=== PATIENT | male | born 1950 | race African-American/Black ===

== ENCOUNTER 2017-03-07 15:22 | Observation (INO) | payer OTHER ==
--- NOTE | 2017-03-07 15:33 | PDOC ---
Rapid Medical Evaluation Time Seen by Provider: 03/07/17 15:30 Medical Evaluation: Allergies Allergy/AdvReac Type Severity Reaction Status Date / Time No Known Allergies Allergy Verified 07/17/15 13:45 03/07/17 15:31 I have performed a brief in-person evaluation of this patient. The patient presents with a chief complaint of: Missed HD yesterday. Denies any medical complaints Pertinent physical exam findings:Stable and in NAD I have ordered the following:cbc/chem The patient will proceed to the ED for further evaluation.
--- NOTE | 2017-03-07 18:00 | PDOC ---
History of Present Illness - General Chief Complaint: Pain Stated Complaint: MISSED DIALYSIS TREATMENT Time Seen by Provider: 03/07/17 15:30 History Source: Patient, Spouse - History of Present Illness Initial Comments: 03/07/17 18:00 Patient is a 67M with history of multiple prior strokes, ESRD on TThS dialysis, seizures, DM, and HTN here today complaining of altered mental status. The is the main source of this history, the patient denies problems when directly asked. The reports that about a month ago, the patient had a sudden change in behavior, increased urinary incontinence, and left sided facial droop. Per the , he's also been complaining of chest pain with some shortness of breath , last complaint was last night. The patient denies all symptoms with the exception of urinary incontinence. The says that he refused to go to dialysis today, which caused her to bring him into the hospital. Past History - Past Medical History Allergies/Adverse Reactions: Allergies Allergy/AdvReac Type Severity Reaction Status Date / Time No Known Allergies Allergy Verified 07/17/15 13:45 Home Medications: Ambulatory Orders Aspirin [ASA -] 81 mg PO DAILY 11/21/14 Calcium Carbonate 600 mg PO DAILY 11/21/14 Hydralazine HCl 25 mg PO BID 11/21/14 Lisinopril [Prinivil] 10 mg PO DAILY 11/21/14 Amlodipine Besylate [Norvasc -] 10 mg PO DAILY #60 tablet 11/23/14 Ciprofloxacin [Cipro -] 500 mg PO Q12H #6 tablet 11/23/14 Nicotine Patch [Nicoderm Patch -] 14 mg TD DAILY #30 patch 11/23/14 Diazepam [Valium -] 5 mg PO Q6H PRN 11/24/14 Furosemide [Lasix -] 80 mg PO DAILY 11/24/14 Ibuprofen [Advil -] 200 mg PO QID PRN 11/24/14 Insulin (Novolog) [Novolog Flexpen] 0 units SQ ACHS 11/24/14 Levofloxacin [Levaquin -] 250 mg PO DAILY #10 tablet 11/24/14 Mirtazapine [Remeron -] 15 mg PO DAILY 11/24/14 Oxycodone HCl/Acetaminophen [Percocet 5/325 -] 2 tab PO DAILY 11/24/14 Tamsulosin HCl [Flomax] 0.4 mg PO DAILY 11/24/14 Ondansetron [Zofran Odt -] 4 mg SL TID PRN #21 od.tablet 07/17/15 Ondansetron [Zofran Odt -] 4 mg SL BID #14 od.tablet 07/18/15 Cancer: No Cardiac Disorders: No CVA: Yes (06/2014) COPD: No Dementia: No Diabetes: Yes Dialysis: Yes () GI Disorders: No Disorders: Yes (UTI) HTN: Yes Kidney Stones: Yes Liver Disease: (Hep B) Seizures: No Thyroid Disease: No - Surgical History Abdominal Surgery: Yes (SPLEENECTOMY) Cholecystectomy: Yes Neurologic Surgery: No Orthopedic Surgery: No - Suicide/Smoking/Psychosocial Hx Smoking History: Never smoked Have you smoked in the past 12 months: Yes Number of Cigarettes Smoked Daily: 2 'Breaking Loose' booklet given: 11/21/14 Hx Alcohol Use: No Drug/Substance Use Hx: No Substance Use Type: None Hx Substance Use Treatment: No Review of Systems - Review of Systems Comments:: 03/07/17 18:15 GENERAL/CONSTITUTIONAL: No fever or chills. No weakness. HEAD, EYES, EARS, NOSE AND THROAT: No change in vision. No sore throat. CARDIOVASCULAR: Positive for chest pain and shortness of breath RESPIRATORY: No cough, wheezing, or hemoptysis. GASTROINTESTINAL: No nausea, vomiting, diarrhea or constipation. GENITOURINARY: No dysuria, frequency, or change in urination. MUSCULOSKELETAL: No joint or muscle swelling or pain. No neck or back pain. SKIN: No rash NEUROLOGIC: No headache, vertigo, loss of consciousness, or change in strength/ sensation. ENDOCRINE: No increased thirst. No abnormal weight change HEMATOLOGIC/LYMPHATIC: No anemia, easy bleeding, or history of blood clots. ALLERGIC/IMMUNOLOGIC: No hives or skin allergy. *Physical Exam - Vital Signs Last Vital Signs Temp Pulse Resp BP Pulse Ox 97.8 F 60 20 159/92 99 03/07/17 15:30 03/07/17 15:30 03/07/17 15:30 03/07/17 15:30 03/07/17 15:30 - Physical Exam Comments: 03/07/17 18:18 GENERAL: Awake, alert, and fully oriented, in no acute distress HEAD: No signs of trauma, normocephalic, atraumatic EYES: PERRLA, EOMI, sclera anicteric, conjunctiva clear, left sided facial droop ENT: Auricles normal inspection, hearing grossly normal, nares patent, oropharynx clear without exudates. Moist mucosa NECK: Normal ROM, supple, no lymphadenopathy, JVD, or masses LUNGS: No distress, speaks full sentences, clear to auscultation bilaterally HEART: Regular rate and rhythm, normal S1 and S2, no murmurs, rubs or gallops, peripheral pulses normal and equal bilaterally. ABDOMEN: Soft, nontender, normoactive bowel sounds. No guarding, no rebound. No masses EXTREMITIES: Normal inspection, Normal range of motion, no edema. No clubbing or cyanosis. NEUROLOGICAL: Left sided facial droop Normal speech, left sided weakness SKIN: Warm, Dry, normal turgor, no rashes or lesions noted. ED Treatment Course - LABORATORY CBC & Chemistry Diagram: 03/07/17 17:48 03/07/17 17:48 Medical Decision Making - Medical Decision Making 03/07/17 18:19 67M with history of multiple prior strokes, esrd on dialysis, htn, dm here today with altered mental status. Vital signs stable and normal. Believe symptoms are most likely due to another stroke. Will evaluate with labs, ua, ekg , cxr and head ct. 03/07/17 21:32 Laboratory Tests 03/07/17 03/07/17 03/07/17 17:48 17:48 19:10 WBC 4.3 D Hgb 13.0 Hct 39.5 Plt Count 174 BUN 38 H Creatinine 5.6 H Urine WBC (Auto) 248 CBC normal. BUN/Cr eleavted, patient has missed dialysis. Urine shows WBC of 248. Positive UA for UTI. 03/07/17 21:34 CT Shows: Since 11/21/2014, a right parietal and posterior frontal/parietal junction infarct /encephalomalacia is present . Asymmetric lucency in the right frontal high convexity watershed region compatible with an old infarct. There is exvacuodilatation of the right lateral ventricle. There is mild-to- moderate volume loss and moderate ventricular dilatation. A right basal ganglia and right thalamus focal old infarct are again seen. CT shows changes from prior CT. Will admit for UTI and further neuro workup. *DC/Admit/Observation/Transfer Diagnosis at time of Disposition: Urinary tract infection, Facial droop - Discharge Dispostion Condition at time of disposition: Stable Admit: Yes - Referrals - Patient Instructions - Post Discharge Activity
[2017-03-07 18:10] LABS: BASOPHIL 0.5 % (0-2.0); EOSINOPHIL 3.5 % (0-4.5); MCH 30.8 pg (25.7-33.7); MCHC 32.9 g/dl (32.0-35.9); MEAN CELL VOLUME 93.6 fl (80-96); MEAN PLT VOLUME 9.7 fl (7.5-11.1); NEUTROPHILS 43.6 % (42.8-82.8); PLATELET COUNT 174 K/MM3 (134-434); RDW 14.2 % (11.9-15.9); WHITE BLOOD COUNT 4.3 K/mm3 (4.0-10.0)
[2017-03-07 18:33] LABS: PROTHROMBIN TIME (PATIENT) 11.3 SEC (9.98-11.88)
--- NOTE | 2017-03-07 18:36 | PDOC ---
Attending Attestation - HPI HPI: 03/07/17 18:40 Patient is a 67 y/o male with PMHx of HTN, HLD, CHF, CVA (2013, left-sided deficit), who presents to the ED after missing his dialysis treatment yesterday. Patient's family member states that she has noticed a mental status change. She states he has been showing symptoms of generalized weakness recently. Also c/o SOB, dry cough, and "false alarms" when using the restroom. - Physicial Exam PE: 03/07/17 18:40 GENERAL: + right-sided weakness. Awake, alert, and fully oriented, in no acute distress HEAD: + left-sided facial droop. No signs of trauma EYES: PERRLA, EOMI, sclera anicteric, conjunctiva clear ENT: Auricles normal inspection, hearing grossly normal, nares patent, oropharynx clear without exudates. Moist mucosa NECK: Normal ROM, supple, no lymphadenopathy, JVD, or masses LUNGS: Breath sounds equal, clear to auscultation bilaterally. No wheezes, and no crackles HEART: Regular rate and rhythm, normal S1 and S2, no murmurs, rubs or gallops ABDOMEN: Soft, nontender, normoactive bowel sounds. No guarding, no rebound. No masses EXTREMITIES: + fistula in left upper extremity. + No edema in legs, mild in hands. Normal range of motion. No clubbing or cyanosis. No cords, erythema, or tenderness NEUROLOGICAL: +AMS. Cranial nerves II through XII grossly intact. SKIN: Warm, Dry, normal turgor, no rashes or lesions noted. <Sherlyn Macdonald - Last Filed: 03/07/17 18:40> - Resident Resident Name: Gilberto Mcneil - ED Attending Attestation I have performed the following: I have examined & evaluated the patient, The case was reviewed & discussed with the resident, I agree w/resident's findings & plan, Exceptions are as noted - Medical Decision Making 03/07/17 18:35 I, Dr. Ivis Daigle, DO, attest that this document has been prepared under my direction and personally reviewed by me in its entirety. I further attest, that it accurately reflects all work, treatment, procedures and medical decision -making performed by me. 11/17/17 14:16 a/p: 67yo male presents with family for eval of a change in MS x 1 month and a L facial droop -generally weak -no slurred speech -concern for poss cva vs infectious cause of change in MS -will obtain labs, ua, trop, ekg, cxr, ct head -will monitor -pt will most likely need admission for further eval <Ivis Daigle - Last Filed: 03/09/17 14:17>
[2017-03-07 18:55] LABS: ALBUMIN 3.8 g/dl (3.4-5.0); ANION GAP 10 (8-16); CALCIUM 8.8 mg/dL (8.5-10.1); CO2 25 mmol/L (21-32); GLUCOSE,RANDOM 104 mg/dL (74-106)
[2017-03-07 18:58] LABS: ALK PHOS 99 U/L (45-117); CREATININE 5.6 mg/dL (0.7-1.3); SGPT/ALT 13 U/L (12-78)
[2017-03-07 18:59] LABS: SGOT/AST 19 U/L (15-37)
[2017-03-07 19:01] LABS: TROPONIN I 0.03 ng/ml (0.00-0.05)
[2017-03-07 19:02] LABS: MAGNESIUM 2.2 mg/dL (1.8-2.4)
[2017-03-07 19:25] LABS: URINE APPEARANCE SLCLOUDY; URINE BILIRUBIN NEGATIVE (NEGATIVE); URINE BLOOD 1+ (NEGATIVE); URINE COLOR YELLOW; URINE GLUCOSE (UA) NEGATIVE (NEGATIVE); URINE KETONE NEGATIVE (NEGATIVE); URINE NITRITE NEGATIVE (NEGATIVE); URINE UROBILINOGEN NEGATIVE mg/dL (0.2-1.0)
[2017-03-07 20:43] LABS: URINE PROTEIN 2+ (NEGATIVE)
[2017-03-07 20:46] LABS: URINE RBC 11; URINE WBC 248
[2017-03-07 21:56] LABS: URINE LEUK ESTERASE 3+ (NEGATIVE)
--- NOTE | 2017-03-07 22:58 | HP ---
CHIEF COMPLAINT: Altered Mental status PCP: HISTORY OF PRESENT ILLNESS: History was taken from the patient alone. was not at the bedside. 67M with history of multiple prior strokes, kidney stones, esrd on dialysis, htn , dm, BPH, Hep B, CVA (Lsided facial and LUE and LLE weakness) presenting today with AMS a day after missing dialysis. Patient has been on dialysis for about a year on a Sunday schedule who missed dialysis on Sunday because his aide did not arrive in time on the scheduled day. Patient currently has no new symptoms, he is SOB at baseline,with orthopnea and PND that has been gradually worsening. Patient has residual L sided upper and lower limb weakness and ambulates at home with a walker and cane. Patient also has chronic urinary incontinence, with poor stream, terminal dribbling and feelings of incomplete emptying. Patient came in to the ED today because his service control operator informed his and aide of the consequences of his missed dialysis. He is altered at baseline following the CVA and has memory and cognitive deficits. At the ED, based on the 's complaints, they assumed he had a new CVA and had a head CT done that showed old infarcts. No cough, no chest pain, no headache, no leg swelling or weight gain. No seizures, LOC, or syncope. ER course was notable for: (1) ua, ekg, cxr and head ct. (2) BUN/Cr elevated- 38/56, patient has missed dialysis. (3) Urine shows WBC of 248. Positive UA for UTI. Recent Travel: PAST MEDICAL HISTORY: kidney stone PAST SURGICAL HISTORY: Cholecystectomy, Splenectomy (6 years ago), nephrolithiasis s/p Stent Social History: Smoking:Yes Alcohol: Drugs: Family History: Allergies No Known Allergies Allergy (Verified 07/17/15 13:45) HOME MEDICATIONS: Home Medications Medication Instructions Recorded Aspirin [ASA -] 81 mg PO DAILY 11/21/14 Calcium Carbonate 600 mg PO DAILY 11/21/14 Hydralazine HCl 25 mg PO BID 11/21/14 Lisinopril [Prinivil] 10 mg PO DAILY 11/21/14 Amlodipine Besylate [Norvasc -] 10 mg PO DAILY #60 tablet 11/23/14 Ciprofloxacin [Cipro -] 500 mg PO Q12H #6 tablet 11/23/14 Nicotine Patch [Nicoderm Patch -] 14 mg TD DAILY #30 patch 11/23/14 Diazepam [Valium -] 5 mg PO Q6H PRN 11/24/14 Furosemide [Lasix -] 80 mg PO DAILY 11/24/14 Ibuprofen [Advil -] 200 mg PO QID PRN 11/24/14 Insulin (Novolog) [Novolog Flexpen] 0 units SQ ACHS 11/24/14 Levofloxacin [Levaquin -] 250 mg PO DAILY #10 tablet 11/24/14 Mirtazapine [Remeron -] 15 mg PO DAILY 11/24/14 Oxycodone HCl/Acetaminophen 2 tab PO DAILY 11/24/14 [Percocet 5/325 -] Tamsulosin HCl [Flomax] 0.4 mg PO DAILY 11/24/14 Ondansetron [Zofran Odt -] 4 mg SL TID PRN #21 od.tablet 07/17/15 Ondansetron [Zofran Odt -] 4 mg SL BID #14 od.tablet 07/18/15 REVIEW OF SYSTEMS CONSTITUTIONAL: Absent: fever, chills, diaphoresis, generalized weakness, malaise, loss of appetite, weight change HEENT: Absent: rhinorrhea, nasal congestion, throat pain, throat swelling, difficulty swallowing, mouth swelling, ear pain, eye pain, visual changes CARDIOVASCULAR: Absent: chest pain, syncope, palpitations, irregular heart rate, lightheadedness , peripheral edema RESPIRATORY: Absent: cough, shortness of breath, dyspnea with exertion, orthopnea, wheezing, stridor, hemoptysis GASTROINTESTINAL: Absent: abdominal pain, abdominal distension, nausea, vomiting, diarrhea, constipation, melena, hematochezia GENITOURINARY: Absent: dysuria, frequency, urgency, hesitancy, hematuria, flank pain, genital pain MUSCULOSKELETAL: Absent: myalgia, arthralgia, joint swelling, back pain, neck pain SKIN: Absent: rash, itching, pallor HEMATOLOGIC/IMMUNOLOGIC: Absent: easy bleeding, easy bruising, lymphadenopathy, frequent infections ENDOCRINE: Absent: unexplained weight gain, unexplained weight loss, heat intolerance, cold intolerance NEUROLOGIC: Absent: headache, focal weakness or paresthesias, dizziness, unsteady gait, seizure, mental status changes, bladder or bowel incontinence PSYCHIATRIC: Absent: anxiety, depression, suicidal or homicidal ideation, hallucinations. PHYSICAL EXAMINATION Vital Signs - 24 hr 03/07/17 03/07/17 15:30 21:36 Temperature 97.8 F Pulse Rate 60 Pulse Rate [ 57 L Apical] Respiratory 20 16 Rate Blood Pressure 159/92 Blood Pressure 152/99 [Right Arm] O2 Sat by Pulse 99 99 Oximetry (%) GENERAL: Awake, alert, and fully oriented, in no acute distress. HEAD: Normal with no signs of trauma. EYES: Pupils equal, round and reactive to light, extraocular movements intact, sclera anicteric, conjunctiva clear. EARS, NOSE, THROAT: Ears normal, nares patent, oropharynx clear without exudates. Moist mucous membranes. NECK: Normal range of motion, supple, no JVD. LUNGS: Breath sounds equal, clear to auscultation bilaterally. No wheezes, and no crackles. HEART: Regular rate and rhythm, normal S1 and S2 without murmur ABDOMEN: Midline abdominal scar, Soft, nontender, not distended, normoactive bowel sounds MUSCULOSKELETAL: No CVA tenderness. UPPER EXTREMITIES: 2+ pulses, warm, well-perfused. No cyanosis. No clubbing. No peripheral edema. LUE in fixed flexion at elbow, wrist and digits. Increased tone at L elbow, L wrist and L digits. L UE, Reflexes hard to assess. RUE- LOWER EXTREMITIES: 2+ pulses, warm, well-perfused. No calf tenderness. No peripheral edema. NEUROLOGICAL: Normal sensation bilaterally. Patient was able to spell world backwards, and draw a clock but could not recollect three words Face symmetric, Cranial nerves II-XII intact. Normal speech. Gait not observed, patient was on a wheel chair PSYCHIATRIC: Cooperative. Good eye contact. Laboratory Results - last 24 hr 03/07/17 03/07/17 03/07/17 17:48 17:48 17:48 WBC 4.3 D RBC 4.22 Hgb 13.0 Hct 39.5 MCV 93.6 MCH 30.8 MCHC 32.9 RDW 14.2 Plt Count 174 MPV 9.7 Neutrophils % 43.6 D Lymphocytes % 41.8 H D Monocytes % 10.6 H Eosinophils % 3.5 D Basophils % 0.5 PT with INR INR Sodium 139 Potassium 4.4 Chloride 104 Carbon Dioxide 25 D Anion Gap 10 BUN 38 H Creatinine 5.6 H Creat Clearance w eGFR 10.15 Random Glucose 104 Calcium 8.8 Magnesium 2.2 D Total Bilirubin 1.0 AST 19 D ALT 13 D Alkaline Phosphatase 99 D Creatine Kinase 130 Troponin I 0.03 D Total Protein 8.0 Albumin 3.8 Urine Color Urine Appearance Urine pH Ur Specific [place] Urine Protein Urine Glucose (UA) Urine Ketones Urine Blood Urine Nitrite Urine Bilirubin Urine Urobilinogen Ur Leukocyte Esterase Urine WBC (Auto) Urine RBC (Auto) Urine RBC 03/07/17 03/07/17 17:48 19:10 WBC RBC Hgb Hct MCV MCH MCHC RDW Plt Count MPV Neutrophils % Lymphocytes % Monocytes % Eosinophils % Basophils % PT with INR 11.30 INR 1.00 Sodium Potassium Chloride Carbon Dioxide Anion Gap BUN Creatinine Creat Clearance w eGFR Random Glucose Calcium Magnesium Total Bilirubin AST ALT Alkaline Phosphatase Creatine Kinase Troponin I Total Protein Albumin Urine Color Yellow Urine Appearance Slcloudy Urine pH 7.0 Ur Specific [place] 1.013 Urine Protein 2+ H Urine Glucose (UA) Negative Urine Ketones Negative Urine Blood 1+ H Urine Nitrite Negative Urine Bilirubin Negative Urine Urobilinogen Negative Ur Leukocyte Esterase 3+ H Urine WBC (Auto) 248 Urine RBC (Auto) 11 Urine RBC No Result Required. CT Shows: Since 11/21/2014, a right parietal and posterior frontal/parietal junction infarct /encephalomalacia is present . Asymmetric lucency in the right frontal high convexity watershed region compatible with an old infarct. There is exvacuodilatation of the right lateral ventricle. There is mild-to- moderate volume loss and moderate ventricular dilatation. A right basal ganglia and right thalamus focal old infarct are again seen. CT shows changes from prior CT. ASSESSMENT/PLAN: 67M with history of multiple prior strokes, kidney stones, esrd on dialysis, htn , dm, BPH, Hep B, CVA (Lsided facial and LUE and LLE weakness) presenting today with "AMS" as reported by , a day after missing dialysis #AMS: Patient appears to be at baseline since his stroke, Patient was able to spell world backwards, and draw a clock but could not recollect three words For routine hemodialysis [facility] here at [facility] or at [facility] CT scan- Carotid doppler scan Neurologist consult #Hx of CVA Prior CVA with L sided residual paresis Ct head Neurologist consult Carotid doppler scan #ESRD missed dialysis Was asked to come in by service control operator because of missed dialysis session Patient does not appear overloaded, or in respiratory distress Nephrology consult-Dr Mckeon #kidney stones s/p stents Pt has chronic incontinence No renal colic at present #UTI Positive UA Ceftriaxone #DM Pt has been euglycemic BGMS ISS #BPH Chronic features of prostatism #Pyuria Asymptomatic except for chronic features of prostatism #FEN Renal diet Visit type - Emergency Visit Emergency Visit: Yes ED Registration Date: 03/08/17 Care time: The patient presented to the Emergency Department on the above date and was hospitalized for further evaluation of their emergent condition. - New Patient This patient is new to me today: Yes Date on this admission: 03/08/17 - Critical Care Critical Care patient: No
--- NOTE | 2017-03-08 00:33 | PN ---
Teaching Attending Note Name of Resident: Sosa Sparrow ATTENDING PHYSICIAN STATEMENT I saw and evaluated the patient. I reviewed the resident's note and discussed the case with the resident. I agree with the resident's findings and plan as documented. SUBJECTIVE: patient states that he is here because he missed his dialysis, his aid did not arrive on time and he was not able to come . His rug cleaner hand called and advised his to come for evaluation. As per ED physician patient has new onset weakness. He denies new weakness. is not by the bedside. PMH CVA with left sided weakness DM HTN ESRD OBJECTIVE: Vital Signs Temperature 97.8 F 03/07/17 15:30 Pulse Rate 57 L 03/07/17 21:36 Respiratory Rate 16 03/07/17 21:36 Blood Pressure 152/99 03/07/17 21:36 O2 Sat by Pulse Oximetry (%) 99 03/07/17 21:36 HEENT PERRLA CVS S1 S2 WNL RS CTA B/l ABD soft NEURO Left arm weakness 2/5 , LLE weakness 4/5 unsteady gait CBC, BMP 03/07/17 17:48 03/07/17 17:48 CT brain - old R parietal infarct ( new from 2014) Urine Test Results Urine Color Yellow 03/07/17 19:10 Urine Appearance Slcloudy 03/07/17 19:10 Urine pH 7.0 (5.0-8.0) 03/07/17 19:10 Ur Specific [place] 1.013 (1.001-1.035) 03/07/17 19:10 Urine Protein 2+ (NEGATIVE) H 03/07/17 19:10 Urine Glucose (UA) Negative (NEGATIVE) 03/07/17 19:10 Urine Ketones Negative (NEGATIVE) 03/07/17 19:10 Urine Blood 1+ (NEGATIVE) H 03/07/17 19:10 Urine Nitrite Negative (NEGATIVE) 03/07/17 19:10 Urine Bilirubin Negative (NEGATIVE) 03/07/17 19:10 Ur Leukocyte Esterase 3+ (NEGATIVE) H 03/07/17 19:10 Urine RBC No Result Required. 03/07/17 19:10 ASSESSMENT AND PLAN: 1. Suspected AMS - appears to be at baseline. No acute changes. Old CVA and Left sided weakness - c/w ASA - c/w BP control 2. MIssed HD - no indication for acute HD - due for HD in am - nephrology eval d/c home after o/p follow up
[2017-03-08] MEDS ORDERED: hydrALAZINE HCL 25 MG TABLET (FP) ONE (01:51)
[2017-03-08] MEDS ORDERED: HEPARIN NA (PORCINE) 5,000 UNITS/ML 1ML VIAL SQ SCH (02:00)
[2017-03-08] MEDS: INSULIN SLIDING SCALE (NOVOLOG) 1 VIAL SQ SCH ×4 (06:45→21:41)
[2017-03-08 07:55] LABS: MCH 30.6 pg (25.7-33.7); MCHC 32.7 g/dl (32.0-35.9); MEAN CELL VOLUME 93.4 fl (80-96); MEAN PLT VOLUME 9.7 fl (7.5-11.1); PLATELET COUNT 157 K/MM3 (134-434); RDW 14.6 % (11.9-15.9); WHITE BLOOD COUNT 5.4 K/mm3 (4.0-10.0)
[2017-03-08 08:25] LABS: ANION GAP 10 (8-16); CALCIUM 8.3 mg/dL (8.5-10.1); CO2 25 mmol/L (21-32); CREATININE 6.1 mg/dL (0.7-1.3); GLUCOSE,RANDOM 112 mg/dL (74-106); MAGNESIUM 2.2 mg/dL (1.8-2.4); PHOSPHOROUS 3.6 mg/dL (2.5-4.9)
[2017-03-08] MEDS: ACETAMINOPHEN 325 MG TABLET (FP) PO PRN ×2 (08:44→21:42)
[2017-03-08] MEDS: HEPARIN NA (PORCINE) 5,000 UNITS/ML 1ML VIAL SQ SCH ×3 (08:45→21:37)
[2017-03-08] MEDS: TAMSULOSIN HCL 0.4 MG CAP.ER.24H (FP) PO SCH (08:45)
--- NOTE | 2017-03-08 09:37 | CONSULT ---
Consult - text type - Consultation Consultation Note: Neurology History of Present Illness Patient is a 67M with history of multiple prior strokes with L sided symptoms, ESRD on [facility]S dialysis, seizures, DM, and HTN admitted complaining of altered mental status. The reported that about a month ago, the patient had a sudden change in behavior, increased urinary incontinence, and left sided facial droop. The patient missed HD on day of admission and was admitted. He completed CT head which was reviewed and did not show acute changes. During my evaluation, was awake, alert, oriented to person place and date. He was cooperative and did not demonstrate and new focal deficits. Is awaiting HD but there is concern about patient able to care for self and may be planned for SNF placement. Past History - Past Medical History Allergies/Adverse Reactions: Allergies Allergy/AdvReac Type Severity Reaction Status Date / Time No Known Allergies Allergy Verified 07/17/15 13:45 Home Medications: Ambulatory Orders Aspirin [ASA -] 81 mg PO DAILY 11/21/14 Calcium Carbonate 600 mg PO DAILY 11/21/14 Hydralazine HCl 25 mg PO BID 11/21/14 Lisinopril [Prinivil] 10 mg PO DAILY 11/21/14 Amlodipine Besylate [Norvasc -] 10 mg PO DAILY #60 tablet 11/23/14 Ciprofloxacin [Cipro -] 500 mg PO Q12H #6 tablet 11/23/14 Nicotine Patch [Nicoderm Patch -] 14 mg TD DAILY #30 patch 11/23/14 Diazepam [Valium -] 5 mg PO Q6H PRN 11/24/14 Furosemide [Lasix -] 80 mg PO DAILY 11/24/14 Ibuprofen [Advil -] 200 mg PO QID PRN 11/24/14 Insulin (Novolog) [Novolog Flexpen] 0 units SQ ACHS 11/24/14 Levofloxacin [Levaquin -] 250 mg PO DAILY #10 tablet 11/24/14 Mirtazapine [Remeron -] 15 mg PO DAILY 11/24/14 Oxycodone HCl/Acetaminophen [Percocet 5/325 -] 2 tab PO DAILY 11/24/14 Tamsulosin HCl [Flomax] 0.4 mg PO DAILY 11/24/14 Ondansetron [Zofran Odt -] 4 mg SL TID PRN #21 od.tablet 07/17/15 Ondansetron [Zofran Odt -] 4 mg SL BID #14 od.tablet 07/18/15 Cancer: No Cardiac Disorders: No CVA: Yes (06/2014) COPD: No Dementia: No Diabetes: Yes Dialysis: Yes () GI Disorders: No Disorders: Yes (UTI) HTN: Yes Kidney Stones: Yes Liver Disease: (Hep B) Seizures: No Thyroid Disease: No - Surgical History Abdominal Surgery: Yes (SPLEENECTOMY) Cholecystectomy: Yes Neurologic Surgery: No Orthopedic Surgery: No - Suicide/Smoking/Psychosocial Hx Smoking History: Never smoked Have you smoked in the past 12 months: Yes Number of Cigarettes Smoked Daily: 2 'Breaking Loose' booklet given: 11/21/14 Hx Alcohol Use: No Drug/Substance Use Hx: No Substance Use Type: None Hx Substance Use Treatment: No Review of Systems GENERAL/CONSTITUTIONAL: No fever or chills. No weakness. HEAD, EYES, EARS, NOSE AND THROAT: No change in vision. No sore throat. CARDIOVASCULAR: Positive for chest pain and shortness of breath RESPIRATORY: No cough, wheezing, or hemoptysis. GASTROINTESTINAL: No nausea, vomiting, diarrhea or constipation. GENITOURINARY: No dysuria, frequency, or change in urination. MUSCULOSKELETAL: No joint or muscle swelling or pain. No neck or back pain. SKIN: No rash NEUROLOGIC: No headache, vertigo, loss of consciousness, or change in strength/ sensation. ENDOCRINE: No increased thirst. No abnormal weight change HEMATOLOGIC/LYMPHATIC: No anemia, easy bleeding, or history of blood clots. ALLERGIC/IMMUNOLOGIC: No hives or skin allergy. *Physical Exam Vital Signs Temperature 97.9 F 03/08/17 05:50 Pulse Rate 52 L 03/08/17 05:50 Respiratory Rate 18 03/08/17 05:50 Blood Pressure 138/79 03/08/17 05:50 O2 Sat by Pulse Oximetry (%) 95 03/08/17 03:09 03/07/17 18:18 GENERAL: Awake, alert, and fully oriented, in no acute distress HEAD: No signs of trauma, normocephalic, atraumatic EYES: PERRLA, EOMI, sclera anicteric, conjunctiva clear, left sided facial droop ENT: Auricles normal inspection, hearing grossly normal, nares patent, oropharynx clear without exudates. Moist mucosa NECK: Normal ROM, supple, no lymphadenopathy, JVD, or masses LUNGS: No distress, speaks full sentences, clear to auscultation bilaterally HEART: Regular rate and rhythm, normal S1 and S2, no murmurs, rubs or gallops, peripheral pulses normal and equal bilaterally. ABDOMEN: Soft, nontender, normoactive bowel sounds. No guarding, no rebound. No masses EXTREMITIES: Normal inspection, Normal range of motion, no edema. No clubbing or cyanosis. NEUROLOGICAL: Left sided facial droop Normal speech, left sided weakness SKIN: Warm, Dry, normal turgor, no rashes or lesions noted. CBCD WBC 5.4 K/mm3 (4.0-10.0) 03/08/17 06:55 RBC 3.66 M/mm3 (4.00-5.60) L 03/08/17 06:55 Hgb 11.2 GM/dL (11.7-16.9) L D 03/08/17 06:55 Hct 34.1 % (35.4-49) L 03/08/17 06:55 MCV 93.4 fl (80-96) 03/08/17 06:55 MCHC 32.7 g/dl (32.0-35.9) 03/08/17 06:55 RDW 14.6 % (11.9-15.9) 03/08/17 06:55 Plt Count 157 K/MM3 (134-434) 03/08/17 06:55 MPV 9.7 fl (7.5-11.1) 03/08/17 06:55 CMP Sodium 139 mmol/L (136-145) 03/08/17 06:55 Potassium 4.1 mmol/L (3.5-5.1) 03/08/17 06:55 Chloride 104 mmol/L (98-107) 03/08/17 06:55 Carbon Dioxide 25 mmol/L (21-32) 03/08/17 06:55 Anion Gap 10 (8-16) 03/08/17 06:55 BUN 44 mg/dL (7-18) H 03/08/17 06:55 Creatinine 6.1 mg/dL (0.7-1.3) H 03/08/17 06:55 Creat Clearance w eGFR 10.15 (>60) 03/07/17 17:48 Calcium 8.3 mg/dL (8.5-10.1) L 03/08/17 06:55 Total Bilirubin 1.0 mg/dL (0.2-1.0) 03/07/17 17:48 AST 19 U/L (15-37) D 03/07/17 17:48 ALT 13 U/L (12-78) D 03/07/17 17:48 Alkaline Phosphatase 99 U/L (45-117) D 03/07/17 17:48 Total Protein 8.0 g/dl (6.4-8.2) 03/07/17 17:48 Albumin 3.8 g/dl (3.4-5.0) 03/07/17 17:48 CT head reviewed Medical Decision Making 67M with history of multiple prior strokes with L sided symptoms, ESRD on TThS dialysis, seizures, DM, and HTN admitted complaining of altered mental status. The reported that about a month ago, the patient had a sudden change in behavior, increased urinary incontinence, and left sided facial droop. The patient missed HD on day of admission and was admitted. He completed CT head which was reviewed and did not show acute changes. During my evaluation, was awake, alert, oriented to person place and date. He was cooperative and did not demonstrate and new focal deficits. Does not appear to be seizure related and seizures remain stable. Is awaiting HD and missed HD possible etiology for AMS presentation. Continue Anti-HTn medications, maintain BP < 140/90 for CVA prevention. Can continue ASA. Continue DM management, tight glycemic control, continue current medication. Concern about patient able to care for self and may be planned for SNF placement.
--- NOTE | 2017-03-08 09:37 | PN ---
Progress Note (short form) - Note Progress Note: Subjective: The patient was seen and examined at the bedside, he states he feels like he is back to his baseline with weakness on his left side. He states that he would like to explore the option of going to a halfway as he and his are unable to take care of him at home. Current Medications Generic Name Dose Route Start Last Admin Trade Name Freq PRN Reason Stop Dose Admin Acetaminophen 650 mg 03/08/17 08:37 03/08/17 08:44 Tylenol - PO 650 mg Q6H PRN Administration FEVER OR PAIN Amlodipine Besylate 10 mg 03/08/17 10:00 Norvasc - PO DAILY [facility] Aspirin 81 mg 03/08/17 10:00 Asa - PO DAILY [facility] Calcium Carbonate 500 mg 03/08/17 10:00 Os-Nayan 500mg - PO DAILY [facility] Furosemide 80 mg 03/08/17 10:00 Lasix - PO DAILY [facility] Heparin Sodium (Porcine) 5,000 unit 03/08/17 08:00 03/08/17 08:45 Heparin - SQ 5,000 unit TID [facility] Administration Hydralazine HCl 25 mg 03/08/17 10:00 Apresoline - PO BID [facility] Insulin Aspart 1 vial 03/08/17 07:00 03/08/17 06:45 Novolog Vial Sliding Scale - SQ Not Given ACHS [facility] Protocol Lisinopril 10 mg 03/08/17 10:00 Prinivil PO DAILY [facility] Mirtazapine 15 mg 03/08/17 22:00 Remeron - PO HS [facility] Nicotine 14 mg 03/08/17 10:00 Nicoderm Patch - TD DAILY [facility] Tamsulosin HCl 0.4 mg 03/08/17 08:30 03/08/17 08:45 Flomax - PO 0.4 mg DAILY@0830 [facility] Administration Objective: Vital Signs Period Temp Pulse Resp BP Sys/Gore Pulse Ox Last 24 Hr 97.4 F-97.9 F 52-60 14-20 138-178/77-99 95-99 Physical Exam: General: NAD, poor dentition Lungs: CTA bilaterally Heart: RRR, S1S2 Abd: Soft, non-tender, non-distended. Normoactive bowel sounds Ext: LUE AV fistula, +thrill, +bruit. Warm, well-perfused. 2+ DP/PT bilaterally Neuro: Left upper extremity 2/5 muscle strength with some left hand contractures. LLE 4/5 muscle strength CBCD WBC 5.4 K/mm3 (4.0-10.0) 03/08/17 06:55 RBC 3.66 M/mm3 (4.00-5.60) L 03/08/17 06:55 Hgb 11.2 GM/dL (11.7-16.9) L D 03/08/17 06:55 Hct 34.1 % (35.4-49) L 03/08/17 06:55 MCV 93.4 fl (80-96) 03/08/17 06:55 MCHC 32.7 g/dl (32.0-35.9) 03/08/17 06:55 RDW 14.6 % (11.9-15.9) 03/08/17 06:55 Plt Count 157 K/MM3 (134-434) 03/08/17 06:55 MPV 9.7 fl (7.5-11.1) 03/08/17 06:55 CMP Sodium 139 mmol/L (136-145) 03/08/17 06:55 Potassium 4.1 mmol/L (3.5-5.1) 03/08/17 06:55 Chloride 104 mmol/L (98-107) 03/08/17 06:55 Carbon Dioxide 25 mmol/L (21-32) 03/08/17 06:55 Anion Gap 10 (8-16) 03/08/17 06:55 BUN 44 mg/dL (7-18) H 03/08/17 06:55 Creatinine 6.1 mg/dL (0.7-1.3) H 03/08/17 06:55 Creat Clearance w eGFR 10.15 (>60) 03/07/17 17:48 Random Glucose 112 mg/dL (74-106) H 03/08/17 06:55 Calcium 8.3 mg/dL (8.5-10.1) L 03/08/17 06:55 Total Bilirubin 1.0 mg/dL (0.2-1.0) 03/07/17 17:48 AST 19 U/L (15-37) D 03/07/17 17:48 ALT 13 U/L (12-78) D 03/07/17 17:48 Alkaline Phosphatase 99 U/L (45-117) D 03/07/17 17:48 Total Protein 8.0 g/dl (6.4-8.2) 03/07/17 17:48 Albumin 3.8 g/dl (3.4-5.0) 03/07/17 17:48 CARDIAC ENZYMES Creatine Kinase 130 IU/L (39-308) 03/07/17 17:48 Troponin I 0.03 ng/ml (0.00-0.05) D 03/07/17 17:48 Assessment: This is a 67 year old male with PMHx of CVA, renal calculi, ESRD on HD (,,), HTN, DM, BPH, HBV, HCV (unknown if treated), who presented to the ED with altered mental status after missing HD Plan: 1) Possible acute metabolic/infectious encephalopathy 2/2 UTI vs. missed HD session - Symptoms resolved without antibiotics or HD - Head CT: no significant change or acute intracranial pathology - Continue ASA - UA with 3+ leuks, 248 WBC. Patient complains of increased urinary incontinence and dysuia. Will start Ceftriaxone 1g IVPB daily an follow urine culture - Appreciate neurology consult 2) Hx of CVA with residual left sided weakness - Patient states his weakness is at baseline - F/u PT evaluation - Patient reports cannot take care of himself at home anymore, discussed with social group worker for possible SNF 3) ESRD on HD - Missed session on Sunday - Will need HD today - F/u nephrology consult 4) DM - BGM ACHS - ISS ACHS 5) F/E/N: - Monitor electrolytes - Renal, diabetic diet 6) Prophylaxis: - Deterioration in functional status at home. Increased left sided weakness. Patient reports over the past few days he has noticed an increase in his weakness and has difficulty ambulating on his own. He states because of it, he has urinated on himself because he cannot make it to the bathroom in time. - PT evaluation: 10 feet only - Heparin 5,000u sq tid 7) Dispo: - Once condition improves CODE STATUS: FULL CODE Visit type - Emergency Visit Emergency Visit: Yes ED Registration Date: 03/08/17 Care time: The patient presented to the Emergency Department on the above date and was hospitalized for further evaluation of their emergent condition. - New Patient This patient is new to me today: Yes Date on this admission: 03/08/17 - Critical Care Critical Care patient: No
--- NOTE | 2017-03-08 10:20 | CONSULT ---
Consultation: REQUESTING PROVIDER: Dr. Sparrow CONSULT REQUEST: We have been asked to medically evaluate this patient for Nephrology (w/ Dr. Mckeon). HISTORY OF PRESENT ILLNESS: 67 y/o M with PMH of ESRD on HD (TTS at [facility] in [place]), CVA w/residual L sided weakness, HTN, DM, BPH, Hep B, CHF, kidney stones presents to the ER after missing dialysis. Pt states he did not go to dialysis because he has been incontinent and ran out of diapers and had urine on himself and did not want to leave house with urine in pants. His aide was not there at the time to help him get changed so he decided against going to dialysis. He does complain of increased frequency of urination over the last month but denies dysuria or gross blood in the urine. He also denies N/V/F/C, CP, SOB, new back pain, abd pain, swelling in LE, new focal weakness, generalized weakness. He states he feels "fair" today and around his baseline. His brought him to the ER because she was concerned that he missed dialysis. PMH: ESRD on HD (TTS at [facility] in [place]), CVA w/residual L sided weakness, HTN, DM, BPH, Hep B, CHF, kidney stones Past surgical hx: Cholecystectomy, Splenectomy (6 years ago), nephrolithiasis s/ p Stent FHx: n-c Social Hx: Denies drinking. Quit smoking 4 months ago. Smoked 1ppd for 50 years. Allergies: NKDA REVIEW OF SYSTEMS: CONSTITUTIONAL: Absent: fever, chills, generalized weakness, malaise CARDIOVASCULAR: Absent: chest pain, peripheral edema RESPIRATORY: Absent: cough, shortness of breath GASTROINTESTINAL: Absent: abdominal pain, abdominal distension, nausea, vomiting GENITOURINARY: +frequency Absent: dysuria, urgency, hematuria MUSCULOSKELETAL: +chronic back pain (no new back pain) NEUROLOGIC: Absent: focal weakness or paresthesias PHYSICAL EXAMINATION Vital Signs - 24 hr 03/07/17 03/07/17 03/08/17 15:30 21:36 02:16 Temperature 97.8 F 97.4 F L Pulse Rate 60 Pulse Rate [ 57 L 54 L Apical] Respiratory 20 16 18 Rate Blood Pressure 159/92 Blood Pressure 152/99 152/77 [Right Arm] O2 Sat by Pulse 99 99 95 Oximetry (%) 03/08/17 03/08/17 03/08/17 02:54 03:09 05:50 Temperature 97.8 F 97.9 F Pulse Rate 57 L 52 L Pulse Rate [ Apical] Respiratory 14 18 Rate Blood Pressure 178/89 138/79 Blood Pressure [Right Arm] O2 Sat by Pulse 95 Oximetry (%) GENERAL: Awake, alert, and fully oriented, in no acute distress. EYES:sclera anicteric, conjunctiva clear. EARS, NOSE, THROAT: Ears normal, nares patent LUNGS: Diminished breath sounds but otherwise CTA-B/L HEART: Regular rate and rhythm, normal S1 and S2 ABDOMEN: Soft, nontender, not distended, normoactive bowel sounds MUSCULOSKELETAL: +Mild CVA tenderness b/l (R>L). L arm contracted. L upper arm with dialysis graft. LOWER EXTREMITIES: warm, well-perfused. No peripheral edema. NEUROLOGICAL: Somewhat delayed speech. PSYCHIATRIC: Cooperative. Good eye contact. Appropriate mood and affect. SKIN: Warm, dry Laboratory Results - last 24 hr 03/07/17 03/07/17 03/07/17 17:48 17:48 17:48 WBC 4.3 D RBC 4.22 Hgb 13.0 Hct 39.5 MCV 93.6 MCH 30.8 MCHC 32.9 RDW 14.2 Plt Count 174 MPV 9.7 Neutrophils % 43.6 D Lymphocytes % 41.8 H D Monocytes % 10.6 H Eosinophils % 3.5 D Basophils % 0.5 PT with INR INR Sodium 139 Potassium 4.4 Chloride 104 Carbon Dioxide 25 D Anion Gap 10 BUN 38 H Creatinine 5.6 H Creat Clearance w eGFR 10.15 POC Glucometer Random Glucose 104 Calcium 8.8 Phosphorus Magnesium 2.2 D Total Bilirubin 1.0 AST 19 D ALT 13 D Alkaline Phosphatase 99 D Creatine Kinase 130 Troponin I 0.03 D Total Protein 8.0 Albumin 3.8 Urine Color Urine Appearance Urine pH Ur Specific [place] Urine Protein Urine Glucose (UA) Urine Ketones Urine Blood Urine Nitrite Urine Bilirubin Urine Urobilinogen Ur Leukocyte Esterase Urine WBC (Auto) Urine RBC (Auto) Urine RBC 03/07/17 03/07/17 03/08/17 17:48 19:10 06:36 WBC RBC Hgb Hct MCV MCH MCHC RDW Plt Count MPV Neutrophils % Lymphocytes % Monocytes % Eosinophils % Basophils % PT with INR 11.30 INR 1.00 Sodium Potassium Chloride Carbon Dioxide Anion Gap BUN Creatinine Creat Clearance w eGFR POC Glucometer 116 Random Glucose Calcium Phosphorus Magnesium Total Bilirubin AST ALT Alkaline Phosphatase Creatine Kinase Troponin I Total Protein Albumin Urine Color Yellow Urine Appearance Slcloudy Urine pH 7.0 Ur Specific [place] 1.013 Urine Protein 2+ H Urine Glucose (UA) Negative Urine Ketones Negative Urine Blood 1+ H Urine Nitrite Negative Urine Bilirubin Negative Urine Urobilinogen Negative Ur Leukocyte Esterase 3+ H Urine WBC (Auto) 248 Urine RBC (Auto) 11 Urine RBC No Result Required. 03/08/17 03/08/17 06:55 06:55 WBC 5.4 RBC 3.66 L Hgb 11.2 L D Hct 34.1 L MCV 93.4 MCH 30.6 MCHC 32.7 RDW 14.6 Plt Count 157 MPV 9.7 Neutrophils % Lymphocytes % Monocytes % Eosinophils % Basophils % PT with INR INR Sodium 139 Potassium 4.1 Chloride 104 Carbon Dioxide 25 Anion Gap 10 BUN 44 H Creatinine 6.1 H Creat Clearance w eGFR POC Glucometer Random Glucose 112 H Calcium 8.3 L Phosphorus 3.6 Magnesium 2.2 Total Bilirubin AST ALT Alkaline Phosphatase Creatine Kinase Troponin I Total Protein Albumin Urine Color Urine Appearance Urine pH Ur Specific [place] Urine Protein Urine Glucose (UA) Urine Ketones Urine Blood Urine Nitrite Urine Bilirubin Urine Urobilinogen Ur Leukocyte Esterase Urine WBC (Auto) Urine RBC (Auto) Urine RBC Imaging: CXR: NAP Head CT: No sig interval change or acute intracranial pathology noted. Active Medications Generic Name Dose Route Start Last Admin Trade Name Freq PRN Reason Stop Dose Admin Acetaminophen 650 mg 03/08/17 08:37 03/08/17 08:44 Tylenol - PO 650 mg Q6H PRN Administration FEVER OR PAIN Amlodipine Besylate 10 mg 03/08/17 10:00 Norvasc - PO DAILY [facility] Aspirin 81 mg 03/08/17 10:00 Asa - PO DAILY [facility] Calcium Carbonate 500 mg 03/08/17 10:00 Os-Nayan 500mg - PO DAILY [facility] Furosemide 80 mg 03/08/17 10:00 Lasix - PO DAILY [facility] Heparin Sodium (Porcine) 5,000 unit 03/08/17 08:00 03/08/17 08:45 Heparin - SQ 5,000 unit TID [facility] Administration Hydralazine HCl 25 mg 03/08/17 10:00 Apresoline - PO BID [facility] CEFTRIAXONE 1 G/50 ML PREMIX 50 mls @ 100 mls/hr 03/08/17 09:45 Ceftriaxone 1 Gm-D5w Bag IVPB DAILY [facility] Insulin Aspart 1 vial 03/08/17 07:00 03/08/17 06:45 Novolog Vial Sliding Scale - SQ Not Given ACHS [facility] Protocol Lisinopril 10 mg 03/08/17 10:00 Prinivil PO DAILY [facility] Mirtazapine 15 mg 03/08/17 22:00 Remeron - PO HS [facility] Nicotine 14 mg 03/08/17 10:00 Nicoderm Patch - TD DAILY [facility] Tamsulosin HCl 0.4 mg 03/08/17 08:30 03/08/17 08:45 Flomax - PO 0.4 mg DAILY@0830 [facility] Administration ASSESSMENT/PLAN: 67 y/o M with PMH of ESRD on HD (TTS at [facility] in [place]), CVA w/residual L sided weakness, HTN, DM, BPH, Hep B, CHF, kidney stones presents to the ER after missing dialysis. -ESRD on HD (TTS) -missed dialysis on Sunday -Will dialyze today -Epogen 4000 units -goes to [facility] in [place] -Monitor BMP, Ca, Phos, Mg, BUN/Cr -Renal/Bladder US -Avoid nephrotoxic agents -UTI -UA w/+LE and 248 WBC -on ceftriaxone -Will also get Renal/Bladder US, check prostate volume on US -f/u UCx Dispo: We will continue to follow the patient. Thank you for this consultative opportunity. Visit type - Emergency Visit Emergency Visit: Yes ED Registration Date: 03/08/17 Care time: The patient presented to the Emergency Department on the above date and was hospitalized for further evaluation of their emergent condition. - New Patient This patient is new to me today: Yes Date on this admission: 03/08/17 - Critical Care Critical Care patient: No
[2017-03-08] MEDS: hydrALAZINE HCL 25 MG TABLET (FP) PO SCH ×2 (10:21→21:36)
[2017-03-08] MEDS: CEFTRIAXONE 1 G/50 ML PREMIX 50 ML IVPB SCH ×2 (10:21→10:23)
[2017-03-08] MEDS: NICOTINE 14 MG/24 HOURS TOPICAL PATCH TD SCH (10:21)
[2017-03-08] MEDS: LISINOPRIL 10 MG TABLET (FP) PO SCH (10:22)
[2017-03-08] MEDS: FUROSEMIDE 40 MG TABLET (FP) PO SCH (10:22)
[2017-03-08] MEDS: amLODIPine BESYLATE 5 MG TABLET (FP) PO SCH (10:22)
[2017-03-08] MEDS: ASPIRIN 81 MG CHEWABLE TABLETS PO SCH (10:22)
[2017-03-08] MEDS: CALCIUM (OYSTER SHELL) 500 MG TABLET (FP) PO SCH (10:23)
--- NOTE | 2017-03-08 11:02 | PN ---
Teaching Attending Note Name of Resident: Red Menjivar (Nephrology) ATTENDING PHYSICIAN STATEMENT I saw and evaluated the patient. I reviewed the resident's note and discussed the case with the resident. I agree with the resident's findings and plan as documented. SUBJECTIVE: This is a 67 year old gentleman with PMhx of ESRD on HD (TTS at [facility]), Hx of CVA with left side weakness, Seizure disorder who presented from home with AMS/Suspected Left sided weakness and admitted with r/o CVA. Pt reports that he missed his last dialysis treatment (? Sunday) . Pt is awake and alert, reports that he is at [facility]. Started on dialysis ~4 months ago. + Hx of Kidney stones. Pt reports urinary frequency and incontinence. No dysuria, fever, chills. Reports some left sided flank pain. No sob, chest pain, abd pain PMhx: As above Allergies: NKDA Family Hx: NC Social Hx: No T/A/D ROS: as per HPI, all other pertinent ros negative Home Medications Medication Instructions Recorded Aspirin [ASA -] 81 mg PO DAILY 11/21/14 Calcium Carbonate 600 mg PO DAILY 11/21/14 Hydralazine HCl 25 mg PO BID 11/21/14 Lisinopril [Prinivil] 10 mg PO DAILY 11/21/14 Amlodipine Besylate [Norvasc -] 10 mg PO DAILY #60 tablet 11/23/14 Ciprofloxacin [Cipro -] 500 mg PO Q12H #6 tablet 11/23/14 Nicotine Patch [Nicoderm Patch -] 14 mg TD DAILY #30 patch 11/23/14 Diazepam [Valium -] 5 mg PO Q6H PRN 11/24/14 Furosemide [Lasix -] 80 mg PO DAILY 11/24/14 Ibuprofen [Advil -] 200 mg PO QID PRN 11/24/14 Insulin (Novolog) [Novolog Flexpen] 0 units SQ ACHS 11/24/14 Levofloxacin [Levaquin -] 250 mg PO DAILY #10 tablet 11/24/14 Mirtazapine [Remeron -] 15 mg PO DAILY 11/24/14 Oxycodone HCl/Acetaminophen 2 tab PO DAILY 11/24/14 [Percocet 5/325 -] Tamsulosin HCl [Flomax] 0.4 mg PO DAILY 11/24/14 Ondansetron [Zofran Odt -] 4 mg SL TID PRN #21 od.tablet 07/17/15 Ondansetron [Zofran Odt -] 4 mg SL BID #14 od.tablet 07/18/15 OBJECTIVE: Vital Signs Temperature 97.9 F 03/08/17 05:50 Pulse Rate 52 L 03/08/17 05:50 Respiratory Rate 18 03/08/17 05:50 Blood Pressure 138/79 03/08/17 05:50 O2 Sat by Pulse Oximetry (%) 95 03/08/17 03:09 Initial Vital Signs Temp Pulse Resp BP Pulse Ox 97.8 F 60 20 159/92 99 03/07/17 15:30 03/07/17 15:30 03/07/17 15:30 03/07/17 15:30 03/07/17 15:30 NAD, awake and alert No JVD, Neck supple, MMM Bradycardic, no murmur CTA, no rales or wheeze Soft NT/ND + mild left CVA tenderness No LE edema left arm AVF + thrill and bruit CBC, BMP 03/08/17 06:55 03/08/17 06:55 Current Medications Acetaminophen (Tylenol -) 650 mg PO Q6H PRN PRN Reason: FEVER OR PAIN Last Admin: 03/08/17 08:44 Dose: 650 mg Amlodipine Besylate (Norvasc -) 10 mg PO DAILY [facility] Last Admin: 03/08/17 10:22 Dose: 10 mg Aspirin (Asa -) 81 mg PO DAILY [facility] Last Admin: 03/08/17 10:22 Dose: 81 mg Calcium Carbonate (Os-Nayan 500mg -) 500 mg PO DAILY [facility] Last Admin: 03/08/17 10:23 Dose: 500 mg Epoetin Emil (Procrit -) 4,000 unit SQ ONCE ONE Stop: 03/08/17 10:53 Furosemide (Lasix -) 80 mg PO DAILY [facility] Last Admin: 03/08/17 10:22 Dose: 80 mg Heparin Sodium (Porcine) (Heparin -) 5,000 unit SQ TID [facility] Last Admin: 03/08/17 08:45 Dose: 5,000 unit Hydralazine HCl (Apresoline -) 25 mg PO BID [facility] Last Admin: 03/08/17 10:21 Dose: 25 mg CEFTRIAXONE 1 G/50 ML PREMIX (Ceftriaxone 1 Gm-D5w Bag) 50 mls @ 100 mls/hr IVPB DAILY [facility] Last Admin: 03/08/17 10:23 Dose: Not Given Insulin Aspart (Novolog Vial Sliding Scale -) 1 vial SQ ACHS [facility] PRN Reason: Protocol Last Admin: 03/08/17 06:45 Dose: Not Given Lisinopril (Prinivil) 10 mg PO DAILY [facility] Last Admin: 03/08/17 10:22 Dose: 10 mg Mirtazapine (Remeron -) 15 mg PO HS [facility] Nicotine (Nicoderm Patch -) 14 mg TD DAILY [facility] Last Admin: 03/08/17 10:21 Dose: 14 mg Tamsulosin HCl (Flomax -) 0.4 mg PO DAILY@0830 [facility] Last Admin: 03/08/17 08:45 Dose: 0.4 mg ASSESSMENT AND PLAN: 67 year old gentleman with PMhx of ESRD on HD (TTS at [facility]), Hx of CVA with left side weakness, Seizure disorder who presented from home with AMS/Suspected Left sided weakness and admitted with r/o CVA. Pt reports that he missed his last dialysis treatment (? Sunday). #ESRD on HD For dialysis today as inpatient for 3.5 hour treatment with 2k bath UF goal ~2.5L Dose all meds for intermittent HD Renal Diet 1.2 L fluid restriction daily #AMS/r/o CVA CT head negative Carotid doppler pending on ASA #Urinary Frequency with mild CVA tenderness f/u urine culture on Ceftriaxone check Kidney and bladder Us r/o structural problem with tract #Hypertension Continue Lisinopril, Amlodipine, Hydralazine Goal BP < 140/90 Low salt diet Thank you will follow Trevin Mckeon DO
--- NOTE | 2017-03-08 11:09 | EKG ---
Test Reason : Blood Pressure : / mmHG Vent. Rate : 059 BPM Atrial Rate : 059 BPM P-R Int : 292 ms QRS Dur : 064 ms QT Int : 482 ms P-R-T Axes : 066 -01 012 degrees QTc Int : 477 ms SINUS BRADYCARDIA WITH 1ST DEGREE A-V BLOCK WITH OCCASIONAL PREMATURE VENTRICULAR COMPLEXES SEPTAL INFARCT (CITED ON OR BEFORE 21-JUL-2014) ABNORMAL ECG WHEN COMPARED WITH ECG OF 24-NOV-2014 15:21, PREMATURE VENTRICULAR COMPLEXES ARE NOW PRESENT NONSPECIFIC T WAVE ABNORMALITY, IMPROVED IN LATERAL LEADS Confirmed by KIRSTEN HALL MD ([id number]) on 03/08/2017 11:08:42 AM Referred By: Confirmed By:KIRSTEN HALL MD
[2017-03-08] MEDS ORDERED: EPOETIN ALFA 2,000 UNITS/1 ML VIAL IVPUSH ONE (11:15)
[2017-03-08] MEDS ORDERED: MIRTAZAPINE 15 MG TABLET (FP) PO SCH (22:00)
[2017-03-09] MEDS: HEPARIN NA (PORCINE) 5,000 UNITS/ML 1ML VIAL SQ SCH ×2 (05:42→13:59)
[2017-03-09] MEDS: INSULIN SLIDING SCALE (NOVOLOG) 1 VIAL SQ SCH ×2 (06:04→12:04)
[2017-03-09] MEDS: TAMSULOSIN HCL 0.4 MG CAP.ER.24H (FP) PO SCH (07:52)
[2017-03-09 09:06] LABS: ALBUMIN 3.2 g/dl (3.4-5.0); ANION GAP 10 (8-16); CALCIUM 8.5 mg/dL (8.5-10.1); CO2 28 mmol/L (21-32); CREATININE 4.8 mg/dL (0.7-1.3); GLUCOSE,RANDOM 102 mg/dL (74-106); PHOSPHOROUS 3.2 mg/dL (2.5-4.9)
--- NOTE | 2017-03-09 10:07 | PN ---
Progress Note (short form) - Note Progress Note: Neurology History of Present Illness Patient is a 67M with history of multiple prior strokes with L sided symptoms, ESRD on [facility]Th[facility] dialysis, seizures, DM, and HTN admitted complaining of altered mental status. The reported that about a month ago, the patient had a sudden change in behavior, increased urinary incontinence, and left sided facial droop. The patient missed HD on day of admission and was admitted. He completed CT head which was reviewed and did not show acute changes. During my evaluation, was awake, alert, oriented to person place and date. He was cooperative and did not demonstrate and new focal deficits. Concern about patient able to care for self and may be planned for SNF placement. Possible toxic metabolic enceph 2/2 UTI vs missed HD. Active Medications Acetaminophen (Tylenol -) 650 mg PO Q6H PRN PRN Reason: FEVER OR PAIN Last Admin: 03/08/17 21:42 Dose: 650 mg Amlodipine Besylate (Norvasc -) 10 mg PO DAILY [facility] Last Admin: 03/08/17 10:22 Dose: 10 mg Aspirin (Asa -) 81 mg PO DAILY [facility] Last Admin: 03/08/17 10:22 Dose: 81 mg Calcium Carbonate (Os-Nayan 500mg -) 500 mg PO DAILY [facility] Last Admin: 03/08/17 10:23 Dose: 500 mg Furosemide (Lasix -) 80 mg PO DAILY [facility] Last Admin: 03/08/17 10:22 Dose: 80 mg Heparin Sodium (Porcine) (Heparin -) 5,000 unit SQ TID [facility] Last Admin: 03/09/17 05:42 Dose: Not Given Hydralazine HCl (Apresoline -) 25 mg PO BID [facility] Last Admin: 03/08/17 21:36 Dose: 25 mg CEFTRIAXONE 1 G/50 ML PREMIX (Ceftriaxone 1 Gm-D5w Bag) 50 mls @ 100 mls/hr IVPB DAILY [facility] Last Admin: 03/08/17 10:23 Dose: Not Given Insulin Aspart (Novolog Vial Sliding Scale -) 1 vial SQ ACHS [facility] PRN Reason: Protocol Last Admin: 03/09/17 06:04 Dose: Not Given Lisinopril (Prinivil) 10 mg PO DAILY [facility] Last Admin: 03/08/17 10:22 Dose: 10 mg Mirtazapine (Remeron -) 15 mg PO HS [facility] Last Admin: 03/08/17 21:36 Dose: 15 mg Nicotine (Nicoderm Patch -) 14 mg TD DAILY [facility] Last Admin: 03/08/17 10:21 Dose: 14 mg Tamsulosin HCl (Flomax -) 0.4 mg PO DAILY@0830 [facility] Last Admin: 03/09/17 07:52 Dose: 0.4 mg *Physical Exam Vital Signs Period Temp Pulse Resp BP Sys/Gore Pulse Ox Last 24 Hr 97.1 F-98.1 F 53-66 16-20 102-156/60-88 96 GENERAL: Awake, alert, and fully oriented, in no acute distress HEAD: No signs of trauma, normocephalic, atraumatic EYES: PERRLA, EOMI, sclera anicteric, conjunctiva clear, left sided facial droop ENT: Auricles normal inspection, hearing grossly normal, nares patent, oropharynx clear without exudates. Moist mucosa NECK: Normal ROM, supple, no lymphadenopathy, JVD, or masses LUNGS: No distress, speaks full sentences, clear to auscultation bilaterally HEART: Regular rate and rhythm, normal S1 and S2, no murmurs, rubs or gallops, peripheral pulses normal and equal bilaterally. ABDOMEN: Soft, nontender, normoactive bowel sounds. No guarding, no rebound. No masses EXTREMITIES: Normal inspection, Normal range of motion, no edema. No clubbing or cyanosis. NEUROLOGICAL: Left sided facial droop Normal speech, left sided weakness SKIN: Warm, Dry, normal turgor, no rashes or lesions noted. CBCD WBC 5.4 K/mm3 (4.0-10.0) 03/08/17 06:55 RBC 3.66 M/mm3 (4.00-5.60) L 03/08/17 06:55 Hgb 11.2 GM/dL (11.7-16.9) L D 03/08/17 06:55 Hct 34.1 % (35.4-49) L 03/08/17 06:55 MCV 93.4 fl (80-96) 03/08/17 06:55 MCHC 32.7 g/dl (32.0-35.9) 03/08/17 06:55 RDW 14.6 % (11.9-15.9) 03/08/17 06:55 Plt Count 157 K/MM3 (134-434) 03/08/17 06:55 MPV 9.7 fl (7.5-11.1) 03/08/17 06:55 CMP Sodium 143 mmol/L (136-145) 03/09/17 08:05 Potassium 3.7 mmol/L (3.5-5.1) 03/09/17 08:05 Chloride 105 mmol/L (98-107) 03/09/17 08:05 Carbon Dioxide 28 mmol/L (21-32) 03/09/17 08:05 Anion Gap 10 (8-16) 03/09/17 08:05 BUN 29 mg/dL (7-18) H D 03/09/17 08:05 Creatinine 4.8 mg/dL (0.7-1.3) H D 03/09/17 08:05 Creat Clearance w eGFR 10.15 (>60) 03/07/17 17:48 Calcium 8.5 mg/dL (8.5-10.1) 03/09/17 08:05 Total Bilirubin 1.0 mg/dL (0.2-1.0) 03/07/17 17:48 AST 19 U/L (15-37) D 03/07/17 17:48 ALT 13 U/L (12-78) D 03/07/17 17:48 Alkaline Phosphatase 99 U/L (45-117) D 03/07/17 17:48 Total Protein 8.0 g/dl (6.4-8.2) 03/07/17 17:48 Albumin 3.2 g/dl (3.4-5.0) L 03/09/17 08:05 CT head reviewed Medical Decision Making 67M with history of multiple prior strokes with L sided symptoms, ESRD on [facility] dialysis, seizures, DM, and HTN admitted complaining of altered mental status. The reported that about a month ago, the patient had a sudden change in behavior, increased urinary incontinence, and left sided facial droop. The patient missed HD on day of admission and was admitted. He completed CT head which was reviewed and did not show acute changes. During my evaluation, was awake, alert, oriented to person place and date. He was cooperative and did not demonstrate and new focal deficits. Does not appear to be seizure related and seizures remain stable. UTI vs missed HD possible etiology for AMS presentation. Continue Anti-HTn medications, maintain BP < 140/90 for CVA prevention. Can continue ASA. Continue DM management, tight glycemic control, continue current medication. Concern about patient able to care for self and may be planned for SNF placement.
[2017-03-09] MEDS: CEFTRIAXONE 1 G/50 ML PREMIX 50 ML IVPB SCH (11:21)
[2017-03-09] MEDS: ASPIRIN 81 MG CHEWABLE TABLETS PO SCH (11:21)
[2017-03-09] MEDS: LISINOPRIL 10 MG TABLET (FP) PO SCH (11:21)
[2017-03-09] MEDS: hydrALAZINE HCL 25 MG TABLET (FP) PO SCH (11:21)
[2017-03-09] MEDS: NICOTINE 14 MG/24 HOURS TOPICAL PATCH TD SCH (11:21)
[2017-03-09] MEDS: FUROSEMIDE 40 MG TABLET (FP) PO SCH (11:21)
[2017-03-09] MEDS: CALCIUM (OYSTER SHELL) 500 MG TABLET (FP) PO SCH (11:21)
[2017-03-09] MEDS: amLODIPine BESYLATE 5 MG TABLET (FP) PO SCH (11:21)
[2017-03-09 13:27] VITALS: BP 153/89; PULSE 69; TEMP 98.6
--- NOTE | 2017-03-09 13:37 | DS ---
Physical Examination Vital Signs: Vital Signs Temperature 98.6 F 03/09/17 13:25 Pulse Rate 69 03/09/17 13:25 Respiratory Rate 19 03/09/17 13:25 Blood Pressure 153/89 03/09/17 13:25 O2 Sat by Pulse Oximetry (%) 96 03/09/17 02:00 Labs: CBC, BMP 03/08/17 06:55 03/09/17 08:05 Discharge Summary Reason For Visit: ALTERED MENTAL STATUS Condition: Stable - Instructions Diet, Activity, Other Instructions: Please return to the ED with new, persistent, or worsening symptoms. Please follow-up with providers as indicated. Referrals: Fausto South MD [Staff Physician] - 1 Week Trevin Mckeon MD [Staff Physician] - 1 Week (Please follow-up with nephrology within 1 week for further management of your ESRD) Moses West MD [Staff Physician] - (Please follow-up with GI within 1 week for an evaluation for possible Hepatitis C treatment) Disposition: [facility] - Home Medications Comprehensive Discharge Medication List: Ambulatory Orders Aspirin [ASA -] 81 mg PO DAILY 11/21/14 Calcium Carbonate 600 mg PO DAILY 11/21/14 Hydralazine HCl 25 mg PO BID 11/21/14 Lisinopril [Prinivil] 10 mg PO DAILY 11/21/14 Amlodipine Besylate [Norvasc -] 10 mg PO DAILY #60 tablet 11/23/14 Nicotine Patch [Nicoderm Patch -] 14 mg TD DAILY #30 patch 11/23/14 Furosemide [Lasix -] 80 mg PO DAILY 11/24/14 Insulin (Novolog) [Novolog Flexpen -] 0 units SQ ACHS 11/24/14 Mirtazapine [Remeron -] 15 mg PO DAILY 11/24/14 Oxycodone HCl/Acetaminophen [Percocet 5-325 mg Tablet] 2 tab PO DAILY 11/24/14 Tamsulosin HCl [Flomax -] 0.4 mg PO DAILY 11/24/14
--- NOTE | 2017-03-09 16:12 | PN ---
Progress Note (short form) - Note Progress Note: Renal Follow up for ESRD on HD Pt seen and examined at the bedside awake and alert for discharge today s/p dialysis yesterday Vital Signs Temperature 98.6 F 03/09/17 13:25 Pulse Rate 69 03/09/17 13:25 Respiratory Rate 19 03/09/17 13:25 Blood Pressure 153/89 03/09/17 13:25 O2 Sat by Pulse Oximetry (%) 96 03/09/17 02:00 Intake & Output 03/06/17 03/07/17 03/08/17 03/09/17 23:59 23:59 23:59 23:59 Intake Total 300 100 Balance 300 100 Weight 65 kg 70.534 kg 69.082 kg NAD awake and alert RRR CTA no LE edema CBC, BMP 03/08/17 06:55 03/09/17 08:05 Current Medications Acetaminophen (Tylenol -) 650 mg PO Q6H PRN PRN Reason: FEVER OR PAIN Last Admin: 03/08/17 21:42 Dose: 650 mg Amlodipine Besylate (Norvasc -) 10 mg PO DAILY [facility] Last Admin: 03/09/17 11:21 Dose: 10 mg Aspirin (Asa -) 81 mg PO DAILY [facility] Last Admin: 03/09/17 11:21 Dose: 81 mg Calcium Carbonate (Os-Nayan 500mg -) 500 mg PO DAILY [facility] Last Admin: 03/09/17 11:21 Dose: 500 mg Furosemide (Lasix -) 80 mg PO DAILY [facility] Last Admin: 03/09/17 11:21 Dose: 80 mg Heparin Sodium (Porcine) (Heparin -) 5,000 unit SQ TID [facility] Last Admin: 03/09/17 13:59 Dose: Not Given Hydralazine HCl (Apresoline -) 25 mg PO BID [facility] Last Admin: 03/09/17 11:21 Dose: 25 mg CEFTRIAXONE 1 G/50 ML PREMIX (Ceftriaxone 1 Gm-D5w Bag) 50 mls @ 100 mls/hr IVPB DAILY [facility] Last Admin: 03/09/17 11:21 Dose: 100 mls/hr Insulin Aspart (Novolog Vial Sliding Scale -) 1 vial SQ ACHS [facility] PRN Reason: Protocol Last Admin: 03/09/17 12:04 Dose: Not Given Lisinopril (Prinivil) 10 mg PO DAILY [facility] Last Admin: 03/09/17 11:21 Dose: 10 mg Mirtazapine (Remeron -) 15 mg PO HS [facility] Last Admin: 03/08/17 21:36 Dose: 15 mg Nicotine (Nicoderm Patch -) 14 mg TD DAILY [facility] Last Admin: 03/09/17 11:21 Dose: 14 mg Tamsulosin HCl (Flomax -) 0.4 mg PO DAILY@0830 [facility] Last Admin: 03/09/17 07:52 Dose: 0.4 mg ASSESSMENT AND PLAN: 67 year old gentleman with PMhx of ESRD on HD (TTS at [facility]), Hx of CVA with left side weakness, Seizure disorder who presented from home with AMS/Suspected Left sided weakness and admitted with r/o CVA. Pt reports that he missed his last dialysis treatment (? Sunday). #ESRD on HD no acute indication for [facility] today to have dialysis tomorrow as outpatient at [facility] #B/L Hydronephrosis with non-obstructing stone and enlarged heterogenous prostate will need urology follow up as outpatient with biopsy kidneys appear atrophic and unlikely pt has any significant residual renal function #Hypertension Continue Lisinopril, Amlodipine, Hydralazine Goal BP < 140/90 Low salt diet Thank you will follow Trevin Mckeon DO
== END 2017-03-09 17:30 ==
LOC: JER 15:22 → INTOOBSV 22:17 → JERBED 22:17 → UNDOADMOB 22:17 → JERBED 03-08 01:20 → J6S 03-08 03:03
PROVIDERS: ADMIT Internal Medicine; ATTEND Registered Nurse
PROC: 3E033GC Introduction of Other Therapeutic Substance into Peripheral Vein, Percutaneous Approach (ICD-10-PCS; principal; 2017-03-08)
PROC: 3E013GC Introduction of Other Therapeutic Substance into Subcutaneous Tissue, Percutaneous Approach (ICD-10-PCS; 2017-03-08)
DX: N39.0 Urinary tract infection, site not specified (principal); R29.810 Facial weakness; I12.0 Hypertensive chronic kidney disease with stage 5 chronic kidney disease or end stage renal disease; E11.22 Type 2 diabetes mellitus with diabetic chronic kidney disease; N18.6 End stage renal disease; Z99.2 Dependence on renal dialysis; N40.0 Benign prostatic hyperplasia without lower urinary tract symptoms; E78.5 Hyperlipidemia, unspecified; I50.9 Heart failure, unspecified; I69.398 Other sequelae of cerebral infarction; G40.909 Epilepsy, unspecified, not intractable, without status epilepticus; Z79.82 Long term (current) use of aspirin; Z79.84 Long term (current) use of oral hypoglycemic drugs; Z87.440 Personal history of urinary (tract) infections; Z87.442 Personal history of urinary calculi; Z90.81 Acquired absence of spleen; Z86.19 Personal history of other infectious and parasitic diseases
CPT/HCPCS: 36415; 70450-TC; 71010-TC; 76775-TC; 76856-TC; 80048; 80053; 81003; 81015; 82040; 82550; 83735; 84100; 84484; 85025; 85027; 85610; 86704; 86706; 86708; 86803; 87086; 87340; 87522; 93005; 93010; 93880-TC; 96372; 96374; 97116-GP; 97161-GP; 99285-25; G0378; J0885; J1644

== ENCOUNTER 2018-11-06 19:05 | Inpatient (IN) | payer OTHER ==
[2018-11-06 19:28] VITALS: BMI 23.0
--- NOTE | 2018-11-06 19:44 | PDOC ---
History of Present Illness - General Chief Complaint: Weakness Stated Complaint: WEAKNESS Time Seen by Provider: 11/06/18 19:43 - History of Present Illness Initial Comments: 68yo with PMH of of multiple prior strokes (with residual L sided facial and LUE and LLE weakness), ESRD on dialysis MWF, HTN, DM, unspecified seizure disorder, BPH, Hep B, CVA presenting today with weakness. Patient's health aide and public health clinical nurse specialist are at the bedside providing collateral history. They report patient came home from a full dialysis session. Around 5:45pm he was in the bathroom, had gotten up and complained of dizziness and weakness. He then lost consciousness for a couple seconds and went limp; his aides kept him from falling. Patient displayed left sided weakness and facial droop which has since resolved. No acute complaints. Patient had an episode of being unable to move his left leg three days ago. EMS was called and since the episode resolved, he opted to stay home. No fevers, chills, chest pain, or shortness of breath. PCP: Dr. Lua (spelling?) tPA Exclusion Checklist 0-3hr - Time Elapsed Date last known well: 11/06/18 Time last known well: 17:45 Elaspsed time: Day(s) and 10 Hour(s) and 49 Minutes - Thrombolytic Therapy Candidate Is the patient eligible for Thrombolytic Therapy?: No - Relative Exclusion Criteria 0-3h Rapid improvement: Yes Stroke severity too mild: Yes - Ineligibility reason(s) Reasons No tPA given: See reason(s) noted above NIH Stroke Scale - Last Known Well Date/Time & Onset Date Last Known Well: 11/06/18 Time Last Known Well: 17:45 - Initial Evaluation Level of consciousness: Alert Ask patient the month and their age: Answers both correctly Ask patient to open & close eyes; make fist and let go: Obeys both correctly Best gaze (horizontal eye movement): Normal Visual field testing: No visual field loss Facial paresis (Show teeth/raise eyebrows/close eyes tight): Minor paralysis ( flattened nasolabial fold, asymmetry on smiling) Motor Function: Left Arm: Untestable (Joint fused orlimb amputated), explain: Motor Function: Right Arm: Normal (extends arm 90 (or 45) degrees for 10 seconds without drift Motor Function: Left Leg: Normal (extends leg 30 degrees for 5 seconds without drift) Motor Function: Right Leg: Normal (extends leg 30 degrees for 5 seconds without drift) Limb Ataxia: No ataxia Sensory(Use pinprick test arms,legs,trunk,face/side to side): Normal Best language (Describe picture, name items, read sentences): No Aphasia Dysarthria (read several words): Normal articulation Extinction and Inattention: No abnormality - Total Score NIH Stroke Scale Score: 1 Past History - Past Medical History Allergies/Adverse Reactions: Allergies Allergy/AdvReac Type Severity Reaction Status Date / Time No Known Allergies Allergy Verified 11/06/18 19:08 Home Medications: Ambulatory Orders Aspirin [ASA -] 81 mg PO DAILY 11/21/14 Calcium Carbonate 600 mg PO DAILY 11/21/14 Insulin (Novolog) [Novolog Flexpen -] 0 units SQ ACHS PRN 11/24/14 Mirtazapine [Remeron -] 15 mg PO DAILY 11/24/14 Tamsulosin HCl [Flomax -] 0.4 mg PO DAILY 11/24/14 Admelog 0 units SQ PRN PRN 05/27/18 Basaglar Kwikpen U-100 15 units SCJ DAILY 05/27/18 Celexa - 40 mg PO HS 05/27/18 Keppra 500 mg PO BID 05/27/18 Lorazepam 0.5 mg PO DAILY 05/27/18 Tylenol 650 mg PO Q6H PRN 05/27/18 Cancer: No Cardiac Disorders: No CVA: Yes (06/2014) COPD: No CHF: Yes Dementia: No Diabetes: Yes Dialysis: Yes () GI Disorders: No Disorders: Yes (UTI) HTN: Yes Kidney Stones: Yes Liver Disease: (Hep B) Seizures: No Thyroid Disease: No - Surgical History Abdominal Surgery: Yes (SPLEENECTOMY) Cholecystectomy: Yes Neurologic Surgery: No Orthopedic Surgery: No - Suicide/Smoking/Psychosocial Hx Smoking History: Never smoked Have you smoked in the past 12 months: No Number of Cigarettes Smoked Daily: 2 If you are a former smoker, when did you quit?: 4 years ago Information on smoking cessation initiated: No 'Breaking Loose' booklet given: 11/21/14 Hx Alcohol Use: No Drug/Substance Use Hx: No Substance Use Type: None Hx Substance Use Treatment: No Review of Systems - Review of Systems Comments:: Constitutional: no fever, no chills HEENT: no throat pain, no dysphagia Cardiovascular: no chest pain, no palpitations Respiratory: no cough, +shortness of breath Gastrointestinal: no abdominal pain, no nausea Genitourinary: no dysuria, +hematuria Musculoskeletal: no myalgia, no arthralgia Skin: no rash, no itching Neurologic: no headache, +weakness *Physical Exam - Vital Signs Last Vital Signs Temp Pulse Resp BP Pulse Ox 97.2 F L 63 20 108/79 97 11/06/18 19:24 11/06/18 19:24 11/06/18 19:24 11/06/18 19:24 11/06/18 19:24 - Physical Exam Comments: General: Awake, alert, and fully oriented, in no acute distress Head: No signs of trauma Eyes: EOMI, sclera anicteric ENT: Moist mucus membranes Neck: Normal ROM, supple Lungs: Lungs clear, Normal breath sounds Cardio: Regular rhythm, S1 and S2 present Abdomen: Soft, nontender. No guarding, no rebound, no masses Extremities: Normal range of motion, Distal pulses present SKIN: Warm, Dry, normal turgor Neurologic: LUE contracted, unable to move. Normal sensation. Normal finger-to- nose and heel-jack on the right. Unable to test the left. Please see NIHSS ED Treatment Course - LABORATORY CBC & Chemistry Diagram: 11/06/18 22:24 11/06/18 22:24 Medical Decision Making - Medical Decision Making 68yo with PMH of of multiple prior strokes (with residual L sided facial and LUE and LLE weakness), ESRD on dialysis MWF, HTN, DM, unspecified seizure disorder, BPH, Hep B, CVA presenting today with weakness. DDX including but not limited to CVA/TIA, syncope, seizure, electrolyte abnormality, orthostatic hypotention, anemia, infection Labs, CXR, EKG, CT Head 11/06/18 19:43 CBC WBC 9.6 K/mm3 (4.0-10.0) 11/06/18 22:24 RBC 4.67 M/mm3 (4.00-5.60) 11/06/18 22:24 Hgb 15.2 GM/dL (11.7-16.9) 11/06/18 22:24 Hct 44.9 % (35.4-49) D 11/06/18 22:24 MCV 96.2 fl (80-96) H 11/06/18 22:24 MCH 32.5 pg (25.7-33.7) 11/06/18 22:24 MCHC 33.8 g/dl (32.0-35.9) 11/06/18 22:24 RDW 13.5 % (11.9-15.9) 11/06/18 22:24 Plt Count 166 K/MM3 (134-434) 11/06/18 22:24 MPV 8.2 fl (7.5-11.1) D 11/06/18 22:24 Absolute Neuts (auto) 7.9 K/mm3 (1.5-8.0) 11/06/18 22:24 Neutrophils % 82.1 % (42.8-82.8) D 11/06/18 22:24 Lymphocytes % 9.3 % (8-40) D 11/06/18 22:24 Monocytes % 7.9 % (3.8-10.2) 11/06/18 22:24 Eosinophils % 0.1 % (0-4.5) D 11/06/18 22:24 Basophils % 0.6 % (0-2.0) 11/06/18 22:24 Nucleated RBC % 0 % (0-0) 11/06/18 22:24 No anemia or leukocytosis CMP Sodium 135 mmol/L (136-145) L 11/06/18 22:24 Potassium 5.0 mmol/L (3.5-5.1) 11/06/18 22:24 Chloride 94 mmol/L (98-107) L 11/06/18 22:24 Carbon Dioxide 32 mmol/L (21-32) 11/06/18 22:24 Anion Gap 9 MMOL/L (8-16) 11/06/18 22:24 BUN 21.4 mg/dL (7-18) H 11/06/18 22:24 Creatinine 6.0 mg/dL (0.55-1.3) H 11/06/18 22:24 Est GFR (CKD-EPI)AfAm 10.08 11/06/18 22:24 Est GFR (CKD-EPI)NonAf 8.70 11/06/18 22:24 Random Glucose 126 mg/dL (74-106) H 11/06/18 22:24 Calcium 8.8 mg/dL (8.5-10.1) 11/06/18 22:24 Magnesium 2.4 mg/dL (1.8-2.4) 11/06/18 22:24 Total Bilirubin 1.5 mg/dL (0.2-1) H 11/06/18 22:24 AST 13 U/L (15-37) L 11/06/18 22:24 ALT 16 U/L (13-61) 11/06/18 22:24 Alkaline Phosphatase 68 U/L (45-117) 11/06/18 22:24 Creatine Kinase 76 U/L (26-308) 11/06/18 22:24 Troponin I < 0.02 ng/ml (0.00-0.05) 11/06/18 22:24 Total Protein 9.0 g/dl (6.4-8.2) H 11/06/18 22:24 Albumin 4.4 g/dl (3.4-5.0) 11/06/18 22:24 Electrolytes WNL Elevated BUN and Cr as would be expected for this dialysis patient Tpn undetectable EKG: rate 55, QTc 455, sinus bradycardia, 1st degree AV block CT Head: "Clinical information: left-sided weakness No intracranial hemorrhage is seen. There is no evidence of acute infarction with the limitations of CT. Note is again made of chronic right frontal, and right posterior temporal cortical infarcts. Ex vacuo dilatation of the right lateral ventricle is noted. Encephalomalacia is again seen within the right frontoparietal subcortical white matter There is also again visualization of chronic right basal ganglia and right thalamic infarcts. No gross mass lesion is seen. There is no extra- axial fluid collection. No obstructive hydrocephalus is noted. The calvarium appears intact. Impression: No CT evidence of acute intracranial pathology. Multiple chronic right cerebral infarcts as noted above. There has been no definite interval change in comparison to a prior CT study of 03/07/2017. " Concern for syncope vs seizure vs. CVA Discussed case with Dr. Gonsales who accepted patient for admission under Dr. Cervantes 11/06/18 23:33 *DC/Admit/Observation/Transfer Diagnosis at time of Disposition: Syncope - Discharge Dispostion Condition at time of disposition: Guarded Decision to Admit order: Yes - Referrals - Patient Instructions - Post Discharge Activity
[2018-11-06] MEDS ORDERED: SODIUM CHLORIDE 250 ML IV STA (20:37)
--- NOTE | 2018-11-06 21:54 | PDOC ---
Documentation entered by Vicki Beltran SCRIBE, acting as scribe for Ivis Daigle DO. Ivis Daigle DO: This documentation has been prepared by the Ruby verma Xhesika, SCRIBE, under my direction and personally reviewed by me in its entirety. I confirm that the documentation accurately reflects all work, treatment, procedures, and medical decision making performed by me. Attending Attestation - Resident Resident Name: Krysta Rogers - ED Attending Attestation I have performed the following: I have examined & evaluated the patient, The case was reviewed & discussed with the resident, I agree w/resident's findings & plan, Exceptions are as noted - HPI HPI: 11/06/18 20:45 The patient is a 68 year old male, with a significant PMH of HTN, HLD, CHF, CVA (2013, left-sided deficit), ESRD on dialysis MWF, unspecified seizure disorder, BPH, and Hep B who presents to the emergency department with weakness. Patient is a poor historian, however as per aid at bedside, patient had a full session of dialysis today, came home, went to the bathroom at 5:45pm and began to complain of dizziness and weakness. As per aid, the patient lost consciousness and went limp and the aid kept him from falling. At the onset of his symptoms, the patient had left sided weakness and facial droop which has since resolved. As per aid, the patient had 1 episode of inability to move his L leg 3 days ago. The patient denies chest pain, shortness of breath, headache and dizziness. Denies fever, chills, nausea, vomiting, diarrhea and constipation. Denies dysuria, frequency, urgency and hematuria. Allergies: NKA - Physicial Exam PE: 11/06/18 20:54 GENERAL: Awake, alert, and fully oriented, in no acute distress HEAD: No signs of trauma EYES: PERRLA, EOMI, sclera anicteric, conjunctiva clear LUNGS: Breath sounds equal, clear to auscultation bilaterally. No wheezes, and no crackles HEART: Regular rate and rhythm, normal S1 and S2, no murmurs, rubs or gallops ABDOMEN: Soft, nontender, normoactive bowel sounds. No guarding, no rebound. No masses EXTREMITIES: (+) contracted LUE due to prior stroke. (+) AV fistula in LUE with bruit and thrill. No edema. No clubbing or cyanosis. No cords, erythema, or tenderness NEUROLOGICAL: Cranial nerves II through XII grossly intact. SKIN: Warm, Dry, normal turgor - Medical Decision Making 11/06/18 21:41 I, Dr. Ivis Daigle, DO, attest that this document has been prepared under my direction and personally reviewed by me in its entirety. I further attest, that it accurately reflects all work, treatment, procedures and medical decision -making performed by me. 11/06/18 21:41 a/p: 68yo male with episode of feeling lightheaded/dizzy after hd and a shaking episode -keppra dose was decreased to once a day after dc from the [facility] -concern for poss seizure vs syncope -will send for head ct, labs, ekg -will monitor, no prior notes that show keppra dosing on prior neuro notes -will monitor and reassess -pt had HD today -LUE av fistula -concern for dehydration vs syncope vs seizure activity 11/06/18 22:46 old cva changes on head ct, no acute new findings poss tia- however symptoms resolved currently, no tpa 11/06/18 23:18 labs reviewed 11/06/18 23:[address] contreras 11/06/18 23:30 resident discussed the case with joel who accepts pt to service Heart Score/ECG Review - ECG Intrepretation Comment:: 11/06/18 23:27 sinus marcela at 55, 1st degree av block, nl axis, nl interval, t wave flattening diffusely
[2018-11-06 22:40] LABS: BASO % 0.6 % (0-2.0); EOS % 0.1 % (0-4.5); HEMATOCRIT 44.9 % (35.4-49); HEMOGLOBIN 15.2 GM/dL (11.7-16.9); LYMPH % 9.3 % (8-40); MCH 32.5 pg (25.7-33.7); MCHC 33.8 g/dl (32.0-35.9); MEAN CELL VOLUME 96.2 fl (80-96); MEAN PLT VOLUME 8.2 fl (7.5-11.1); MONO % 7.9 % (3.8-10.2); NEUT % 82.1 % (42.8-82.8); PLATELET COUNT 166 K/MM3 (134-434); RBC 4.67 M/mm3 (4.00-5.60); RDW 13.5 % (11.9-15.9); WHITE BLOOD COUNT 9.6 K/mm3 (4.0-10.0)
[2018-11-06 22:48] LABS: INR 0.99 (0.83-1.09); PROTHROMBIN TIME (PATIENT) 11.7 SEC (9.7-13.0)
[2018-11-06 23:16] LABS: ALBUMIN 4.4 g/dl (3.4-5.0); ALK PHOS 68 U/L (45-117); ANION GAP 9 MMOL/L (8-16); BILIRUBIN,TOTAL 1.5 mg/dL (0.2-1); BLOOD UREA NITROGEN 21.4 mg/dL (7-18); CALCIUM 8.8 mg/dL (8.5-10.1); CHLORIDE 94 mmol/L (98-107); CO2 32 mmol/L (21-32); GLUCOSE,RANDOM 126 mg/dL (74-106); MAGNESIUM 2.4 mg/dL (1.8-2.4); SGOT/AST 13 U/L (15-37); SGPT/ALT 16 U/L (13-61); SODIUM 135 mmol/L (136-145)
--- NOTE | 2018-11-06 23:58 | PN ---
Teaching Attending Note Name of Resident: Cory Mayers ATTENDING PHYSICIAN STATEMENT I saw and evaluated the patient. I reviewed the resident's note and discussed the case with the resident. I agree with the resident's findings and plan as documented. 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 As per Aide at bedside, patient had a full session of hemodialysis today, came home, went to the bathroom at 5:45pm and began to complain of dizziness and weakness. As per aide , the patient lost consciousness and went limp and the aide kept him from falling. At the onset of his symptoms, the patient had left sided weakness and facial droop which has since resolved. As per aide, the patient had 1 episode of inability to move his left leg 3 days ago. Denies alcohol abuse, illicit drug use or sick contacts. The patient denies chest pain, shortness of breath, headache and dizziness. Denies fever, chills, nausea, vomiting, diarrhea and constipation. Denies dysuria, frequency, urgency and hematuria. OBJECTIVE: Alert and not orthostatic Vital Signs Period Temp Pulse Resp BP Sys/Gore Pulse Ox Last 24 Hr 97.2 F 63 20 108/79 97 HEENT: No Jaundice, eye redness or discharge; impaired vision. Normocephalic, atraumatic. External ears are normal and hearing is grossly intact. No nasal discharge. Neck: Supple, nontender. No palpable adenopathy or thyromegaly. No JVD Chest: Good effort. Clear to auscultation and percussion. Heart: Regular. No S3, rub or murmur Abdomen: Not distended, soft, nontender and no HSM. No rebound or guarding. Normal bowel sounds. Ext: Peripheral pulses intact. No leg edema. Contracted LUE.LUE AV fistula with bruit and thrill. Skin: Warm and dry. No petechiae, rash or ecchymosis. Neuro: Alert. Oriented x3. CN 2-12 grossly intact. Sensation grossly intact in all four extremities; left side hemiparesis. Psych: Appropriate mood and affect. Good insight. Home Medications Medication Instructions Recorded Aspirin [ASA -] 81 mg PO DAILY 11/21/14 Calcium Carbonate 600 mg PO DAILY 11/21/14 Insulin (Novolog) [Novolog Flexpen 0 units SQ ACHS PRN 11/24/14 -] Mirtazapine [Remeron -] 15 mg PO DAILY 11/24/14 Tamsulosin HCl [Flomax -] 0.4 mg PO DAILY 11/24/14 Admelog 0 units SQ PRN PRN 05/27/18 Basaglar Kwikpen U-100 15 units SCJ DAILY 05/27/18 Celexa - 40 mg PO HS 05/27/18 Keppra 500 mg PO BID 05/27/18 Lorazepam 0.5 mg PO DAILY 05/27/18 Tylenol 650 mg PO Q6H PRN 05/27/18 Abnormal Lab Results 11/06/18 11/06/18 11/06/18 22:24 22:24 22:24 MCV 96.2 H PTT (Actin FS) 21.9 L Sodium 135 L Chloride 94 L BUN 21.4 H Creatinine 6.0 H Random Glucose 126 H Total Bilirubin 1.5 H AST 13 L Total Protein 9.0 H ASSESSMENT AND PLAN: 1. Syncope - Cause unclear, but postdialysis hypotension plausibly due to excessive fluid removal is a likely culprit. Will obtain details of his hemodialysis treatment during the day. NIHSS in the ER was 1. No acute pathology on noncontrast head CT scan and CXR. EKG shows sinus bradycardia with 1O AV block - unchanged from prior EKGs. Will admit to telemetry, get Keppra level, HbA1c, ECHO, urinalysis, EEG and consult cardiology. Will do neurochecks. Implement seizure, fall and aspiration precautions. Consult Neurology and discuss ?need for brain MRI, carotid doppler. Will consult nephrology to review hemodialysis treatment regimen and continue thrice weekly dialysis. Continue comprehensive care of all his comorbid conditions. 2. Hypertension - No antihypertensive drugs on his medication list. Will contact his PCP and Pharmacy to clarify. Nonpharmacologic measures to control hypertension like weight loss, salt restriction and exercise discussed. 3. DM For now, we will hold the home diabetes drugs and implement sliding scale insulin regimen. Provide comprehensive diabetes care with patient teaching and counseling about the importance of adherence to prescribed diabetes regimen, euglycemia, eye care and foot care. 4. DVT prophylaxis - Heparin 5000u sq tid. 5. Advance directives - Full code
--- NOTE | 2018-11-07 00:23 | HP ---
CHIEF COMPLAINT: Syncope PCP: HISTORY OF PRESENT ILLNESS: 68M with PMHX significant for CVA (with left sided residual weakness) HTN, HLD, Diabetes, ESRD (Dialysis MWF) who presents today after witnessed syncopal event. He returned home from dialysis today and went to the bathroom with the help of his and home health aide. Upon entering the bathroom he felt weak and lightheaded. He does not remember the immediate events afterwards but he recalls waking up diaphoretic and in a pool of his own urine. He endorses several similar episodes happening after dialysis treatments, with the most recent one occurring 1 month ago. He denies any head trauma or injuries after the fall. He denies any chest pain, palpitations, SOB, recent illnesses, paresthesias, and numbness. He endorses his residual weakness on the left side post stroke and no new numbness or weakness in the past 3 days upon direct questioning. He endorses dizziness when he gets out of bed in the mornings and stands straight up. ER course was notable for: (1)250 mL of Normal Saline was given (2)Head CT showed no acute changes since previous admission in 2016. Chest X- Ray showed no acute lung pathology. (3) EKG showed sinus bradycardia with 1st degree AV block. Recent Travel: None PAST MEDICAL HISTORY: CVA in 2015 (with residual left sided weakness), HTN, HLD , Diabetes, ESRD (Dialysis MWF), CHF, Kidney Stones, BPH PAST SURGICAL HISTORY: Splenectomy, cholestectomy, left ureteral stent Social History: Smokin pack year history, quit 3 years ago Alcohol: Remote use in the past Drugs: Stopped using in 1994, would not elaborate when questioned further Family History: Mother at age 42, unsure of etiology Allergies No Known Allergies Allergy (Verified 11/06/18 19:08) HOME MEDICATIONS: Home Medications Medication Instructions Recorded Aspirin [ASA -] 81 mg PO DAILY 11/21/14 Calcium Carbonate 600 mg PO DAILY 11/21/14 Insulin (Novolog) [Novolog Flexpen 0 units SQ ACHS PRN 11/24/14 -] Mirtazapine [Remeron -] 15 mg PO DAILY 11/24/14 Tamsulosin HCl [Flomax -] 0.4 mg PO DAILY 11/24/14 Admelog 0 units SQ PRN PRN 05/27/18 Basaglar Kwikpen U-100 15 units SCJ DAILY 05/27/18 Celexa - 40 mg PO HS 05/27/18 Keppra 500 mg PO BID 05/27/18 Lorazepam 0.5 mg PO DAILY 05/27/18 Tylenol 650 mg PO Q6H PRN 05/27/18 REVIEW OF SYSTEMS In addition to above CONSTITUTIONAL: generalized weakness, diaphoresis Absent: fever, chills, malaise, loss of appetite, weight change HEENT: Absent: rhinorrhea, nasal congestion, visual changes CARDIOVASCULAR: Absent: chest pain, syncope, palpitations, irregular heart rate, lightheadedness , peripheral edema RESPIRATORY: Absent: cough, shortness of breath, dyspnea with exertion GASTROINTESTINAL: abdominal pain Absent: nausea, vomiting, diarrhea GENITOURINARY: Absent: dysuria, frequency, urgency, hesitancy MUSCULOSKELETAL: Absent: myalgia, arthralgia, joint swelling, back pain, neck pain NEUROLOGIC: bladder incontinence Absent: headache, focal weakness or paresthesias, dizziness, unsteady gait, seizure, mental status changes, PHYSICAL EXAMINATION Vital Signs - 24 hr 11/06/18 19:24 Temperature 97.2 F L Pulse Rate 63 Respiratory 20 Rate Blood Pressure 108/79 O2 Sat by Pulse 97 Oximetry (%) GENERAL: Awake, alert, and fully oriented, in no acute distress. HEAD: Normal with no signs of trauma or lacerations. EYES: Pupils equal, round and reactive to light, extraocular movements intact, sclera anicteric, conjunctiva clear. No lid lag. No red reflex in eyes b/l EARS, NOSE, THROAT: Ears normal, nares patent, oropharynx clear without exudates. Dry mucous membranes. NECK: Normal range of motion LUNGS: Breath sounds equal, clear to auscultation bilaterally. HEART: Regular rate and rhythm, normal S1 and S2 without murmur, rub or gallop. ABDOMEN: Soft, nontender, not distended, normoactive bowel sounds, no guarding, no rebound, no masses. MUSCULOSKELETAL: Left arm is contracted(s/p CVA) UPPER EXTREMITIES: 2+ pulses. 5/5 strength in right arm. Unable to assess left arm due to contracted state. LOWER EXTREMITIES: 2+ pulses. 5/5 strength in right leg. 4/5 strength in left leg. NEUROLOGICAL: Cranial nerves II-XII intact. Normal speech PSYCHIATRIC: Cooperative. Good eye contact. Appropriate mood and affect. Laboratory Results - last 24 hr 11/06/18 11/06/18 11/06/18 20:35 22:24 22:24 WBC 9.6 RBC 4.67 Hgb 15.2 Hct 44.9 D MCV 96.2 H MCH 32.5 MCHC 33.8 RDW 13.5 Plt Count 166 MPV 8.2 D Absolute Neuts (auto) 7.9 Neutrophils % 82.1 D Lymphocytes % 9.3 D Monocytes % 7.9 Eosinophils % 0.1 D Basophils % 0.6 Nucleated RBC % 0 PT with INR 11.70 INR 0.99 PTT (Actin FS) 21.9 L Sodium Potassium Chloride Carbon Dioxide Anion Gap BUN Creatinine Est GFR (CKD-EPI)AfAm Est GFR (CKD-EPI)NonAf Random Glucose Calcium Magnesium Total Bilirubin AST ALT Alkaline Phosphatase Creatine Kinase Troponin I Total Protein Albumin 11/06/18 22:24 WBC RBC Hgb Hct MCV MCH MCHC RDW Plt Count MPV Absolute Neuts (auto) Neutrophils % Lymphocytes % Monocytes % Eosinophils % Basophils % Nucleated RBC % PT with INR INR PTT (Actin FS) Sodium 135 L Potassium 5.0 Chloride 94 L Carbon Dioxide 32 Anion Gap 9 BUN 21.4 H Creatinine 6.0 H Est GFR (CKD-EPI)AfAm 10.08 Est GFR (CKD-EPI)NonAf 8.70 Random Glucose 126 H Calcium 8.8 Magnesium 2.4 Total Bilirubin 1.5 H AST 13 L ALT 16 Alkaline Phosphatase 68 Creatine Kinase 76 Troponin I < 0.02 Total Protein 9.0 H Albumin 4.4 ASSESSMENT/PLAN: 68 M with PMH significant for ESRD(dialysis MWF), CVA (with left sided residual weakness), HTN, HLD, Diabetes, who presents today with syncope after dialysis, likely due to fluid imbalance. 1) Syncope Telemetry Q4 Neurochecks Echocardiogram Cardiology consult Neurology consult for further workup of syncope vs seizure. 2)Seizure Keppra 500 mg BID 3)Diabetes Insulin Sliding scale DVT Prophylaxis: Heparin 5000 SQ BID F: No fluids E: Trend BMP N: Diabetic Diet Problem List - Problem (1) Syncope Code(s): R55 - SYNCOPE AND COLLAPSE (2) Diabetes mellitus Code(s): E11.9 - TYPE 2 DIABETES MELLITUS WITHOUT COMPLICATIONS Qualifiers: Diabetes mellitus type: type 2 (3) ESRD (end stage renal disease) Code(s): N18.6 - END STAGE RENAL DISEASE (4) Loss of consciousness Code(s): R40.20 - UNSPECIFIED COMA Visit type - Emergency Visit Emergency Visit: Yes ED Registration Date: 11/07/18 Care time: The patient presented to the Emergency Department on the above date and was hospitalized for further evaluation of their emergent condition. - New Patient This patient is new to me today: Yes Date on this admission: 11/07/18 - Critical Care Critical Care patient: No ATTENDING PHYSICIAN STATEMENT I saw and evaluated the patient. I reviewed the resident's note and discussed the case with the resident. I agree with the resident's findings and plan as documented. SUBJECTIVE: OBJECTIVE: ASSESSMENT AND PLAN:
[2018-11-07] MEDS ORDERED: LORazepam 0.5 MG TABLET PO PRN (00:55)
[2018-11-07] MEDS ORDERED: HEPARIN NA (PORCINE) 5,000 UNITS/ML 1ML VIAL ONE ×2 (01:37→10:25)
[2018-11-07] MEDS: HEPARIN NA (PORCINE) 5,000 UNITS/ML 1ML VIAL SQ SCH ×3 (02:00→17:34)
[2018-11-07] MEDS: INSULIN SLIDING SCALE (NOVOLOG) 1 VIAL SQ SCH ×4 (06:04→21:27)
[2018-11-07 06:40] LABS: BASO % 0.5 % (0-2.0); HEMATOCRIT 43.8 % (35.4-49); HEMOGLOBIN 14.9 GM/dL (11.7-16.9); MCH 32.8 pg (25.7-33.7); MEAN CELL VOLUME 96.4 fl (80-96); MEAN PLT VOLUME 8.5 fl (7.5-11.1); MONO % 9.8 % (3.8-10.2); NEUT % 62.7 % (42.8-82.8); PLATELET COUNT 156 K/MM3 (134-434); RBC 4.55 M/mm3 (4.00-5.60); RDW 13.5 % (11.9-15.9); WHITE BLOOD COUNT 7.3 K/mm3 (4.0-10.0)
[2018-11-07 07:05] LABS: BILIRUBIN,TOTAL 1.4 mg/dL (0.2-1); BLOOD UREA NITROGEN 27.6 mg/dL (7-18); CALCIUM 8.3 mg/dL (8.5-10.1); CREATININE 6.8 mg/dL (0.55-1.3); MAGNESIUM 2.5 mg/dL (1.8-2.4); PHOSPHOROUS 4.3 mg/dL (2.5-4.9); POTASSIUM 4.9 mmol/L (3.5-5.1); TOT PROT 8.1 g/dl (6.4-8.2)
[2018-11-07 07:49] LABS: PHOSPHOROUS 3.5 mg/dL (2.5-4.9)
[2018-11-07] MEDS ORDERED: LORAZEPAM 0.5 MG PO SCH (10:00)
[2018-11-07] MEDS ORDERED: ASPIRIN 81 MG CHEWABLE TABLETS ONE (10:25)
[2018-11-07] MEDS ORDERED: levETIRAcetam 500 MG TABLET (FP) PO ONE (10:25)
[2018-11-07] MEDS: levETIRAcetam 500 MG TABLET (FP) PO SCH ×2 (10:32→21:28)
[2018-11-07] MEDS: ASPIRIN 81 MG CHEWABLE TABLETS PO SCH (10:32)
--- NOTE | 2018-11-07 12:07 | EKG ---
Test Reason : Blood Pressure : / mmHG Vent. Rate : 055 BPM Atrial Rate : 055 BPM P-R Int : 236 ms QRS Dur : 062 ms QT Int : 476 ms P-R-T Axes : 082 -22 090 degrees QTc Int : 455 ms POOR DATA QUALITY, INTERPRETATION MAY BE ADVERSELY AFFECTED SINUS BRADYCARDIA WITH MARKED SINUS ARRHYTHMIA WITH 1ST DEGREE A-V BLOCK NONSPECIFIC T WAVE ABNORMALITY ABNORMAL ECG WHEN COMPARED WITH ECG OF 07-MAR-2017 17:24, PREMATURE VENTRICULAR COMPLEXES ARE NO LONGER PRESENT CRITERIA FOR SEPTAL INFARCT ARE NO LONGER PRESENT NONSPECIFIC T WAVE ABNORMALITY NO LONGER EVIDENT IN INFERIOR LEADS NONSPECIFIC T WAVE ABNORMALITY, WORSE IN LATERAL LEADS Confirmed by ISABEL GUDINO, KIRSTEN ([id number]) on 11/07/2018 12:06:34 PM Referred By: Confirmed By:KIRSTEN HALL MD
--- NOTE | 2018-11-07 12:15 | CON.CARD ---
Cardiology Consult (text) - Consultation Consultation Note: cc: syncope hpi: 68 m hx esrd on hd, cvas, htn, seizures, dm ,hep b, here with syncope. Pt had HD yesterday and went home and was using bathroom and stood up and felt dizzy/weak. 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 Had loc for only few seconds. No cp sob palps pnd orthopnea le edema. Feels well now. Pt reports he often has this type of episode after HD. pmh: per hpi psh: spleenectomy social: no tob fam: no premature cad, scd ros: per hpi; all others nl meds: Home Medications Medication Instructions Recorded Aspirin [ASA -] 81 mg PO DAILY 11/21/14 Calcium Carbonate 600 mg PO DAILY 11/21/14 Insulin (Novolog) [Novolog Flexpen 0 units SQ ACHS PRN 11/24/14 -] Mirtazapine [Remeron -] 15 mg PO DAILY 11/24/14 Tamsulosin HCl [Flomax -] 0.4 mg PO DAILY 11/24/14 Admelog 0 units SQ PRN PRN 05/27/18 Basaglar Kwikpen U-100 15 units SCJ DAILY 05/27/18 Celexa - 40 mg PO HS 05/27/18 Keppra 500 mg PO BID 05/27/18 Lorazepam 0.5 mg PO DAILY 05/27/18 Tylenol 650 mg PO Q6H PRN 05/27/18 pe: Vital Signs Period Temp Pulse Resp BP Sys/Gore Pulse Ox Last 24 Hr 97.2 F-97.9 F 63-68 15-20 108-134/79-93 97-100 nad no jvd rrr s1s2 no mrg cta bl nl eff aao3 no le e/c/c abd nt nd pos bs no jaundice diaphoresis pos dp pt no carotid bruits Laboratory Last Values WBC 7.3 K/mm3 (4.0-10.0) 11/07/18 05:30 RBC 4.55 M/mm3 (4.00-5.60) 11/07/18 05:30 Hgb 14.9 GM/dL (11.7-16.9) 11/07/18 05:30 Hct 43.8 % (35.4-49) 11/07/18 05:30 MCV 96.4 fl (80-96) H 11/07/18 05:30 MCH 32.8 pg (25.7-33.7) 11/07/18 05:30 MCHC 34.0 g/dl (32.0-35.9) 11/07/18 05:30 RDW 13.5 % (11.9-15.9) 11/07/18 05:30 Plt Count 156 K/MM3 (134-434) 11/07/18 05:30 MPV 8.5 fl (7.5-11.1) 11/07/18 05:30 Absolute Neuts (auto) 4.6 K/mm3 (1.5-8.0) 11/07/18 05:30 Neutrophils % 62.7 % (42.8-82.8) D 11/07/18 05:30 Lymphocytes % 26.0 % (8-40) D 11/07/18 05:30 Monocytes % 9.8 % (3.8-10.2) 11/07/18 05:30 Eosinophils % 1.0 % (0-4.5) D 11/07/18 05:30 Basophils % 0.5 % (0-2.0) 11/07/18 05:30 Nucleated RBC % 0 % (0-0) 11/07/18 05:30 PT with INR 11.70 SEC (9.7-13.0) 11/06/18 20:35 INR 0.99 (0.83-1.09) 11/06/18 20:35 PTT (Actin FS) 21.9 SECONDS (25.2-36.5) L 11/06/18 22:24 Sodium 132 mmol/L (136-145) L 11/07/18 05:30 Potassium 4.9 mmol/L (3.5-5.1) 11/07/18 05:30 Chloride 94 mmol/L (98-107) L 11/07/18 05:30 Carbon Dioxide 31 mmol/L (21-32) 11/07/18 05:30 Anion Gap 8 MMOL/L (8-16) 11/07/18 05:30 BUN 27.6 mg/dL (7-18) H 11/07/18 05:30 Creatinine 6.8 mg/dL (0.55-1.3) H 11/07/18 05:30 Est GFR (CKD-EPI)AfAm 8.67 11/07/18 05:30 Est GFR (CKD-EPI)NonAf 7.48 11/07/18 05:30 POC Glucometer 99 UNITS (80-120) 11/07/18 11:06 Random Glucose 99 mg/dL (74-106) 11/07/18 05:30 Hemoglobin A1c % 5.7 % (4.2-6.3) 11/07/18 05:30 Calcium 8.3 mg/dL (8.5-10.1) L 11/07/18 05:30 Phosphorus 4.3 mg/dL (2.5-4.9) 11/07/18 05:30 Magnesium 2.5 mg/dL (1.8-2.4) H 11/07/18 05:30 Total Bilirubin 1.4 mg/dL (0.2-1) H 11/07/18 05:30 AST 13 U/L (15-37) L 11/07/18 05:30 ALT 16 U/L (13-61) 11/07/18 05:30 Alkaline Phosphatase 61 U/L (45-117) 11/07/18 05:30 Creatine Kinase 76 U/L (26-308) 11/06/18 22:24 Troponin I < 0.02 ng/ml (0.00-0.05) 11/06/18 22:24 Total Protein 8.1 g/dl (6.4-8.2) 11/07/18 05:30 Albumin 4.0 g/dl (3.4-5.0) 11/07/18 05:30 ecg: sr, 1st avb, nl qtc, no ischemic changes cxr: clear lungs echo 11/2014: mild lvh, nl lvef, nl rv, mild ar/mr/tr, nl rvsp, ao root dil a/p: 68 m hx esrd on hd, cvas, htn, seizures, dm ,hep b, here with syncope. syncope: -seems vasovagal/orthostatic based on description, likely relate to vol removal from HD right before episode. -no signs acs, arrhythmia, chf -echo pending -neuro eval pending -check ortho vitals, monitor on tele htn: -bp on low side, monitor off meds esrd: -hd per renal
--- NOTE | 2018-11-07 14:22 | ECHO ---
Name: DIEGOJOCELYN PritchardJALEN Exam:Adult Echocardiogram Study Date: 11/07/2018 09:57 AM Age: 68 yrs Reason For Study: SYNCOPE Height: 71 in Weight: 165 lb BSA: 1.9 m2 MMode/2D Measurements & Calculations LVLd ap4: 8.2 cm SV(MOD-sp4): 43.0 ml EDV(MOD-sp4): 60.0 ml LVLs ap4: 6.1 cm ESV(MOD-sp4): 17.0 ml Doppler Measurements & Calculations MV E max jose carlos: 47.9 cm/sec Ao V2 max: 122.3 cm/sec MV A max jose carlos: 65.2 cm/sec Ao max P.0 mmHg MV E/A: 0.73 Ao V2 mean: 86.7 cm/sec MV dec time: 0.23 sec Ao mean P.6 mmHg Ao V2 VTI: 24.2 cm LV V1 max P.4 mmHg Med Peak E' Jose Carlos: 4.4 cm/sec LV V1 mean P.4 mmHg Med E/e': 10.9 LV V1 max: 105.1 cm/sec Lat Peak E' Jose Carlos: 6.5 cm/sec LV V1 mean: 70.3 cm/sec Lat E/e': 7.3 LV V1 VTI: 19.5 cm Procedure The study was technically difficult with many images being suboptimal in quality. Left Ventricle The left ventricular size, thickness and function are normal. The left ventricular ejection fraction is normal. Ejection Fraction = 60-65%. No regional wall motion abnormalities noted. Right Ventricle The right ventricle is normal in size and function. Atria Normal left and right atrial size and function. Mitral Valve There is no mitral regurgitation noted. Tricuspid Valve There was insufficient TR detected to calculate RV systolic pressure. There is trace tricuspid regurg itation. Aortic Valve No hemodynamically significant valvular aortic stenosis. No aortic regurgitation is present. Pulmonic Valve The pulmonic valve is not well visualized. Great Vessels The aortic root is normal size. Pericardium/Pleura There is no pericardial effusion. Interpretation Summary The study was technically difficult with many images being suboptimal in quality. The left ventricular size, thickness and function are normal The right ventricle is normal in size and function. There is trace tricuspid regurgitation. MD Dalton Worrell 11/07/2018 02:21 PM
--- NOTE | 2018-11-07 15:13 | CON.NEURO ---
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 Cardio/Vascular: Yes: HTN Hepatobiliary: Yes: Hepatitis B (questionable carrier) Renal/: Yes: BPH, Hematuria, Renal Calculi Endocrine: Yes: Diabetes Mellitus Additional Medical History: urinary retention - Past Surgical History Past Surgical History: Yes: Cholecystectomy, Splenectomy (6 years ago), Stent ( left ureter 2 months ago) - Alcohol/Substance Use Hx Alcohol Use: No History of Substance Use: reports: None - Smoking History Smoking history: Never smoked Have you smoked in the past 12 months: No Aproximately how many cigarettes per day: 2 If you are a former smoker, when did you quit?: 4 years ago - Social History ADL: Independent 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 History of Recent Travel: No Home Medications - Allergies Allergies/Adverse Reactions: Allergies Allergy/AdvReac Type Severity Reaction Status Date / Time No Known Allergies Allergy Verified 11/06/18 19:08 - Home Medications Home Medications: Ambulatory Orders Aspirin [ASA -] 81 mg PO DAILY 11/21/14 Calcium Carbonate 600 mg PO DAILY 11/21/14 Insulin (Novolog) [Novolog Flexpen -] 0 units SQ ACHS PRN 11/24/14 Mirtazapine [Remeron -] 15 mg PO DAILY 11/24/14 Tamsulosin HCl [Flomax -] 0.4 mg PO DAILY 11/24/14 Admelog 0 units SQ PRN PRN 05/27/18 Basaglar Kwikpen U-100 15 units SCJ DAILY 05/27/18 Celexa - 40 mg PO HS 05/27/18 Keppra 500 mg PO BID 05/27/18 Lorazepam 0.5 mg PO DAILY 05/27/18 Tylenol 650 mg PO Q6H PRN 05/27/18 Family Disease History - Family Disease History Family Disease History: Heart Disease: Mother ( heart disease), Other: Father ( pneumonia) Physical Exam-Neuro Vital Signs: Vital Signs Temperature 97.9 F 11/07/18 02:15 Pulse Rate 64 11/07/18 04:46 Respiratory Rate 16 11/07/18 04:46 Blood Pressure 131/84 11/07/18 04:46 O2 Sat by Pulse Oximetry (%) 100 11/07/18 04:46 Labs: CBC, BMP 11/07/18 05:30 11/07/18 05:30 INR, PTT INR 0.99 (0.83-1.09) 11/06/18 20:35 Assessment/Plan CC Syncopal episode HPI 68 year old male history fo Stroke( left sided hemiparesis), HTN, HLD, DM, ESRD . Patient presents with syncopal episode. He has episode of passing out. Patient felt lightheadedness, weak. He denies any tonic clonic acitivity, no tongue bite or incontinence, no post ictal confusion. patient has similar episode before. He denies any other focal neurological symptoms. He did have history of seizure in past and on keppra 500 mg po bid. He did have history of stroke and takes aspirin and not clear why he is not taking statin. PAST MEDICAL HISTORY: CVA in 2015 (with residual left sided weakness), HTN, HLD , Diabetes, ESRD (Dialysis MWF), CHF, Kidney Stones, BPH PAST SURGICAL HISTORY: Splenectomy, cholestectomy, left ureteral stent Social History: Smokin pack year history, quit 3 years ago Alcohol: Remote use in the past Drugs: Stopped using in 1994, would not elaborate when questioned further Family History: Mother at age 42, unsure of etiology Allergies No Known Allergies Allergy (Verified 11/06/18 19:08) HOME MEDICATIONS: Home Medications Medication Instructions Recorded Aspirin [ASA -] 81 mg PO DAILY 11/21/14 Calcium Carbonate 600 mg PO DAILY 11/21/14 Insulin (Novolog) [Novolog Flexpen 0 units SQ ACHS PRN 11/24/14 -] Mirtazapine [Remeron -] 15 mg PO DAILY 11/24/14 Tamsulosin HCl [Flomax -] 0.4 mg PO DAILY 11/24/14 Admelog 0 units SQ PRN PRN 05/27/18 Basaglar Kwikpen U-100 15 units SCJ DAILY 05/27/18 Celexa - 40 mg PO HS 05/27/18 Keppra 500 mg PO BID 05/27/18 Lorazepam 0.5 mg PO DAILY 05/27/18 Tylenol 650 mg PO Q6H PRN 05/27/18 ROS, FH reviewed in chart Neurological Examiantion Alert oriented x 2, confuse about date, and speech is normal, no neck stiffness CN eomi, pupils reactive, left facial paralysis Left sided hemiparesis, left upper extremity there is contractures, and lower extremity is grade 5- ( he is able to walk at home) ct head showed there is right sided old ischemic strokes Assessment/Plan 1. Syncopal episode, no further testing necessary from neurological point of view 2. 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 Stroke, patient on aspirin and not clear why he is not on statin, consider lipitor 20 mg once a day, if there is no contraindication. I would suggest to get more information and make decision about statin as outpatient Thanking you so much Ga Brown MD
--- NOTE | 2018-11-07 15:56 | PN ---
Physical Exam: SUBJECTIVE: Patient seen and examined at the bedside, AO X2. OBJECTIVE: Vital Signs Period Temp Pulse Resp BP Sys/Gore Pulse Ox Last 24 Hr 97.2 F-97.9 F 63-68 15-20 108-134/79-93 97-100 GENERAL: The patient is awake, alert but unsure where he is, thincks he is in his apartment. HEAD: Normal with no signs of trauma. EYES: sclera anicteric, conjunctiva clear. No ptosis. NECK: supple. LUNGS: Breath sounds equal, clear to auscultation bilaterally, no wheezes, no crackles, no accessory muscle use. HEART: Regular rate and rhythm, S1, S2 without murmur, rub or gallop. ABDOMEN: Soft, nontender, nondistended, normoactive bowel sounds, no guarding, no rebound, no masses. EXTREMITIES: 2+ pulses, warm, well-perfused, no edema, weakness in left trapezius 2/5 strength, 2/5 strength in left upper extremity, and left lower extremity 3/5. Sensation equal b/l. SKIN: Warm, dry, normal turgor, no rashes or lesions noted Laboratory Results - last 24 hr 11/06/18 11/06/18 11/06/18 20:35 22:24 22:24 WBC 9.6 RBC 4.67 Hgb 15.2 Hct 44.9 D MCV 96.2 H MCH 32.5 MCHC 33.8 RDW 13.5 Plt Count 166 MPV 8.2 D Absolute Neuts (auto) 7.9 Neutrophils % 82.1 D Lymphocytes % 9.3 D Monocytes % 7.9 Eosinophils % 0.1 D Basophils % 0.6 Nucleated RBC % 0 PT with INR 11.70 INR 0.99 PTT (Actin FS) 21.9 L Sodium Potassium Chloride Carbon Dioxide Anion Gap BUN Creatinine Est GFR (CKD-EPI)AfAm Est GFR (CKD-EPI)NonAf POC Glucometer Random Glucose Hemoglobin A1c % Calcium Phosphorus Magnesium Total Bilirubin AST ALT Alkaline Phosphatase Creatine Kinase Troponin I Total Protein Albumin 11/06/18 11/07/18 11/07/18 22:24 05:30 05:30 WBC 7.3 RBC 4.55 Hgb 14.9 Hct 43.8 MCV 96.4 H MCH 32.8 MCHC 34.0 RDW 13.5 Plt Count 156 MPV 8.5 Absolute Neuts (auto) 4.6 Neutrophils % 62.7 D Lymphocytes % 26.0 D Monocytes % 9.8 Eosinophils % 1.0 D Basophils % 0.5 Nucleated RBC % 0 PT with INR INR PTT (Actin FS) Sodium 135 L 132 L Potassium 5.0 4.9 Chloride 94 L 94 L Carbon Dioxide 32 31 Anion Gap 9 8 BUN 21.4 H 27.6 H Creatinine 6.0 H 6.8 H Est GFR (CKD-EPI)AfAm 10.08 8.67 Est GFR (CKD-EPI)NonAf 8.70 7.48 POC Glucometer Random Glucose 126 H 99 Hemoglobin A1c % Calcium 8.8 8.3 L Phosphorus 3.5 4.3 Magnesium 2.4 2.5 H Total Bilirubin 1.5 H 1.4 H AST 13 L 13 L ALT 16 16 Alkaline Phosphatase 68 61 Creatine Kinase 76 Troponin I < 0.02 Total Protein 9.0 H 8.1 Albumin 4.4 4.0 11/07/18 11/07/18 11/07/18 05:30 05:55 11:06 WBC RBC Hgb Hct MCV MCH MCHC RDW Plt Count MPV Absolute Neuts (auto) Neutrophils % Lymphocytes % Monocytes % Eosinophils % Basophils % Nucleated RBC % PT with INR INR PTT (Actin FS) Sodium Potassium Chloride Carbon Dioxide Anion Gap BUN Creatinine Est GFR (CKD-EPI)AfAm Est GFR (CKD-EPI)NonAf POC Glucometer 100 99 Random Glucose Hemoglobin A1c % 5.7 Calcium Phosphorus Magnesium Total Bilirubin AST ALT Alkaline Phosphatase Creatine Kinase Troponin I Total Protein Albumin Active Medications Generic Name Dose Route Start Last Admin Trade Name Freq PRN Reason Stop Dose Admin Aspirin 81 mg 11/07/18 10:00 11/07/18 10:32 Asa - PO 81 mg DAILY DMITRI Administration Atorvastatin Calcium 20 mg 11/07/18 22:00 Lipitor - PO HS DMITRI Heparin Sodium (Porcine) 5,000 unit 11/07/18 02:00 11/07/18 10:32 Heparin - SQ 5,000 unit Q8H-IV DMITRI Administration Insulin Aspart 1 vial 11/07/18 07:00 11/07/18 11:08 Novolog Vial Sliding Scale - SQ Not Given ACHS DMITRI Protocol Levetiracetam 500 mg 11/07/18 10:00 11/07/18 10:32 Keppra - PO 500 mg BID DMITRI Administration ASSESSMENT/PLAN: This is a 68 y/o M w a PMH of CVA w left sided weakness, seizures, HTN, HLD, DM , ESRD on dialysis (m,w,f) hematuria (being followed o/p by urologist) who presented to the ED after fainting in his apartment bathroom. #? Syncope/Orthostatic hypotension - Dr. Benitez- neuro recommendations appreciated: c/w keppra 500BID, pt started on lipitor 20, continuing ASA 81 considering hx of CVA. - Dr. Worrell- Telemetry monitoring, for vasovagal/orthostatic hypotension or hypovolemia due to dialysis, echo pending, check orthostatic vitals, hypotension will be monitored while off any hypertension meds. #Seizure Keppra 500 mg BID - Lorazepam has been stopped. #ESRD - On dialysis, possible cause of syncope event - Dr. Mckeon consulted (nephro) - plan is to hemodialyze him tomorrow. Appreciate recommendations. #Diabetes Insulin Sliding scale - pt reduced to 10units of lantus while at home. DVT Prophylaxis: Heparin 5000 SQ BID F: No fluids E: Trend BMP N: Diabetic Diet Visit type - Emergency Visit Emergency Visit: Yes ED Registration Date: 11/07/18 Care time: The patient presented to the Emergency Department on the above date and was hospitalized for further evaluation of their emergent condition. - New Patient This patient is new to me today: Yes Date on this admission: 11/07/18 - Critical Care Critical Care patient: No - Discharge Referral Referred to [facility] Med P.C[facility] No ATTENDING PHYSICIAN STATEMENT I saw and evaluated the patient. I reviewed the resident's note and discussed the case with the resident. I agree with the resident's findings and plan as documented. SUBJECTIVE: OBJECTIVE: ASSESSMENT AND PLAN:
[2018-11-07] MEDS ORDERED: SODIUM CHLORIDE 250 ML IV PRN (17:35)
--- NOTE | 2018-11-07 17:35 | CONSULT ---
Consult - text type - Consultation Consultation Note: Renal consult for ESRD on HD This is a 68 year old gentleman with hx of ESRD on HD CVA, DM, CHF, BPH who presented from home s/p fall/syncope. Pt had dialysis on Sunday w/o complication but had syncopal episode at home on Sunday evening. PMhx: as above allergieS: NKDA Family hx: NC social hx: no T/A/D ROS: as per HPI, all other ROS negative Home Medications Medication Instructions Recorded Aspirin [ASA -] 81 mg PO DAILY 11/21/14 Calcium Carbonate 600 mg PO DAILY 11/21/14 Insulin (Novolog) [Novolog Flexpen 0 units SQ ACHS PRN 11/24/14 -] Mirtazapine [Remeron -] 15 mg PO DAILY 11/24/14 Tamsulosin HCl [Flomax -] 0.4 mg PO DAILY 11/24/14 Admelog 0 units SQ PRN PRN 05/27/18 Basaglar Kwikpen U-100 15 units SCJ DAILY 05/27/18 Celexa - 40 mg PO HS 05/27/18 Keppra 500 mg PO BID 05/27/18 Lorazepam 0.5 mg PO DAILY 05/27/18 Tylenol 650 mg PO Q6H PRN 05/27/18 Vital Signs Temperature 98.2 F 11/07/18 17:03 Pulse Rate 80 11/07/18 17:03 Respiratory Rate 16 11/07/18 17:03 Blood Pressure 137/69 11/07/18 17:03 O2 Sat by Pulse Oximetry (%) 100 11/07/18 17:03 Intake & Output 11/04/18 11/05/18 11/06/18 11/07/18 23:59 23:59 23:59 23:59 Intake Total 10 Balance 10 Weight 74.843 kg 74.843 kg CBC, BMP 11/07/18 05:30 11/07/18 05:30 Current Medications Aspirin (Asa -) 81 mg PO DAILY DMITRI Last Admin: 11/07/18 10:32 Dose: 81 mg Atorvastatin Calcium (Lipitor -) 20 mg PO HS DMITRI Heparin Sodium (Porcine) (Heparin -) 5,000 unit SQ Q8H-IV DMITRI Last Admin: 11/07/18 10:32 Dose: 5,000 unit Insulin Aspart (Novolog Vial Sliding Scale -) 1 vial SQ ACHS [facility]; Protocol Last Admin: 11/07/18 17:10 Dose: Not Given Levetiracetam (Keppra -) 500 mg PO BID DMITRI Last Admin: 11/07/18 10:32 Dose: 500 mg 68 year old gentleman with hx of ESRD on HD, hypertension, CVA , DM, CHF, BPH who presented from home s/p fall/syncope. Pt had dialysis on Sunday w/o complication but had syncopal episode at home on Sunday evening. #ESRD on HD #Syncope #Hx of CVA #IDDM For dialysis tomorrow with UF as tolerated Renal diet, 1.2L fluid restriction Orthostatic VS Q8h not currently on antihyperetensives Trevin Sanchez DO
--- NOTE | 2018-11-07 18:07 | PN ---
Teaching Attending Note Name of Resident: Jonathan Guardado ATTENDING PHYSICIAN STATEMENT I saw and evaluated the patient. I reviewed the resident's note and discussed the case with the resident. I agree with the resident's findings and plan as documented. SUBJECTIVE: Patient is comfortable , denies having any fever or shortness breath or chest pain. no further syncopal event. OBJECTIVE: Vital Signs Temperature 98.2 F 11/07/18 17:03 Pulse Rate 80 11/07/18 17:03 Respiratory Rate 16 11/07/18 17:03 Blood Pressure 137/69 11/07/18 17:03 O2 Sat by Pulse Oximetry (%) 100 11/07/18 17:03 GENERAL: The patient is awake, alert, and oriented, in no acute distress. HEAD: Normal with no signs of trauma. EYES: PERRL, extraocular movements intact, sclera anicteric, conjunctiva clear. ENT: Ears normal, oropharynx clear without exudates, moist mucous membranes. NECK: Trachea midline, full range of motion, supple. LUNGS: Breath sounds equal, clear to auscultation bilaterally, no wheezes, no crackles, no accessory muscle use. HEART: Regular rate and rhythm, S1, S2 without murmur, rub or gallop. ABDOMEN: Soft, nontender, nondistended, normoactive bowel sounds, no guarding, no rebound, no hepatosplenomegaly, no masses. EXTREMITIES: 2+ pulses, warm, well-perfused, no edema. NEUROLOGICAL: Cranial nerves II through XII grossly intact. Normal speech, gait not observed. power: 2/5 strength LUE, left lower extremity 3/5. PSYCH: Normal mood, normal affect. SKIN: Warm, dry, normal turgor, no rashes or lesions noted CBCD WBC 7.3 K/mm3 (4.0-10.0) 11/07/18 05:30 RBC 4.55 M/mm3 (4.00-5.60) 11/07/18 05:30 Hgb 14.9 GM/dL (11.7-16.9) 11/07/18 05:30 Hct 43.8 % (35.4-49) 11/07/18 05:30 MCV 96.4 fl (80-96) H 11/07/18 05:30 MCHC 34.0 g/dl (32.0-35.9) 11/07/18 05:30 RDW 13.5 % (11.9-15.9) 11/07/18 05:30 Plt Count 156 K/MM3 (134-434) 11/07/18 05:30 MPV 8.5 fl (7.5-11.1) 11/07/18 05:30 CMP Sodium 132 mmol/L (136-145) L 11/07/18 05:30 Potassium 4.9 mmol/L (3.5-5.1) 11/07/18 05:30 Chloride 94 mmol/L (98-107) L 11/07/18 05:30 Carbon Dioxide 31 mmol/L (21-32) 11/07/18 05:30 Anion Gap 8 MMOL/L (8-16) 11/07/18 05:30 BUN 27.6 mg/dL (7-18) H 11/07/18 05:30 Creatinine 6.8 mg/dL (0.55-1.3) H 11/07/18 05:30 Random Glucose 99 mg/dL (74-106) 11/07/18 05:30 Calcium 8.3 mg/dL (8.5-10.1) L 11/07/18 05:30 Total Bilirubin 1.4 mg/dL (0.2-1) H 11/07/18 05:30 AST 13 U/L (15-37) L 11/07/18 05:30 ALT 16 U/L (13-61) 11/07/18 05:30 Alkaline Phosphatase 61 U/L (45-117) 11/07/18 05:30 Total Protein 8.1 g/dl (6.4-8.2) 11/07/18 05:30 Albumin 4.0 g/dl (3.4-5.0) 11/07/18 05:30 CARDIAC ENZYMES Creatine Kinase 76 U/L (26-308) 11/06/18 22:24 Troponin I < 0.02 ng/ml (0.00-0.05) 11/06/18 22:24 Current Medications Generic Name Dose Route Start Last Admin Trade Name Freq PRN Reason Stop Dose Admin Aspirin 81 mg 11/07/18 10:00 11/07/18 10:32 Asa - PO 81 mg DAILY DMITRI Administration Atorvastatin Calcium 20 mg 11/07/18 22:00 Lipitor - PO HS DMITRI Heparin Sodium (Porcine) 5,000 unit 11/07/18 02:00 11/07/18 17:34 Heparin - SQ 5,000 unit Q8H-IV DMITRI Administration Sodium Chloride 250 mls @ 3,000 mls/hr 11/07/18 17:35 Normal Saline - IV 11/08/18 17:35 PRN PRN Hypotension during Dialysis Insulin Aspart 1 vial 11/07/18 07:00 11/07/18 17:10 Novolog Vial Sliding Scale - SQ Not Given ACHS DMITRI Protocol Levetiracetam 500 mg 11/07/18 10:00 11/07/18 10:32 Keppra - PO 500 mg BID DMITRI Administration Home Medications Medication Instructions Recorded Aspirin [ASA -] 81 mg PO DAILY 11/21/14 Calcium Carbonate 600 mg PO DAILY 11/21/14 Insulin (Novolog) [Novolog Flexpen 0 units SQ ACHS PRN 11/24/14 -] Mirtazapine [Remeron -] 15 mg PO DAILY 11/24/14 Tamsulosin HCl [Flomax -] 0.4 mg PO DAILY 11/24/14 Admelog 0 units SQ PRN PRN 05/27/18 Basaglar Kwikpen U-100 15 units SCJ DAILY 05/27/18 Celexa - 40 mg PO HS 05/27/18 Keppra 500 mg PO BID 05/27/18 Lorazepam 0.5 mg PO DAILY 05/27/18 Tylenol 650 mg PO Q6H PRN 05/27/18 ASSESSMENT AND PLAN: This is a 68 y/o M w a PMH of CVA w left sided weakness, seizures, HTN, HLD, DM , ESRD on dialysis (m,w,f) hematuria (being followed o/p by urologist) who presented to the ED after fainting in his apartment bathroom. # Syncope most likely due to having hypoglycemic event , as per patient also , after the dialysis , he comes home very tired and completely drained. will discuss with nephro to decrease the fluid intake. check orthostatic vitals. On aspirin and lipitor continue # Hx of Seizure: continue keppra 500 BID #ESRD on HD , nephro consulted #T2DM: SS with coverage , reduced to 10units of long acting Insulin in am DVT Prophylaxis: Heparin 5000 SQ BID possible dc in am
[2018-11-07] MEDS ORDERED: ATORVASTATIN CA 20 MG TABLET (FP) PO SCH (22:00)
[2018-11-08] MEDS: HEPARIN NA (PORCINE) 5,000 UNITS/ML 1ML VIAL SQ SCH ×2 (01:45→16:43)
[2018-11-08] MEDS: INSULIN SLIDING SCALE (NOVOLOG) 1 VIAL SQ SCH ×3 (06:02→17:59)
[2018-11-08 06:37] LABS: BASO % 0.4 % (0-2.0); EOS % 2.9 % (0-4.5); HEMATOCRIT 42.2 % (35.4-49); HEMOGLOBIN 14.3 GM/dL (11.7-16.9); LYMPH % 32.8 % (8-40); MCH 32.7 pg (25.7-33.7); MCHC 33.9 g/dl (32.0-35.9); MEAN CELL VOLUME 96.6 fl (80-96); MEAN PLT VOLUME 8.7 fl (7.5-11.1); MONO % 12.2 % (3.8-10.2); NEUT % 51.7 % (42.8-82.8); PLATELET COUNT 168 K/MM3 (134-434); RBC 4.37 M/mm3 (4.00-5.60); RDW 13.5 % (11.9-15.9); WHITE BLOOD COUNT 6.7 K/mm3 (4.0-10.0)
[2018-11-08 07:42] LABS: ALBUMIN 3.8 g/dl (3.4-5.0); BILIRUBIN,TOTAL 1.2 mg/dL (0.2-1); BLOOD UREA NITROGEN 49.2 mg/dL (7-18); POTASSIUM 4.6 mmol/L (3.5-5.1); TOT PROT 7.9 g/dl (6.4-8.2)
[2018-11-08 08:09] LABS: CREATININE 9.3 mg/dL (0.55-1.3)
--- NOTE | 2018-11-08 09:12 | PN ---
Progress Note, Physician Chief Complaint: seen and examined on 4 W TELE: NSR - Current Medication List Current Medications: Active Medications Aspirin (Asa -) 81 mg PO DAILY [facility] Last Admin: 11/07/18 10:32 Dose: 81 mg Atorvastatin Calcium (Lipitor -) 20 mg PO HS [facility] Last Admin: 11/07/18 21:28 Dose: 20 mg Heparin Sodium (Porcine) (Heparin -) 5,000 unit SQ Q8H-IV [facility] Last Admin: 11/08/18 01:45 Dose: 5,000 unit Sodium Chloride (Normal Saline -) 250 mls @ 3,000 mls/hr IV PRN PRN PRN Reason: Hypotension during Dialysis Stop: 11/08/18 17:35 Insulin Aspart (Novolog Vial Sliding Scale -) 1 vial SQ ACHS [facility]; Protocol Last Admin: 11/08/18 06:02 Dose: Not Given Levetiracetam (Keppra -) 500 mg PO BID [facility] Last Admin: 11/07/18 21:28 Dose: 500 mg - Objective Vital Signs: Vital Signs Temperature 98 F 11/08/18 08:51 Pulse Rate 56 L 11/08/18 08:51 Respiratory Rate 18 11/08/18 08:51 Blood Pressure 134/84 11/08/18 08:51 O2 Sat by Pulse Oximetry (%) 98 11/07/18 21:00 Constitutional: Yes: No Distress Cardiovascular: Yes: Regular Rate and Rhythm Respiratory: Yes: CTA Bilaterally Gastrointestinal: Yes: Soft Edema: No Neurological: Yes: Alert, Oriented Labs: CBC, BMP 11/08/18 05:30 11/08/18 05:30 INR, PTT INR 0.99 (0.83-1.09) 11/06/18 20:35 Laboratory Tests 11/08/18 11/08/18 05:30 05:30 WBC 6.7 Hgb 14.3 Plt Count 168 Sodium 134 L Potassium 4.6 BUN 49.2 H Creatinine 9.3 H* Calcium 8.0 L Total Bilirubin 1.2 H AST 10 L - ....Imaging EKG: Image Reviewed Assessment/Plan ecg: sr, 1st avb, nl qtc, no ischemic changes cxr: clear lungs echo 11/2014: mild lvh, nl lvef, nl rv, mild ar/mr/tr, nl rvsp, ao root dil a/p: 68 m hx esrd on hd, cvas, htn, seizures, dm ,hep b, here with syncope. Syncope: -seems vasovagal/orthostatic based on description, likely relate to vol removal from HD right before episode. -no signs acs, arrhythmia, chf -echo normal LV/RV, no sig valve dz noted, TDS -neuro eval pending -check ortho vitals, monitor on tele HTN: -bp on low side, monitor off meds ESRD: -hd per renal
--- NOTE | 2018-11-08 13:26 | DS ---
Physical Exam: SUBJECTIVE: Patient seen and examined and without any acute complaints. OBJECTIVE: Vital Signs Period Temp Pulse Resp BP Sys/Gore Pulse Ox Last 24 Hr 97.7 F-98.2 F 56-80 16-18 103-137/69-84 98-100 PHYSICAL EXAM GENERAL: The patient is awake, alert, and fully oriented, in no acute distress. NECK: Trachea midline, full range of motion, supple. LUNGS: Breath sounds equal, clear to auscultation bilaterally, no wheezes, no crackles, no accessory muscle use. HEART: Regular rate and rhythm, S1, S2 without murmur, rub or gallop. ABDOMEN: Soft, nontender, nondistended, normoactive bowel sounds, no guarding, EXTREMITIES: 2+ pulses, warm, well-perfused, no edema. SKIN: Warm, dry, normal turgor, no rashes or lesions noted. LABS Laboratory Results - last 24 hr 11/07/18 11/07/18 11/08/18 16:51 21:13 05:30 WBC 6.7 RBC 4.37 Hgb 14.3 Hct 42.2 MCV 96.6 H MCH 32.7 MCHC 33.9 RDW 13.5 Plt Count 168 MPV 8.7 Absolute Neuts (auto) 3.5 Neutrophils % 51.7 Lymphocytes % 32.8 D Monocytes % 12.2 H Eosinophils % 2.9 D Basophils % 0.4 Nucleated RBC % 0 Sodium Potassium Chloride Carbon Dioxide Anion Gap BUN Creatinine Est GFR (CKD-EPI)AfAm Est GFR (CKD-EPI)NonAf POC Glucometer 73 108 Random Glucose Calcium Total Bilirubin AST ALT Alkaline Phosphatase Total Protein Albumin Triglycerides Cholesterol Total LDL Cholesterol HDL Cholesterol 11/08/18 11/08/18 11/08/18 05:30 05:52 12:16 WBC RBC Hgb Hct MCV MCH MCHC RDW Plt Count MPV Absolute Neuts (auto) Neutrophils % Lymphocytes % Monocytes % Eosinophils % Basophils % Nucleated RBC % Sodium 134 L Potassium 4.6 Chloride 93 L Carbon Dioxide 30 Anion Gap 11 BUN 49.2 H Creatinine 9.3 H* Est GFR (CKD-EPI)AfAm 5.94 Est GFR (CKD-EPI)NonAf 5.12 POC Glucometer 90 97 Random Glucose 90 Calcium 8.0 L Total Bilirubin 1.2 H AST 10 L ALT 13 Alkaline Phosphatase 60 Total Protein 7.9 Albumin 3.8 Triglycerides 36 Cholesterol 124 Total LDL Cholesterol 80 HDL Cholesterol 52 HOSPITAL COURSE: Date of Admission:11/07/18 Patient is a 68 y/o M w a PMH of CVA w left sided weakness, seizures, HTN, HLD , DM, ESRD on dialysis (m,w,f) hematuria who presented for light headedness after dialysis. Patient had a negative echo and remained asymptomatic. Levemir dose decreased. Discussed with nephrology patient will have less fluid taken off during dialysis. Patient stable and vitals stable for discharge. Head CT: no acute pathology, multiple chronic right cerebral infarcts. CXR: inspiration with unfolded aorta, normal tolu, prominent heart Date of Discharge: 11/08/18 Minutes to complete discharge: 40 Discharge Summary Reason For Visit: SYNCOPE Current Active Problems Syncope (Acute) Condition: Stable - Instructions Diet, Activity, Other Instructions: You were admitted to the hospital for feeling light headed. This happened after dialysis. You may be having too much fluid removed during your dialysis. Please discuss with your global creative chairman at the dialysis center how much fluid should be removed. While you were here we did imaging of your heart and chest with normal findings. On your blood work we found that one of your enzymes is slightly elevated ( bilirubin). You do not need to stay in the hospital for this. Please make an appointment with the Kitchen Stewardess to continue to follow up and monitor your bilirubin. Continue all home medications as prescribed. Make an appointment with your primary care physician within one week. Return to the Emergency Department if you have any nausea, vomiting, chest pain , dizziness, shortness of breath, or worsening of symptoms. Referrals: Mohinder Salazar DO [Staff Physician] - Trevin Mckeon MD [Staff Physician] - Disposition: VNS/HOME HEALTH CARE - Home Medications Comprehensive Discharge Medication List: Ambulatory Orders Aspirin [ASA -] 81 mg PO DAILY 11/21/14 Insulin (Novolog) [Novolog Flexpen -] 0 units SQ ACHS PRN 11/24/14 Mirtazapine [Remeron -] 15 mg PO DAILY 11/24/14 Tamsulosin HCl [Flomax -] 0.4 mg PO DAILY 11/24/14 Celexa - 40 mg PO HS 05/27/18 Keppra 500 mg PO BID 05/27/18 Atorvastatin Ca [Lipitor] 20 mg PO HS #30 tablet 11/08/18 Insulin Glargine,Hum.rec.anlog [Óscar Roth U-100] 10 unit SQ AM #1 insuln.pen 11/08/18 This patient is new to me today: Yes Date on this admission: 11/08/18 Emergency Visit: No Critical Care patient: No - Discharge Referral Referred to [facility] No ATTENDING PHYSICIAN STATEMENT I saw and evaluated the patient. I reviewed the resident's note and discussed the case with the resident. I agree with the resident's findings and plan as documented. SUBJECTIVE: OBJECTIVE: ASSESSMENT AND PLAN:
[2018-11-08 13:40] VITALS: TEMP 98.2
--- NOTE | 2018-11-08 13:43 | PN ---
Progress Note (short form) - Note Progress Note: Renal follow up for ESRD on HD Pt seen and examined during dialysis awake and alert BP stable, UF goal only 1L no cramping, sob, cp, abd pain access with good flow Vital Signs Temperature 98.2 F 11/08/18 12:55 Pulse Rate 61 11/08/18 13:00 Respiratory Rate 18 11/08/18 13:00 Blood Pressure 120/74 11/08/18 13:00 O2 Sat by Pulse Oximetry (%) 100 11/08/18 09:00 Intake & Output 11/05/18 11/06/18 11/07/18 11/08/18 23:59 23:59 23:59 23:59 Intake Total 290 130 Balance 290 130 Weight 74.843 kg 74.843 kg 65.589 kg NAD awake and alert RRR CTA no LE or sacral edema CBC, BMP 11/08/18 05:30 11/08/18 05:30 Current Medications Aspirin (Asa -) 81 mg PO DAILY [facility] Last Admin: 11/07/18 10:32 Dose: 81 mg Atorvastatin Calcium (Lipitor -) 20 mg PO HS [facility] Last Admin: 11/07/18 21:28 Dose: 20 mg Heparin Sodium (Porcine) (Heparin -) 5,000 unit SQ Q8H-IV [facility] Last Admin: 11/08/18 01:45 Dose: 5,000 unit Sodium Chloride (Normal Saline -) 250 mls @ 3,000 mls/hr IV PRN PRN PRN Reason: Hypotension during Dialysis Stop: 11/08/18 17:35 Insulin Aspart (Novolog Vial Sliding Scale -) 1 vial SQ ACHS [facility]; Protocol Last Admin: 11/08/18 12:28 Dose: Not Given Levetiracetam (Keppra -) 500 mg PO BID [facility] Last Admin: 11/07/18 21:28 Dose: 500 mg 68 year old gentleman with hx of ESRD on HD, hypertension, CVA , DM, CHF, BPH who presented from home s/p fall/syncope. Pt had dialysis on Sunday w/o complication but had syncopal episode at home on Sunday evening. #ESRD on HD #Syncope #Hx of CVA #IDDM tolerating dialysis well. should monitor for hypotension or orthostatics post dialysis. UF goal is reduced. Will adjust dry weight with outpatient unit. if BP stable, and pt feels well can be discharged with outpatient follow up. Trevin Sanchez DO
[2018-11-08] MEDS: levETIRAcetam 500 MG TABLET (FP) PO SCH (16:46)
[2018-11-08] MEDS: ASPIRIN 81 MG CHEWABLE TABLETS PO SCH (16:46)
[2018-11-08 17:41] VITALS: BP 135/81; PULSE 68
--- NOTE | 2018-11-08 20:30 | PN ---
Teaching Attending Note Name of Resident: Jonathan Guardado ATTENDING PHYSICIAN STATEMENT I saw and evaluated the patient. I reviewed the resident's note and discussed the case with the resident. I agree with the resident's findings and plan as documented. SUBJECTIVE: OBJECTIVE: Vital Signs Temperature 98.2 F 11/08/18 14:30 Pulse Rate 68 11/08/18 17:40 Respiratory Rate 18 11/08/18 17:40 Blood Pressure 135/81 11/08/18 17:40 O2 Sat by Pulse Oximetry (%) 100 11/08/18 09:00 GENERAL: The patient is awake, alert, and oriented, in no acute distress. HEAD: Normal with no signs of trauma. EYES: PERRL, extraocular movements intact, sclera anicteric, conjunctiva clear. ENT: Ears normal, oropharynx clear without exudates, moist mucous membranes. NECK: Trachea midline, full range of motion, supple. LUNGS: Breath sounds equal, clear to auscultation bilaterally, no wheezes, no crackles, no accessory muscle use. HEART: Regular rate and rhythm, S1, S2 without murmur, rub or gallop. ABDOMEN: Soft, nontender, nondistended, normoactive bowel sounds, no guarding, no rebound, no hepatosplenomegaly, no masses. EXTREMITIES: 2+ pulses, warm, well-perfused, no edema. NEUROLOGICAL: Cranial nerves II through XII grossly intact. Normal speech, gait not observed. power: 2/5 strength LUE, left lower extremity 3/5. PSYCH: Normal mood, normal affect. SKIN: Warm, dry, normal turgor, no rashes or lesions noted CBCD WBC 6.7 K/mm3 (4.0-10.0) 11/08/18 05:30 RBC 4.37 M/mm3 (4.00-5.60) 11/08/18 05:30 Hgb 14.3 GM/dL (11.7-16.9) 11/08/18 05:30 Hct 42.2 % (35.4-49) 11/08/18 05:30 MCV 96.6 fl (80-96) H 11/08/18 05:30 MCHC 33.9 g/dl (32.0-35.9) 11/08/18 05:30 RDW 13.5 % (11.9-15.9) 11/08/18 05:30 Plt Count 168 K/MM3 (134-434) 11/08/18 05:30 MPV 8.7 fl (7.5-11.1) 11/08/18 05:30 CMP Sodium 134 mmol/L (136-145) L 11/08/18 05:30 Potassium 4.6 mmol/L (3.5-5.1) 11/08/18 05:30 Chloride 93 mmol/L (98-107) L 11/08/18 05:30 Carbon Dioxide 30 mmol/L (21-32) 11/08/18 05:30 Anion Gap 11 MMOL/L (8-16) 11/08/18 05:30 BUN 49.2 mg/dL (7-18) H 11/08/18 05:30 Creatinine 9.3 mg/dL (0.55-1.3) H* 11/08/18 05:30 Random Glucose 90 mg/dL (74-106) 11/08/18 05:30 Calcium 8.0 mg/dL (8.5-10.1) L 11/08/18 05:30 Total Bilirubin 1.2 mg/dL (0.2-1) H 11/08/18 05:30 AST 10 U/L (15-37) L 11/08/18 05:30 ALT 13 U/L (13-61) 11/08/18 05:30 Alkaline Phosphatase 60 U/L (45-117) 11/08/18 05:30 Total Protein 7.9 g/dl (6.4-8.2) 11/08/18 05:30 Albumin 3.8 g/dl (3.4-5.0) 11/08/18 05:30 CARDIAC ENZYMES Creatine Kinase 76 U/L (26-308) 11/06/18 22:24 Troponin I < 0.02 ng/ml (0.00-0.05) 11/06/18 22:24 Current Medications Generic Name Dose Route Start Last Admin Trade Name Freq PRN Reason Stop Dose Admin Aspirin 81 mg 11/07/18 10:00 11/08/18 16:46 Asa - PO 81 mg DAILY [facility] Administration Atorvastatin Calcium 20 mg 11/07/18 22:00 11/07/18 21:28 Lipitor - PO 20 mg HS [facility] Administration Heparin Sodium (Porcine) 5,000 unit 11/07/18 02:00 11/08/18 16:43 Heparin - SQ Not Given Q8H-IV [facility] Sodium Chloride 250 mls @ 3,000 mls/hr 11/07/18 17:35 Normal Saline - IV 11/08/18 17:35 PRN PRN Hypotension during Dialysis Insulin Aspart 1 vial 11/07/18 07:00 11/08/18 17:59 Novolog Vial Sliding Scale - SQ Not Given ACHS [facility] Protocol Levetiracetam 500 mg 11/07/18 10:00 11/08/18 16:46 Keppra - PO 500 mg BID [facility] Administration Home Medications Medication Instructions Recorded Aspirin [ASA -] 81 mg PO DAILY 11/21/14 Insulin (Novolog) [Novolog Flexpen 0 units SQ ACHS PRN 11/24/14 -] Mirtazapine [Remeron -] 15 mg PO DAILY 11/24/14 Tamsulosin HCl [Flomax -] 0.4 mg PO DAILY 11/24/14 Celexa - 40 mg PO HS 05/27/18 Keppra 500 mg PO BID 05/27/18 Atorvastatin Ca [Lipitor] 20 mg PO HS #30 tablet 11/08/18 Insulin Glargine,Hum.rec.anlog 10 unit SQ AM #1 insuln.pen 11/08/18 [Basaglar Kwikpen U-100] ASSESSMENT AND PLAN: This is a 68 y/o M w a PMH of CVA w left sided weakness, seizures, HTN, HLD, DM , ESRD on dialysis (m,w,f) hematuria (being followed o/p by urologist) who presented to the ED after fainting in his apartment bathroom. # Syncope most likely due to having hypoglycemic event , as per patient also , after the dialysis , he comes home very tired and completely drained. will discuss with nephro to decrease the fluid intake. check orthostatic vitals. On aspirin and lipitor continue # Hx of Seizure: continue keppra 500 BID #ESRD on HD , nephro consulted #T2DM: SS with coverage , reduced to 10units of long acting Insulin in am DVT Prophylaxis: Heparin 5000 SQ BID dc home post HD
== END 2018-11-08 18:00 | disposition home health service (06) | DRG 638 ==
LOC: JER 19:05 → JERBED 23:34 → OBSVTOIN 11-07 00:23 → J4W 11-07 16:33
PROVIDERS: ADMIT Internal Medicine; ATTEND Internal Medicine
PROC: 5A1D70Z Performance of Urinary Filtration, Intermittent, Less than 6 Hours Per Day (ICD-10-PCS; principal; 2018-11-08)
DX: E11.649 Type 2 diabetes mellitus with hypoglycemia without coma (principal); G40.802 Other epilepsy, not intractable, without status epilepticus; I13.0 Hypertensive heart and chronic kidney disease with heart failure and stage 1 through stage 4 chronic kidney disease, or unspecified chronic kidney disease; G81.94 Hemiplegia, unspecified affecting left nondominant side; N18.6 End stage renal disease; N40.0 Benign prostatic hyperplasia without lower urinary tract symptoms; E11.22 Type 2 diabetes mellitus with diabetic chronic kidney disease; R00.1 Bradycardia, unspecified; I44.0 Atrioventricular block, first degree; R55 Syncope and collapse; E78.5 Hyperlipidemia, unspecified; G93.89 Other specified disorders of brain; R33.9 Retention of urine, unspecified; I69.398 Other sequelae of cerebral infarction; I50.9 Heart failure, unspecified; I95.1 Orthostatic hypotension; Z90.81 Acquired absence of spleen; Z99.2 Dependence on renal dialysis; Z86.19 Personal history of other infectious and parasitic diseases; Z87.442 Personal history of urinary calculi
CPT/HCPCS: 36415; 70450-TC; 71045-TC-FY; 80053; 80061; 82550; 82962; 83036; 83721; 83735; 84100; 84484; 85025; 85610; 85730; 86803; 87340; 93005; 93010; 93306-TC; 99285-25; G0378; J1644

== ENCOUNTER 2019-03-19 16:53 | Emergency (ER) | payer OTHER ==
[2019-03-19 17:12] VITALS: BP 129/79; PULSE 65; TEMP 98.5; BMI 18.1
--- NOTE | 2019-03-19 17:31 | PDOC ---
History of Present Illness - General Chief Complaint: Dialysis Shunt Problem Stated Complaint: Dialysis Shunt Problem Time Seen by Provider: 03/19/19 17:30 History Source: Patient, Spouse () Exam Limitations: Other (pt poor historian, most history obtained from ) Past History - Past Medical History Allergies/Adverse Reactions: Allergies Allergy/AdvReac Type Severity Reaction Status Date / Time No Known Allergies Allergy Verified 03/19/19 17:12 Home Medications: Ambulatory Orders Insulin (Novolog) [Novolog Flexpen -] 0 units SQ ACHS PRN 11/24/14 Mirtazapine [Remeron -] 15 mg PO DAILY 11/24/14 Tamsulosin HCl [Flomax -] 0.4 mg PO HS 11/24/14 Insulin Glargine,Hum.rec.anlog [Basaglar Kwikpen U-100] 10 unit SQ AM #1 insuln.pen 11/08/18 Acetaminophen 650 mg PO QID PRN 03/19/19 Citalopram Hydrobromide [Citalopram HBr] 40 mg PO HS 03/19/19 Darbepoetin Emil in Polysorbat [Aranesp] 10 mcg IJ WEEKLY 03/19/19 Diphenhydramine [Benadryl] 25 mg IM ONCE PRN 03/19/19 Doxercalciferol [Hectorol] 4 mcg IV WEEKLY 03/19/19 LORazepam [Lorazepam] 0.5 mg PO DAILY PRN 03/19/19 levETIRAcetam [Keppra -] 500 mg PO BID 03/19/19 Cancer: No Cardiac Disorders: No CVA: Yes (06/2014) COPD: No CHF: Yes Dementia: No Diabetes: Yes Dialysis: Yes () GI Disorders: No Disorders: Yes (UTI, BPH) HTN: Yes Kidney Stones: Yes Liver Disease: (Hep B) Seizures: No Thyroid Disease: No - Surgical History Abdominal Surgery: Yes (SPLEENECTOMY) Cholecystectomy: Yes Neurologic Surgery: No Orthopedic Surgery: No - Immunization History Td Vaccination: Yes TDAP Vaccination: Yes Immunization Up to Date: Yes - Psycho Social/Smoking Cessation Hx Smoking History: Never smoked Have you smoked in the past 12 months: No Number of Cigarettes Smoked Daily: 2 If you are a former smoker, when did you quit?: >15 yrs ago Information on smoking cessation initiated: No 'Breaking Loose' booklet given: 11/21/14 Hx Alcohol Use: No Drug/Substance Use Hx: No Substance Use Type: None Hx Substance Use Treatment: No *Physical Exam - Vital Signs Last Vital Signs Temp Pulse Resp BP Pulse Ox 98.5 F 65 16 129/79 97 03/19/19 17:10 03/19/19 17:10 03/19/19 17:10 03/19/19 17:10 03/19/19 17:10 Discharge - Discharge Information Problems reviewed: Yes Clinical Impression/Diagnosis: Humerus fracture Qualifiers: Encounter type: initial encounter Humerus Location: proximal Fracture type: closed Fracture morphology: other fracture Fracture alignment: nondisplaced Laterality: left Qualified Code(s): S42.295A - Other nondisplaced fracture of upper end of left humerus, initial encounter for closed fracture Condition: Good Disposition: HOME - Admission No - Follow up/Referral Referrals: Mohinder Cervantes [Primary Care Provider] - Rosendo Linares MD [Staff Physician] - - Patient Discharge Instructions Patient Printed Discharge Instructions: How to Use a Sling, DI for Humeral Fracture Additional Instructions: You were seen in the ER today for arm pain. The results of your imaging today showed a fracture of the left humerus. Please keep your arm in the sling until you see the bone doctors (Dr. Luna or Dr. Linares). Please follow-up with orthopedics within 1-2 days to discuss your visit and make sure your symptoms have improved. Please return to the ER if you have any worsening pain, development of fevers or chills, loss of consciousness, inability to tolerate food or fluids, or any other concerns. You can take tylenol 6 hours as needed for pain. - Post Discharge Activity
[2019-03-19] MEDS ORDERED: ACETAMINOPHEN 325 MG TABLET (FP) PO ONE (17:53)
[2019-03-19] MEDS ORDERED: ACETAMINOPHEN 325 MG TABLET (FP) ONE (18:01)
[2019-03-19] MEDS ORDERED: PIPERACILLIN/TAZOB 4.5 GM 4.5 GM/100 ML BAG IVPB ONE (18:27)
--- NOTE | 2019-03-19 19:00 | PDOC ---
Attending Attestation - Resident Resident Name: ZakMaribel - ED Attending Attestation I have performed the following: I have examined & evaluated the patient, The case was reviewed & discussed with the resident, I agree w/resident's findings & plan, Exceptions are as noted - HPI HPI: 03/19/19 18:56 69 yo male h/o ESRD on dialysis m/w/f left upper ext fistual, prior CVA with left sided arm paresis, here s/p fall 2 nights ago Per patient and patient's patient had a fall 2 nights ago he fell while trying to get in bed however was unwitnessed for the sidewalk in the room and found him sitting upright on the floor next to the bed the bed height was approximately 2 to 3 feet at maximum. Patient denies any head trauma at this time denies any LOC however he does take a baby aspirin daily. Is complaining of left upper arm shoulder and upper extremity pain. Denies any hip pain or other complaints he did go to dialysis today where he was complaining of pain they were able to dialyze him via his left upper arm fistula however due to his pain sent to the ED for evaluation. Patient denies any nausea or vomiting since his fall no other current complaints - Physicial Exam PE: 03/19/19 18:58 Awake alert no acute distress head is atraumatic left shoulder is tender to palpation there is tenderness over the left forearm no deformity noted the fistula is dressing intact noted bruit nontender elbow is with decreased range of motion due to contraction which is old. The left wrist is also contracted in the flexed position there is no noted deformity or ecchymosis mental tenderness on exam. Abdomen is soft nontender otherwise extremities are warm well perfused bilateral hips are nontender full range of motion. Lungs are clear bilaterally heart is regular with any murmurs rubs or gallops - Medical Decision Making 03/19/19 18:58 69-year-old male history of end-stage renal disease status post fall 2 nights ago here today complaining of upper extremity pain. Due to the fact the fall was unwitnessed a CT head was ordered to rule out ICH. X-ray of the left shoulder and elbow were ordered to rule out fracture if negative will likely DC the patient to home he does have a home health aide told to return for any worsening problems patient did have dialysis today therefore no labs were sent
--- NOTE | 2019-03-19 20:50 | PDOC ---
History of Present Illness - General Chief Complaint: Dialysis Shunt Problem Stated Complaint: Dialysis Shunt Problem Time Seen by Provider: 03/19/19 17:30 History Source: Patient, Spouse () Exam Limitations: Other (pt poor historian; most hx provided by ) - History of Present Illness Initial Comments: Pt is a 69 yo M, with PMH of CVA (LUE contracture), seizures (on keppra), HTN, HLD, DM, ESRD (HD M/W/F, AVF L arm), hematuria, and Hep B, who is presenting with complaints of L arm pain. Pt is accompanied by his , who states the pt "got caught in the sheets and fell from the bed onto the floor" 2 nights ago, and was then complaining of pain in his L arm while they were moving his arm during HD session today. Pt received a full HD treatment today with no issues regarding the AV fistula. Pt is a poor historian, and cannot provide full reliable history. Pt has chronic contracture of that arm, and has limited ROM at baseline. Pt denies any change in color of the arm, numbness or tingling, nausea/vomiting, changes to PO intake or BMs. Allergies: NKDA PCP: Dr. Billy [place]: Dr. Menjivar Renal: Dr. Cervantes/Mike Social: Pt denies any cigarette, alcohol, or drug use. Pt denies any recent travel or sick contacts. Surgical: cholecystectomy, splenectomy, L AVF occlusion repair and placement, L ureter stent Family: no relevant history. 03/19/19 20:46 03/19/19 20:50 Past History - Travel Traveled outside of the country in the last 30 days: No Close contact w/someone who was outside of country & ill: No - Past Medical History Allergies/Adverse Reactions: Allergies Allergy/AdvReac Type Severity Reaction Status Date / Time No Known Allergies Allergy Verified 03/19/19 17:12 Home Medications: Ambulatory Orders Insulin (Novolog) [Novolog Flexpen -] 0 units SQ ACHS PRN 11/24/14 Mirtazapine [Remeron -] 15 mg PO DAILY 11/24/14 Tamsulosin HCl [Flomax -] 0.4 mg PO HS 11/24/14 Insulin Glargine,Hum.rec.anlog [Basaglar Kwikpen U-100] 10 unit SQ AM #1 insuln.pen 11/08/18 Acetaminophen 650 mg PO QID PRN 03/19/19 Citalopram Hydrobromide [Citalopram HBr] 40 mg PO HS 03/19/19 Darbepoetin Emil in Polysorbat [Aranesp] 10 mcg IJ WEEKLY 03/19/19 Diphenhydramine [Benadryl] 25 mg IM ONCE PRN 03/19/19 Doxercalciferol [Hectorol] 4 mcg IV WEEKLY 03/19/19 LORazepam [Lorazepam] 0.5 mg PO DAILY PRN 03/19/19 levETIRAcetam [Keppra -] 500 mg PO BID 03/19/19 Cancer: No Cardiac Disorders: No CVA: Yes (06/2014) COPD: No CHF: Yes Dementia: No Diabetes: Yes Dialysis: Yes () GI Disorders: No Disorders: Yes (UTI, BPH) HTN: Yes Kidney Stones: Yes Liver Disease: (Hep B) Seizures: No Thyroid Disease: No - Surgical History Abdominal Surgery: Yes (SPLEENECTOMY) Cholecystectomy: Yes Neurologic Surgery: No Orthopedic Surgery: No - Immunization History Td Vaccination: Yes TDAP Vaccination: Yes Immunization Up to Date: Yes - Psycho Social/Smoking Cessation Hx Smoking History: Never smoked Have you smoked in the past 12 months: No Number of Cigarettes Smoked Daily: 2 If you are a former smoker, when did you quit?: >15 yrs ago Information on smoking cessation initiated: No 'Breaking Loose' booklet given: 11/21/14 Hx Alcohol Use: No Drug/Substance Use Hx: No Substance Use Type: None Hx Substance Use Treatment: No Trauma Specific PMHX - Complaint Specific PMHX Arthritis: No Back Injury: No Neck Injury: No Hx Sacro Iliac Joint Dysfunction: No Review of Systems - Review of Systems Able to Perform ROS?: No (see HPI) *Physical Exam - Vital Signs Last Vital Signs Temp Pulse Resp BP Pulse Ox 98.5 F 65 16 129/79 97 03/19/19 17:10 03/19/19 17:10 03/19/19 17:10 03/19/19 17:10 03/19/19 17:10 - Physical Exam Comments: Vitals stable, pt afebrile. Pt in NAD, thin body habitus. Pt alert and oriented x3. coffee maker servicer generally intact, muscular strength and sensation intact, except for LUE ( contracted at elbow in adduction against chest). Reproducible TTP over anterior L shoulder; no decreased sensation in axillary, ulnar, medial, or radial distributions. Neurovascularly intact. Palpable thrill at L AVF. No midline spinal tenderness, step-offs, or crepitus. Head normocephalic, atraumatic. Eyes PERRLA, EOMI. Oropharynx without erythema or exudates, no LAD b/l. No nasal congestion. Hearing intact. Clear heart sounds, S1/S2, no JVD, b/l pedal edema, or heart murmur. Clear lung sounds, no respiratory distress, wheezes, crackles, or accessory muscle use. No abdominal or CVA tenderness to palpation, no rebound, no guarding. Abdomen soft, non-distended, and with normoactive bowel sounds. Skin without jaundice or rash. 03/19/19 20:51 ED Treatment Course - RADIOLOGY Radiology Studies Ordered: Category Date Time Status CERVICAL SPINE CT W/O CONTR [CT] Stat CT Scan 03/19/19 17:[address] WITHOUT CONTRAST [CT] Stat CT Scan 03/19/19 17:51 Completed HUMERUS-LEFT [RAD] Stat Radiology 03/19/19 17:50 Taken SHOULDER-LEFT [RAD] Stat Radiology 03/19/19 17:49 Taken - Medications Given in the ED: ED Medications Discontinued Medications Generic Name Dose Route Start Last Admin Trade Name Freq PRN Reason Stop Dose Admin Acetaminophen 650 mg 03/19/19 17:53 03/19/19 18:14 Tylenol - PO 03/19/19 17:54 650 mg ONCE ONE Administration Medical Decision Making - Medical Decision Making Pt was seen at bedside, also will be seen by attending Dr. Bird. Pt presenting with L arm/shoulder pain after a fall. Pt has contracture of L arm at baseline, s/p CVA; difficult to range arm and get accurate exam of pts ROM or tenderness sites. No obvious deformities or dislocations. Will evaluate with CT head and C-spine, and x-rays of the L shoulder and L humerus. Provided 650 mg PO tylenol for improvement of discomfort. Will continue to reassess pt and monitor for symptomatic improvement. 03/19/19 20:53 Pts pain controlled with PO tylenol. CT head and C-spine with no acute pathology. X-ray of L humerus shows non-displaced fracture of the L proximal humerus. Placed pt in a sling. L arm neurovascularly intact before and after sling placement. Pt can d/c to home in ambulance with his home health aide. Also spoke to pts to discuss close f/u with orthopedics, and to keep arm in sling until pt can see the orthopedic team. Strict return precautions provided to pt and his with understanding. F/u with orthopedics (Dr. Luna/Milagros). Pt pending transport in ambulance to home. 03/19/19 20:54 Discharge - Discharge Information Problems reviewed: Yes Clinical Impression/Diagnosis: Humerus fracture Qualifiers: Encounter type: initial encounter Humerus Location: proximal Fracture type: closed Fracture morphology: other fracture Fracture alignment: nondisplaced Laterality: left Qualified Code(s): S42.295A - Other nondisplaced fracture of upper end of left humerus, initial encounter for closed fracture Condition: Good Disposition: HOME - Admission No - Follow up/Referral Referrals: Mohinder Cervantes [Primary Care Provider] - Rosendo Linares MD [Staff Physician] - - Patient Discharge Instructions Patient Printed Discharge Instructions: How to Use a Sling, DI for Humeral Fracture Additional Instructions: You were seen in the ER today for arm pain. The results of your imaging today showed a fracture of the left humerus. Please keep your arm in the sling until you see the bone doctors (Dr. Luna or Dr. Linares). Please follow-up with orthopedics within 1-2 days to discuss your visit and make sure your symptoms have improved. Please return to the ER if you have any worsening pain, development of fevers or chills, loss of consciousness, inability to tolerate food or fluids, or any other concerns. You can take tylenol 6 hours as needed for pain. - Post Discharge Activity
== END 2019-03-20 00:50 | disposition home or self-care (01) ==
LOC: JER 16:53
DX: Z43.1 Encounter for attention to gastrostomy (principal); Z86.73 Personal history of transient ischemic attack (TIA), and cerebral infarction without residual deficits; I10 Essential (primary) hypertension; E78.5 Hyperlipidemia, unspecified; E11.9 Type 2 diabetes mellitus without complications; E11.22 Type 2 diabetes mellitus with diabetic chronic kidney disease; N18.6 End stage renal disease; B19.10 Unspecified viral hepatitis B without hepatic coma; H33.04 Retinal detachment with retinal dialysis; Z87.891 Personal history of nicotine dependence
CPT/HCPCS: 70450-TC; 72125-TC; 73030-TC-LT-FY; 73060-TC-LT-FY; 99282-25

== ENCOUNTER 2019-07-12 12:36 | Inpatient (IN) | payer OTHER ==
[2019-07-12 14:30] LABS: BASO % 0.9 % (0-2.0); EOS % 2.3 % (0-4.5); HEMATOCRIT 32.9 % (35.4-49); HEMOGLOBIN 11.1 GM/dL (11.7-16.9); LYMPH % 19.1 % (8-40); MCH 33.2 pg (25.7-33.7); MCHC 33.7 g/dl (32.0-35.9); MEAN CELL VOLUME 98.4 fl (80-96); MEAN PLT VOLUME 9.8 fl (7.5-11.1); MONO % 19.1 % (3.8-10.2); NEUT % 58.6 % (42.8-82.8); PLATELET COUNT 96 K/MM3 (134-434); RBC 3.34 M/mm3 (4.00-5.60); WHITE BLOOD COUNT 4.2 K/mm3 (4.0-10.0)
[2019-07-12 14:38] LABS: INR 1.06 (0.83-1.09); PROTHROMBIN TIME (PATIENT) 12.5 SEC (9.7-13.0)
[2019-07-12 14:41] LABS: ACTIVATED PTT 23.4 SECONDS (25.2-36.5)
[2019-07-12 14:59] LABS: ALBUMIN 2.6 g/dl (3.4-5.0); BILIRUBIN,TOTAL 0.6 mg/dL (0.2-1); BLOOD UREA NITROGEN 22.2 mg/dL (7-18); CALCIUM 8.2 mg/dL (8.5-10.1); CREATININE 5.5 mg/dL (0.55-1.3); MAGNESIUM 1.8 mg/dL (1.8-2.4); PHOSPHOROUS 2.1 mg/dL (2.5-4.9); POTASSIUM 3.9 mmol/L (3.5-5.1); TOT PROT 5.8 g/dl (6.4-8.2)
[2019-07-12 15:11] LABS: PLATELET ESTIMATE DECREASED
[2019-07-12] MEDS ORDERED: MECLIZINE HCL 25 MG TABLET (FP) PO ONE (17:17)
[2019-07-12] MEDS ORDERED: MECLIZINE HCL 25 MG TABLET (FP) ONE (17:22)
[2019-07-12 19:52] LABS: EPI CELLS 4 /uL (0-25.1); HYALINE CASTS 77 /uL (0-3.1); PH,URINE >= 9.0 (5.0-8.0); URINE APPEARANCE CLOUDY; URINE BACTERIA 235 /uL (0-1359); URINE BILIRUBIN NEGATIVE (NEGATIVE); URINE COLOR YELLOW; URINE GLUCOSE (UA) NEGATIVE (NEGATIVE); URINE KETONE NEGATIVE (NEGATIVE); URINE LEUK ESTERASE 3+ (NEGATIVE); URINE NITRITE NEGATIVE (NEGATIVE); URINE PROTEIN 2+ (NEGATIVE); URINE RBC 2 /uL (0-23.9); URINE UROBILINOGEN 0.2 mg/dL (0.2-1.0); URINE WBC 578 /uL (0-25.8)
[2019-07-12] MEDS ORDERED: HEPARIN NA (PORCINE) 5,000 UNITS/ML 1ML VIAL SQ SCH (20:30)
[2019-07-12] MEDS ORDERED: DEXTROSE 5%-WATER - 50 ML IVPB ONE (21:47)
[2019-07-12] MEDS ORDERED: cefTRIAXone SODIUM 1 GM VIAL ONE (21:47)
[2019-07-12] MEDS: levETIRAcetam 500 MG TABLET (FP) PO SCH (21:51)
[2019-07-12] MEDS: ATORVASTATIN CA 20 MG TABLET (FP) PO SCH (21:51)
[2019-07-12] MEDS: CEFTRIAXONE 1 GM in DEXTROSE 5%-WATER - 50 ML IVPB SCH (21:52)
[2019-07-12] MEDS: INSULIN SLIDING SCALE (NOVOLOG) 1 VIAL SQ SCH (21:55)
[2019-07-12] MEDS ORDERED: INSULIN SLIDING SCALE (NOVOLOG) 1 VIAL SQ SCH (22:00)
[2019-07-13 00:26] VITALS: BMI 21.3
[2019-07-13] MEDS: INSULIN SLIDING SCALE (NOVOLOG) 1 VIAL SQ SCH ×3 (06:32→18:08)
[2019-07-13] MEDS ORDERED: MIRTAZAPINE 15 MG TABLET (FP) PO SCH ×2 (10:00→22:00)
[2019-07-13] MEDS: ASPIRIN 81 MG CHEWABLE TABLETS PO SCH (11:04)
[2019-07-13] MEDS: levETIRAcetam 500 MG TABLET (FP) PO SCH ×2 (11:04→21:08)
[2019-07-13] MEDS ORDERED: DEXTROSE 50%-WATER - 25 GM/50 ML VIAL IVPUSH PRN (15:19)
[2019-07-13] MEDS ORDERED: DEXTROSE 5%-WATER - 50 ML IVPB ONE (19:19)
[2019-07-13] MEDS ORDERED: cefTRIAXone SODIUM 1 GM VIAL ONE (19:19)
[2019-07-13] MEDS: CEFTRIAXONE 1 GM in DEXTROSE 5%-WATER - 50 ML IVPB SCH ×2 (19:22→20:30)
[2019-07-13] MEDS: HEPARIN NA (PORCINE) 5,000 UNITS/ML 1ML VIAL SQ SCH (21:07)
[2019-07-13] MEDS: ATORVASTATIN CA 20 MG TABLET (FP) PO SCH (21:08)
[2019-07-13] MEDS: CITALOPRAM HYDROBROMIDE 20 MG TABLET PO SCH (21:08)
[2019-07-14] MEDS: ACETAMINOPHEN 325 MG TABLET (FP) PO PRN (00:06)
[2019-07-14] MEDS: HEPARIN NA (PORCINE) 5,000 UNITS/ML 1ML VIAL SQ SCH ×3 (05:50→22:04)
[2019-07-14] MEDS ORDERED: DEXTROSE 50%-WATER - 25 GM/50 ML VIAL IVPUSH ONE (06:15)
[2019-07-14] MEDS: INSULIN SLIDING SCALE (NOVOLOG) 1 VIAL SQ SCH ×3 (06:36→17:11)
[2019-07-14] MEDS ORDERED: DEXTROSE 50%-WATER 25 GM/50 ML DISP.SYRIN IVPUSH ONE (06:45)
[2019-07-14] MEDS ORDERED: cefTRIAXone SODIUM 1 GM VIAL ONE (10:02)
[2019-07-14] MEDS ORDERED: DEXTROSE 5%-WATER - 50 ML IVPB ONE (10:03)
[2019-07-14] MEDS: levETIRAcetam 500 MG TABLET (FP) PO SCH ×2 (10:12→22:03)
[2019-07-14] MEDS: ASPIRIN 81 MG CHEWABLE TABLETS PO SCH (10:12)
[2019-07-14] MEDS: CEFTRIAXONE 1 GM in DEXTROSE 5%-WATER - 50 ML IVPB SCH (10:12)
[2019-07-14] MEDS ORDERED: SODIUM CHLORIDE 250 ML IV PRN (13:12)
[2019-07-14 14:08] LABS: ALBUMIN 2.5 g/dl (3.4-5.0); BILIRUBIN,TOTAL 0.3 mg/dL (0.2-1); BLOOD UREA NITROGEN 52.8 mg/dL (7-18); CALCIUM 8.1 mg/dL (8.5-10.1); MAGNESIUM 1.9 mg/dL (1.8-2.4); PHOSPHOROUS 4.1 mg/dL (2.5-4.9); POTASSIUM 4.4 mmol/L (3.5-5.1); TOT PROT 5.5 g/dl (6.4-8.2)
[2019-07-14 14:11] LABS: CREATININE 9.7 mg/dL (0.55-1.3)
[2019-07-14 14:34] LABS: BASO % 1.2 % (0-2.0); EOS % 0.6 % (0-4.5); HEMATOCRIT 33.2 % (35.4-49); LYMPH % 25.1 % (8-40); MCH 32.6 pg (25.7-33.7); MEAN CELL VOLUME 98.8 fl (80-96); MEAN PLT VOLUME 11.2 fl (7.5-11.1); MONO % 19.4 % (3.8-10.2); NEUT % 53.7 % (42.8-82.8); PLATELET COUNT 91 K/MM3 (134-434); RBC 3.36 M/mm3 (4.00-5.60); RDW 15.2 % (11.9-15.9)
[2019-07-14 14:53] LABS: ANISOCYTOSIS 1+; MACROCYTOSIS 0; PLATELET ESTIMATE DECREASED; TARGET CELLS 1+; TEAR DROP CELLS 1+
[2019-07-14] MEDS: ATORVASTATIN CA 20 MG TABLET (FP) PO SCH (22:03)
[2019-07-14] MEDS: CITALOPRAM HYDROBROMIDE 20 MG TABLET PO SCH (22:03)
[2019-07-15] MEDS: HEPARIN NA (PORCINE) 5,000 UNITS/ML 1ML VIAL SQ SCH ×3 (05:39→22:22)
[2019-07-15] MEDS: INSULIN SLIDING SCALE (NOVOLOG) 1 VIAL SQ SCH ×3 (06:25→17:56)
[2019-07-15 11:20] LABS: HEMATOCRIT 32.2 % (35.4-49); HEMOGLOBIN 10.8 GM/dL (11.7-16.9); MCH 32.6 pg (25.7-33.7); MCHC 33.5 g/dl (32.0-35.9); MEAN CELL VOLUME 97.2 fl (80-96); MEAN PLT VOLUME 11.2 fl (7.5-11.1); PLATELET COUNT 93 K/MM3 (134-434); RBC 3.32 M/mm3 (4.00-5.60); WHITE BLOOD COUNT 4.7 K/mm3 (4.0-10.0)
[2019-07-15 11:52] LABS: ALBUMIN 2.5 g/dl (3.4-5.0); BILIRUBIN,TOTAL 0.3 mg/dL (0.2-1); BLOOD UREA NITROGEN 66.6 mg/dL (7-18); CALCIUM 7.8 mg/dL (8.5-10.1); PHOSPHOROUS 5.2 mg/dL (2.5-4.9); POTASSIUM 4.9 mmol/L (3.5-5.1); TOT PROT 5.4 g/dl (6.4-8.2)
[2019-07-15] MEDS ORDERED: cefTRIAXone SODIUM 1 GM VIAL ONE (13:25)
[2019-07-15] MEDS ORDERED: DEXTROSE 5%-WATER - 50 ML IVPB ONE (13:26)
[2019-07-15] MEDS: ASPIRIN 81 MG CHEWABLE TABLETS PO SCH (13:44)
[2019-07-15] MEDS: levETIRAcetam 500 MG TABLET (FP) PO SCH ×2 (13:44→22:21)
[2019-07-15] MEDS: CEFTRIAXONE 1 GM in DEXTROSE 5%-WATER - 50 ML IVPB SCH (13:44)
[2019-07-15 16:18] LABS: CREATININE 3.9 mg/dL (0.55-1.3)
[2019-07-15 16:19] LABS: BLOOD UREA NITROGEN 20.5 mg/dL (7-18)
[2019-07-15] MEDS: CITALOPRAM HYDROBROMIDE 20 MG TABLET PO SCH (22:21)
[2019-07-15] MEDS: ATORVASTATIN CA 20 MG TABLET (FP) PO SCH (22:21)
[2019-07-16] MEDS: HEPARIN NA (PORCINE) 5,000 UNITS/ML 1ML VIAL SQ SCH ×3 (06:40→22:23)
[2019-07-16] MEDS: INSULIN SLIDING SCALE (NOVOLOG) 1 VIAL SQ SCH ×3 (07:18→18:21)
[2019-07-16] MEDS ORDERED: DEXTROSE 5%-WATER - 50 ML IVPB ONE (09:11)
[2019-07-16] MEDS ORDERED: cefTRIAXone SODIUM 1 GM VIAL ONE (09:11)
[2019-07-16] MEDS: ASPIRIN 81 MG CHEWABLE TABLETS PO SCH (09:32)
[2019-07-16] MEDS: CEFTRIAXONE 1 GM in DEXTROSE 5%-WATER - 50 ML IVPB SCH (09:32)
[2019-07-16] MEDS: levETIRAcetam 500 MG TABLET (FP) PO SCH ×2 (09:32→22:23)
[2019-07-16] MEDS: VITAMIN B COMP W-C 1 EA TABLET (NEPHRO-VITE) PO SCH (09:32)
[2019-07-16] MEDS: CITALOPRAM HYDROBROMIDE 20 MG TABLET PO SCH (22:22)
[2019-07-16] MEDS: PANTOPRAZOLE 40 MG TABLET PO SCH (22:22)
[2019-07-16] MEDS: ATORVASTATIN CA 20 MG TABLET (FP) PO SCH (22:22)
[2019-07-16] MEDS: ACETAMINOPHEN 325 MG TABLET (FP) PO PRN (22:51)
[2019-07-17] MEDS: HEPARIN NA (PORCINE) 5,000 UNITS/ML 1ML VIAL SQ SCH ×3 (06:44→22:15)
[2019-07-17] MEDS: INSULIN SLIDING SCALE (NOVOLOG) 1 VIAL SQ SCH ×3 (07:01→18:34)
[2019-07-17 09:15] LABS: BASO % 1.1 % (0-2.0); HEMOGLOBIN 12.1 GM/dL (11.7-16.9); LYMPH % 18.4 % (8-40); MCH 32.7 pg (25.7-33.7); MCHC 33.5 g/dl (32.0-35.9); MEAN CELL VOLUME 97.6 fl (80-96); MEAN PLT VOLUME 11.3 fl (7.5-11.1); MONO % 10.2 % (3.8-10.2); NEUT % 70.3 % (42.8-82.8); PLATELET COUNT 92 K/MM3 (134-434); RBC 3.69 M/mm3 (4.00-5.60); RDW 14.9 % (11.9-15.9); WHITE BLOOD COUNT 4.4 K/mm3 (4.0-10.0)
[2019-07-17] MEDS ORDERED: cefTRIAXone SODIUM 1 GM VIAL ONE (09:35)
[2019-07-17] MEDS ORDERED: DEXTROSE 5%-WATER - 50 ML IVPB ONE (09:36)
[2019-07-17 09:58] LABS: ALBUMIN 2.9 g/dl (3.4-5.0); BILIRUBIN,TOTAL 0.4 mg/dL (0.2-1); BLOOD UREA NITROGEN 51.9 mg/dL (7-18); CALCIUM 8.3 mg/dL (8.5-10.1); PHOSPHOROUS 4.4 mg/dL (2.5-4.9); POTASSIUM 4.4 mmol/L (3.5-5.1); TOT PROT 6.5 g/dl (6.4-8.2)
[2019-07-17] MEDS: VITAMIN B COMP W-C 1 EA TABLET (NEPHRO-VITE) PO SCH (10:02)
[2019-07-17] MEDS: PANTOPRAZOLE 40 MG TABLET PO SCH (10:02)
[2019-07-17] MEDS: ASPIRIN 81 MG CHEWABLE TABLETS PO SCH (10:02)
[2019-07-17] MEDS: CEFTRIAXONE 1 GM in DEXTROSE 5%-WATER - 50 ML IVPB SCH (10:02)
[2019-07-17] MEDS: levETIRAcetam 500 MG TABLET (FP) PO SCH ×2 (10:02→22:15)
[2019-07-17] MEDS: ACETAMINOPHEN 325 MG TABLET (FP) PO PRN ×2 (10:03→22:32)
[2019-07-17 10:06] LABS: CREATININE 9.8 mg/dL (0.55-1.3)
[2019-07-17] MEDS: CITALOPRAM HYDROBROMIDE 20 MG TABLET PO SCH (22:15)
[2019-07-17] MEDS: ATORVASTATIN CA 20 MG TABLET (FP) PO SCH (22:15)
[2019-07-18] MEDS: ACETAMINOPHEN 325 MG TABLET (FP) PO PRN (06:02)
[2019-07-18] MEDS: HEPARIN NA (PORCINE) 5,000 UNITS/ML 1ML VIAL SQ SCH ×3 (06:02→21:38)
[2019-07-18] MEDS: INSULIN SLIDING SCALE (NOVOLOG) 1 VIAL SQ SCH ×3 (06:25→17:01)
[2019-07-18] MEDS ORDERED: cefTRIAXone SODIUM 1 GM VIAL ONE ×3 (10:26→10:47)
[2019-07-18] MEDS ORDERED: DEXTROSE 5%-WATER - 50 ML IVPB ONE ×2 (10:28→10:47)
[2019-07-18] MEDS: PANTOPRAZOLE 40 MG TABLET PO SCH (10:30)
[2019-07-18] MEDS: levETIRAcetam 500 MG TABLET (FP) PO SCH ×2 (10:30→21:38)
[2019-07-18] MEDS: CEFTRIAXONE 1 GM in DEXTROSE 5%-WATER - 50 ML IVPB SCH (10:30)
[2019-07-18] MEDS: ASPIRIN 81 MG CHEWABLE TABLETS PO SCH (10:31)
[2019-07-18] MEDS: VITAMIN B COMP W-C 1 EA TABLET (NEPHRO-VITE) PO SCH (10:31)
[2019-07-18] MEDS ORDERED: ZINC SULFATE 220 MG CAPSULE (FP) PO SCH (10:45)
[2019-07-18] MEDS ORDERED: SODIUM ZIRCONIUM CYCLOSILICATE (LOKELMA) 5 GM PACKET PO SCH ×2 (11:45→13:30)
[2019-07-18] MEDS ORDERED: SODIUM CHLORIDE 250 ML IV PRN (14:06)
[2019-07-18] MEDS ORDERED: PT OWN MED DRAWER 7, Y5N ONE (16:40)
[2019-07-18] MEDS: ATORVASTATIN CA 20 MG TABLET (FP) PO SCH (21:38)
[2019-07-18] MEDS: HYDROXYCHLOROQUINE SO4 200 MG TABLET (FP) PO SCH (21:39)
[2019-07-18] MEDS ORDERED: CITALOPRAM HYDROBROMIDE 20 MG TABLET PO SCH (22:00)
[2019-07-19] MEDS: ACETAMINOPHEN 325 MG TABLET (FP) PO PRN (04:41)
[2019-07-19] MEDS ORDERED: ACETAMINOPHEN 325 MG TABLET (FP) PO PRN (05:22)
[2019-07-19] MEDS ORDERED: PARICALCITOL 5 MCG/ML VIAL IVPUSH ONE ×2 (06:00→15:30)
[2019-07-19] MEDS: INSULIN SLIDING SCALE (NOVOLOG) 1 VIAL SQ SCH ×3 (06:56→17:56)
[2019-07-19] MEDS: HEPARIN NA (PORCINE) 5,000 UNITS/ML 1ML VIAL SQ SCH ×3 (06:56→22:24)
[2019-07-19] MEDS: VITAMIN B COMP W-C 1 EA TABLET (NEPHRO-VITE) PO SCH (13:11)
[2019-07-19] MEDS: SODIUM ZIRCONIUM CYCLOSILICATE (LOKELMA) 5 GM PACKET PO SCH (13:11)
[2019-07-19] MEDS: levETIRAcetam 500 MG TABLET (FP) PO SCH ×3 (13:11→22:24)
[2019-07-19] MEDS: ASPIRIN 81 MG CHEWABLE TABLETS PO SCH (13:11)
[2019-07-19] MEDS: ZINC SULFATE 220 MG CAPSULE (FP) PO SCH (13:12)
[2019-07-19] MEDS: HYDROXYCHLOROQUINE SO4 200 MG TABLET (FP) PO SCH ×3 (13:12→22:24)
[2019-07-19] MEDS: PANTOPRAZOLE 40 MG TABLET PO SCH (13:12)
[2019-07-19] MEDS ORDERED: CEFTRIAXONE 1 GM in DEXTROSE 5%-WATER - 50 ML IVPB ONE ×2 (15:00→17:15)
[2019-07-19] MEDS ORDERED: SODIUM CHLORIDE 250 ML IV PRN (15:22)
[2019-07-19 16:40] LABS: HEMATOCRIT 31.1 % (35.4-49); HEMOGLOBIN 10.6 GM/dL (11.7-16.9); MCH 32.7 pg (25.7-33.7); MCHC 34.1 g/dl (32.0-35.9); MEAN CELL VOLUME 95.9 fl (80-96); MEAN PLT VOLUME 12.2 fl (7.5-11.1); PLATELET COUNT 108 K/MM3 (134-434); RBC 3.25 M/mm3 (4.00-5.60); RDW 14.9 % (11.9-15.9); WHITE BLOOD COUNT 6.3 K/mm3 (4.0-10.0)
[2019-07-19 17:06] LABS: BLOOD UREA NITROGEN 79.4 mg/dL (7-18); CALCIUM 8.2 mg/dL (8.5-10.1); PHOSPHOROUS 5.9 mg/dL (2.5-4.9); POTASSIUM 4.7 mmol/L (3.5-5.1)
[2019-07-19 17:19] LABS: CREATININE 13.6 mg/dL (0.55-1.3)
[2019-07-19] MEDS: ATORVASTATIN CA 20 MG TABLET (FP) PO SCH (22:24)
[2019-07-20] MEDS: HEPARIN NA (PORCINE) 5,000 UNITS/ML 1ML VIAL SQ SCH ×3 (06:47→22:47)
[2019-07-20] MEDS: INSULIN SLIDING SCALE (NOVOLOG) 1 VIAL SQ SCH ×3 (06:47→17:44)
[2019-07-20] MEDS ORDERED: cefTRIAXone SODIUM 1 GM VIAL ONE (08:35)
[2019-07-20] MEDS ORDERED: DEXTROSE 5%-WATER - 50 ML IVPB ONE ×3 (08:35→20:58)
[2019-07-20] MEDS ORDERED: PT OWN MED DRAWER 7, Y5N ONE (08:51)
[2019-07-20] MEDS: PANTOPRAZOLE 40 MG TABLET PO SCH (09:24)
[2019-07-20] MEDS: ZINC SULFATE 220 MG CAPSULE (FP) PO SCH (09:25)
[2019-07-20] MEDS: levETIRAcetam 500 MG TABLET (FP) PO SCH ×2 (09:25→22:47)
[2019-07-20] MEDS: SODIUM ZIRCONIUM CYCLOSILICATE (LOKELMA) 5 GM PACKET PO SCH (09:25)
[2019-07-20] MEDS: VITAMIN B COMP W-C 1 EA TABLET (NEPHRO-VITE) PO SCH (09:25)
[2019-07-20] MEDS: ASPIRIN 81 MG CHEWABLE TABLETS PO SCH (09:30)
[2019-07-20] MEDS ORDERED: CEFTRIAXONE 1 GM in DEXTROSE 5%-WATER - 50 ML IVPB SCH (10:00)
[2019-07-20] MEDS ORDERED: PIPERACILLIN/TAZOB 2.25 GM 2.25 GM in DEXTROSE 5%-WATER - 50 ML IVPB SCH ×2 (11:00→22:00)
[2019-07-20] MEDS ORDERED: PIPERACILLIN/TAZOBACTAM 2.25 GM VIAL IVPB ONE ×2 (11:08→20:57)
[2019-07-20] MEDS: PIPERACILLIN/TAZOB 2.25 GM 2.25 GM in DEXTROSE 5%-WATER - 50 ML IVPB SCH ×2 (11:20→22:47)
[2019-07-20] MEDS ORDERED: CITALOPRAM HYDROBROMIDE 20 MG TABLET PO SCH (22:00)
[2019-07-20] MEDS: ATORVASTATIN CA 20 MG TABLET (FP) PO SCH (22:47)
[2019-07-21 00:35] LABS: BLOOD UREA NITROGEN 51.6 mg/dL (7-18); CALCIUM 7.9 mg/dL (8.5-10.1); MAGNESIUM 1.7 mg/dL (1.8-2.4); POTASSIUM 4.7 mmol/L (3.5-5.1)
[2019-07-21] MEDS ORDERED: MAGNESIUM SULF 50% (8.12 MEQ/2 ML-1 GM VIAL) IVPB ONE (00:37)
[2019-07-21 00:41] LABS: CREATININE 10.1 mg/dL (0.55-1.3)
[2019-07-21] MEDS: HEPARIN NA (PORCINE) 5,000 UNITS/ML 1ML VIAL SQ SCH ×3 (06:58→21:55)
[2019-07-21] MEDS ORDERED: PIPERACILLIN/TAZOBACTAM 2.25 GM VIAL IVPB ONE ×2 (09:01→21:11)
[2019-07-21] MEDS ORDERED: DEXTROSE 5%-WATER - 50 ML IVPB ONE ×2 (09:01→21:11)
[2019-07-21] MEDS: PANTOPRAZOLE 40 MG TABLET PO SCH (09:27)
[2019-07-21] MEDS: levETIRAcetam 500 MG TABLET (FP) PO SCH ×2 (09:27→21:55)
[2019-07-21] MEDS: ZINC SULFATE 220 MG CAPSULE (FP) PO SCH (09:27)
[2019-07-21] MEDS: VITAMIN B COMP W-C 1 EA TABLET (NEPHRO-VITE) PO SCH (09:27)
[2019-07-21] MEDS: ASPIRIN 81 MG CHEWABLE TABLETS PO SCH (09:27)
[2019-07-21] MEDS: PIPERACILLIN/TAZOB 2.25 GM 2.25 GM in DEXTROSE 5%-WATER - 50 ML IVPB SCH ×2 (09:28→21:54)
[2019-07-21] MEDS: SODIUM ZIRCONIUM CYCLOSILICATE (LOKELMA) 5 GM PACKET PO SCH (12:22)
[2019-07-21] MEDS: INSULIN SLIDING SCALE (NOVOLOG) 1 VIAL SQ SCH ×2 (12:22→17:01)
[2019-07-21] MEDS: ATORVASTATIN CA 20 MG TABLET (FP) PO SCH (21:55)
[2019-07-22] MEDS ORDERED: PIPERACILLIN/TAZOBACTAM 2.25 GM VIAL IVPB ONE (09:52)
[2019-07-22] MEDS ORDERED: DEXTROSE 5%-WATER - 50 ML IVPB ONE (09:52)
[2019-07-22] MEDS: levETIRAcetam 500 MG TABLET (FP) PO SCH (10:58)
[2019-07-22] MEDS: PANTOPRAZOLE 40 MG TABLET PO SCH (10:58)
[2019-07-22] MEDS: ZINC SULFATE 220 MG CAPSULE (FP) PO SCH (10:58)
[2019-07-22] MEDS: ASPIRIN 81 MG CHEWABLE TABLETS PO SCH (10:58)
[2019-07-22] MEDS: VITAMIN B COMP W-C 1 EA TABLET (NEPHRO-VITE) PO SCH (10:58)
[2019-07-22] MEDS: SODIUM ZIRCONIUM CYCLOSILICATE (LOKELMA) 5 GM PACKET PO SCH (10:58)
[2019-07-22] MEDS: PIPERACILLIN/TAZOB 2.25 GM 2.25 GM in DEXTROSE 5%-WATER - 50 ML IVPB SCH (10:58)
[2019-07-22] MEDS ORDERED: PT OWN MED DRAWER 7, Y5N ONE (11:00)
[2019-07-22] MEDS ORDERED: SODIUM CHLORIDE 250 ML IV PRN (11:24)
[2019-07-22 12:19] VITALS: TEMP 97.2
[2019-07-22] MEDS: INSULIN SLIDING SCALE (NOVOLOG) 1 VIAL SQ SCH ×2 (13:48→17:20)
[2019-07-22 14:17] VITALS: BP 136/82; PULSE 61
[2019-07-22] MEDS: HEPARIN NA (PORCINE) 5,000 UNITS/ML 1ML VIAL SQ SCH (16:35)
== END 2019-07-22 18:10 | DRG 689 ==
LOC: JER 12:36 → JERBED 17:55 → J5S 20:06 → J4W 07-19 04:14
PROVIDERS: ADMIT Internal Medicine; ATTEND Internal Medicine
PROC: 5A1D70Z Performance of Urinary Filtration, Intermittent, Less than 6 Hours Per Day (ICD-10-PCS; principal; 2019-07-15)
PROC: 5A1D70Z Performance of Urinary Filtration, Intermittent, Less than 6 Hours Per Day (ICD-10-PCS; 2019-07-19)
PROC: 5A1D70Z Performance of Urinary Filtration, Intermittent, Less than 6 Hours Per Day (ICD-10-PCS; 2019-07-22)
DX: N39.0 Urinary tract infection, site not specified (principal); J96.01 Acute respiratory failure with hypoxia; N18.6 End stage renal disease; I69.354 Hemiplegia and hemiparesis following cerebral infarction affecting left non-dominant side; I12.0 Hypertensive chronic kidney disease with stage 5 chronic kidney disease or end stage renal disease; E46 Unspecified protein-calorie malnutrition; R50.9 Fever, unspecified; E78.5 Hyperlipidemia, unspecified; G40.909 Epilepsy, unspecified, not intractable, without status epilepticus; Z99.2 Dependence on renal dialysis; B95.2 Enterococcus as the cause of diseases classified elsewhere; D63.1 Anemia in chronic kidney disease; D69.6 Thrombocytopenia, unspecified; R31.9 Hematuria, unspecified; R10.9 Unspecified abdominal pain; E88.09 Other disorders of plasma-protein metabolism, not elsewhere classified; Z68.21 Body mass index [BMI] 21.0-21.9, adult; N40.0 Benign prostatic hyperplasia without lower urinary tract symptoms; E11.22 Type 2 diabetes mellitus with diabetic chronic kidney disease; B19.20 Unspecified viral hepatitis C without hepatic coma; G47.00 Insomnia, unspecified; F32.9 Major depressive disorder, single episode, unspecified; I44.0 Atrioventricular block, first degree; R94.31 Abnormal electrocardiogram [ECG] [EKG]; M84.42 Pathological fracture, humerus; B97.29 Other coronavirus as the cause of diseases classified elsewhere
CPT/HCPCS: 36415; 70450-TC; 71045-TC-FY; 74018-TC-FY; 74176-TC; 80048; 80053; 81003; 82550; 82565; 82607; 82728; 82746; 82962; 83540; 83550; 83735; 84100; 84484; 84520; 85025; 85027; 85610; 85730; 86803; 87040; 87086; 87186; 87324; 87340; 87449; 87798; 93005; 93010; 99285-25; E0186; J1644; U0003

== ENCOUNTER 2020-05-27 17:49 | Emergency (ER) | payer OTHER ==
[2020-05-27 18:24] VITALS: TEMP 98; BMI 22.4
[2020-05-27 18:59] LABS: BASO % 0.5 % (0-2.0); EOS % 3.6 % (0-4.5); HEMATOCRIT 34.8 % (35.4-49); HEMOGLOBIN 11.8 GM/dL (11.7-16.9); LYMPH % 14.6 % (8-40); MCH 33.3 pg (25.7-33.7); MCHC 33.9 g/dl (32.0-35.9); MEAN CELL VOLUME 98.2 fl (80-96); MEAN PLT VOLUME 9.2 fl (7.5-11.1); MONO % 17.8 % (3.8-10.2); NEUT % 63.5 % (42.8-82.8); PLATELET COUNT 159 K/MM3 (134-434); RBC 3.54 M/mm3 (4.00-5.60); RDW 13.7 % (11.9-15.9); WHITE BLOOD COUNT 8.5 K/mm3 (4.0-10.0)
[2020-05-27 19:06] LABS: INR 1.65 (0.83-1.09); PROTHROMBIN TIME (PATIENT) 19.7 SEC (9.7-13.0)
[2020-05-27 19:08] LABS: ACTIVATED PTT 31.9 SECONDS (25.2-36.5)
[2020-05-27 19:21] LABS: POTASSIUM 4.1 mmol/L (3.5-5.1)
[2020-05-27 19:25] LABS: ALBUMIN 3.4 g/dl (3.4-5.0); BLOOD UREA NITROGEN 46.4 mg/dL (7-18); CALCIUM 9.1 mg/dL (8.5-10.1)
[2020-05-27] MEDS ORDERED: THROMBIN (RECOMBINANT) 5,000 UNIT VIAL TP ONE (19:28)
[2020-05-27 19:30] LABS: BILIRUBIN,TOTAL 1.2 mg/dL (0.2-1); TOT PROT 7.6 g/dl (6.4-8.2)
[2020-05-27 19:44] LABS: CREATININE 7.6 mg/dL (0.55-1.3)
[2020-05-28 00:05] VITALS: BP 115/87; PULSE 64
== END 2020-05-28 00:05 ==
LOC: JER 17:49
DX: T82.838A Hemorrhage due to vascular prosthetic devices, implants and grafts, initial encounter (principal)
CPT/HCPCS: 36415; 80053; 85025; 85610; 85730; 99283-25

== ENCOUNTER 2020-09-30 04:17 | Day surgery (SDC) | payer OTHER ==
[2020-09-29 15:43] VITALS: BMI 22.7
[2020-09-30] MEDS ORDERED: MIDAZOLAM HCL 2 MG/2 ML SINGLE DOSE VIAL ONE ×2 (18:07)
[2020-09-30] MEDS ORDERED: PROPOFOL 20 ML ONE (18:16)
[2020-09-30] MEDS ORDERED: EPHEDRINE SULFATE/0.9% NACL/PF 50 MG/10 ML SYRINGE NR ONE ×2 (18:35→19:01)
[2020-09-30] MEDS ORDERED: DEXAMETHASONE SOD PHOSPHATE 4 MG/1 ML VIAL ONE (18:43)
[2020-09-30] MEDS ORDERED: HEPARIN NA (PORCINE) 5,000 UNITS/ML 1ML VIAL ONE (19:06)
[2020-09-30] MEDS ORDERED: ceFAZolin SODIUM 1 GM VIAL IVPB ONE (19:14)
[2020-09-30] MEDS ORDERED: ACETAMINOPHEN 325 MG TABLET (FP) PO PRN (20:45)
[2020-09-30] MEDS ORDERED: PATIENT'S OWN MEDICATION (NON-FORMULARY) (Insulin Lispro [Humalog Kwikpen U-100] 100 UNIT/ SQ SCH (20:45)
[2020-09-30] MEDS ORDERED: ONDANSETRON 4 MG/2 ML VIAL IVPUSH PRN (20:48)
[2020-09-30] MEDS ORDERED: SODIUM CHLORIDE 1,000 ML IV SCH (21:00)
[2020-09-30] MEDS ORDERED: INSULIN SLIDING SCALE (NOVOLOG) 1 VIAL SQ SCH (21:45)
[2020-09-30] MEDS ORDERED: CITALOPRAM HYDROBROMIDE 20 MG TABLET PO SCH (22:00)
[2020-09-30] MEDS ORDERED: MIRTAZAPINE 15 MG TABLET (FP) PO SCH (22:00)
[2020-09-30] MEDS ORDERED: ATORVASTATIN CA 20 MG TABLET (FP) PO SCH (22:00)
[2020-09-30] MEDS: oxyCODONE HCL 5 MG TABLET PO PRN (22:48)
[2020-09-30] MEDS: INSULIN SLIDING SCALE (NOVOLOG) 1 VIAL SQ SCH (22:51)
[2020-09-30] MEDS: levETIRAcetam XR 750 MG TAB PO SCH (22:52)
[2020-10-01] MEDS: oxyCODONE HCL 5 MG TABLET PO PRN (05:55)
[2020-10-01] MEDS: INSULIN SLIDING SCALE (NOVOLOG) 1 VIAL SQ SCH ×3 (06:24→16:38)
[2020-10-01] MEDS ORDERED: TAMSULOSIN HCL 0.4 MG CAP PO SCH (08:30)
[2020-10-01] MEDS ORDERED: PT OWN MED DRAWER 7, Y5N ONE (09:50)
[2020-10-01] MEDS: levETIRAcetam XR 750 MG TAB PO SCH (09:53)
[2020-10-01] MEDS ORDERED: PANTOPRAZOLE 20 MG TABLET PO SCH (10:00)
[2020-10-01] MEDS ORDERED: metoPROLOL SUCCINATE 25 MG TAB.SR.24H (FP) PO SCH (10:00)
[2020-10-01 21:19] VITALS: BP 111/60; PULSE 59; TEMP 97.6
[2020-10-01] MEDS ORDERED: APIXABAN 5 MG TABLET PO SCH (22:00)
== END 2020-10-01 21:38 | disposition home or self-care (01) ==
LOC: JASU-SURG 04:17 → JASUSAT 04:17 → J5S 22:28 → JASUSAT 10-01 21:38
PROVIDERS: ATTEND Surgery Vascular Surgery
PROC: 03170JD Bypass Right Brachial Artery to Upper Arm Vein with Synthetic Substitute, Open Approach (ICD-10-PCS; principal; 2020-09-30 15:00)
DX: I12.0 Hypertensive chronic kidney disease with stage 5 chronic kidney disease or end stage renal disease (principal); E13.22 Other specified diabetes mellitus with diabetic chronic kidney disease; N18.6 End stage renal disease; Z99.2 Dependence on renal dialysis; Z79.84 Long term (current) use of oral hypoglycemic drugs
CPT/HCPCS: 36415; 82962; 84132; 94760; C9803; J1644; U0003; U0005

== ENCOUNTER 2021-04-17 19:15 | Observation (INO) | payer OTHER ==
[2021-04-18] MEDS ORDERED: LIDOCAINE 2.5%/PRILOCAINE 2.5% 30 GRAM TUBE TP ONE ×2 (08:02→14:02)
[2021-04-18 08:24] LABS: BASO % 1.2 % (0-2.0); HEMATOCRIT 34.8 % (35.4-49); HEMOGLOBIN 11.7 GM/dL (11.7-16.9); LYMPH % 16.7 % (8-40); MCH 34.3 pg (25.7-33.7); MCHC 33.7 g/dl (32.0-35.9); MEAN CELL VOLUME 101.7 fl (80-96); MEAN PLT VOLUME 8.9 fl (7.5-11.1); NEUT % 61.1 % (42.8-82.8); PLATELET COUNT 262 10^3/uL (134-434); RBC 3.43 M/mm3 (4.00-5.60); RDW 14.6 % (11.9-15.9)
[2021-04-18 08:45] LABS: CHLORIDE 97 mmol/L (98-107); SODIUM 135 mmol/L (136-145)
[2021-04-18 08:48] LABS: ALBUMIN 2.9 g/dl (3.4-5.0); ANION GAP 15 MMOL/L (8-16); BLOOD UREA NITROGEN 61.5 mg/dL (7-18); CALCIUM 9.4 mg/dL (8.5-10.1); CO2 23 mmol/L (21-32); GLUCOSE,RANDOM 107 mg/dL (74-106); INR 1.29 (0.83-1.09); PROTHROMBIN TIME (PATIENT) 14.5 SEC (9.7-13.0)
[2021-04-18 08:51] LABS: ACTIVATED PTT 19.6 SECONDS (25.2-36.5); PHOSPHOROUS 4.7 mg/dL (2.5-4.9); SGOT/AST 44 U/L (15-37); SGPT/ALT 19 U/L (13-61)
[2021-04-18 08:53] LABS: BILIRUBIN,TOTAL 0.6 mg/dL (0.2-1); TOT PROT 7.6 g/dl (6.4-8.2)
[2021-04-18 08:54] LABS: ALK PHOS 62 U/L (45-117)
[2021-04-18 08:59] LABS: CREATININE 14.3 mg/dL (0.55-1.3)
[2021-04-18] MEDS ORDERED: SODIUM CHLORIDE 250 ML IV PRN (10:32)
[2021-04-18] MEDS ORDERED: ACETAMINOPHEN 325 MG TABLET (FP) PO PRN (12:27)
[2021-04-18] MEDS ORDERED: guaiFENesin/D-M SUGAR-FREE/ACLHOL-FREE 118 ML BOTTLE PO PRN (12:27)
[2021-04-18 20:32] VITALS: BMI 22.6
[2021-04-18] MEDS: MIRTAZAPINE 15 MG TABLET (FP) PO SCH (21:26)
[2021-04-18] MEDS: APIXABAN 5 MG TABLET PO SCH (21:26)
[2021-04-18] MEDS: levETIRAcetam 250 MG TABLET PO SCH (21:26)
[2021-04-18] MEDS: TAMSULOSIN HCL 0.4 MG CAP PO SCH (21:26)
[2021-04-18] MEDS: ATORVASTATIN CA 20 MG TABLET (FP) PO SCH (21:26)
[2021-04-18] MEDS: ARTIFICIAL TEARS (POLYVINYL ALCOHOL) OPTH DROPS OU SCH (21:52)
[2021-04-19] MEDS: VITAMIN B COMP W-C 1 EA TABLET (NEPHRO-VITE) PO SCH (09:50)
[2021-04-19] MEDS: ARTIFICIAL TEARS (POLYVINYL ALCOHOL) OPTH DROPS OU SCH ×2 (09:50→21:19)
[2021-04-19] MEDS: PANTOPRAZOLE 20 MG TABLET PO SCH (09:50)
[2021-04-19] MEDS: APIXABAN 5 MG TABLET PO SCH ×2 (09:50→21:18)
[2021-04-19] MEDS: levETIRAcetam 250 MG TABLET PO SCH ×2 (09:50→21:18)
[2021-04-19] MEDS: metoPROLOL SUCCINATE 25 MG TAB.SR.24H (FP) PO SCH (09:50)
[2021-04-19] MEDS: NYSTATIN 100,000 UNIT/GM TOPICAL CREAM 15 GM TUBE TP SCH (09:51)
[2021-04-19] MEDS ORDERED: PATIENT'S OWN MEDICATION (NON-FORMULARY) (Olopatadine Hcl [Pataday] 2.5 ML Drops) OP SCH (10:00)
[2021-04-19] MEDS ORDERED: CITALOPRAM HYDROBROMIDE 20 MG TABLET PO SCH (10:00)
[2021-04-19] MEDS ORDERED: SODIUM CHLORIDE 250 ML IV PRN (10:15)
[2021-04-19] MEDS ORDERED: LIDOCAINE 2.5%/PRILOCAINE 2.5% 30 GRAM TUBE TP SCH (12:30)
[2021-04-19] MEDS ORDERED: PT OWN MED DRAWER 7, Y5N ONE (19:00)
[2021-04-19] MEDS: QUEtiapine FUMARATE 25 MG TABLET PO SCH (21:18)
[2021-04-19] MEDS: MIRTAZAPINE 15 MG TABLET (FP) PO SCH (21:18)
[2021-04-19] MEDS: TAMSULOSIN HCL 0.4 MG CAP PO SCH (21:18)
[2021-04-19] MEDS: ATORVASTATIN CA 20 MG TABLET (FP) PO SCH (21:18)
[2021-04-20] MEDS ORDERED: LIDOCAINE 2.5%/PRILOCAINE 2.5% (5 Gram/TUBE) TP ONE (10:10)
[2021-04-20] MEDS ORDERED: LORazepam 2 MG TABLET PO SCH (10:30)
[2021-04-20] MEDS ORDERED: LORazepam 1 MG TABLET PO SCH (10:30)
[2021-04-20 12:10] LABS: HEMATOCRIT 30.5 % (35.4-49); HEMOGLOBIN 10.3 GM/dL (11.7-16.9); MCH 34.2 pg (25.7-33.7); MCHC 33.8 g/dl (32.0-35.9); MEAN CELL VOLUME 101.3 fl (80-96); MEAN PLT VOLUME 8.3 fl (7.5-11.1); PLATELET COUNT 169 10^3/uL (134-434); RBC 3.02 M/mm3 (4.00-5.60); RDW 14.2 % (11.9-15.9); WHITE BLOOD COUNT 7.1 K/mm3 (4.0-10.0)
[2021-04-20 12:24] LABS: CHLORIDE 96 mmol/L (98-107); SODIUM 134 mmol/L (136-145)
[2021-04-20 12:28] LABS: ANION GAP 9 MMOL/L (8-16); BLOOD UREA NITROGEN 48.3 mg/dL (7-18); CALCIUM 8.7 mg/dL (8.5-10.1); CO2 30 mmol/L (21-32)
[2021-04-20 12:29] LABS: GLUCOSE,RANDOM 158 mg/dL (74-106)
[2021-04-20 12:58] LABS: CREATININE 10.5 mg/dL (0.55-1.3)
[2021-04-20] MEDS: PANTOPRAZOLE 20 MG TABLET PO SCH (14:48)
[2021-04-20] MEDS: levETIRAcetam 250 MG TABLET PO SCH ×2 (14:48→21:24)
[2021-04-20] MEDS: ARTIFICIAL TEARS (POLYVINYL ALCOHOL) OPTH DROPS OU SCH ×2 (14:48→21:25)
[2021-04-20] MEDS: NYSTATIN 100,000 UNIT/GM TOPICAL CREAM 15 GM TUBE TP SCH (14:48)
[2021-04-20] MEDS: metoPROLOL SUCCINATE 25 MG TAB.SR.24H (FP) PO SCH (14:48)
[2021-04-20] MEDS: VITAMIN B COMP W-C 1 EA TABLET (NEPHRO-VITE) PO SCH (14:48)
[2021-04-20] MEDS: APIXABAN 5 MG TABLET PO SCH ×2 (14:48→21:23)
[2021-04-20] MEDS: QUEtiapine FUMARATE 25 MG TABLET PO SCH (21:23)
[2021-04-20] MEDS: ATORVASTATIN CA 20 MG TABLET (FP) PO SCH (21:23)
[2021-04-20] MEDS: MIRTAZAPINE 15 MG TABLET (FP) PO SCH (21:23)
[2021-04-20] MEDS: TAMSULOSIN HCL 0.4 MG CAP PO SCH (21:24)
[2021-04-21] MEDS ORDERED: PT OWN MED DRAWER 7, Y5N ONE (10:18)
[2021-04-21] MEDS: metoPROLOL SUCCINATE 25 MG TAB.SR.24H (FP) PO SCH (10:20)
[2021-04-21] MEDS: NYSTATIN 100,000 UNIT/GM TOPICAL CREAM 15 GM TUBE TP SCH (10:20)
[2021-04-21] MEDS: APIXABAN 5 MG TABLET PO SCH (10:20)
[2021-04-21] MEDS: levETIRAcetam 250 MG TABLET PO SCH (10:20)
[2021-04-21] MEDS: VITAMIN B COMP W-C 1 EA TABLET (NEPHRO-VITE) PO SCH (10:20)
[2021-04-21] MEDS: ARTIFICIAL TEARS (POLYVINYL ALCOHOL) OPTH DROPS OU SCH (10:20)
[2021-04-21] MEDS: PANTOPRAZOLE 20 MG TABLET PO SCH (10:20)
[2021-04-21 14:15] VITALS: BP 121/61; PULSE 68; TEMP 98
[2021-04-21 16:51] LABS: PHOSPHOROUS 3.7 mg/dL (2.5-4.9)
== END 2021-04-21 18:49 ==
LOC: JER 19:15 → JERBED 04-18 07:55 → INTOOBSV 04-18 07:55 → J6S 04-18 18:52
PROVIDERS: ADMIT Internal Medicine; ATTEND Internal Medicine
DX: I13.2 Hypertensive heart and chronic kidney disease with heart failure and with stage 5 chronic kidney disease, or end stage renal disease (principal); Z99.2 Dependence on renal dialysis; Z91.15 Patient's noncompliance with renal dialysis; E87.5 Hyperkalemia; I48.0 Paroxysmal atrial fibrillation; Z79.01 Long term (current) use of anticoagulants; E11.9 Type 2 diabetes mellitus without complications; T82.848A Pain due to vascular prosthetic devices, implants and grafts, initial encounter; E78.5 Hyperlipidemia, unspecified; R56.9 Unspecified convulsions; B19.10 Unspecified viral hepatitis B without hepatic coma; B19.20 Unspecified viral hepatitis C without hepatic coma; I69.898 Other sequelae of other cerebrovascular disease; N40.0 Benign prostatic hyperplasia without lower urinary tract symptoms; R31.9 Hematuria, unspecified; Y99.8 Other external cause status; N18.6 End stage renal disease; Z79.4 Long term (current) use of insulin
CPT/HCPCS: 36415; 71045-TC-FY; 80048; 80053; 83735; 84100; 85025; 85027; 85610; 85730; 86803; 87340; 87522; 93005; 93010; 99285-25; C9803; G0378; U0003; U0005

== ENCOUNTER 2021-05-23 23:27 | Inpatient (IN) | payer OTHER ==
[2021-05-24 01:08] LABS: BASO % 0.4 % (0-2.0); EOS % 1.9 % (0-4.5); HEMATOCRIT 34.8 % (35.4-49); HEMOGLOBIN 11.7 GM/dL (11.7-16.9); LYMPH % 12.8 % (8-40); MCH 34.1 pg (25.7-33.7); MCHC 33.6 g/dl (32.0-35.9); MEAN CELL VOLUME 101.7 fl (80-96); MEAN PLT VOLUME 8.7 fl (7.5-11.1); MONO % 9.5 % (3.8-10.2); NEUT % 75.4 % (42.8-82.8); PLATELET COUNT 205 10^3/uL (134-434); RBC 3.42 M/mm3 (4.00-5.60); RDW 14.6 % (11.9-15.9); WHITE BLOOD COUNT 8.1 K/mm3 (4.0-10.0)
[2021-05-24 01:25] LABS: INR 1.24 (0.83-1.09); PROTHROMBIN TIME (PATIENT) 14.3 SEC (9.7-13.0)
[2021-05-24 01:27] LABS: ACTIVATED PTT 29.4 SECONDS (25.2-36.5)
[2021-05-24 02:53] LABS: CHLORIDE 91 mmol/L (98-107); SODIUM 133 mmol/L (136-145)
[2021-05-24 02:56] LABS: ALBUMIN 3.3 g/dl (3.4-5.0); ANION GAP 16 MMOL/L (8-16); CALCIUM 9.9 mg/dL (8.5-10.1); CO2 25 mmol/L (21-32); GLUCOSE,RANDOM 128 mg/dL (74-106)
[2021-05-24 02:59] LABS: SGOT/AST 23 U/L (15-37); SGPT/ALT < 6 U/L (13-61)
[2021-05-24 03:01] LABS: BILIRUBIN,TOTAL 0.6 mg/dL (0.2-1); TOT PROT 7.3 g/dl (6.4-8.2)
[2021-05-24 03:02] LABS: ALK PHOS 78 U/L (45-117)
[2021-05-24 03:09] LABS: BLOOD UREA NITROGEN 112.2 mg/dL (7-18); CREATININE 13.8 mg/dL (0.55-1.3)
[2021-05-24] MEDS ORDERED: SODIUM CHLORIDE 250 ML IV PRN ×2 (08:33→16:40)
[2021-05-24] MEDS ORDERED: levETIRAcetam 500 MG TABLET (FP) PO SCH (10:00)
[2021-05-24] MEDS ORDERED: metoPROLOL SUCCINATE 25 MG TAB.SR.24H (FP) PO SCH (10:00)
[2021-05-24] MEDS ORDERED: PANTOPRAZOLE 20 MG TABLET PO SCH (10:00)
[2021-05-24] MEDS ORDERED: LIDOCAINE HCL 1%, 10 MG/ML (20ML VIAL) ONE (13:45)
[2021-05-24 13:53] VITALS: BMI 20.8
[2021-05-24] MEDS ORDERED: MIDAZOLAM HCL 2 MG/2 ML SINGLE DOSE VIAL ONE (14:48)
[2021-05-24] MEDS ORDERED: PROPOFOL 20 ML ONE ×2 (14:48)
[2021-05-24] MEDS ORDERED: ceFAZolin SODIUM 1 GM VIAL IVPB ONE (15:45)
[2021-05-24] MEDS ORDERED: LIDOCAINE HCL 1%, 10 MG/ML (20ML VIAL) NR ONE (15:53)
[2021-05-24] MEDS: TAMSULOSIN HCL 0.4 MG CAP PO SCH (21:18)
[2021-05-24] MEDS: levETIRAcetam 500 MG TABLET (FP) PO SCH (21:18)
[2021-05-24] MEDS: ATORVASTATIN CA 20 MG TABLET (FP) PO SCH (21:19)
[2021-05-24] MEDS: QUEtiapine FUMARATE 25 MG TABLET PO SCH (21:19)
[2021-05-24] MEDS ORDERED: TAMSULOSIN HCL 0.4 MG CAP PO SCH (22:00)
[2021-05-24] MEDS ORDERED: ATORVASTATIN CA 20 MG TABLET (FP) PO SCH (22:00)
[2021-05-24] MEDS ORDERED: QUEtiapine FUMARATE 25 MG TABLET PO SCH (22:00)
[2021-05-25] MEDS ORDERED: SODIUM CHLORIDE 250 ML IV PRN (09:49)
[2021-05-25] MEDS ORDERED: PANTOPRAZOLE 20 MG TABLET PO SCH (10:00)
[2021-05-25] MEDS ORDERED: metoPROLOL SUCCINATE 25 MG TAB.SR.24H (FP) PO SCH (10:00)
[2021-05-25] MEDS: levETIRAcetam 500 MG TABLET (FP) PO SCH ×2 (10:12→21:13)
[2021-05-25 13:54] LABS: CHLORIDE 108 mmol/L (98-107); SODIUM 145 mmol/L (136-145)
[2021-05-25 13:56] LABS: ANION GAP 12 MMOL/L (8-16); CALCIUM 9.2 mg/dL (8.5-10.1); CO2 25 mmol/L (21-32); GLUCOSE,RANDOM 186 mg/dL (74-106)
[2021-05-25 14:14] LABS: BLOOD UREA NITROGEN 40.8 mg/dL (7-18); CREATININE 7.5 mg/dL (0.55-1.3)
[2021-05-25] MEDS: ATORVASTATIN CA 20 MG TABLET (FP) PO SCH (21:12)
[2021-05-25] MEDS: TAMSULOSIN HCL 0.4 MG CAP PO SCH (21:13)
[2021-05-25] MEDS: QUEtiapine FUMARATE 25 MG TABLET PO SCH (21:13)
[2021-05-25 22:53] VITALS: BP 112/77; PULSE 83; TEMP 98.8
== END 2021-05-25 21:30 | DRG 314 ==
LOC: JER 23:27 → JERBED 05-24 04:15 → J8W 05-24 10:23
PROVIDERS: ADMIT Internal Medicine; ATTEND Internal Medicine
PROC: 05HM33Z Insertion of Infusion Device into Right Internal Jugular Vein, Percutaneous Approach (ICD-10-PCS; principal; 2021-05-24 15:30)
DX: T82.868A Thrombosis due to vascular prosthetic devices, implants and grafts, initial encounter (principal); N18.6 End stage renal disease; I69.354 Hemiplegia and hemiparesis following cerebral infarction affecting left non-dominant side; I12.0 Hypertensive chronic kidney disease with stage 5 chronic kidney disease or end stage renal disease; D63.1 Anemia in chronic kidney disease; E78.00 Pure hypercholesterolemia, unspecified; I48.0 Paroxysmal atrial fibrillation; G40.909 Epilepsy, unspecified, not intractable, without status epilepticus; N40.0 Benign prostatic hyperplasia without lower urinary tract symptoms; F32.9 Major depressive disorder, single episode, unspecified; I44.0 Atrioventricular block, first degree; K59.00 Constipation, unspecified; N20.0 Calculus of kidney; E11.22 Type 2 diabetes mellitus with diabetic chronic kidney disease; Z99.2 Dependence on renal dialysis; Y83.8 Other surgical procedures as the cause of abnormal reaction of the patient, or of later complication, without mention of misadventure at the time of the procedure
CPT/HCPCS: 36415; 71045-TC-FY; 74176-TC; 76000-TC-FY; 80048; 80053; 82550; 82962; 84484; 85025; 85610; 85730; 86803; 86850; 86900; 86901; 87340; 87522; 93005; 93010; 93990-TC; 94760; 99285-25; C9803; J1644; U0003; U0005

== ENCOUNTER 2021-08-19 10:31 | Observation (INO) | payer OTHER ==
[2021-08-19 13:06] LABS: BASO % 0.9 % (0-2.0); HEMATOCRIT 39.3 % (35.4-49); HEMOGLOBIN 13.2 GM/dL (11.7-16.9); LYMPH % 12.5 % (8-40); MCHC 33.6 g/dl (32.0-35.9); MEAN CELL VOLUME 98.3 fl (80-96); MEAN PLT VOLUME 8.9 fl (7.5-11.1); MONO % 10.3 % (3.8-10.2); NEUT % 75.3 % (42.8-82.8); PLATELET COUNT 148 10^3/uL (134-434); RDW 13.9 % (11.9-15.9); WHITE BLOOD COUNT 6.4 K/mm3 (4.0-10.0)
[2021-08-19 13:23] LABS: CALCIUM 8.8 mg/dL (8.5-10.1)
[2021-08-19 13:24] LABS: ALBUMIN 2.7 g/dl (3.4-5.0); BLOOD UREA NITROGEN 11.1 mg/dL (7-18)
[2021-08-19 13:27] LABS: CREATININE 4.9 mg/dL (0.55-1.3)
[2021-08-19 13:28] LABS: BILIRUBIN,TOTAL 0.8 mg/dL (0.2-1)
[2021-08-19] MEDS ORDERED: LORazepam 1 MG TABLET PO PRN (16:11)
[2021-08-19] MEDS ORDERED: ACETAMINOPHEN 325 MG TABLET (FP) PO PRN (16:11)
[2021-08-19] MEDS: levETIRAcetam 500 MG TABLET (FP) PO SCH (22:40)
[2021-08-19] MEDS: MIRTAZAPINE 15 MG TABLET (FP) PO SCH (22:40)
[2021-08-19] MEDS: ATORVASTATIN CA 20 MG TABLET (FP) PO SCH (22:40)
[2021-08-19] MEDS: APIXABAN 2.5 MG TABLET PO SCH (22:40)
[2021-08-19] MEDS ORDERED: ATORVASTATIN CA 20 MG TABLET (FP) ONE (22:43)
[2021-08-19] MEDS ORDERED: APIXABAN 2.5 MG TABLET ONE (22:44)
[2021-08-19] MEDS ORDERED: levETIRAcetam 500 MG TABLET (FP) PO ONE (22:44)
[2021-08-19] MEDS ORDERED: MIRTAZAPINE 15 MG TABLET (FP) ONE (22:44)
[2021-08-20] MEDS ORDERED: SODIUM CHLORIDE 250 ML IV PRN (09:00)
[2021-08-20 09:26] LABS: HEMATOCRIT 38.5 % (35.4-49); HEMOGLOBIN 12.9 GM/dL (11.7-16.9); MCH 32.9 pg (25.7-33.7); MCHC 33.4 g/dl (32.0-35.9); MEAN CELL VOLUME 98.4 fl (80-96); MEAN PLT VOLUME 9.1 fl (7.5-11.1); PLATELET COUNT 151 10^3/uL (134-434); RBC 3.91 M/mm3 (4.00-5.60); RDW 13.8 % (11.9-15.9); WHITE BLOOD COUNT 4.9 K/mm3 (4.0-10.0)
[2021-08-20 09:48] LABS: CALCIUM 9.1 mg/dL (8.5-10.1)
[2021-08-20 09:49] LABS: BLOOD UREA NITROGEN 12.8 mg/dL (7-18)
[2021-08-20 09:52] LABS: CREATININE 5.8 mg/dL (0.55-1.3)
[2021-08-20] MEDS: APIXABAN 2.5 MG TABLET PO SCH ×2 (11:00→21:27)
[2021-08-20] MEDS: metoPROLOL SUCCINATE 25 MG TAB.SR.24H (FP) PO SCH (11:00)
[2021-08-20] MEDS: TAMSULOSIN HCL 0.4 MG CAP PO SCH (11:01)
[2021-08-20] MEDS: levETIRAcetam 500 MG TABLET (FP) PO SCH ×2 (11:07→21:27)
[2021-08-20] MEDS ORDERED: LORazepam 1 MG TABLET PO PRN (12:47)
[2021-08-20] MEDS ORDERED: SODIUM CHLORIDE 250 ML IV ONE (15:30)
[2021-08-20] MEDS: ATORVASTATIN CA 20 MG TABLET (FP) PO SCH (21:27)
[2021-08-20] MEDS: MIRTAZAPINE 15 MG TABLET (FP) PO SCH (21:27)
[2021-08-21] MEDS: metoPROLOL SUCCINATE 25 MG TAB.SR.24H (FP) PO SCH ×2 (09:38→09:44)
[2021-08-21] MEDS: levETIRAcetam 500 MG TABLET (FP) PO SCH ×2 (09:39→22:34)
[2021-08-21] MEDS: APIXABAN 2.5 MG TABLET PO SCH ×2 (09:39→22:34)
[2021-08-21] MEDS: TAMSULOSIN HCL 0.4 MG CAP PO SCH (09:39)
[2021-08-21 13:44] VITALS: BMI 18.6
[2021-08-21] MEDS ORDERED: MECLIZINE HCL 12.5 MG TABLET PO ONE ×2 (19:05→22:30)
[2021-08-21] MEDS: MIRTAZAPINE 15 MG TABLET (FP) PO SCH (22:34)
[2021-08-21] MEDS: ATORVASTATIN CA 20 MG TABLET (FP) PO SCH (22:34)
[2021-08-22] MEDS ORDERED: SODIUM CHLORIDE 250 ML IV PRN (06:36)
[2021-08-22] MEDS: metoPROLOL SUCCINATE 25 MG TAB.SR.24H (FP) PO SCH ×2 (13:13→13:15)
[2021-08-22] MEDS: levETIRAcetam 500 MG TABLET (FP) PO SCH ×3 (13:13→21:57)
[2021-08-22] MEDS: APIXABAN 2.5 MG TABLET PO SCH ×3 (13:14→21:57)
[2021-08-22 21:37] LABS: CALCIUM 8.8 mg/dL (8.5-10.1)
[2021-08-22 21:38] LABS: BLOOD UREA NITROGEN 9.2 mg/dL (7-18); MAGNESIUM 1.9 mg/dL (1.8-2.4)
[2021-08-22 21:41] LABS: CREATININE 5.9 mg/dL (0.55-1.3)
[2021-08-22] MEDS: MIRTAZAPINE 15 MG TABLET (FP) PO SCH (21:57)
[2021-08-22] MEDS: ATORVASTATIN CA 20 MG TABLET (FP) PO SCH (21:57)
[2021-08-23 10:35] VITALS: BP 92/50; PULSE 90
[2021-08-23] MEDS: APIXABAN 2.5 MG TABLET PO SCH (10:44)
[2021-08-23] MEDS: levETIRAcetam 500 MG TABLET (FP) PO SCH (10:44)
[2021-08-23] MEDS: metoPROLOL SUCCINATE 25 MG TAB.SR.24H (FP) PO SCH (10:46)
[2021-08-23 10:56] VITALS: TEMP 97.4
[2021-08-23] MEDS ORDERED: metoPROLOL SUCCINATE 25 MG TAB.SR.24H (FP) PO SCH (11:00)
== END 2021-08-23 11:30 ==
LOC: JER 10:31 → JERBED 14:40 → J4W 23:31
PROVIDERS: ADMIT Internal Medicine; ATTEND Internal Medicine
PROC: 3E0337Z Introduction of Electrolytic and Water Balance Substance into Peripheral Vein, Percutaneous Approach (ICD-10-PCS; principal; 2021-08-19)
DX: E11.22 Type 2 diabetes mellitus with diabetic chronic kidney disease (principal); I12.0 Hypertensive chronic kidney disease with stage 5 chronic kidney disease or end stage renal disease; N18.6 End stage renal disease; Z99.2 Dependence on renal dialysis; N40.0 Benign prostatic hyperplasia without lower urinary tract symptoms; B19.20 Unspecified viral hepatitis C without hepatic coma; E78.5 Hyperlipidemia, unspecified; Z90.49 Acquired absence of other specified parts of digestive tract; Z87.891 Personal history of nicotine dependence; Z86.73 Personal history of transient ischemic attack (TIA), and cerebral infarction without residual deficits; N39.0 Urinary tract infection, site not specified; R31.9 Hematuria, unspecified; R53.2 Functional quadriplegia; E43 Unspecified severe protein-calorie malnutrition; Z68.1 Body mass index [BMI] 19.9 or less, adult; R55 Syncope and collapse
CPT/HCPCS: 36415; 70450-TC; 71045-TC-FY; 80048; 80053; 80177; 82962; 83605; 83735; 84484; 85025; 85027; 86803; 87340; 87522; 93005; 93010; 93306-TC; 96360; 96361; 99285-25; C9803-CS; G0378; U0003; U0005

== ENCOUNTER 2021-08-31 11:45 | Inpatient (IN) | payer OTHER ==
[2021-08-31 14:12] LABS: BASO % 0.9 % (0-2.0); EOS % 0.9 % (0-4.5); HEMATOCRIT 37.8 % (35.4-49); HEMOGLOBIN 12.6 GM/dL (11.7-16.9); LYMPH % 13.7 % (8-40); MCH 32.4 pg (25.7-33.7); MCHC 33.3 g/dl (32.0-35.9); MEAN CELL VOLUME 97.2 fl (80-96); MEAN PLT VOLUME 9.4 fl (7.5-11.1); MONO % 11.9 % (3.8-10.2); NEUT % 72.6 % (42.8-82.8); PLATELET COUNT 113 10^3/uL (134-434); RBC 3.88 M/mm3 (4.00-5.60); WHITE BLOOD COUNT 5.6 K/mm3 (4.0-10.0)
[2021-08-31 14:38] LABS: CHLORIDE 103 mmol/L (98-107); SODIUM 138 mmol/L (136-145)
[2021-08-31 14:41] LABS: ALBUMIN 2.8 g/dl (3.4-5.0); ANION GAP 7 MMOL/L (8-16); BLOOD UREA NITROGEN 16.2 mg/dL (7-18); CALCIUM 8.6 mg/dL (8.5-10.1); CO2 28 mmol/L (21-32)
[2021-08-31 14:42] LABS: GLUCOSE,RANDOM 138 mg/dL (74-106)
[2021-08-31 14:44] LABS: SGPT/ALT 12 U/L (13-61)
[2021-08-31 14:45] LABS: CREATININE 4.8 mg/dL (0.55-1.3); SGOT/AST 15 U/L (15-37)
[2021-08-31 14:46] LABS: BILIRUBIN,TOTAL 0.8 mg/dL (0.2-1); TOT PROT 6.1 g/dl (6.4-8.2)
[2021-08-31 14:47] LABS: ALK PHOS 65 U/L (45-117)
[2021-08-31] MEDS ORDERED: NAPH,MB-DB/K PH,MBDB POWDER PACKET PO ONE (15:07)
[2021-08-31] MEDS ORDERED: NAPH,MB-DB/K PH,MBDB POWDER PACKET ONE (15:16)
[2021-08-31] MEDS ORDERED: ACETAMINOPHEN 325 MG TABLET (FP) PO PRN (18:34)
[2021-08-31] MEDS ORDERED: LORazepam 1 MG TABLET PO PRN (18:34)
[2021-08-31] MEDS ORDERED: SODIUM CHLORIDE 250 ML IV STA (21:12)
[2021-09-01] MEDS: MIRTAZAPINE 15 MG TABLET (FP) PO SCH ×2 (00:52→21:24)
[2021-09-01] MEDS: ATORVASTATIN CA 20 MG TABLET (FP) PO SCH ×2 (00:52→21:24)
[2021-09-01] MEDS: levETIRAcetam 250 MG TABLET PO SCH ×3 (00:52→21:24)
[2021-09-01] MEDS: APIXABAN 2.5 MG TABLET PO SCH ×3 (00:52→21:24)
[2021-09-01] MEDS ORDERED: SODIUM PHOSPHATE - 15 MM in DEXTROSE 5%-WATER - 250 ML IVPB ONE ×2 (03:00→15:00)
[2021-09-01 14:58] VITALS: BMI 17.7
[2021-09-01] MEDS: DRONABINOL 2.5 MG CAPSULE PO SCH (15:36)
[2021-09-01] MEDS ORDERED: SODIUM CHLORIDE 250 ML IV ONE (17:25)
[2021-09-01] MEDS ORDERED: SODIUM CHLORIDE 1,000 ML IV SCH (18:26)
[2021-09-02] MEDS ORDERED: VITAMIN B COMP W-C 1 EA TABLET (NEPHRO-VITE) PO SCH (10:00)
[2021-09-02] MEDS: APIXABAN 2.5 MG TABLET PO SCH (10:12)
[2021-09-02] MEDS: levETIRAcetam 250 MG TABLET PO SCH (10:13)
[2021-09-02] MEDS: DRONABINOL 2.5 MG CAPSULE PO SCH (10:13)
[2021-09-02] MEDS ORDERED: SODIUM CHLORIDE 250 ML IV PRN (11:04)
[2021-09-02 13:29] LABS: CALCIUM 8.3 mg/dL (8.5-10.1)
[2021-09-02 13:30] LABS: BLOOD UREA NITROGEN 27.4 mg/dL (7-18)
[2021-09-02 13:33] LABS: CREATININE 6.6 mg/dL (0.55-1.3)
[2021-09-02 18:31] VITALS: BP 95/68; PULSE 96; TEMP 97.8
== END 2021-09-02 19:40 | DRG 314 ==
LOC: JER 11:45 → JERBED 16:06 → J5S 23:42
PROVIDERS: ADMIT Internal Medicine; ATTEND Internal Medicine
PROC: 5A1D70Z Performance of Urinary Filtration, Intermittent, Less than 6 Hours Per Day (ICD-10-PCS; principal; 2021-09-02)
DX: I95.89 Other hypotension (principal); N18.6 End stage renal disease; R53.2 Functional quadriplegia; E43 Unspecified severe protein-calorie malnutrition; Z68.1 Body mass index [BMI] 19.9 or less, adult; G81.94 Hemiplegia, unspecified affecting left nondominant side; I12.0 Hypertensive chronic kidney disease with stage 5 chronic kidney disease or end stage renal disease; N40.0 Benign prostatic hyperplasia without lower urinary tract symptoms; R56.9 Unspecified convulsions; E11.22 Type 2 diabetes mellitus with diabetic chronic kidney disease; F32.A Depression, unspecified; R33.8 Other retention of urine; R62.7 Adult failure to thrive; E83.39 Other disorders of phosphorus metabolism; Z99.2 Dependence on renal dialysis
CPT/HCPCS: 36415; 71045-TC-FY; 80048; 80053; 80177; 83735; 84100; 84484; 85025; 93005; 93010; 93880-TC; 99285-25; C9803-CS; U0003; U0005

== ENCOUNTER 2022-01-16 11:50 | Inpatient (IN) | payer OTHER ==
[2022-01-16 12:18] VITALS: BMI 25.8
[2022-01-16 14:25] LABS: CHLORIDE 99 mmol/L (98-107); SODIUM 137 mmol/L (136-145)
[2022-01-16 14:26] LABS: CALCIUM 8.6 mg/dL (8.5-10.1)
[2022-01-16 14:27] LABS: ALBUMIN 2.8 g/dl (3.4-5.0); ANION GAP 10 MMOL/L (8-16); BLOOD UREA NITROGEN 62.6 mg/dL (7-18); CO2 28 mmol/L (21-32); GLUCOSE,RANDOM 94 mg/dL (74-106)
[2022-01-16 14:30] LABS: HEMATOCRIT 33.5 % (35.4-49); HEMOGLOBIN 11.2 GM/dL (11.7-16.9); MCHC 33.5 g/dl (32.0-35.9); MEAN CELL VOLUME 92.5 fl (80-96); MEAN PLT VOLUME 9.9 fl (7.5-11.1); PLATELET COUNT 104 10^3/uL (134-434); RBC 3.63 M/mm3 (4.00-5.60); SGOT/AST 11 U/L (15-37); SGPT/ALT 16 U/L (13-61); WHITE BLOOD COUNT 6.5 K/mm3 (4.0-10.0)
[2022-01-16 14:32] LABS: BILIRUBIN,TOTAL 0.6 mg/dL (0.2-1); TOT PROT 6.8 g/dl (6.4-8.2)
[2022-01-16 14:33] LABS: ALK PHOS 132 U/L (45-117)
[2022-01-16 14:38] LABS: CREATININE 8.6 mg/dL (0.55-1.3)
[2022-01-16] MEDS ORDERED: CALCIUM GLUCONATE 10% - 1,000 MG/10 ML VIAL IVPUSH ONE (15:07)
[2022-01-16] MEDS ORDERED: DEXTROSE 50%-WATER - 25 GM/50 ML VIAL IVPUSH ONE (15:09)
[2022-01-16] MEDS ORDERED: SODIUM CHLORIDE 250 ML IV PRN (15:15)
[2022-01-16 15:21] LABS: ANISOCYTOSIS 0; HELMET CELLS 0; HOWELL-JOLLY BODIES 0; MACROCYTOSIS 0; OVALOCYTE 0; ROULEAU 0; SICKELED CELLS 0; TARGET CELLS 0; TEAR DROP CELLS 0; TOXIC GRANULATION 0
[2022-01-16] MEDS ORDERED: DEXTROSE 50%-WATER 25 GM/50 ML DISP.SYRIN ONE (15:45)
[2022-01-16] MEDS ORDERED: CALCIUM GLUCONATE 10% - 1,000 MG/10 ML VIAL ONE (15:45)
[2022-01-17 04:15] LABS: CALCIUM 8.2 mg/dL (8.5-10.1)
[2022-01-17 04:38] LABS: BLOOD UREA NITROGEN 27.6 mg/dL (7-18)
[2022-01-17 07:27] VITALS: TEMP 96.5
[2022-01-17 09:21] LABS: BASO % 0.9 % (0-2.0); EOS % 2.3 % (0-4.5); HEMATOCRIT 37.9 % (35.4-49); HEMOGLOBIN 12.5 GM/dL (11.7-16.9); LYMPH % 13.7 % (8-40); MCH 30.5 pg (25.7-33.7); MCHC 33.1 g/dl (32.0-35.9); MEAN CELL VOLUME 92.2 fl (80-96); MEAN PLT VOLUME 10.1 fl (7.5-11.1); MONO % 19.4 % (3.8-10.2); NEUT % 63.7 % (42.8-82.8); PLATELET COUNT 120 10^3/uL (134-434); RBC 4.11 M/mm3 (4.00-5.60); RDW 14.2 % (11.9-15.9); WHITE BLOOD COUNT 5.1 K/mm3 (4.0-10.0)
[2022-01-17 10:00] LABS: BLOOD UREA NITROGEN 29.8 mg/dL (7-18); CALCIUM 8.5 mg/dL (8.5-10.1)
[2022-01-17 10:01] LABS: ALBUMIN 2.5 g/dl (3.4-5.0)
[2022-01-17 10:03] LABS: CREATININE 5.4 mg/dL (0.55-1.3)
[2022-01-17 10:05] LABS: BILIRUBIN,TOTAL 0.7 mg/dL (0.2-1); TOT PROT 6.4 g/dl (6.4-8.2)
[2022-01-17 18:44] VITALS: BP 184/81; PULSE 58; RESP 16
[2022-01-17 18:53] LABS: EPI CELLS 7 /uL (0-25.1); HYALINE CASTS 4 /uL (0-3.1); PH,URINE >= 9.0 (5.0-8.0); URINE APPEARANCE CLOUDY; URINE BACTERIA 180 /uL (0-1359); URINE BILIRUBIN NEGATIVE (NEGATIVE); URINE COLOR YELLOW; URINE GLUCOSE (UA) NEGATIVE (NEGATIVE); URINE KETONE NEGATIVE (NEGATIVE); URINE LEUK ESTERASE 3+ (NEGATIVE); URINE NITRITE NEGATIVE (NEGATIVE); URINE PROTEIN 3+ (NEGATIVE); URINE RBC 7 /uL (0-23.9); URINE UROBILINOGEN 0.2 mg/dL (0.2-1.0); URINE WBC 786 /uL (0-25.8)
== END 2022-01-17 19:25 | DRG 70 ==
LOC: JER 11:50 → JERBED 15:27 → OBSVTOIN 21:40
PROVIDERS: ADMIT Internal Medicine; ATTEND Internal Medicine
PROC: 5A1D70Z Performance of Urinary Filtration, Intermittent, Less than 6 Hours Per Day (ICD-10-PCS; principal; 2022-01-16)
DX: G93.41 Metabolic encephalopathy (principal); N18.6 End stage renal disease; R53.2 Functional quadriplegia; I12.0 Hypertensive chronic kidney disease with stage 5 chronic kidney disease or end stage renal disease; I69.354 Hemiplegia and hemiparesis following cerebral infarction affecting left non-dominant side; R41.82 Altered mental status, unspecified; R60.1 Generalized edema; E11.22 Type 2 diabetes mellitus with diabetic chronic kidney disease; G40.909 Epilepsy, unspecified, not intractable, without status epilepticus; N40.0 Benign prostatic hyperplasia without lower urinary tract symptoms; I44.0 Atrioventricular block, first degree; E87.5 Hyperkalemia; I69.391 Dysphagia following cerebral infarction; R13.19 Other dysphagia; Z99.2 Dependence on renal dialysis
CPT/HCPCS: 0241U-QW; 36415; 70450-TC; 71045-TC-FY; 80048; 80053; 80177; 81003; 84484; 85025; 86803; 87340; 87522; 93005; 93010; 99285-25; G0378

== ENCOUNTER 2022-06-29 12:22 | Inpatient (IN) | payer OTHER ==
[2022-06-29] MEDS ORDERED: ACETAMINOPHEN INJECTION 100 ML IVPB ONE (13:04)
[2022-06-29] MEDS ORDERED: ACETAMINOPHEN 1000 MG/100 ML BAG IVPB ONE (13:27)
[2022-06-29] MEDS ORDERED: PIPERACILLIN/TAZOB 4.5 GM 4.5 GM in DEXTROSE 5%-WATER 100 ML IVPB ONE (13:29)
[2022-06-29] MEDS ORDERED: CEFEPIME HCL/D5W 1 GM/50 ML BAG IVPB ONE (13:31)
[2022-06-29] MEDS ORDERED: VANCOMYCIN 1 GM in D5W (PRE-DOCKED) 1,000 MG/250 ML IVPB ONE (13:32)
[2022-06-29 13:45] LABS: VENOUS BASE EXCESS -2.7 mmol/L (-2-2); VENOUS O2 SATURATION 28.9 % (70-80); VENOUS PCO2 37.5 mmHg (38-52); VENOUS PH 7.386 (7.310-7.410)
[2022-06-29] MEDS ORDERED: CEFEPIME 1 GM/100 ML BAG IVPB ONE (13:49)
[2022-06-29 13:54] LABS: HEMOGLOBIN 9.2 GM/dL (11.7-16.9); MCH 32.9 pg (25.7-33.7); MCHC 34.1 g/dl (32.0-35.9); MEAN CELL VOLUME 96.5 fl (80-96); MEAN PLT VOLUME 10.1 fl (7.5-11.1); PLATELET COUNT 105 10^3/uL (134-434); RDW 15.4 % (11.9-15.9); WHITE BLOOD COUNT 8.7 K/mm3 (4.0-10.0)
[2022-06-29 14:02] LABS: INR 1.55 (0.83-1.09); PROTHROMBIN TIME (PATIENT) 17.9 SEC (9.7-13.0)
[2022-06-29 14:11] LABS: CHLORIDE 96 mmol/L (98-107); SODIUM 132 mmol/L (136-145)
[2022-06-29 14:13] LABS: CALCIUM 8.3 mg/dL (8.5-10.1)
[2022-06-29 14:14] LABS: ANION GAP 15 MMOL/L (8-16); BLOOD UREA NITROGEN 75.1 mg/dL (7-18); CO2 21 mmol/L (21-32); GLUCOSE,RANDOM 98 mg/dL (74-106)
[2022-06-29 14:17] LABS: SGOT/AST 23 U/L (15-37); SGPT/ALT 19 U/L (13-61)
[2022-06-29 14:18] LABS: TOT PROT 6.9 g/dl (6.4-8.2)
[2022-06-29 14:19] LABS: BILIRUBIN,TOTAL 0.8 mg/dL (0.2-1)
[2022-06-29 14:20] LABS: ALK PHOS 71 U/L (45-117)
[2022-06-29 14:28] LABS: ANISOCYTOSIS 0; HELMET CELLS 0; HOWELL-JOLLY BODIES 0; MACROCYTOSIS 0; OVALOCYTE 0; ROULEAU 0; SICKELED CELLS 0; TARGET CELLS 0; TEAR DROP CELLS 0; TOXIC GRANULATION 0
[2022-06-29 14:40] LABS: CREATININE 8.3 mg/dL (0.55-1.3)
[2022-06-29] MEDS ORDERED: VANCOMYCIN/WATER FOR INJ (PEG) 1,000 MG/200 ML BAG IVPB ONE (15:10)
[2022-06-29] MEDS ORDERED: SODIUM CHLORIDE 250 ML IV PRN (15:18)
[2022-06-29] MEDS ORDERED: SODIUM CHLORIDE 0.9% 500 ML INFUS.BAG IV ONE ×3 (15:41→16:54)
[2022-06-29 17:07] LABS: EPI CELLS >36 /uL (0-25.1); HYALINE CASTS 30 /uL (0-3.1); URINE APPEARANCE TURBID; URINE BACTERIA 1917 /uL (0-1359); URINE BILIRUBIN NEGATIVE (NEGATIVE); URINE COLOR ORANGE; URINE GLUCOSE (UA) NEGATIVE (NEGATIVE); URINE KETONE NEGATIVE (NEGATIVE); URINE LEUK ESTERASE 3+ (NEGATIVE); URINE NITRITE NEGATIVE (NEGATIVE); URINE PROTEIN 3+ (NEGATIVE); URINE UROBILINOGEN 0.2 mg/dL (0.2-1.0); URINE WBC 5001 /uL (0-25.8)
[2022-06-29] MEDS ORDERED: ACETAMINOPHEN 325 MG TABLET (FP) PO PRN (18:02)
[2022-06-29 18:58] LABS: URINE RBC 930 /uL (0-23.9)
[2022-06-29] MEDS ORDERED: levETIRAcetam 250 MG TABLET PO SCH (22:00)
[2022-06-29] MEDS: APIXABAN 5 MG TABLET PO SCH (22:25)
[2022-06-29] MEDS: TAMSULOSIN HCL 0.4 MG CAP PO SCH (22:25)
[2022-06-29] MEDS: ATORVASTATIN CA 20 MG TABLET (FP) PO SCH (22:25)
[2022-06-30] MEDS ORDERED: ACETAMINOPHEN 1000 MG/100 ML BAG IVPB ONE (00:37)
[2022-06-30] MEDS ORDERED: levETIRAcetam 500 MG/5 ML INJECTION VIAL IVPB ONE (02:33)
[2022-06-30] MEDS: PIPERACILLIN/TAZOB 2.25 GM 2.25 GM in DEXTROSE 5%-WATER - 50 ML IVPB SCH ×4 (02:45→17:45)
[2022-06-30] MEDS ORDERED: VANCOMYCIN 1 GM PREMIX - 200 ML IVPB ONE (08:00)
[2022-06-30] MEDS ORDERED: GENTAMICIN 80 MG PREMIXED IVPB 80 MG/100 ML BAG IVPB ONE ×2 (08:57→14:45)
[2022-06-30] MEDS ORDERED: SODIUM CHLORIDE 250 ML IV PRN (10:50)
[2022-06-30] MEDS: APIXABAN 5 MG TABLET PO SCH ×2 (11:36→21:36)
[2022-06-30] MEDS: ACETAMINOPHEN 1000 MG/100 ML BAG IVPB PRN ×2 (14:00→21:34)
[2022-06-30 14:38] LABS: HEMATOCRIT 24.7 % (35.4-49); HEMOGLOBIN 8.3 GM/dL (11.7-16.9); MCH 32.1 pg (25.7-33.7); MCHC 33.5 g/dl (32.0-35.9); MEAN CELL VOLUME 95.7 fl (80-96); MEAN PLT VOLUME 10.5 fl (7.5-11.1); PLATELET COUNT 106 10^3/uL (134-434); RBC 2.58 M/mm3 (4.00-5.60); RDW 15.6 % (11.9-15.9); WHITE BLOOD COUNT 16.5 K/mm3 (4.0-10.0)
[2022-06-30 15:01] LABS: CHLORIDE 98 mmol/L (98-107); SODIUM 130 mmol/L (136-145)
[2022-06-30 15:02] LABS: CALCIUM 8.6 mg/dL (8.5-10.1)
[2022-06-30 15:03] LABS: ANION GAP 14 MMOL/L (8-16); BLOOD UREA NITROGEN 89.2 mg/dL (7-18); CO2 18 mmol/L (21-32); GLUCOSE,RANDOM 78 mg/dL (74-106)
[2022-06-30 15:14] LABS: CREATININE 8.9 mg/dL (0.55-1.3)
[2022-06-30] MEDS: levETIRAcetam 500 MG/5 ML INJECTION VIAL IVPB SCH (16:48)
[2022-06-30] MEDS ORDERED: levETIRAcetam 500 MG/5 ML INJECTION VIAL IVPB SCH (18:00)
[2022-06-30] MEDS: TAMSULOSIN HCL 0.4 MG CAP PO SCH (21:37)
[2022-06-30] MEDS: ATORVASTATIN CA 20 MG TABLET (FP) PO SCH (21:37)
[2022-07-01] MEDS: PIPERACILLIN/TAZOB 2.25 GM 2.25 GM in DEXTROSE 5%-WATER - 50 ML IVPB SCH ×3 (03:20→18:07)
[2022-07-01] MEDS: levETIRAcetam 500 MG/5 ML INJECTION VIAL IVPB SCH (10:35)
[2022-07-01] MEDS: APIXABAN 5 MG TABLET PO SCH ×2 (11:34→21:33)
[2022-07-01] MEDS: ATORVASTATIN CA 20 MG TABLET (FP) PO SCH (21:33)
[2022-07-01] MEDS: TAMSULOSIN HCL 0.4 MG CAP PO SCH (21:33)
[2022-07-02] MEDS: PIPERACILLIN/TAZOB 2.25 GM 2.25 GM in DEXTROSE 5%-WATER - 50 ML IVPB SCH ×3 (03:35→17:36)
[2022-07-02] MEDS: metoPROLOL SUCCINATE 25 MG TAB.SR.24H (FP) PO SCH (10:15)
[2022-07-02] MEDS: levETIRAcetam 500 MG/5 ML INJECTION VIAL IVPB SCH (10:15)
[2022-07-02] MEDS: APIXABAN 5 MG TABLET PO SCH ×2 (10:15→21:25)
[2022-07-02] MEDS: TAMSULOSIN HCL 0.4 MG CAP PO SCH (21:25)
[2022-07-02] MEDS: ATORVASTATIN CA 20 MG TABLET (FP) PO SCH (21:25)
[2022-07-03] MEDS: PIPERACILLIN/TAZOB 2.25 GM 2.25 GM in DEXTROSE 5%-WATER - 50 ML IVPB SCH ×2 (01:41→09:33)
[2022-07-03] MEDS ORDERED: RAPID SEQUENCE INTUBATION KIT NR ONE (08:12)
[2022-07-03] MEDS: levETIRAcetam 500 MG TABLET (FP) PO SCH (09:33)
[2022-07-03] MEDS: metoPROLOL SUCCINATE 25 MG TAB.SR.24H (FP) PO SCH (09:34)
[2022-07-03] MEDS: APIXABAN 5 MG TABLET PO SCH ×2 (09:34→22:13)
[2022-07-03] MEDS ORDERED: metoPROLOL SUCCINATE 25 MG TAB.SR.24H (FP) PO ONE (12:15)
[2022-07-03] MEDS: CEFAZOLIN 1 GM in DEXTROSE 5%-WATER - 50 ML IVPB SCH (12:35)
[2022-07-03 13:22] LABS: CHLORIDE 101 mmol/L (98-107); SODIUM 137 mmol/L (136-145)
[2022-07-03 13:23] LABS: CALCIUM 8.3 mg/dL (8.5-10.1)
[2022-07-03 13:24] LABS: ANION GAP 11 MMOL/L (8-16); BLOOD UREA NITROGEN 84.8 mg/dL (7-18); CO2 25 mmol/L (21-32); GLUCOSE,RANDOM 105 mg/dL (74-106)
[2022-07-03 13:43] LABS: CREATININE 8.1 mg/dL (0.55-1.3)
[2022-07-03] MEDS ORDERED: SODIUM ZIRCONIUM CYCLOSILICATE (LOKELMA) 5 GM PACKET PO ONE (14:30)
[2022-07-03] MEDS ORDERED: levETIRAcetam 500 MG TABLET (FP) PO SCH (17:00)
[2022-07-03] MEDS: ATORVASTATIN CA 20 MG TABLET (FP) PO SCH (22:13)
[2022-07-03] MEDS: TAMSULOSIN HCL 0.4 MG CAP PO SCH (22:13)
[2022-07-04 08:19] LABS: CHLORIDE 100 mmol/L (98-107); SODIUM 135 mmol/L (136-145)
[2022-07-04 08:26] LABS: HEMATOCRIT 24.4 % (35.4-49); HEMOGLOBIN 8.7 GM/dL (11.7-16.9); MCH 34.1 pg (25.7-33.7); MCHC 35.7 g/dl (32.0-35.9); MEAN CELL VOLUME 95.6 fl (80-96); PLATELET COUNT 109 10^3/uL (134-434); RBC 2.56 M/mm3 (4.00-5.60); RDW 15.7 % (11.9-15.9); WHITE BLOOD COUNT 5.9 K/mm3 (4.0-10.0)
[2022-07-04 08:29] LABS: CALCIUM 8.4 mg/dL (8.5-10.1)
[2022-07-04 08:30] LABS: ANION GAP 12 MMOL/L (8-16); BLOOD UREA NITROGEN 91.7 mg/dL (7-18); CO2 22 mmol/L (21-32); GLUCOSE,RANDOM 97 mg/dL (74-106)
[2022-07-04 08:38] LABS: CREATININE 8.6 mg/dL (0.55-1.3)
[2022-07-04] MEDS ORDERED: CASPOFUNGIN ACETATE 70 MG in SODIUM CHLORIDE 250 ML IVPB ONE (08:43)
[2022-07-04 08:46] LABS: INR 1.75 (0.83-1.09); PROTHROMBIN TIME (PATIENT) 20.2 SEC (9.7-13.0)
[2022-07-04] MEDS: APIXABAN 5 MG TABLET PO SCH ×2 (10:17→22:05)
[2022-07-04] MEDS: levETIRAcetam 500 MG TABLET (FP) PO SCH (10:18)
[2022-07-04] MEDS: CEFAZOLIN 1 GM in DEXTROSE 5%-WATER - 50 ML IVPB SCH (10:18)
[2022-07-04] MEDS ORDERED: SODIUM CHLORIDE 250 ML IV PRN (11:20)
[2022-07-04] MEDS ORDERED: EPOETIN ALFA-EPBX 10,000 UNIT/ML VIAL IVPUSH ONE (12:00)
[2022-07-04 12:25] LABS: ANISOCYTOSIS 2+; MACROCYTOSIS 1+; TARGET CELLS 2+; TEAR DROP CELLS 1+
[2022-07-04] MEDS: ATORVASTATIN CA 20 MG TABLET (FP) PO SCH (22:05)
[2022-07-04] MEDS: TAMSULOSIN HCL 0.4 MG CAP PO SCH (22:05)
[2022-07-05] MEDS: CASPOFUNGIN ACETATE 50 MG in SODIUM CHLORIDE 250 ML IVPB SCH (13:09)
[2022-07-05] MEDS: CEFAZOLIN 1 GM in DEXTROSE 5%-WATER - 50 ML IVPB SCH (13:09)
[2022-07-05] MEDS: levETIRAcetam 500 MG TABLET (FP) PO SCH ×2 (13:22→14:17)
[2022-07-05] MEDS: APIXABAN 5 MG TABLET PO SCH ×2 (13:26→21:11)
[2022-07-05] MEDS: TAMSULOSIN HCL 0.4 MG CAP PO SCH (21:11)
[2022-07-05] MEDS: ATORVASTATIN CA 20 MG TABLET (FP) PO SCH (21:11)
[2022-07-06] MEDS: CEFAZOLIN 1 GM in DEXTROSE 5%-WATER - 50 ML IVPB SCH (10:30)
[2022-07-06] MEDS: APIXABAN 5 MG TABLET PO SCH ×2 (10:31→22:33)
[2022-07-06] MEDS: levETIRAcetam 500 MG TABLET (FP) PO SCH (10:31)
[2022-07-06] MEDS: LOSARTAN POTASSIUM 50 MG TABLET PO SCH (10:54)
[2022-07-06] MEDS: CASPOFUNGIN ACETATE 50 MG in SODIUM CHLORIDE 250 ML IVPB SCH (10:55)
[2022-07-06] MEDS ORDERED: SODIUM CHLORIDE 250 ML IV PRN (14:13)
[2022-07-06] MEDS: TAMSULOSIN HCL 0.4 MG CAP PO SCH (22:33)
[2022-07-06] MEDS: ATORVASTATIN CA 20 MG TABLET (FP) PO SCH (22:33)
[2022-07-07] MEDS: LOSARTAN POTASSIUM 50 MG TABLET PO SCH (11:38)
[2022-07-07] MEDS: levETIRAcetam 500 MG TABLET (FP) PO SCH (11:38)
[2022-07-07] MEDS: CEFAZOLIN 1 GM in DEXTROSE 5%-WATER - 50 ML IVPB SCH (11:38)
[2022-07-07] MEDS: CASPOFUNGIN ACETATE 50 MG in SODIUM CHLORIDE 250 ML IVPB SCH (12:49)
[2022-07-07 19:08] LABS: HEMATOCRIT 24.9 % (35.4-49); HEMOGLOBIN 8.4 GM/dL (11.7-16.9); MCH 32.3 pg (25.7-33.7); MCHC 33.8 g/dl (32.0-35.9); MEAN CELL VOLUME 95.4 fl (80-96); MEAN PLT VOLUME 9.7 fl (7.5-11.1); PLATELET COUNT 199 10^3/uL (134-434); RBC 2.61 M/mm3 (4.00-5.60); RDW 15.5 % (11.9-15.9)
[2022-07-07 19:32] LABS: CALCIUM 8.7 mg/dL (8.5-10.1)
[2022-07-07 19:36] LABS: CREATININE 6.9 mg/dL (0.55-1.3); PHOSPHOROUS 4.1 mg/dL (2.5-4.9)
[2022-07-07] MEDS: ATORVASTATIN CA 20 MG TABLET (FP) PO SCH (22:03)
[2022-07-07] MEDS: TAMSULOSIN HCL 0.4 MG CAP PO SCH (22:03)
[2022-07-07] MEDS: APIXABAN 5 MG TABLET PO SCH (22:04)
[2022-07-08] MEDS: APIXABAN 5 MG TABLET PO SCH ×2 (10:04→21:27)
[2022-07-08] MEDS: LOSARTAN POTASSIUM 50 MG TABLET PO SCH (10:04)
[2022-07-08] MEDS: levETIRAcetam 500 MG TABLET (FP) PO SCH (10:04)
[2022-07-08] MEDS: CEFAZOLIN 1 GM in DEXTROSE 5%-WATER - 50 ML IVPB SCH (10:04)
[2022-07-08] MEDS: CASPOFUNGIN ACETATE 50 MG in SODIUM CHLORIDE 250 ML IVPB SCH (10:34)
[2022-07-08] MEDS ORDERED: LOSARTAN POTASSIUM 50 MG TABLET PO ONE (10:39)
[2022-07-08] MEDS: hydrALAZINE HCL 20 MG/ML VIAL IVPUSH PRN (10:50)
[2022-07-08] MEDS: TAMSULOSIN HCL 0.4 MG CAP PO SCH (21:27)
[2022-07-08] MEDS: ATORVASTATIN CA 20 MG TABLET (FP) PO SCH (21:27)
[2022-07-09] MEDS: CEFAZOLIN 1 GM in DEXTROSE 5%-WATER - 50 ML IVPB SCH (09:00)
[2022-07-09] MEDS: CASPOFUNGIN ACETATE 50 MG in SODIUM CHLORIDE 250 ML IVPB SCH (09:22)
[2022-07-09] MEDS: APIXABAN 5 MG TABLET PO SCH ×2 (09:25→21:34)
[2022-07-09] MEDS: levETIRAcetam 500 MG TABLET (FP) PO SCH (09:25)
[2022-07-09] MEDS: LOSARTAN POTASSIUM 50 MG TABLET PO SCH (09:26)
[2022-07-09 12:02] VITALS: BMI 23.2
[2022-07-09] MEDS: hydrALAZINE HCL 20 MG/ML VIAL IVPUSH PRN (17:32)
[2022-07-09] MEDS: ATORVASTATIN CA 20 MG TABLET (FP) PO SCH (21:34)
[2022-07-09] MEDS: TAMSULOSIN HCL 0.4 MG CAP PO SCH (21:34)
[2022-07-10] MEDS ORDERED: LIDOCAINE HCL 1%, 10 MG/ML (20ML VIAL) NR ONE ×2
[2022-07-10] MEDS ORDERED: ceFAZolin SODIUM 1 GM VIAL IVPB ONE
[2022-07-10] MEDS: APIXABAN 5 MG TABLET PO SCH ×2 (10:00→21:51)
[2022-07-10] MEDS: CEFAZOLIN 1 GM in DEXTROSE 5%-WATER - 50 ML IVPB SCH (11:08)
[2022-07-10] MEDS: CASPOFUNGIN ACETATE 50 MG in SODIUM CHLORIDE 250 ML IVPB SCH (11:09)
[2022-07-10] MEDS: LOSARTAN POTASSIUM 50 MG TABLET PO SCH (11:33)
[2022-07-10] MEDS: levETIRAcetam 500 MG TABLET (FP) PO SCH (11:34)
[2022-07-10] MEDS ORDERED: SODIUM CHLORIDE 250 ML IV PRN ×2 (12:42→18:26)
[2022-07-10] MEDS ORDERED: LIDOCAINE HCL 1%, 10 MG/ML (10ML VIAL) MDV ONE (13:08)
[2022-07-10] MEDS ORDERED: HEPARIN NA (PORCINE) 5,000 UNITS/ML 1ML VIAL ONE (13:08)
[2022-07-10] MEDS ORDERED: LIDOCAINE HCL/PF 2% SDV 5ML VIAL ONE (13:20)
[2022-07-10] MEDS ORDERED: PROPOFOL 60 ML ONE (13:20)
[2022-07-10 16:39] LABS: HEMATOCRIT 25.5 % (35.4-49); HEMOGLOBIN 8.6 GM/dL (11.7-16.9); MCH 32.2 pg (25.7-33.7); MCHC 33.8 g/dl (32.0-35.9); MEAN CELL VOLUME 95.3 fl (80-96); MEAN PLT VOLUME 8.1 fl (7.5-11.1); PLATELET COUNT 212 10^3/uL (134-434); RBC 2.67 M/mm3 (4.00-5.60); RDW 15.6 % (11.9-15.9); WHITE BLOOD COUNT 8.2 K/mm3 (4.0-10.0)
[2022-07-10 17:06] LABS: BLOOD UREA NITROGEN 49.5 mg/dL (7-18)
[2022-07-10 17:09] LABS: CREATININE 7.1 mg/dL (0.55-1.3); PHOSPHOROUS 4.2 mg/dL (2.5-4.9)
[2022-07-10] MEDS ORDERED: MIDAZOLAM HCL 2 MG/2 ML SINGLE DOSE VIAL ONE (17:30)
[2022-07-10] MEDS ORDERED: SODIUM ZIRCONIUM CYCLOSILICATE (LOKELMA) 5 GM PACKET PO ONE ×2 (18:30→21:15)
[2022-07-10] MEDS: ATORVASTATIN CA 20 MG TABLET (FP) PO SCH (21:55)
[2022-07-10] MEDS: TAMSULOSIN HCL 0.4 MG CAP PO SCH (21:55)
[2022-07-11] MEDS: hydrALAZINE HCL 20 MG/ML VIAL IVPUSH PRN (05:12)
[2022-07-11] MEDS ORDERED: LIDOCAINE HCL/PF 1% SDV 5ML VIAL ONE (07:19)
[2022-07-11] MEDS ORDERED: MIDAZOLAM HCL 2 MG/2 ML SINGLE DOSE VIAL ONE (07:53)
[2022-07-11] MEDS ORDERED: EPOETIN ALFA-EPBX 10,000 UNIT/ML VIAL IVPUSH ONE ×2 (08:00→09:08)
[2022-07-11] MEDS ORDERED: ceFAZolin SODIUM 1 GM VIAL IVPB ONE (08:00)
[2022-07-11] MEDS ORDERED: LIDOCAINE HCL 1%, 10 MG/ML (20ML VIAL) INF ONE (08:07)
[2022-07-11] MEDS ORDERED: HEPARIN NA (PORCINE) 1,000 UNITS/ML 10ML M-D VIAL SQ ONE (08:13)
[2022-07-11] MEDS ORDERED: HEPARIN NA (PORCINE) 5,000 UNITS/ML 1ML VIAL SQ ONE (08:14)
[2022-07-11] MEDS ORDERED: PROMETHAZINE HCL 25 MG/1 ML VIAL IVPB PRN (08:42)
[2022-07-11] MEDS ORDERED: SODIUM CHLORIDE 250 ML IV PRN ×3 (09:08→21:58)
[2022-07-11] MEDS ORDERED: hydrALAZINE HCL 20 MG/ML VIAL IVPUSH PRN (09:08)
[2022-07-11] MEDS ORDERED: ACETAMINOPHEN 325 MG TABLET (FP) PO PRN (09:08)
[2022-07-11 10:17] LABS: HEMATOCRIT 25.9 % (35.4-49); HEMOGLOBIN 8.8 GM/dL (11.7-16.9); MCH 32.5 pg (25.7-33.7); MCHC 34.1 g/dl (32.0-35.9); MEAN CELL VOLUME 95.4 fl (80-96); MEAN PLT VOLUME 8.2 fl (7.5-11.1); PLATELET COUNT 209 10^3/uL (134-434); RBC 2.71 M/mm3 (4.00-5.60); RDW 15.5 % (11.9-15.9); WHITE BLOOD COUNT 7.5 K/mm3 (4.0-10.0)
[2022-07-11 10:35] LABS: CALCIUM 8.9 mg/dL (8.5-10.1); CHLORIDE 103 mmol/L (98-107); SODIUM 138 mmol/L (136-145)
[2022-07-11 10:36] LABS: ANION GAP 8 MMOL/L (8-16); BLOOD UREA NITROGEN 53.2 mg/dL (7-18); CO2 27 mmol/L (21-32); GLUCOSE,RANDOM 117 mg/dL (74-106)
[2022-07-11 10:46] LABS: CREATININE 7.6 mg/dL (0.55-1.3)
[2022-07-11] MEDS: CEFAZOLIN 1 GM in DEXTROSE 5%-WATER - 50 ML IVPB SCH (13:39)
[2022-07-11] MEDS: CASPOFUNGIN ACETATE 50 MG in SODIUM CHLORIDE 250 ML IVPB SCH (13:39)
[2022-07-11] MEDS: LOSARTAN POTASSIUM 50 MG TABLET PO SCH (13:40)
[2022-07-11] MEDS: APIXABAN 5 MG TABLET PO SCH ×2 (13:40→21:36)
[2022-07-11] MEDS: levETIRAcetam 500 MG TABLET (FP) PO SCH (13:41)
[2022-07-11] MEDS: ATORVASTATIN CA 20 MG TABLET (FP) PO SCH (21:35)
[2022-07-11] MEDS: TAMSULOSIN HCL 0.4 MG CAP PO SCH (21:35)
[2022-07-12] MEDS: CEFAZOLIN 1 GM in DEXTROSE 5%-WATER - 50 ML IVPB SCH (11:18)
[2022-07-12 12:07] LABS: HEMATOCRIT 23.2 % (35.4-49); MCH 32.9 pg (25.7-33.7); MCHC 34.5 g/dl (32.0-35.9); MEAN CELL VOLUME 95.4 fl (80-96); MEAN PLT VOLUME 8.8 fl (7.5-11.1); PLATELET COUNT 191 10^3/uL (134-434); RBC 2.43 M/mm3 (4.00-5.60); RDW 16.3 % (11.9-15.9); WHITE BLOOD COUNT 9.4 K/mm3 (4.0-10.0)
[2022-07-12 12:26] LABS: CALCIUM 8.5 mg/dL (8.5-10.1)
[2022-07-12 12:30] LABS: CREATININE 4.7 mg/dL (0.55-1.3)
[2022-07-12 12:31] LABS: PHOSPHOROUS 3.2 mg/dL (2.5-4.9)
[2022-07-12 12:32] LABS: BLOOD UREA NITROGEN 26.2 mg/dL (7-18)
[2022-07-12] MEDS: LOSARTAN POTASSIUM 50 MG TABLET PO SCH (13:31)
[2022-07-12] MEDS: APIXABAN 5 MG TABLET PO SCH ×2 (13:31→21:36)
[2022-07-12] MEDS: CASPOFUNGIN ACETATE 50 MG in SODIUM CHLORIDE 250 ML IVPB SCH (13:31)
[2022-07-12] MEDS: levETIRAcetam 500 MG TABLET (FP) PO SCH (13:32)
[2022-07-12] MEDS: ATORVASTATIN CA 20 MG TABLET (FP) PO SCH (21:36)
[2022-07-12] MEDS: TAMSULOSIN HCL 0.4 MG CAP PO SCH (21:36)
[2022-07-13 05:56] VITALS: PULSE 64
[2022-07-13] MEDS ORDERED: APIXABAN 5 MG TABLET PO SCH ×2 (09:24→09:26)
[2022-07-13] MEDS: CEFAZOLIN 1 GM in DEXTROSE 5%-WATER - 50 ML IVPB SCH (10:00)
[2022-07-13] MEDS: levETIRAcetam 500 MG TABLET (FP) PO SCH (10:00)
[2022-07-13] MEDS: LOSARTAN POTASSIUM 50 MG TABLET PO SCH (10:00)
[2022-07-13] MEDS: CASPOFUNGIN ACETATE 50 MG in SODIUM CHLORIDE 250 ML IVPB SCH (10:00)
[2022-07-13 13:57] VITALS: BP 151/80; RESP 24; TEMP 98.4
== END 2022-07-13 14:00 | DRG 871 ==
LOC: JER 12:22 → JERBED 16:35 → J4W 23:13
PROVIDERS: ADMIT Internal Medicine; ATTEND Internal Medicine
PROC: 06HM33Z Insertion of Infusion Device into Right Femoral Vein, Percutaneous Approach (ICD-10-PCS; 2022-07-04)
PROC: B54BZZA Ultrasonography of Right Lower Extremity Veins, Guidance (ICD-10-PCS; 2022-07-04)
PROC: 06HM33Z Insertion of Infusion Device into Right Femoral Vein, Percutaneous Approach (ICD-10-PCS; principal; 2022-07-07)
PROC: B54BZZA Ultrasonography of Right Lower Extremity Veins, Guidance (ICD-10-PCS; 2022-07-07)
PROC: 5A1D70Z Performance of Urinary Filtration, Intermittent, Less than 6 Hours Per Day (ICD-10-PCS; 2022-07-07)
PROC: 5A1D70Z Performance of Urinary Filtration, Intermittent, Less than 6 Hours Per Day (ICD-10-PCS; 2022-07-07)
PROC: 0JH63XZ Insertion of Tunneled Vascular Access Device into Chest Subcutaneous Tissue and Fascia, Percutaneous Approach (ICD-10-PCS; 2022-07-11)
PROC: 05HM33Z Insertion of Infusion Device into Right Internal Jugular Vein, Percutaneous Approach (ICD-10-PCS; 2022-07-11)
PROC: B543ZZA Ultrasonography of Right Jugular Veins, Guidance (ICD-10-PCS; 2022-07-11)
PROC: 5A1D70Z Performance of Urinary Filtration, Intermittent, Less than 6 Hours Per Day (ICD-10-PCS; 2022-07-12)
DX: R78.81 Bacteremia (principal); G93.41 Metabolic encephalopathy; J18.9 Pneumonia, unspecified organism; N18.6 End stage renal disease; I69.354 Hemiplegia and hemiparesis following cerebral infarction affecting left non-dominant side; I24.8 Other forms of acute ischemic heart disease; B49 Unspecified mycosis; I12.0 Hypertensive chronic kidney disease with stage 5 chronic kidney disease or end stage renal disease; J90 Pleural effusion, not elsewhere classified; T82.838A Hemorrhage due to vascular prosthetic devices, implants and grafts, initial encounter; R41.82 Altered mental status, unspecified; G40.909 Epilepsy, unspecified, not intractable, without status epilepticus; E78.5 Hyperlipidemia, unspecified; N40.0 Benign prostatic hyperplasia without lower urinary tract symptoms; N25.0 Renal osteodystrophy; F50.9 Eating disorder, unspecified; E11.22 Type 2 diabetes mellitus with diabetic chronic kidney disease; Z99.2 Dependence on renal dialysis; B96.4 Proteus (mirabilis) (morganii) as the cause of diseases classified elsewhere; I48.0 Paroxysmal atrial fibrillation; Y83.8 Other surgical procedures as the cause of abnormal reaction of the patient, or of later complication, without mention of misadventure at the time of the procedure
CPT/HCPCS: 0241U-QW; 36415; 71045-TC-FY; 76000-TC-FY; 80048; 80053; 81003; 82553; 82803; 83605; 84100; 84484; 85025; 85027; 85610; 85730; 86803; 86850; 86900; 86901; 87040; 87086; 87106; 87186; 87340; 87522; 93005; 93010; 93306-TC; 93971; 94760; 99285-25; C1750; C9803-CS; G0480; J0637; J1644; Q5106; U0003; U0005

== ENCOUNTER 2022-11-13 17:42 | Inpatient (IN) | payer OTHER ==
[2022-11-13] MEDS ORDERED: METOPROLOL TARTRATE 5 MG/5 ML VIAL IVPUSH STA (22:11)
[2022-11-13 22:15] LABS: POTASSIUM 5.2 mmol/L (3.5-5.1)
[2022-11-13 22:17] LABS: BLOOD UREA NITROGEN 54.8 mg/dL (7-18); CALCIUM 10.2 mg/dL (8.5-10.1); MAGNESIUM 2.3 mg/dL (1.8-2.4)
[2022-11-13] MEDS ORDERED: PIPERACILLIN/TAZOB 2.25 GM 2.25 GM in DEXTROSE 5%-WATER - 50 ML IVPB ONE (22:17)
[2022-11-13 22:20] LABS: PHOSPHOROUS 7.5 mg/dL (2.5-4.9)
[2022-11-13 22:21] LABS: CREATININE 5.9 mg/dL (0.55-1.3)
[2022-11-13 22:22] LABS: BILIRUBIN,TOTAL 1.1 mg/dL (0.2-1); TOT PROT 7.6 g/dl (6.4-8.2)
[2022-11-13] MEDS ORDERED: PIPERACILLIN/TAZOB 2.25 GM 2.25 GM/50 ML BAG IVPB ONE (22:26)
[2022-11-13] MEDS ORDERED: METOPROLOL TARTRATE 5 MG/5 ML VIAL ONE (22:26)
[2022-11-13 22:33] LABS: BASO % 0.3 % (0-2.0); EOS % 0.1 % (0-4.5); HEMATOCRIT 32.4 % (35.4-49); HEMOGLOBIN 10.7 GM/dL (11.7-16.9); LYMPH % 8.1 % (8-40); MCH 31.9 pg (25.7-33.7); MEAN CELL VOLUME 96.7 fl (80-96); MONO % 7.4 % (3.8-10.2); NEUT % 84.1 % (42.8-82.8); RBC 3.35 M/mm3 (4.00-5.60); RDW 16.8 % (11.9-15.9); WHITE BLOOD COUNT 7.9 K/mm3 (4.0-10.0)
[2022-11-13 22:55] LABS: MEAN PLT VOLUME 11.5 fl (7.5-11.1); PLATELET COUNT 232 10^3/uL (134-434)
[2022-11-13 23:06] LABS: VENOUS BASE EXCESS -2.4 mmol/L (-2-2); VENOUS O2 SATURATION 89.9 % (70-80); VENOUS PCO2 36.9 mmHg (38-52); VENOUS PH 7.395 (7.310-7.410)
[2022-11-14] MEDS ORDERED: hydrALAZINE HCL 20 MG/ML VIAL IVPUSH STA (00:38)
[2022-11-14] MEDS ORDERED: hydrALAZINE HCL 20 MG/ML VIAL IVPUSH PRN (01:40)
[2022-11-14] MEDS ORDERED: hydrALAZINE HCL 20 MG/ML VIAL ONE ×2 (01:49→07:20)
[2022-11-14] MEDS: hydrALAZINE HCL 25 MG TABLET (FP) PO SCH ×2 (01:55→07:35)
[2022-11-14 05:03] LABS: EPI CELLS >36 /uL (0-25.1); HYALINE CASTS 19 /uL (0-3.1); URINE APPEARANCE TURBID; URINE BILIRUBIN 1+ (NEGATIVE); URINE COLOR ORANGE; URINE GLUCOSE (UA) NEGATIVE (NEGATIVE); URINE KETONE NEGATIVE (NEGATIVE); URINE LEUK ESTERASE 3+ (NEGATIVE); URINE NITRITE POSITIVE (NEGATIVE); URINE PROTEIN 3+ (NEGATIVE); URINE RBC 75 /uL (0-23.9); URINE UROBILINOGEN 0.2 mg/dL (0.2-1.0); URINE WBC 4557 /uL (0-25.8)
[2022-11-14 07:36] LABS: URINE BACTERIA 186.7 /uL (0-1359); URINE CRYSTALS NEGATIVE /hpf
[2022-11-14] MEDS ORDERED: SODIUM CHLORIDE 250 ML IV PRN (11:01)
[2022-11-14] MEDS: METOPROLOL TARTRATE 25 MG TABLET (FP) PO SCH ×2 (11:59→21:36)
[2022-11-14] MEDS ORDERED: PIPERACILLIN/TAZOB 4.5 GM 4.5 GM in DEXTROSE 5%-WATER 100 ML IVPB SCH (12:00)
[2022-11-14] MEDS: PANTOPRAZOLE 20 MG TABLET PO SCH (12:00)
[2022-11-14] MEDS: APIXABAN 5 MG TABLET PO SCH ×2 (12:00→21:37)
[2022-11-14] MEDS: TAMSULOSIN HCL 0.4 MG CAP PO SCH (12:00)
[2022-11-14] MEDS: ARTIFICIAL TEARS (POLYVINYL ALCOHOL) OPTH DROPS OU SCH ×2 (12:38→21:59)
[2022-11-14] MEDS: PIPERACILLIN/TAZOB 2.25 GM 2.25 GM in DEXTROSE 5%-WATER - 50 ML IVPB SCH ×2 (18:22→18:53)
[2022-11-14] MEDS: LOSARTAN POTASSIUM 50 MG TABLET PO SCH (21:37)
[2022-11-14] MEDS ORDERED: PATIENT'S OWN MEDICATION (NON-FORMULARY) (Olopatadine Hcl [Pataday] 2.5 ML Drops) OP SCH (22:00)
[2022-11-14] MEDS: TETRAHYDROZOLINE HCL EYE DROPS OD SCH (22:00)
[2022-11-14] MEDS: ATORVASTATIN CA 20 MG TABLET (FP) PO SCH (22:01)
[2022-11-14] MEDS: VITAMIN B COMP W-C 1 EA TABLET (NEPHRO-VITE) PO SCH (22:01)
[2022-11-15] MEDS ORDERED: ACETAMINOPHEN 1000 MG/100 ML BAG IVPB PRN (00:58)
[2022-11-15] MEDS: PIPERACILLIN/TAZOB 2.25 GM 2.25 GM in DEXTROSE 5%-WATER - 50 ML IVPB SCH ×3 (01:23→17:28)
[2022-11-15] MEDS: TAMSULOSIN HCL 0.4 MG CAP PO SCH ×2 (09:44→09:53)
[2022-11-15] MEDS: METOPROLOL TARTRATE 25 MG TABLET (FP) PO SCH ×3 (09:44→22:08)
[2022-11-15] MEDS: APIXABAN 5 MG TABLET PO SCH ×3 (09:44→22:09)
[2022-11-15] MEDS: TETRAHYDROZOLINE HCL EYE DROPS OD SCH ×2 (09:45→22:09)
[2022-11-15] MEDS: amLODIPine BESYLATE 10 MG TABLET (FP) PO SCH ×2 (09:45→09:54)
[2022-11-15] MEDS: PANTOPRAZOLE 20 MG TABLET PO SCH ×2 (09:45→09:54)
[2022-11-15] MEDS: ARTIFICIAL TEARS (POLYVINYL ALCOHOL) OPTH DROPS OU SCH ×2 (09:45→22:09)
[2022-11-15] MEDS ORDERED: amLODIPine BESYLATE 5 MG TABLET (FP) PO SCH (10:00)
[2022-11-15 10:15] LABS: BASO % 0.7 % (0-2.0); HEMATOCRIT 28.5 % (35.4-49); HEMOGLOBIN 9.5 GM/dL (11.7-16.9); LYMPH % 7.5 % (8-40); MCH 32.3 pg (25.7-33.7); MCHC 33.4 g/dl (32.0-35.9); MEAN CELL VOLUME 96.7 fl (80-96); MONO % 8.3 % (3.8-10.2); NEUT % 82.5 % (42.8-82.8); PLATELET COUNT 148 10^3/uL (134-434); RBC 2.95 M/mm3 (4.00-5.60); WHITE BLOOD COUNT 6.4 K/mm3 (4.0-10.0)
[2022-11-15 10:33] LABS: POTASSIUM 3.6 mmol/L (3.5-5.1)
[2022-11-15 10:36] LABS: ALBUMIN 2.7 g/dl (3.4-5.0); BLOOD UREA NITROGEN 33.9 mg/dL (7-18); CALCIUM 9.5 mg/dL (8.5-10.1)
[2022-11-15 10:39] LABS: CREATININE 4.2 mg/dL (0.55-1.3); PHOSPHOROUS 4.4 mg/dL (2.5-4.9)
[2022-11-15 10:41] LABS: BILIRUBIN,TOTAL 1.3 mg/dL (0.2-1); TOT PROT 6.4 g/dl (6.4-8.2)
[2022-11-15] MEDS ORDERED: PIPERACILLIN/TAZOB 4.5 GM 4.5 GM in DEXTROSE 5%-WATER 100 ML IVPB SCH (14:15)
[2022-11-15] MEDS ORDERED: SODIUM CHLORIDE 250 ML IV PRN (18:12)
[2022-11-15] MEDS: VITAMIN B COMP W-C 1 EA TABLET (NEPHRO-VITE) PO SCH (22:08)
[2022-11-15] MEDS: LOSARTAN POTASSIUM 50 MG TABLET PO SCH (22:09)
[2022-11-15] MEDS: levETIRAcetam 500 MG TABLET (FP) PO SCH (22:09)
[2022-11-15] MEDS: ATORVASTATIN CA 20 MG TABLET (FP) PO SCH (22:09)
[2022-11-16] MEDS: PIPERACILLIN/TAZOB 2.25 GM 2.25 GM in DEXTROSE 5%-WATER - 50 ML IVPB SCH ×3 (01:09→18:29)
[2022-11-16] MEDS: PANTOPRAZOLE 20 MG TABLET PO SCH (09:27)
[2022-11-16] MEDS: TAMSULOSIN HCL 0.4 MG CAP PO SCH (09:53)
[2022-11-16] MEDS: APIXABAN 5 MG TABLET PO SCH ×2 (09:53→21:46)
[2022-11-16] MEDS: METOPROLOL TARTRATE 25 MG TABLET (FP) PO SCH ×2 (09:53→21:47)
[2022-11-16] MEDS: amLODIPine BESYLATE 10 MG TABLET (FP) PO SCH (09:53)
[2022-11-16] MEDS: TETRAHYDROZOLINE HCL EYE DROPS OD SCH ×2 (09:54→21:47)
[2022-11-16] MEDS: ARTIFICIAL TEARS (POLYVINYL ALCOHOL) OPTH DROPS OU SCH ×2 (09:54→21:47)
[2022-11-16 14:57] LABS: HEMATOCRIT 28.3 % (35.4-49); HEMOGLOBIN 9.7 GM/dL (11.7-16.9); MCH 32.3 pg (25.7-33.7); MCHC 34.2 g/dl (32.0-35.9); MEAN CELL VOLUME 94.6 fl (80-96); MEAN PLT VOLUME 9.5 fl (7.5-11.1); PLATELET COUNT 142 10^3/uL (134-434); RBC 2.99 M/mm3 (4.00-5.60); RDW 17.1 % (11.9-15.9); WHITE BLOOD COUNT 6.8 K/mm3 (4.0-10.0)
[2022-11-16] MEDS ORDERED: EPOETIN ALFA-EPBX 3,000 UNIT/ML VIAL IVPUSH ONE (15:00)
[2022-11-16 15:18] LABS: BLOOD UREA NITROGEN 53.5 mg/dL (7-18); CALCIUM 9.3 mg/dL (8.5-10.1); MAGNESIUM 2.1 mg/dL (1.8-2.4)
[2022-11-16 15:22] LABS: CREATININE 5.4 mg/dL (0.55-1.3)
[2022-11-16] MEDS ORDERED: METOPROLOL TARTRATE 25 MG TABLET (FP) PO ONE (16:00)
[2022-11-16 16:51] LABS: N-TERMINAL BNP 27857.1 pg/ml (5-125)
[2022-11-16] MEDS: VITAMIN B COMP W-C 1 EA TABLET (NEPHRO-VITE) PO SCH (21:46)
[2022-11-16] MEDS: LOSARTAN POTASSIUM 50 MG TABLET PO SCH (21:46)
[2022-11-16] MEDS: ATORVASTATIN CA 20 MG TABLET (FP) PO SCH (21:46)
[2022-11-17] MEDS: PIPERACILLIN/TAZOB 2.25 GM 2.25 GM in DEXTROSE 5%-WATER - 50 ML IVPB SCH ×3 (06:14→18:13)
[2022-11-17] MEDS: PANTOPRAZOLE 20 MG TABLET PO SCH (09:47)
[2022-11-17] MEDS: METOPROLOL TARTRATE 25 MG TABLET (FP) PO SCH ×2 (09:48→21:04)
[2022-11-17] MEDS: APIXABAN 5 MG TABLET PO SCH ×2 (09:48→21:04)
[2022-11-17] MEDS: amLODIPine BESYLATE 10 MG TABLET (FP) PO SCH (09:49)
[2022-11-17] MEDS: TAMSULOSIN HCL 0.4 MG CAP PO SCH (09:49)
[2022-11-17] MEDS: TETRAHYDROZOLINE HCL EYE DROPS OD SCH ×2 (09:49→21:06)
[2022-11-17] MEDS: ARTIFICIAL TEARS (POLYVINYL ALCOHOL) OPTH DROPS OU SCH ×2 (09:50→21:05)
[2022-11-17 10:57] LABS: BASO % 0.6 % (0-2.0); EOS % 1.8 % (0-4.5); HEMATOCRIT 31.2 % (35.4-49); HEMOGLOBIN 10.5 GM/dL (11.7-16.9); LYMPH % 11.3 % (8-40); MCH 32.3 pg (25.7-33.7); MCHC 33.6 g/dl (32.0-35.9); MEAN CELL VOLUME 96.3 fl (80-96); MEAN PLT VOLUME 10.2 fl (7.5-11.1); MONO % 10.4 % (3.8-10.2); NEUT % 75.9 % (42.8-82.8); PLATELET COUNT 143 10^3/uL (134-434); RBC 3.25 M/mm3 (4.00-5.60); RDW 17.1 % (11.9-15.9); WHITE BLOOD COUNT 5.9 K/mm3 (4.0-10.0)
[2022-11-17 11:18] LABS: POTASSIUM 4.1 mmol/L (3.5-5.1)
[2022-11-17 11:32] LABS: CALCIUM 9.3 mg/dL (8.5-10.1)
[2022-11-17 11:33] LABS: CREATININE 3.5 mg/dL (0.55-1.3); MAGNESIUM 1.8 mg/dL (1.8-2.4)
[2022-11-17 13:33] LABS: BLOOD UREA NITROGEN 28.5 mg/dL (7-18)
[2022-11-17 13:50] LABS: ALBUMIN 2.5 g/dl (3.4-5.0)
[2022-11-17 13:54] LABS: BILIRUBIN,TOTAL 1.2 mg/dL (0.2-1); TOT PROT 6.4 g/dl (6.4-8.2)
[2022-11-17] MEDS: LOSARTAN POTASSIUM 50 MG TABLET PO SCH (21:04)
[2022-11-17] MEDS: ATORVASTATIN CA 20 MG TABLET (FP) PO SCH (21:04)
[2022-11-17] MEDS: VITAMIN B COMP W-C 1 EA TABLET (NEPHRO-VITE) PO SCH (21:04)
[2022-11-17] MEDS: levETIRAcetam 500 MG TABLET (FP) PO SCH (21:04)
[2022-11-17] MEDS ORDERED: SODIUM CHLORIDE 250 ML IV PRN (22:14)
[2022-11-17] MEDS ORDERED: EPOETIN ALFA-EPBX 4,000 UNIT/ML VIAL SQ ONE (22:14)
[2022-11-18] MEDS: PIPERACILLIN/TAZOB 2.25 GM 2.25 GM in DEXTROSE 5%-WATER - 50 ML IVPB SCH ×3 (01:33→17:29)
[2022-11-18 08:40] LABS: BASO % 1.1 % (0-2.0); EOS % 2.5 % (0-4.5); HEMATOCRIT 29.4 % (35.4-49); LYMPH % 10.4 % (8-40); MCH 32.5 pg (25.7-33.7); MEAN CELL VOLUME 95.6 fl (80-96); MONO % 10.7 % (3.8-10.2); NEUT % 75.3 % (42.8-82.8); PLATELET COUNT 140 10^3/uL (134-434); RBC 3.08 M/mm3 (4.00-5.60); RDW 16.7 % (11.9-15.9); WHITE BLOOD COUNT 5.9 K/mm3 (4.0-10.0)
[2022-11-18 09:00] LABS: MAGNESIUM 1.8 mg/dL (1.8-2.4)
[2022-11-18] MEDS ORDERED: EPOETIN ALFA-EPBX 3,000 UNIT/ML VIAL IVPUSH ONE (09:00)
[2022-11-18 09:51] LABS: POTASSIUM 3.8 mmol/L (3.5-5.1)
[2022-11-18 09:53] LABS: CALCIUM 8.6 mg/dL (8.5-10.1)
[2022-11-18 09:54] LABS: ALBUMIN 2.4 g/dl (3.4-5.0); BLOOD UREA NITROGEN 37.7 mg/dL (7-18)
[2022-11-18 09:57] LABS: CREATININE 4.6 mg/dL (0.55-1.3)
[2022-11-18 09:58] LABS: BILIRUBIN,TOTAL 1.2 mg/dL (0.2-1); TOT PROT 6.1 g/dl (6.4-8.2)
[2022-11-18] MEDS: METOPROLOL TARTRATE 25 MG TABLET (FP) PO SCH ×2 (12:15→23:20)
[2022-11-18] MEDS: APIXABAN 5 MG TABLET PO SCH ×2 (12:15→23:20)
[2022-11-18] MEDS: amLODIPine BESYLATE 10 MG TABLET (FP) PO SCH (12:16)
[2022-11-18] MEDS: TAMSULOSIN HCL 0.4 MG CAP PO SCH (12:17)
[2022-11-18] MEDS: ARTIFICIAL TEARS (POLYVINYL ALCOHOL) OPTH DROPS OU SCH ×2 (12:18→23:19)
[2022-11-18] MEDS: TETRAHYDROZOLINE HCL EYE DROPS OD SCH ×2 (12:19→23:29)
[2022-11-18] MEDS: LOSARTAN POTASSIUM 50 MG TABLET PO SCH (23:20)
[2022-11-18] MEDS: VITAMIN B COMP W-C 1 EA TABLET (NEPHRO-VITE) PO SCH (23:21)
[2022-11-18] MEDS: ATORVASTATIN CA 20 MG TABLET (FP) PO SCH (23:21)
[2022-11-19] MEDS: PIPERACILLIN/TAZOB 2.25 GM 2.25 GM in DEXTROSE 5%-WATER - 50 ML IVPB SCH ×3 (02:47→17:47)
[2022-11-19] MEDS: TAMSULOSIN HCL 0.4 MG CAP PO SCH (08:43)
[2022-11-19 09:28] LABS: EOS % 2.8 % (0-4.5); HEMATOCRIT 29.8 % (35.4-49); HEMOGLOBIN 10.5 GM/dL (11.7-16.9); LYMPH % 15.4 % (8-40); MCH 33.3 pg (25.7-33.7); MCHC 35.2 g/dl (32.0-35.9); MEAN CELL VOLUME 94.6 fl (80-96); MEAN PLT VOLUME 9.4 fl (7.5-11.1); MONO % 12.8 % (3.8-10.2); PLATELET COUNT 136 10^3/uL (134-434); RBC 3.15 M/mm3 (4.00-5.60); RDW 17.4 % (11.9-15.9); WHITE BLOOD COUNT 4.6 K/mm3 (4.0-10.0)
[2022-11-19] MEDS: METOPROLOL TARTRATE 25 MG TABLET (FP) PO SCH ×2 (09:47→21:45)
[2022-11-19] MEDS: APIXABAN 5 MG TABLET PO SCH ×2 (09:47→21:45)
[2022-11-19] MEDS: amLODIPine BESYLATE 10 MG TABLET (FP) PO SCH (09:47)
[2022-11-19] MEDS: ARTIFICIAL TEARS (POLYVINYL ALCOHOL) OPTH DROPS OU SCH ×2 (09:48→21:45)
[2022-11-19] MEDS: TETRAHYDROZOLINE HCL EYE DROPS OD SCH ×2 (09:49→21:45)
[2022-11-19 09:52] LABS: POTASSIUM 4.3 mmol/L (3.5-5.1)
[2022-11-19 09:56] LABS: ALBUMIN 2.4 g/dl (3.4-5.0); BLOOD UREA NITROGEN 29.6 mg/dL (7-18)
[2022-11-19 10:01] LABS: TOT PROT 6.2 g/dl (6.4-8.2)
[2022-11-19] MEDS: LOSARTAN POTASSIUM 50 MG TABLET PO SCH (21:45)
[2022-11-19] MEDS: VITAMIN B COMP W-C 1 EA TABLET (NEPHRO-VITE) PO SCH (21:45)
[2022-11-19] MEDS: ATORVASTATIN CA 20 MG TABLET (FP) PO SCH (21:45)
[2022-11-20] MEDS ORDERED: SODIUM CHLORIDE 250 ML IV PRN (08:05)
[2022-11-20] MEDS: APIXABAN 5 MG TABLET PO SCH ×2 (11:10→21:17)
[2022-11-20] MEDS: ARTIFICIAL TEARS (POLYVINYL ALCOHOL) OPTH DROPS OU SCH ×2 (11:11→21:16)
[2022-11-20] MEDS: amLODIPine BESYLATE 10 MG TABLET (FP) PO SCH (11:11)
[2022-11-20] MEDS: TAMSULOSIN HCL 0.4 MG CAP PO SCH (11:11)
[2022-11-20] MEDS: METOPROLOL TARTRATE 25 MG TABLET (FP) PO SCH ×2 (11:11→21:17)
[2022-11-20] MEDS: TETRAHYDROZOLINE HCL EYE DROPS OD SCH ×2 (11:12→21:16)
[2022-11-20 12:55] VITALS: BMI 17.4
[2022-11-20] MEDS: AMINO ACIDS/PROTEIN HYDROLYS 30 ML LIQUID.PKT PO SCH (14:39)
[2022-11-20] MEDS: LOSARTAN POTASSIUM 50 MG TABLET PO SCH (21:17)
[2022-11-20] MEDS: ATORVASTATIN CA 20 MG TABLET (FP) PO SCH (21:17)
[2022-11-20] MEDS: levETIRAcetam 500 MG TABLET (FP) PO SCH (21:17)
[2022-11-20] MEDS: VITAMIN B COMP W-C 1 EA TABLET (NEPHRO-VITE) PO SCH (21:17)
[2022-11-20] MEDS ORDERED: EPOETIN ALFA-EPBX 4,000 UNIT/ML VIAL SQ ONE (21:43)
[2022-11-21] MEDS ORDERED: SODIUM CHLORIDE 250 ML IV PRN (08:08)
[2022-11-21] MEDS ORDERED: EPOETIN ALFA-EPBX 2,000 UNIT/ML VIAL SQ ONE (09:00)
[2022-11-21 09:26] LABS: POTASSIUM 5.2 mmol/L (3.5-5.1)
[2022-11-21 09:28] LABS: ALBUMIN 2.4 g/dl (3.4-5.0); BLOOD UREA NITROGEN 50.4 mg/dL (7-18); CALCIUM 9.1 mg/dL (8.5-10.1)
[2022-11-21 09:31] LABS: CREATININE 6.1 mg/dL (0.55-1.3)
[2022-11-21 09:33] LABS: TOT PROT 6.4 g/dl (6.4-8.2)
[2022-11-21 09:39] LABS: EOS % 0.9 % (0-4.5); HEMATOCRIT 30.8 % (35.4-49); HEMOGLOBIN 10.4 GM/dL (11.7-16.9); MCH 32.5 pg (25.7-33.7); MCHC 33.8 g/dl (32.0-35.9); MEAN CELL VOLUME 96.1 fl (80-96); MEAN PLT VOLUME 10.2 fl (7.5-11.1); MONO % 10.1 % (3.8-10.2); PLATELET COUNT 167 10^3/uL (134-434); RDW 17.3 % (11.9-15.9); WHITE BLOOD COUNT 6.8 K/mm3 (4.0-10.0)
[2022-11-21] MEDS: METOPROLOL TARTRATE 25 MG TABLET (FP) PO SCH ×2 (11:41→21:26)
[2022-11-21] MEDS: APIXABAN 5 MG TABLET PO SCH ×2 (11:42→21:26)
[2022-11-21] MEDS: AMINO ACIDS/PROTEIN HYDROLYS 30 ML LIQUID.PKT PO SCH (11:42)
[2022-11-21] MEDS: TAMSULOSIN HCL 0.4 MG CAP PO SCH (11:43)
[2022-11-21] MEDS: amLODIPine BESYLATE 10 MG TABLET (FP) PO SCH (11:43)
[2022-11-21] MEDS: ARTIFICIAL TEARS (POLYVINYL ALCOHOL) OPTH DROPS OU SCH ×2 (11:44→21:26)
[2022-11-21] MEDS: TETRAHYDROZOLINE HCL EYE DROPS OD SCH ×2 (11:44→21:34)
[2022-11-21] MEDS: ATORVASTATIN CA 20 MG TABLET (FP) PO SCH (21:25)
[2022-11-21] MEDS: VITAMIN B COMP W-C 1 EA TABLET (NEPHRO-VITE) PO SCH (21:26)
[2022-11-22] MEDS: TAMSULOSIN HCL 0.4 MG CAP PO SCH (08:12)
[2022-11-22] MEDS: AMINO ACIDS/PROTEIN HYDROLYS 30 ML LIQUID.PKT PO SCH (08:12)
[2022-11-22] MEDS: APIXABAN 5 MG TABLET PO SCH ×2 (10:15→21:20)
[2022-11-22] MEDS: amLODIPine BESYLATE 10 MG TABLET (FP) PO SCH (10:15)
[2022-11-22] MEDS: TETRAHYDROZOLINE HCL EYE DROPS OD SCH ×2 (10:16→21:20)
[2022-11-22] MEDS: ARTIFICIAL TEARS (POLYVINYL ALCOHOL) OPTH DROPS OU SCH ×2 (10:16→21:21)
[2022-11-22] MEDS: METOPROLOL TARTRATE 25 MG TABLET (FP) PO SCH ×2 (10:16→21:20)
[2022-11-22 11:29] LABS: BASO % 1.4 % (0-2.0); EOS % 1.5 % (0-4.5); HEMATOCRIT 32.7 % (35.4-49); HEMOGLOBIN 11.1 GM/dL (11.7-16.9); LYMPH % 14.5 % (8-40); MCH 32.6 pg (25.7-33.7); MCHC 33.8 g/dl (32.0-35.9); MEAN CELL VOLUME 96.4 fl (80-96); MEAN PLT VOLUME 10.5 fl (7.5-11.1); MONO % 9.9 % (3.8-10.2); NEUT % 72.7 % (42.8-82.8); PLATELET COUNT 178 10^3/uL (134-434); WHITE BLOOD COUNT 5.8 K/mm3 (4.0-10.0)
[2022-11-22 12:17] LABS: CALCIUM 9.2 mg/dL (8.5-10.1)
[2022-11-22 12:19] LABS: ALBUMIN 2.4 g/dl (3.4-5.0); BLOOD UREA NITROGEN 33.4 mg/dL (7-18)
[2022-11-22 12:23] LABS: CREATININE 4.5 mg/dL (0.55-1.3)
[2022-11-22 12:25] LABS: TOT PROT 6.4 g/dl (6.4-8.2)
[2022-11-22] MEDS: VITAMIN B COMP W-C 1 EA TABLET (NEPHRO-VITE) PO SCH (21:20)
[2022-11-22] MEDS: ATORVASTATIN CA 20 MG TABLET (FP) PO SCH (21:20)
[2022-11-22] MEDS: levETIRAcetam 500 MG TABLET (FP) PO SCH (21:20)
[2022-11-23] MEDS ORDERED: SODIUM CHLORIDE 250 ML IV PRN (07:32)
[2022-11-23] MEDS: AMINO ACIDS/PROTEIN HYDROLYS 30 ML LIQUID.PKT PO SCH (08:32)
[2022-11-23] MEDS: TAMSULOSIN HCL 0.4 MG CAP PO SCH (08:37)
[2022-11-23] MEDS ORDERED: EPOETIN ALFA-EPBX 2,000 UNIT/ML VIAL SQ ONE (09:00)
[2022-11-23 09:16] VITALS: RESP 18
[2022-11-23 09:31] LABS: BASO % 1.6 % (0-2.0); EOS % 1.9 % (0-4.5); HEMATOCRIT 31.3 % (35.4-49); HEMOGLOBIN 10.3 GM/dL (11.7-16.9); LYMPH % 13.5 % (8-40); MCH 32.2 pg (25.7-33.7); MCHC 32.8 g/dl (32.0-35.9); MEAN PLT VOLUME 10.2 fl (7.5-11.1); MONO % 11.4 % (3.8-10.2); NEUT % 71.6 % (42.8-82.8); PLATELET COUNT 172 10^3/uL (134-434); RBC 3.19 M/mm3 (4.00-5.60); RDW 17.9 % (11.9-15.9); WHITE BLOOD COUNT 5.3 K/mm3 (4.0-10.0)
[2022-11-23 09:46] LABS: POTASSIUM 5.8 mmol/L (3.5-5.1)
[2022-11-23 09:48] LABS: ALBUMIN 2.4 g/dl (3.4-5.0); BLOOD UREA NITROGEN 51.1 mg/dL (7-18)
[2022-11-23 09:51] LABS: CREATININE 5.6 mg/dL (0.55-1.3)
[2022-11-23 09:53] LABS: BILIRUBIN,TOTAL 1.2 mg/dL (0.2-1); TOT PROT 6.3 g/dl (6.4-8.2)
[2022-11-23] MEDS: ARTIFICIAL TEARS (POLYVINYL ALCOHOL) OPTH DROPS OU SCH ×2 (14:12→22:05)
[2022-11-23] MEDS: APIXABAN 5 MG TABLET PO SCH ×2 (14:13→22:05)
[2022-11-23] MEDS: METOPROLOL TARTRATE 25 MG TABLET (FP) PO SCH ×2 (14:13→22:05)
[2022-11-23] MEDS: TETRAHYDROZOLINE HCL EYE DROPS OD SCH ×2 (14:14→22:06)
[2022-11-23] MEDS: amLODIPine BESYLATE 10 MG TABLET (FP) PO SCH (14:14)
[2022-11-23 17:36] LABS: POTASSIUM 4.8 mmol/L (3.5-5.1)
[2022-11-23 17:37] LABS: CALCIUM 9.1 mg/dL (8.5-10.1)
[2022-11-23 17:41] LABS: CREATININE 3.2 mg/dL (0.55-1.3)
[2022-11-23 17:48] LABS: BLOOD UREA NITROGEN 21.4 mg/dL (7-18)
[2022-11-23] MEDS: ATORVASTATIN CA 20 MG TABLET (FP) PO SCH (22:05)
[2022-11-23] MEDS: VITAMIN B COMP W-C 1 EA TABLET (NEPHRO-VITE) PO SCH (22:05)
[2022-11-23 23:01] VITALS: BP 140/77; PULSE 65; TEMP 98.7
== END 2022-11-23 23:29 | DRG 291 ==
LOC: JER 17:42 → JERBED 11-14 00:40 → J5S 11-14 07:32
PROVIDERS: ADMIT Internal Medicine; ATTEND Internal Medicine
PROC: 5A1D70Z Performance of Urinary Filtration, Intermittent, Less than 6 Hours Per Day (ICD-10-PCS; principal; 2022-11-14)
PROC: 5A1D70Z Performance of Urinary Filtration, Intermittent, Less than 6 Hours Per Day (ICD-10-PCS; 2022-11-16)
PROC: 5A1D70Z Performance of Urinary Filtration, Intermittent, Less than 6 Hours Per Day (ICD-10-PCS; 2022-11-18)
PROC: 5A1D70Z Performance of Urinary Filtration, Intermittent, Less than 6 Hours Per Day (ICD-10-PCS; 2022-11-21)
PROC: 5A1D70Z Performance of Urinary Filtration, Intermittent, Less than 6 Hours Per Day (ICD-10-PCS; 2022-11-23)
DX: I13.2 Hypertensive heart and chronic kidney disease with heart failure and with stage 5 chronic kidney disease, or end stage renal disease (principal); E43 Unspecified severe protein-calorie malnutrition; G93.41 Metabolic encephalopathy; R53.2 Functional quadriplegia; J18.9 Pneumonia, unspecified organism; N18.6 End stage renal disease; I50.33 Acute on chronic diastolic (congestive) heart failure; J81.0 Acute pulmonary edema; I24.8 Other forms of acute ischemic heart disease; R64 Cachexia; Z68.1 Body mass index [BMI] 19.9 or less, adult; N39.0 Urinary tract infection, site not specified; I69.354 Hemiplegia and hemiparesis following cerebral infarction affecting left non-dominant side; I48.0 Paroxysmal atrial fibrillation; I44.0 Atrioventricular block, first degree; E78.5 Hyperlipidemia, unspecified; N40.0 Benign prostatic hyperplasia without lower urinary tract symptoms; G40.909 Epilepsy, unspecified, not intractable, without status epilepticus; E11.22 Type 2 diabetes mellitus with diabetic chronic kidney disease; I16.0 Hypertensive urgency; I10 Essential (primary) hypertension; E83.52 Hypercalcemia; E88.09 Other disorders of plasma-protein metabolism, not elsewhere classified; F32.A Depression, unspecified; E87.70 Fluid overload, unspecified; R41.82 Altered mental status, unspecified; Z86.19 Personal history of other infectious and parasitic diseases; Z99.2 Dependence on renal dialysis; Z74.01 Bed confinement status
CPT/HCPCS: 0241U-QW; 36415; 70450-TC; 71045-TC-FY; 71250-TC; 80048; 80053; 80061; 80177; 81003; 82803; 82962; 83036; 83605; 83735; 83880; 84100; 84132; 84443; 84484; 85025; 85027; 86803; 87040; 87086; 87340; 87522; 87635; 93005; 93010; 93990-TC; 95816; 99285-25; Q5106

== ENCOUNTER 2023-03-15 13:57 | Inpatient (IN) | payer OTHER ==
[2023-03-15 17:43] LABS: BASO % 0.6 % (0-2.0); EOS % 0.4 % (0-4.5); HEMATOCRIT 32.1 % (35.4-49); LYMPH % 4.2 % (8-40); MCHC 34.1 g/dl (32.0-35.9); MEAN CELL VOLUME 96.9 fl (80-96); MEAN PLT VOLUME 8.7 fl (7.5-11.1); MONO % 14.5 % (3.8-10.2); NEUT % 80.3 % (42.8-82.8); PLATELET COUNT 210 10^3/uL (134-434); RBC 3.32 M/mm3 (4.00-5.60); RDW 14.3 % (11.9-15.9); WHITE BLOOD COUNT 10.2 K/mm3 (4.0-10.0)
[2023-03-15 18:02] LABS: POTASSIUM 4.1 mmol/L (3.5-5.1)
[2023-03-15 18:04] LABS: CALCIUM 9.1 mg/dL (8.5-10.1)
[2023-03-15 18:05] LABS: ALBUMIN 2.7 g/dl (3.4-5.0); BLOOD UREA NITROGEN 45.9 mg/dL (7-18); MAGNESIUM 1.9 mg/dL (1.8-2.4)
[2023-03-15 18:08] LABS: CREATININE 4.6 mg/dL (0.55-1.3)
[2023-03-15 18:09] LABS: BILIRUBIN,TOTAL 0.7 mg/dL (0.2-1); TOT PROT 7.5 g/dl (6.4-8.2)
[2023-03-15 18:25] LABS: LACTIC ACID 2.5 mmol/L (0.4-2.0)
[2023-03-15 18:32] LABS: EPI CELLS >36 /uL (0-25.1); HYALINE CASTS 10 /uL (0-3.1); URINE APPEARANCE TURBID; URINE BACTERIA 821 /uL (0-1359); URINE BILIRUBIN NEGATIVE (NEGATIVE); URINE COLOR ORANGE; URINE GLUCOSE (UA) NEGATIVE (NEGATIVE); URINE KETONE NEGATIVE (NEGATIVE); URINE LEUK ESTERASE 1+ (NEGATIVE); URINE NITRITE NEGATIVE (NEGATIVE); URINE PROTEIN 3+ (NEGATIVE); URINE UROBILINOGEN 0.2 mg/dL (0.2-1.0); URINE WBC 2923 /uL (0-25.8)
[2023-03-15] MEDS ORDERED: PIPERACILLIN/TAZOB 3.375 GM 3.375 GM in DEXTROSE 5%-WATER - 50 ML IVPB ONE (18:58)
[2023-03-15] MEDS ORDERED: PIPERACILLIN/TAZOB 3.375 GM 3.375 GM/50 ML BAG IVPB ONE (19:51)
[2023-03-15 20:04] LABS: YEAST NEGATIVE (NEGATIVE)
[2023-03-16] MEDS: PANTOPRAZOLE 20 MG TABLET PO SCH (06:36)
[2023-03-16 07:26] LABS: BASO % 1.1 % (0-2.0); EOS % 1.6 % (0-4.5); HEMATOCRIT 28.1 % (35.4-49); HEMOGLOBIN 9.3 GM/dL (11.7-16.9); LYMPH % 5.1 % (8-40); MCH 32.5 pg (25.7-33.7); MEAN CELL VOLUME 98.4 fl (80-96); MEAN PLT VOLUME 8.6 fl (7.5-11.1); NEUT % 78.2 % (42.8-82.8); PLATELET COUNT 197 10^3/uL (134-434); RBC 2.86 M/mm3 (4.00-5.60); WHITE BLOOD COUNT 8.2 K/mm3 (4.0-10.0)
[2023-03-16 09:13] LABS: POTASSIUM 4.2 mmol/L (3.5-5.1)
[2023-03-16 09:15] LABS: CALCIUM 8.9 mg/dL (8.5-10.1)
[2023-03-16 09:16] LABS: ALBUMIN 2.4 g/dl (3.4-5.0); BLOOD UREA NITROGEN 52.9 mg/dL (7-18)
[2023-03-16 09:19] LABS: CREATININE 5.5 mg/dL (0.55-1.3)
[2023-03-16 09:20] LABS: TOT PROT 6.6 g/dl (6.4-8.2)
[2023-03-16 09:21] LABS: BILIRUBIN,TOTAL 0.6 mg/dL (0.2-1)
[2023-03-16] MEDS: TAMSULOSIN HCL 0.4 MG CAP PO SCH (09:21)
[2023-03-16] MEDS: METOPROLOL TARTRATE 25 MG TABLET (FP) PO SCH ×2 (09:21→21:03)
[2023-03-16] MEDS: APIXABAN 5 MG TABLET PO SCH ×2 (09:21→21:03)
[2023-03-16] MEDS: amLODIPine BESYLATE 10 MG TABLET (FP) PO SCH (09:21)
[2023-03-16] MEDS ORDERED: PIPERACILLIN/TAZOB 2.25 GM 2.25 GM in DEXTROSE 5%-WATER - 50 ML IVPB SCH (10:00)
[2023-03-16] MEDS ORDERED: REMDESIVIR 200 MG in SODIUM CHLORIDE 250 ML IVPB ONE (12:00)
[2023-03-16] MEDS ORDERED: EPOETIN ALFA-EPBX 10,000 UNIT/ML VIAL IVPUSH ONE (14:00)
[2023-03-16] MEDS ORDERED: SODIUM CHLORIDE 250 ML IV PRN (14:00)
[2023-03-16] MEDS: CEFTRIAXONE 1 GM in DEXTROSE 5%-WATER - 50 ML IVPB SCH (18:11)
[2023-03-16] MEDS: LOSARTAN POTASSIUM 50 MG TABLET PO SCH (21:02)
[2023-03-16] MEDS: ATORVASTATIN CA 20 MG TABLET (FP) PO SCH (21:03)
[2023-03-16] MEDS: VITAMIN B COMP W-C 1 EA TABLET (NEPHRO-VITE) PO SCH (21:03)
[2023-03-16] MEDS: levETIRAcetam 500 MG/5 ML INJECTION VIAL IVPB SCH (21:03)
[2023-03-17] MEDS: PANTOPRAZOLE 20 MG TABLET PO SCH (06:36)
[2023-03-17] MEDS: TAMSULOSIN HCL 0.4 MG CAP PO SCH (09:30)
[2023-03-17] MEDS: CEFTRIAXONE 1 GM in DEXTROSE 5%-WATER - 50 ML IVPB SCH (10:08)
[2023-03-17] MEDS: METOPROLOL TARTRATE 25 MG TABLET (FP) PO SCH ×2 (10:09→21:32)
[2023-03-17] MEDS: amLODIPine BESYLATE 10 MG TABLET (FP) PO SCH (10:09)
[2023-03-17] MEDS: APIXABAN 5 MG TABLET PO SCH ×2 (10:09→21:33)
[2023-03-17] MEDS: REMDESIVIR 100 MG in SODIUM CHLORIDE 250 ML IVPB SCH (10:09)
[2023-03-17] MEDS: ATORVASTATIN CA 20 MG TABLET (FP) PO SCH (21:33)
[2023-03-17] MEDS: VITAMIN B COMP W-C 1 EA TABLET (NEPHRO-VITE) PO SCH (21:33)
[2023-03-17] MEDS: LOSARTAN POTASSIUM 50 MG TABLET PO SCH (21:33)
[2023-03-18 06:29] LABS: HEMATOCRIT 31.9 % (35.4-49); HEMOGLOBIN 10.5 GM/dL (11.7-16.9); MCH 32.3 pg (25.7-33.7); MCHC 32.8 g/dl (32.0-35.9); MEAN CELL VOLUME 98.5 fl (80-96); MEAN PLT VOLUME 8.5 fl (7.5-11.1); PLATELET COUNT 238 10^3/uL (134-434); RBC 3.24 M/mm3 (4.00-5.60); RDW 14.3 % (11.9-15.9); WHITE BLOOD COUNT 6.2 K/mm3 (4.0-10.0)
[2023-03-18 06:52] LABS: POTASSIUM 5.1 mmol/L (3.5-5.1)
[2023-03-18 06:58] LABS: ALBUMIN 2.2 g/dl (3.4-5.0); CALCIUM 8.8 mg/dL (8.5-10.1)
[2023-03-18 06:59] LABS: BLOOD UREA NITROGEN 51.1 mg/dL (7-18)
[2023-03-18 07:01] LABS: CREATININE 5.2 mg/dL (0.55-1.3)
[2023-03-18] MEDS: PANTOPRAZOLE 20 MG TABLET PO SCH (07:01)
[2023-03-18 07:03] LABS: BILIRUBIN,TOTAL 0.5 mg/dL (0.2-1); TOT PROT 6.6 g/dl (6.4-8.2)
[2023-03-18 08:59] LABS: ANISOCYTOSIS 1+; MACROCYTOSIS 0; TARGET CELLS 2+; TEAR DROP CELLS 1+
[2023-03-18] MEDS: REMDESIVIR 100 MG in SODIUM CHLORIDE 250 ML IVPB SCH (09:37)
[2023-03-18] MEDS: CEFTRIAXONE 1 GM in DEXTROSE 5%-WATER - 50 ML IVPB SCH (09:37)
[2023-03-18] MEDS: amLODIPine BESYLATE 10 MG TABLET (FP) PO SCH (09:38)
[2023-03-18] MEDS: APIXABAN 5 MG TABLET PO SCH ×2 (09:38→21:18)
[2023-03-18] MEDS: ZINC SULFATE 220 MG CAPSULE (FP) PO SCH (09:38)
[2023-03-18] MEDS: METOPROLOL TARTRATE 25 MG TABLET (FP) PO SCH ×2 (09:38→21:16)
[2023-03-18] MEDS: TAMSULOSIN HCL 0.4 MG CAP PO SCH (09:38)
[2023-03-18] MEDS ORDERED: SODIUM CHLORIDE 250 ML IV PRN (13:05)
[2023-03-18] MEDS: ACETAMINOPHEN 325 MG TABLET (FP) PO PRN (21:16)
[2023-03-18] MEDS: LOSARTAN POTASSIUM 50 MG TABLET PO SCH (21:17)
[2023-03-18] MEDS: VITAMIN B COMP W-C 1 EA TABLET (NEPHRO-VITE) PO SCH (21:17)
[2023-03-18] MEDS: ATORVASTATIN CA 20 MG TABLET (FP) PO SCH (21:17)
[2023-03-19] MEDS: PANTOPRAZOLE 20 MG TABLET PO SCH (06:01)
[2023-03-19 07:16] LABS: POTASSIUM 4.8 mmol/L (3.5-5.1)
[2023-03-19 07:20] LABS: ALBUMIN 2.2 g/dl (3.4-5.0); BLOOD UREA NITROGEN 69.5 mg/dL (7-18)
[2023-03-19 07:23] LABS: BASO % 0.7 % (0-2.0); EOS % 6.1 % (0-4.5); HEMATOCRIT 30.9 % (35.4-49); HEMOGLOBIN 10.3 GM/dL (11.7-16.9); LYMPH % 9.4 % (8-40); MCH 32.6 pg (25.7-33.7); MCHC 33.4 g/dl (32.0-35.9); MEAN CELL VOLUME 97.5 fl (80-96); MEAN PLT VOLUME 8.6 fl (7.5-11.1); MONO % 13.7 % (3.8-10.2); NEUT % 70.1 % (42.8-82.8); PLATELET COUNT 239 10^3/uL (134-434); RBC 3.17 M/mm3 (4.00-5.60); RDW 14.3 % (11.9-15.9); WHITE BLOOD COUNT 7.6 K/mm3 (4.0-10.0)
[2023-03-19 07:24] LABS: CREATININE 6.4 mg/dL (0.55-1.3)
[2023-03-19 07:25] LABS: BILIRUBIN,TOTAL 0.8 mg/dL (0.2-1); TOT PROT 6.4 g/dl (6.4-8.2)
[2023-03-19] MEDS ORDERED: EPOETIN ALFA-EPBX 2,000 UNIT, EPOETIN ALFA-EPBX 3,000 UNIT IVPUSH ONE (08:30)
[2023-03-19] MEDS: REMDESIVIR 100 MG in SODIUM CHLORIDE 250 ML IVPB SCH (12:32)
[2023-03-19] MEDS: DEXAMETHASONE SOD PHOSPHATE 10 MG/1 ML VIAL IVPUSH SCH (12:41)
[2023-03-19] MEDS: CEFTRIAXONE 1 GM in DEXTROSE 5%-WATER - 50 ML IVPB SCH (12:41)
[2023-03-19] MEDS: ZINC SULFATE 220 MG CAPSULE (FP) PO SCH (12:42)
[2023-03-19] MEDS: METOPROLOL TARTRATE 25 MG TABLET (FP) PO SCH ×2 (12:43→21:03)
[2023-03-19] MEDS: TAMSULOSIN HCL 0.4 MG CAP PO SCH (12:43)
[2023-03-19] MEDS: APIXABAN 5 MG TABLET PO SCH ×2 (12:43→21:03)
[2023-03-19] MEDS: amLODIPine BESYLATE 10 MG TABLET (FP) PO SCH (12:50)
[2023-03-19] MEDS ORDERED: EPOETIN ALFA-EPBX 10,000 UNIT/ML VIAL IVPUSH ONE (13:05)
[2023-03-19] MEDS: VITAMIN B COMP W-C 1 EA TABLET (NEPHRO-VITE) PO SCH (21:03)
[2023-03-19] MEDS: LOSARTAN POTASSIUM 50 MG TABLET PO SCH (21:03)
[2023-03-19] MEDS: ATORVASTATIN CA 20 MG TABLET (FP) PO SCH (21:03)
[2023-03-19] MEDS: levETIRAcetam 500 MG/5 ML INJECTION VIAL IVPB SCH (21:04)
[2023-03-20] MEDS: PANTOPRAZOLE 20 MG TABLET PO SCH (06:06)
[2023-03-20] MEDS: ZINC SULFATE 220 MG CAPSULE (FP) PO SCH (09:47)
[2023-03-20] MEDS: CEFTRIAXONE 1 GM in DEXTROSE 5%-WATER - 50 ML IVPB SCH (09:47)
[2023-03-20] MEDS: METOPROLOL TARTRATE 25 MG TABLET (FP) PO SCH ×2 (09:47→21:22)
[2023-03-20] MEDS: REMDESIVIR 100 MG in SODIUM CHLORIDE 250 ML IVPB SCH (09:47)
[2023-03-20] MEDS: amLODIPine BESYLATE 10 MG TABLET (FP) PO SCH (09:47)
[2023-03-20] MEDS: APIXABAN 5 MG TABLET PO SCH ×2 (09:47→21:21)
[2023-03-20] MEDS: TAMSULOSIN HCL 0.4 MG CAP PO SCH (09:47)
[2023-03-20] MEDS: DEXAMETHASONE SOD PHOSPHATE 10 MG/1 ML VIAL IVPUSH SCH (09:48)
[2023-03-20] MEDS: ATORVASTATIN CA 20 MG TABLET (FP) PO SCH (21:21)
[2023-03-20] MEDS: LOSARTAN POTASSIUM 50 MG TABLET PO SCH (21:22)
[2023-03-20] MEDS: ACETAMINOPHEN 325 MG TABLET (FP) PO PRN (21:23)
[2023-03-20] MEDS: VITAMIN B COMP W-C 1 EA TABLET (NEPHRO-VITE) PO SCH (21:24)
[2023-03-21] MEDS: PANTOPRAZOLE 20 MG TABLET PO SCH (06:44)
[2023-03-21] MEDS ORDERED: SODIUM CHLORIDE 250 ML IV PRN (07:50)
[2023-03-21] MEDS ORDERED: EPOETIN ALFA-EPBX 3,000 UNIT, EPOETIN ALFA-EPBX 2,000 UNIT IVPUSH ONE (09:00)
[2023-03-21 09:19] LABS: HEMATOCRIT 29.9 % (35.4-49); HEMOGLOBIN 9.9 GM/dL (11.7-16.9); MCH 31.7 pg (25.7-33.7); MEAN CELL VOLUME 95.9 fl (80-96); MEAN PLT VOLUME 8.9 fl (7.5-11.1); PLATELET COUNT 256 10^3/uL (134-434); RBC 3.12 M/mm3 (4.00-5.60)
[2023-03-21] MEDS: amLODIPine BESYLATE 10 MG TABLET (FP) PO SCH (09:49)
[2023-03-21] MEDS: ZINC SULFATE 220 MG CAPSULE (FP) PO SCH (09:49)
[2023-03-21] MEDS: APIXABAN 5 MG TABLET PO SCH ×2 (09:49→22:02)
[2023-03-21] MEDS: CEFTRIAXONE 1 GM in DEXTROSE 5%-WATER - 50 ML IVPB SCH (09:49)
[2023-03-21] MEDS: TAMSULOSIN HCL 0.4 MG CAP PO SCH (09:49)
[2023-03-21] MEDS: DEXAMETHASONE SOD PHOSPHATE 10 MG/1 ML VIAL IVPUSH SCH (09:49)
[2023-03-21] MEDS: METOPROLOL TARTRATE 25 MG TABLET (FP) PO SCH ×2 (09:49→22:02)
[2023-03-21 09:51] LABS: POTASSIUM 4.1 mmol/L (3.5-5.1)
[2023-03-21] MEDS ORDERED: EPOETIN ALFA-EPBX 4,000 UNIT/ML VIAL SQ ONE (09:53)
[2023-03-21 10:19] LABS: CALCIUM 9.5 mg/dL (8.5-10.1)
[2023-03-21 10:20] LABS: ALBUMIN 2.2 g/dl (3.4-5.0); BLOOD UREA NITROGEN 67.6 mg/dL (7-18); CREATININE 5.5 mg/dL (0.55-1.3)
[2023-03-21 10:21] LABS: BILIRUBIN,TOTAL 0.4 mg/dL (0.2-1)
[2023-03-21 10:22] LABS: TOT PROT 6.2 g/dl (6.4-8.2)
[2023-03-21 15:28] VITALS: BMI 19.1
[2023-03-21] MEDS: levETIRAcetam 500 MG/5 ML INJECTION VIAL IVPB SCH (22:02)
[2023-03-21] MEDS: LOSARTAN POTASSIUM 50 MG TABLET PO SCH (22:02)
[2023-03-21] MEDS: ATORVASTATIN CA 20 MG TABLET (FP) PO SCH (22:02)
[2023-03-21] MEDS: VITAMIN B COMP W-C 1 EA TABLET (NEPHRO-VITE) PO SCH (22:02)
[2023-03-22] MEDS: PANTOPRAZOLE 20 MG TABLET PO SCH (06:41)
[2023-03-22 08:31] LABS: BASO % 0.3 % (0-2.0); EOS % 1.3 % (0-4.5); HEMATOCRIT 31.7 % (35.4-49); HEMOGLOBIN 10.3 GM/dL (11.7-16.9); LYMPH % 10.9 % (8-40); MCH 31.7 pg (25.7-33.7); MCHC 32.5 g/dl (32.0-35.9); MEAN CELL VOLUME 97.4 fl (80-96); MEAN PLT VOLUME 8.2 fl (7.5-11.1); MONO % 8.2 % (3.8-10.2); NEUT % 79.3 % (42.8-82.8); PLATELET COUNT 259 10^3/uL (134-434); RBC 3.26 M/mm3 (4.00-5.60); RDW 14.6 % (11.9-15.9)
[2023-03-22] MEDS: METOPROLOL TARTRATE 25 MG TABLET (FP) PO SCH ×2 (09:17→21:15)
[2023-03-22] MEDS: CEFTRIAXONE 1 GM in DEXTROSE 5%-WATER - 50 ML IVPB SCH (09:17)
[2023-03-22] MEDS: DEXAMETHASONE SOD PHOSPHATE 10 MG/1 ML VIAL IVPUSH SCH (09:17)
[2023-03-22] MEDS: amLODIPine BESYLATE 10 MG TABLET (FP) PO SCH (09:18)
[2023-03-22] MEDS: APIXABAN 5 MG TABLET PO SCH ×2 (09:18→21:14)
[2023-03-22] MEDS: ZINC SULFATE 220 MG CAPSULE (FP) PO SCH (09:18)
[2023-03-22] MEDS: TAMSULOSIN HCL 0.4 MG CAP PO SCH (09:18)
[2023-03-22] MEDS: LOSARTAN POTASSIUM 50 MG TABLET PO SCH (21:14)
[2023-03-22] MEDS: ATORVASTATIN CA 20 MG TABLET (FP) PO SCH (21:15)
[2023-03-22] MEDS: VITAMIN B COMP W-C 1 EA TABLET (NEPHRO-VITE) PO SCH (21:16)
[2023-03-23] MEDS: PANTOPRAZOLE 20 MG TABLET PO SCH (06:02)
[2023-03-23] MEDS ORDERED: SODIUM CHLORIDE 250 ML IV PRN (08:08)
[2023-03-23] MEDS ORDERED: EPOETIN ALFA-EPBX 4,000 UNIT/ML VIAL SQ ONE (08:15)
[2023-03-23] MEDS ORDERED: DEXAMETHASONE 4 MG TABLET (FP) PO SCH (11:30)
[2023-03-23] MEDS: METOPROLOL TARTRATE 25 MG TABLET (FP) PO SCH ×2 (12:25→21:09)
[2023-03-23] MEDS: amLODIPine BESYLATE 10 MG TABLET (FP) PO SCH (12:25)
[2023-03-23] MEDS: APIXABAN 5 MG TABLET PO SCH ×2 (12:25→21:09)
[2023-03-23] MEDS: ZINC SULFATE 220 MG CAPSULE (FP) PO SCH (12:25)
[2023-03-23] MEDS: TAMSULOSIN HCL 0.4 MG CAP PO SCH (12:26)
[2023-03-23 17:42] VITALS: TEMP 97.6
[2023-03-23] MEDS: LOSARTAN POTASSIUM 50 MG TABLET PO SCH (21:09)
[2023-03-23] MEDS: ATORVASTATIN CA 20 MG TABLET (FP) PO SCH (21:09)
[2023-03-23] MEDS: VITAMIN B COMP W-C 1 EA TABLET (NEPHRO-VITE) PO SCH (21:09)
[2023-03-23] MEDS ORDERED: levETIRAcetam 500 MG TABLET (FP) PO SCH (22:00)
[2023-03-24 00:45] VITALS: BP 143/84; PULSE 67; RESP 16
== END 2023-03-24 01:00 | DRG 177 ==
LOC: JER 13:57 → JERBED 18:57 → J2W 21:53
PROVIDERS: ADMIT Internal Medicine; ATTEND Family Medicine
PROC: XW033E5 Introduction of Remdesivir Anti-infective into Peripheral Vein, Percutaneous Approach, New Technology Group 5 (ICD-10-PCS; principal; 2023-03-17)
PROC: 5A1D70Z Performance of Urinary Filtration, Intermittent, Less than 6 Hours Per Day (ICD-10-PCS; 2023-03-23)
DX: U07.1 COVID-19 (principal); G93.41 Metabolic encephalopathy; N18.6 End stage renal disease; R53.2 Functional quadriplegia; J96.01 Acute respiratory failure with hypoxia; J12.82 Pneumonia due to coronavirus disease 2019; I12.0 Hypertensive chronic kidney disease with stage 5 chronic kidney disease or end stage renal disease; I69.354 Hemiplegia and hemiparesis following cerebral infarction affecting left non-dominant side; I24.89 Other forms of acute ischemic heart disease; R64 Cachexia; Z68.1 Body mass index [BMI] 19.9 or less, adult; L89.622 Pressure ulcer of left heel, stage 2; L89.612 Pressure ulcer of right heel, stage 2; F01.50 Vascular dementia, unspecified severity, without behavioral disturbance, psychotic disturbance, mood disturbance, and anxiety; K21.9 Gastro-esophageal reflux disease without esophagitis; E78.5 Hyperlipidemia, unspecified; Z99.2 Dependence on renal dialysis; I48.0 Paroxysmal atrial fibrillation
CPT/HCPCS: 0241U-QW; 36415; 70450-TC; 71045-TC-FY; 80053; 81003; 82550; 82553; 82962; 83605; 83735; 84100; 84484; 85025; 85027; 86140; 86704; 86705; 86803; 87040; 87086; 87340; 87517; 87522; 93005; 93010; 93306-TC; 99285-25; J0248; J1100; Q5106

== ENCOUNTER 2023-05-19 10:31 | Inpatient (IN) | payer OTHER ==
[2023-05-19] MEDS ORDERED: RAPID SEQUENCE INTUBATION KIT NR ONE (10:36)
[2023-05-19] MEDS ORDERED: ROCURONIUM BROMIDE 50 MG/5 ML SYRINGE ONE (11:18)
[2023-05-19] MEDS ORDERED: EPINEPHrine/PF 1 MG/1 ML (1:1,000) AMPULE ONE (11:27)
[2023-05-19] MEDS ORDERED: EPINEPHrine 1:10,000 (P-F SYR) 1 MG/10 ML DISP.SYRIN ONE ×2 (11:27→11:28)
[2023-05-19] MEDS: EPINEPHrine 1:10,000 (P-F SYR) 1 MG/10 ML DISP.SYRIN IVPUSH ONE (11:30)
[2023-05-19] MEDS ORDERED: MIDAZOLAM IN 0.9 % SOD.CHLORID 1 MG/1 ML PLAST..BAG ONE (11:32)
[2023-05-19] MEDS ORDERED: FENTANYL CITRATE/PF 50 MCG/ML VIAL ONE (11:42)
[2023-05-19] MEDS: MIDAZOLAM 100 MG in SODIUM CHLORIDE 100 ML IVPB SCH (12:15)
[2023-05-19 12:27] LABS: VENOUS BASE EXCESS -2.2 mmol/L (-2-2); VENOUS O2 SATURATION 58.6 % (70-80); VENOUS PCO2 65.4 mmHg (38-52); VENOUS PH 7.224 (7.310-7.410)
[2023-05-19 12:32] LABS: HEMATOCRIT 31.9 % (35.4-49); HEMOGLOBIN 10.4 GM/dL (11.7-16.9); MCH 32.4 pg (25.7-33.7); MCHC 32.5 g/dl (32.0-35.9); MEAN CELL VOLUME 99.8 fl (80-96); MEAN PLT VOLUME 8.4 fl (7.5-11.1); PLATELET COUNT 148 10^3/uL (134-434); RDW 16.1 % (11.9-15.9); WHITE BLOOD COUNT 3.3 K/mm3 (4.0-10.0)
[2023-05-19 12:38] LABS: INR 2.08 (0.83-1.09); PROTHROMBIN TIME (PATIENT) 23.9 SEC (9.7-13.0)
[2023-05-19 12:41] LABS: ACTIVATED PTT 30.4 SECONDS (25.2-36.5)
[2023-05-19 12:49] LABS: CALCIUM 8.6 mg/dL (8.5-10.1)
[2023-05-19 12:50] LABS: ALBUMIN 1.7 g/dl (3.4-5.0); BLOOD UREA NITROGEN 25.2 mg/dL (7-18)
[2023-05-19 12:53] LABS: CREATININE 3.3 mg/dL (0.55-1.3)
[2023-05-19 12:54] LABS: TOT PROT 5.5 g/dl (6.4-8.2)
[2023-05-19] MEDS ORDERED: PIPERACILLIN/TAZOB 3.375 GM 3.375 GM/50 ML BAG IVPB ONE (12:57)
[2023-05-19] MEDS: PIPERACILLIN/TAZOB 3.375 GM 3.375 GM in DEXTROSE 5%-WATER - 50 ML IVPB ONE (13:00)
[2023-05-19 13:53] LABS: LACTIC ACID 3.9 mmol/L (0.4-2.0)
[2023-05-19] MEDS ORDERED: VANCOMYCIN 1 GRAM (PRE-DOCKED) 1,000 MG/250 ML BAG IVPB ONE (14:03)
[2023-05-19] MEDS: VANCOMYCIN 1,000 MG in DEXTROSE 5%-WATER - 250 ML IVPB ONE (14:12)
[2023-05-19 14:43] LABS: MAGNESIUM 1.8 mg/dL (1.8-2.4)
[2023-05-19 14:47] LABS: PHOSPHOROUS 3.7 mg/dL (2.5-4.9)
[2023-05-19 14:52] LABS: N-TERMINAL BNP 5954.9 pg/ml (5-450)
[2023-05-19] MEDS ORDERED: NOREPINEPHRINE BITARTRATE 4 MG/4 ML ML IV ONE (16:39)
[2023-05-19] MEDS: NOREPINEPHRINE BITARTRATE 4,000 MCG in DEXTROSE 5%-WATER - 496 ML IV SCH (16:40)
[2023-05-19] MEDS: CASPOFUNGIN ACETATE 70 MG in SODIUM CHLORIDE 250 ML IVPB ONE (18:01)
[2023-05-19] MEDS: MIDAZOLAM IN 0.9 % SOD.CHLORID 100 MG/100 ML PLAST..BAG IVPB SCH (18:02)
[2023-05-19] MEDS: FENTANYL NS IVPB 500 MCG/100 ML BAG IVPB SCH (21:07)
[2023-05-19] MEDS: levETIRAcetam 500 MG/5 ML INJECTION VIAL IVPB SCH (21:08)
[2023-05-19] MEDS: NOREPINEPHRINE 0.9 % NACL 8 MG/250 ML BAG IVPB SCH (21:08)
[2023-05-19] MEDS: PIPERACILLIN/TAZOB 2.25 GM 2.25 GM in DEXTROSE 5%-WATER - 50 ML IVPB SCH (21:09)
[2023-05-19] MEDS: CHLORHEXIDINE GLUCONATE 4% CLEANSER FOR DECOLONIZATION TP SCH (21:09)
[2023-05-19] MEDS: MUPIROCIN 2% TOPICAL OINTMENT FOR DECOLONIZATION NS SCH (21:09)
[2023-05-19] MEDS: APIXABAN 2.5 MG TABLET NGT SCH (21:28)
[2023-05-19] MEDS: ATORVASTATIN CA 20 MG TABLET (FP) NGT SCH (21:28)
[2023-05-20 07:23] LABS: INR 2.17 (0.83-1.09)
[2023-05-20 07:25] LABS: ACTIVATED PTT 33.2 SECONDS (25.2-36.5); POTASSIUM 3.1 mmol/L (3.5-5.1)
[2023-05-20 07:29] LABS: BLOOD UREA NITROGEN 32.6 mg/dL (7-18); CALCIUM 8.4 mg/dL (8.5-10.1)
[2023-05-20 07:30] LABS: MAGNESIUM 1.5 mg/dL (1.8-2.4)
[2023-05-20 07:32] LABS: CREATININE 3.2 mg/dL (0.55-1.3); PHOSPHOROUS 3.6 mg/dL (2.5-4.9)
[2023-05-20 07:40] LABS: HEMATOCRIT 25.4 % (35.4-49); HEMOGLOBIN 8.3 GM/dL (11.7-16.9); MCH 32.3 pg (25.7-33.7); MCHC 32.7 g/dl (32.0-35.9); MEAN CELL VOLUME 98.7 fl (80-96); MEAN PLT VOLUME 8.7 fl (7.5-11.1); PLATELET COUNT 118 10^3/uL (134-434); RBC 2.58 M/mm3 (4.00-5.60); WHITE BLOOD COUNT 13.3 K/mm3 (4.0-10.0)
[2023-05-20] MEDS: PANTOPRAZOLE SODIUM 40 MG VIAL IVPUSH SCH (09:22)
[2023-05-20] MEDS: KCL 10 MEQ IVPB 10 MEQ/100 ML INFUS.BAG IVPB SCH (10:02)
[2023-05-20] MEDS: MAGNESIUM 1GM/D5W - 1 GM/100 ML IVPB IVPB ONE (10:02)
[2023-05-20 10:42] LABS: ARTERIAL BLD GAS O2 SATURATION 43.6 % (95-98); ARTERIAL BLOOD GAS BASE EXCESS 0.9 mmol/L (-2-2); ARTERIAL BLOOD GAS pH 7.385 (7.350-7.450)
[2023-05-20 10:45] LABS: ALLENS TEST POSITIVE
[2023-05-20 10:46] LABS: VENT MODE A/C; VENT RATE 15
[2023-05-20 10:47] LABS: ARTERIAL BLOOD GAS PO2 24.8 mmHg (80-100)
[2023-05-20] MEDS: VANCOMYCIN/WATER FOR INJ (PEG) 1,000 MG/200 ML BAG IVPB ONE (12:26)
[2023-05-20] MEDS: CASPOFUNGIN ACETATE 50 MG in SODIUM CHLORIDE 250 ML IVPB SCH (12:27)
[2023-05-20] MEDS ORDERED: SODIUM CHLORIDE 250 ML IV PRN (15:20)
[2023-05-20] MEDS: PIPERACILLIN/TAZOB 2.25 GM 2.25 GM in DEXTROSE 5%-WATER - 50 ML IVPB SCH ×2 (17:14→19:13)
[2023-05-20] MEDS: ALBUTEROL SO4 2.5/IPRATROPIUM 0.5 INH SOL 3 ML VIAL.NEB. NEB PRN (22:48)
[2023-05-21 05:53] LABS: ARTERIAL BLD GAS O2 SATURATION 97.6 % (95-98); ARTERIAL BLOOD GAS BASE EXCESS -2.2 mmol/L (-2-2); ARTERIAL BLOOD GAS PO2 96.5 mmHg (80-100); ARTERIAL BLOOD GAS pH 7.433 (7.350-7.450)
[2023-05-21 05:59] LABS: ALLENS TEST POSITIVE
[2023-05-21 06:00] LABS: VENT MODE V-AC; VENT RATE 15
[2023-05-21 07:29] LABS: POTASSIUM 3.6 mmol/L (3.5-5.1)
[2023-05-21 07:33] LABS: ALBUMIN 1.5 g/dl (3.4-5.0); BLOOD UREA NITROGEN 39.4 mg/dL (7-18); CALCIUM 8.6 mg/dL (8.5-10.1); MAGNESIUM 1.7 mg/dL (1.8-2.4)
[2023-05-21 07:36] LABS: CREATININE 3.6 mg/dL (0.55-1.3); PHOSPHOROUS 4.3 mg/dL (2.5-4.9)
[2023-05-21 07:38] LABS: TOT PROT 4.6 g/dl (6.4-8.2)
[2023-05-21 08:13] LABS: HEMATOCRIT 24.1 % (35.4-49); MCH 32.4 pg (25.7-33.7); MEAN CELL VOLUME 98.2 fl (80-96); MEAN PLT VOLUME 8.8 fl (7.5-11.1); PLATELET COUNT 98 10^3/uL (134-434); RBC 2.45 M/mm3 (4.00-5.60); RDW 16.5 % (11.9-15.9); WHITE BLOOD COUNT 20.7 K/mm3 (4.0-10.0)
[2023-05-21 10:44] LABS: ANISOCYTOSIS 0; MACROCYTOSIS 0; OVALOCYTE 0; TARGET CELLS 0
[2023-05-21] MEDS: MAGNESIUM 1GM/D5W - 1 GM/100 ML IVPB IVPB ONE (13:24)
[2023-05-21] MEDS: ALBUMIN HUMAN 25% 12.5 GM/50 ML VIAL IV SCH (14:33)
[2023-05-21] MEDS: EPOETIN ALFA-EPBX 10,000 UNIT/ML VIAL IVPUSH ONE (14:34)
[2023-05-21] MEDS ORDERED: MIDAZOLAM HCL 2 MG/2 ML SINGLE DOSE VIAL ONE (17:24)
[2023-05-21] MEDS: HYDROmorphone HCl 2 MG/ML VIAL IVPUSH ONE (17:32)
[2023-05-22 06:32] LABS: HEMATOCRIT 24.2 % (35.4-49); HEMOGLOBIN 7.9 GM/dL (11.7-16.9); MCH 32.2 pg (25.7-33.7); MCHC 32.8 g/dl (32.0-35.9); MEAN CELL VOLUME 98.3 fl (80-96); MEAN PLT VOLUME 8.8 fl (7.5-11.1); PLATELET COUNT 93 10^3/uL (134-434); RBC 2.46 M/mm3 (4.00-5.60); RDW 16.5 % (11.9-15.9); WHITE BLOOD COUNT 22.6 K/mm3 (4.0-10.0)
[2023-05-22 06:55] LABS: POTASSIUM 3.5 mmol/L (3.5-5.1)
[2023-05-22 07:01] LABS: ALBUMIN 1.5 g/dl (3.4-5.0); CALCIUM 9.4 mg/dL (8.5-10.1); MAGNESIUM 1.9 mg/dL (1.8-2.4)
[2023-05-22 07:02] LABS: BLOOD UREA NITROGEN 26.5 mg/dL (7-18)
[2023-05-22 07:03] LABS: PHOSPHOROUS 3.5 mg/dL (2.5-4.9)
[2023-05-22 07:04] LABS: CREATININE 2.3 mg/dL (0.55-1.3)
[2023-05-22 07:06] LABS: BILIRUBIN,TOTAL 1.2 mg/dL (0.2-1); TOT PROT 4.9 g/dl (6.4-8.2)
[2023-05-22] MEDS: METOPROLOL TARTRATE 5 MG/5 ML VIAL IVPUSH ONE (08:45)
[2023-05-22] MEDS: IPRATROPIUM BR 0.02% 0.5 MG/2.5 ML VIAL.NEB. NEB SCH (08:49)
[2023-05-22] MEDS: LEVALBUTEROL HCL 0.31 MG/3 ML VIAL.NEB IH SCH (08:50)
[2023-05-22] MEDS: METOPROLOL TARTRATE 25 MG TABLET (FP) NGT SCH (09:22)
[2023-05-22 09:48] LABS: ANISOCYTOSIS 0; MACROCYTOSIS 0
[2023-05-22] MEDS ORDERED: METOPROLOL TARTRATE 25 MG TABLET (FP) PO SCH (10:00)
[2023-05-22] MEDS: MIDAZOLAM HCL 2 MG/2 ML SINGLE DOSE VIAL IVPUSH ONE (12:41)
[2023-05-22] MEDS: VITAMIN B COMP W-C 1 EA TABLET (NEPHRO-VITE) PO SCH (12:45)
[2023-05-22] MEDS: HALOPERIDOL LACTATE 5 MG/ML IM ONE (14:18)
[2023-05-22] MEDS: AMINO ACIDS/PROTEIN HYDROLYS 30 ML LIQUID.PKT PO SCH (17:42)
[2023-05-22] MEDS: HYDROmorphone HCl 2 MG/ML VIAL IVPB PRN (17:45)
[2023-05-22] MEDS: HYDROCORTISONE SOD SUCCINATE 100 MG/2 ML VIAL IVPUSH SCH (21:21)
[2023-05-22] MEDS: VASopressin 40 UNITS/100 ML BAG IV SCH (22:23)
[2023-05-23 07:03] LABS: HEMOGLOBIN 7.8 GM/dL (11.7-16.9); MCH 31.9 pg (25.7-33.7); MCHC 32.3 g/dl (32.0-35.9); MEAN CELL VOLUME 98.7 fl (80-96); MEAN PLT VOLUME 9.5 fl (7.5-11.1); PLATELET COUNT 83 10^3/uL (134-434); RBC 2.44 M/mm3 (4.00-5.60); RDW 16.1 % (11.9-15.9); WHITE BLOOD COUNT 21.7 K/mm3 (4.0-10.0)
[2023-05-23 07:10] LABS: POTASSIUM 3.7 mmol/L (3.5-5.1)
[2023-05-23 07:20] LABS: ALBUMIN 1.6 g/dl (3.4-5.0); BLOOD UREA NITROGEN 35.6 mg/dL (7-18); CALCIUM 9.7 mg/dL (8.5-10.1)
[2023-05-23 07:21] LABS: CREATININE 2.8 mg/dL (0.55-1.3); PHOSPHOROUS 4.8 mg/dL (2.5-4.9)
[2023-05-23 07:22] LABS: TOT PROT 4.9 g/dl (6.4-8.2)
[2023-05-23] MEDS ORDERED: SODIUM CHLORIDE 250 ML IV PRN (08:00)
[2023-05-23 09:52] LABS: ANISOCYTOSIS 0; HELMET CELLS 0; HOWELL-JOLLY BODIES 0; MACROCYTOSIS 0; OVALOCYTE 0; ROULEAU 0; SICKELED CELLS 0; TARGET CELLS 0; TEAR DROP CELLS 0; TOXIC GRANULATION 0
[2023-05-23] MEDS: EPOETIN ALFA-EPBX 10,000 UNIT/ML VIAL SQ ONE (10:58)
[2023-05-23] MEDS: FLUDROCORTISONE ACETATE 0.1 MG TABLET (FP) PO SCH (11:43)
[2023-05-24 06:11] LABS: ARTERIAL BLD GAS O2 SATURATION 98.3 % (95-98); ARTERIAL BLOOD GAS BASE EXCESS 2.9 mmol/L (-2-2); ARTERIAL BLOOD GAS PO2 112.3 mmHg (80-100); ARTERIAL BLOOD GAS pH 7.456 (7.350-7.450)
[2023-05-24 06:21] LABS: VENT MODE A/C; VENT RATE 15
[2023-05-24 06:53] LABS: BASO % 0.1 % (0-2.0); HEMATOCRIT 23.1 % (35.4-49); HEMOGLOBIN 7.3 GM/dL (11.7-16.9); LYMPH % 4.8 % (8-40); MCH 31.3 pg (25.7-33.7); MCHC 31.7 g/dl (32.0-35.9); MEAN CELL VOLUME 98.8 fl (80-96); MEAN PLT VOLUME 9.7 fl (7.5-11.1); MONO % 7.1 % (3.8-10.2); PLATELET COUNT 70 10^3/uL (134-434); RBC 2.34 M/mm3 (4.00-5.60); RDW 16.2 % (11.9-15.9); WHITE BLOOD COUNT 11.3 K/mm3 (4.0-10.0)
[2023-05-24 07:12] LABS: POTASSIUM 3.2 mmol/L (3.5-5.1)
[2023-05-24 07:14] LABS: CALCIUM 10.3 mg/dL (8.5-10.1)
[2023-05-24 07:15] LABS: ALBUMIN 1.9 g/dl (3.4-5.0); BLOOD UREA NITROGEN 26.8 mg/dL (7-18); MAGNESIUM 2.1 mg/dL (1.8-2.4)
[2023-05-24 07:18] LABS: CREATININE 2.1 mg/dL (0.55-1.3); PHOSPHOROUS 3.1 mg/dL (2.5-4.9)
[2023-05-24 07:19] LABS: BILIRUBIN,TOTAL 0.8 mg/dL (0.2-1); TOT PROT 4.9 g/dl (6.4-8.2)
[2023-05-24] MEDS: POTASSIUM CHLORIDE ORAL LIQUID 20 MEQ/15 ML GT ONE (10:16)
[2023-05-24] MEDS: HYDROCORTISONE SOD SUCCINATE 100 MG/2 ML VIAL IVPUSH SCH (21:54)
[2023-05-25 07:19] LABS: ARTERIAL BLD GAS O2 SATURATION 98.3 % (95-98); ARTERIAL BLOOD GAS BASE EXCESS 4.2 mmol/L (-2-2); ARTERIAL BLOOD GAS PO2 115.8 mmHg (80-100); ARTERIAL BLOOD GAS pH 7.441 (7.350-7.450)
[2023-05-25 07:21] LABS: ALLENS TEST POSITIVE; VENT MODE A/C; VENT RATE 15
[2023-05-25 07:43] LABS: HEMATOCRIT 23.6 % (35.4-49); HEMOGLOBIN 7.8 GM/dL (11.7-16.9); MCH 32.4 pg (25.7-33.7); MCHC 32.9 g/dl (32.0-35.9); MEAN CELL VOLUME 98.5 fl (80-96); MEAN PLT VOLUME 10.1 fl (7.5-11.1); PLATELET COUNT 71 10^3/uL (134-434); RDW 15.8 % (11.9-15.9); WHITE BLOOD COUNT 10.9 K/mm3 (4.0-10.0)
[2023-05-25 07:52] LABS: POTASSIUM 3.8 mmol/L (3.5-5.1)
[2023-05-25 07:59] LABS: ALBUMIN 1.7 g/dl (3.4-5.0); CALCIUM 10.3 mg/dL (8.5-10.1)
[2023-05-25 08:00] LABS: BLOOD UREA NITROGEN 40.6 mg/dL (7-18); MAGNESIUM 1.8 mg/dL (1.8-2.4)
[2023-05-25 08:02] LABS: PHOSPHOROUS 3.5 mg/dL (2.5-4.9)
[2023-05-25 08:03] LABS: CREATININE 2.5 mg/dL (0.55-1.3)
[2023-05-25 08:04] LABS: BILIRUBIN,TOTAL 0.8 mg/dL (0.2-1); TOT PROT 5.1 g/dl (6.4-8.2)
[2023-05-25] MEDS ORDERED: SODIUM CHLORIDE 250 ML IV PRN (09:12)
[2023-05-25] MEDS: EPOETIN ALFA-EPBX 10,000 UNIT/ML VIAL IVPUSH ONE (09:59)
[2023-05-25 13:10] LABS: ANISOCYTOSIS 0; MACROCYTOSIS 0; TARGET CELLS 1+
[2023-05-26 06:56] LABS: HEMATOCRIT 24.1 % (35.4-49); HEMOGLOBIN 7.6 GM/dL (11.7-16.9); MCH 31.9 pg (25.7-33.7); MCHC 31.8 g/dl (32.0-35.9); MEAN CELL VOLUME 100.3 fl (80-96); MEAN PLT VOLUME 10.3 fl (7.5-11.1); PLATELET COUNT 78 10^3/uL (134-434); RDW 15.9 % (11.9-15.9); WHITE BLOOD COUNT 11.5 K/mm3 (4.0-10.0)
[2023-05-26 07:25] LABS: POTASSIUM 3.4 mmol/L (3.5-5.1)
[2023-05-26 07:27] LABS: ALBUMIN 1.6 g/dl (3.4-5.0); BLOOD UREA NITROGEN 34.7 mg/dL (7-18); CALCIUM 10.1 mg/dL (8.5-10.1); MAGNESIUM 1.7 mg/dL (1.8-2.4)
[2023-05-26 07:31] LABS: CREATININE 2.2 mg/dL (0.55-1.3); PHOSPHOROUS 2.4 mg/dL (2.5-4.9)
[2023-05-26 07:32] LABS: BILIRUBIN,TOTAL 0.6 mg/dL (0.2-1); TOT PROT 4.9 g/dl (6.4-8.2)
[2023-05-26 08:55] LABS: ANISOCYTOSIS 0; HELMET CELLS 0; HOWELL-JOLLY BODIES 0; MACROCYTOSIS 0; OVALOCYTE 0; ROULEAU 0; SICKELED CELLS 0; TARGET CELLS 0; TEAR DROP CELLS 0; TOXIC GRANULATION 0
[2023-05-26] MEDS: KCL 10 MEQ IVPB 10 MEQ/100 ML INFUS.BAG IVPB SCH (09:35)
[2023-05-26] MEDS: HYDROCORTISONE SOD SUCCINATE 100 MG/2 ML VIAL IVPUSH SCH (09:37)
[2023-05-26] MEDS: MAGNESIUM 1GM/D5W - 1 GM/100 ML IVPB IVPB ONE (12:56)
[2023-05-26] MEDS: NAPH,MB-DB/K PH,MBDB POWDER PACKET PO ONE (12:59)
[2023-05-26 13:50] VITALS: BMI 17.1
[2023-05-27 06:28] LABS: HEMOGLOBIN 7.8 GM/dL (11.7-16.9); MCH 32.6 pg (25.7-33.7); MCHC 32.3 g/dl (32.0-35.9); MEAN CELL VOLUME 100.7 fl (80-96); MEAN PLT VOLUME 10.3 fl (7.5-11.1); PLATELET COUNT 92 10^3/uL (134-434); RBC 2.38 M/mm3 (4.00-5.60); RDW 15.9 % (11.9-15.9); WHITE BLOOD COUNT 12.1 K/mm3 (4.0-10.0)
[2023-05-27 06:47] LABS: POTASSIUM 3.5 mmol/L (3.5-5.1)
[2023-05-27 06:57] LABS: CALCIUM 10.1 mg/dL (8.5-10.1)
[2023-05-27 06:59] LABS: ALBUMIN 1.7 g/dl (3.4-5.0); BLOOD UREA NITROGEN 48.5 mg/dL (7-18); MAGNESIUM 1.9 mg/dL (1.8-2.4)
[2023-05-27 07:00] LABS: ARTERIAL BLD GAS O2 SATURATION 60.5 % (95-98)
[2023-05-27 07:01] LABS: ALLENS TEST POSITIVE; ARTERIAL BLOOD GAS PO2 32.2 mmHg (80-100)
[2023-05-27 07:02] LABS: CREATININE 2.7 mg/dL (0.55-1.3); PHOSPHOROUS 2.6 mg/dL (2.5-4.9)
[2023-05-27 07:02] LABS: VENT MODE A/C; VENT RATE 15
[2023-05-27 07:03] LABS: BILIRUBIN,TOTAL 0.6 mg/dL (0.2-1); TOT PROT 5.2 g/dl (6.4-8.2)
[2023-05-27] MEDS: INSULIN ASPART SLIDING SCALE (NOVOLOG) 1 VIAL SQ SCH (11:48)
[2023-05-28 07:07] LABS: ARTERIAL BLD GAS O2 SATURATION 79.5 % (95-98); ARTERIAL BLOOD GAS BASE EXCESS 3.4 mmol/L (-2-2); ARTERIAL BLOOD GAS PO2 43.9 mmHg (80-100); ARTERIAL BLOOD GAS pH 7.402 (7.350-7.450)
[2023-05-28 07:11] LABS: ALLENS TEST POSITIVE
[2023-05-28 07:13] LABS: VENT MODE A/C; VENT RATE 15
[2023-05-28 07:39] LABS: ACTIVATED PTT 31.3 SECONDS (25.2-36.5)
[2023-05-28 07:40] LABS: HEMATOCRIT 23.8 % (35.4-49); HEMOGLOBIN 7.7 GM/dL (11.7-16.9); MCH 32.6 pg (25.7-33.7); MCHC 32.3 g/dl (32.0-35.9); MEAN CELL VOLUME 100.9 fl (80-96); PLATELET COUNT 100 10^3/uL (134-434); RBC 2.36 M/mm3 (4.00-5.60); RDW 16.1 % (11.9-15.9); WHITE BLOOD COUNT 14.2 K/mm3 (4.0-10.0)
[2023-05-28 07:41] LABS: INR 1.36 (0.83-1.09); PROTHROMBIN TIME (PATIENT) 15.7 SEC (9.7-13.0)
[2023-05-28 07:56] LABS: POTASSIUM 3.3 mmol/L (3.5-5.1)
[2023-05-28 07:59] LABS: ALBUMIN 1.5 g/dl (3.4-5.0); BLOOD UREA NITROGEN 64.1 mg/dL (7-18); MAGNESIUM 1.9 mg/dL (1.8-2.4)
[2023-05-28 08:01] LABS: PHOSPHOROUS 2.3 mg/dL (2.5-4.9)
[2023-05-28 08:04] LABS: BILIRUBIN,TOTAL 0.6 mg/dL (0.2-1); TOT PROT 4.8 g/dl (6.4-8.2)
[2023-05-28] MEDS ORDERED: SODIUM CHLORIDE 250 ML IV PRN (09:00)
[2023-05-28 10:16] LABS: ANISOCYTOSIS 1+; MACROCYTOSIS 1+
[2023-05-28] MEDS: NAPH,MB-DB/K PH,MBDB POWDER PACKET PO ONE (10:40)
[2023-05-28] MEDS: POTASSIUM CHLORIDE ORAL LIQUID 20 MEQ/15 ML PO ONE (10:40)
[2023-05-28] MEDS ORDERED: INSULIN (NOVOLOG) ASPART 100 UNITS/ML 10ML VIAL ONE (11:53)
[2023-05-29 06:06] LABS: ARTERIAL BLD GAS O2 SATURATION 65.5 % (95-98); ARTERIAL BLOOD GAS BASE EXCESS 6.8 mmol/L (-2-2); ARTERIAL BLOOD GAS pH 7.421 (7.350-7.450)
[2023-05-29 06:08] LABS: ALLENS TEST POSITIVE
[2023-05-29 06:09] LABS: VENT MODE A/C; VENT RATE 15
[2023-05-29 07:59] LABS: POTASSIUM 3.7 mmol/L (3.5-5.1)
[2023-05-29 08:06] LABS: BILIRUBIN,TOTAL 0.7 mg/dL (0.2-1)
[2023-05-29 08:07] LABS: ALBUMIN 1.4 g/dl (3.4-5.0); TOT PROT 4.8 g/dl (6.4-8.2)
[2023-05-29 08:08] LABS: BLOOD UREA NITROGEN 50.9 mg/dL (7-18)
[2023-05-29 08:10] LABS: CREATININE 2.3 mg/dL (0.55-1.3); MAGNESIUM 1.8 mg/dL (1.8-2.4)
[2023-05-29 08:28] LABS: HEMATOCRIT 24.4 % (35.4-49); HEMOGLOBIN 7.9 GM/dL (11.7-16.9); MCH 32.8 pg (25.7-33.7); MCHC 32.5 g/dl (32.0-35.9); MEAN CELL VOLUME 100.8 fl (80-96); MEAN PLT VOLUME 10.3 fl (7.5-11.1); PLATELET COUNT 109 10^3/uL (134-434); RBC 2.42 M/mm3 (4.00-5.60); WHITE BLOOD COUNT 11.3 K/mm3 (4.0-10.0)
[2023-05-29 11:03] LABS: ANISOCYTOSIS 1+; MACROCYTOSIS 1+
[2023-05-29] MEDS ORDERED: SODIUM CHLORIDE 250 ML IV PRN (11:24)
[2023-05-29] MEDS: ARTIFICIAL TEARS OPHTHALMIC DROPS OU SCH (21:13)
[2023-05-29] MEDS ORDERED: PATIENT'S OWN MEDICATION (NON-FORMULARY) (Olopatadine Hcl [Pataday] 2.5 ML Drops) OU SCH (22:00)
[2023-05-30 07:55] LABS: HEMATOCRIT 24.5 % (35.4-49); MCH 33.3 pg (25.7-33.7); MCHC 32.9 g/dl (32.0-35.9); MEAN CELL VOLUME 101.2 fl (80-96); PLATELET COUNT 110 10^3/uL (134-434); RBC 2.42 M/mm3 (4.00-5.60); RDW 17.7 % (11.9-15.9); WHITE BLOOD COUNT 12.2 K/mm3 (4.0-10.0)
[2023-05-30 08:15] LABS: POTASSIUM 3.8 mmol/L (3.5-5.1)
[2023-05-30] MEDS ORDERED: SODIUM CHLORIDE 250 ML IV PRN (08:23)
[2023-05-30 08:27] LABS: ALBUMIN 1.6 g/dl (3.4-5.0); BLOOD UREA NITROGEN 68.7 mg/dL (7-18); MAGNESIUM 1.9 mg/dL (1.8-2.4)
[2023-05-30 08:30] LABS: CREATININE 2.9 mg/dL (0.55-1.3); PHOSPHOROUS 3.7 mg/dL (2.5-4.9)
[2023-05-30 08:32] LABS: BILIRUBIN,TOTAL 0.6 mg/dL (0.2-1)
[2023-05-30] MEDS: ALBUMIN HUMAN 25% 12.5 GM/50 ML VIAL IV PRN (09:10)
[2023-05-30] MEDS ORDERED: NOREPINEPHRINE BITARTRATE 4 MG/4 ML ML IV ONE (09:20)
[2023-05-30] MEDS ORDERED: ALBUMIN HUMAN 25% 100 ML VIAL IV PRN (09:21)
[2023-05-30 10:17] LABS: ANISOCYTOSIS 1+; MACROCYTOSIS 1+
[2023-05-30] MEDS: EPOETIN ALFA-EPBX 10,000 UNIT/ML VIAL IVPUSH ONE (10:44)
[2023-05-30] MEDS: ALBUTEROL SO4 2.5/IPRATROPIUM 0.5 INH SOL 3 ML VIAL.NEB. NEB SCH (11:40)
[2023-05-30] MEDS ORDERED: INSULIN (NOVOLOG) ASPART 100 UNITS/ML 10ML VIAL ONE (12:48)
[2023-05-30] MEDS: ACETAMINOPHEN 650 MG/20.3 ML ORAL SOLUTION (CUPS) NGT PRN (16:37)
[2023-05-30] MEDS: NOREPINEPHRINE BITARTRATE 4,000 MCG in DEXTROSE 5%-WATER - 496 ML IV SCH (21:46)
[2023-05-31] MEDS: ALBUMIN HUMAN 5% 250 ML IV SOLUTION IV ONE ×2 (04:37→08:05)
[2023-05-31] MEDS: ALBUMIN HUMAN 5% 500 ML IV SOLUTION IV ONE (04:39)
[2023-05-31] MEDS: PHENYLEPHRINE NS PREMIX 50,000 MCG/500 ML BAG CVP SCH (06:52)
[2023-05-31 07:19] LABS: BASO % 0.2 % (0-2.0); EOS % 0.7 % (0-4.5); HEMATOCRIT 21.4 % (35.4-49); LYMPH % 4.4 % (8-40); MCH 32.9 pg (25.7-33.7); MCHC 32.5 g/dl (32.0-35.9); MEAN CELL VOLUME 101.3 fl (80-96); MEAN PLT VOLUME 10.3 fl (7.5-11.1); MONO % 6.6 % (3.8-10.2); NEUT % 88.1 % (42.8-82.8); PLATELET COUNT 103 10^3/uL (134-434); RBC 2.11 M/mm3 (4.00-5.60); RDW 17.5 % (11.9-15.9); WHITE BLOOD COUNT 10.4 K/mm3 (4.0-10.0)
[2023-05-31 07:24] LABS: POTASSIUM 3.4 mmol/L (3.5-5.1)
[2023-05-31 07:29] LABS: CALCIUM 8.6 mg/dL (8.5-10.1)
[2023-05-31 07:30] LABS: BLOOD UREA NITROGEN 50.8 mg/dL (7-18); MAGNESIUM 1.6 mg/dL (1.8-2.4)
[2023-05-31 07:32] LABS: PHOSPHOROUS 3.4 mg/dL (2.5-4.9)
[2023-05-31 07:33] LABS: BILIRUBIN,TOTAL 0.6 mg/dL (0.2-1); CREATININE 2.1 mg/dL (0.55-1.3)
[2023-05-31 10:11] LABS: INR 1.63 (0.83-1.09); PROTHROMBIN TIME (PATIENT) 18.8 SEC (9.7-13.0)
[2023-05-31 10:12] LABS: BASO % 0.2 % (0-2.0); EOS % 0.9 % (0-4.5); HEMATOCRIT 19.5 % (35.4-49); LYMPH % 4.3 % (8-40); MEAN PLT VOLUME 9.9 fl (7.5-11.1); MONO % 6.4 % (3.8-10.2); NEUT % 88.2 % (42.8-82.8); PLATELET COUNT 98 10^3/uL (134-434); RBC 1.95 M/mm3 (4.00-5.60); RDW 17.6 % (11.9-15.9); WHITE BLOOD COUNT 9.5 K/mm3 (4.0-10.0)
[2023-05-31 10:13] LABS: ACTIVATED PTT 39.5 SECONDS (25.2-36.5)
[2023-05-31] MEDS: LACTATED RINGERS SOLUTION 1000 ML INFUS.BAG IV ONE (10:16)
[2023-05-31 10:19] LABS: HEMOGLOBIN 6.4 GM/dL (11.7-16.9)
[2023-05-31] MEDS: NOREPINEPHRINE 0.9 % NACL 8 MG/250 ML BAG IVPB SCH (10:41)
[2023-05-31 21:41] LABS: BASO % 0.6 % (0-2.0); EOS % 0.1 % (0-4.5); HEMATOCRIT 23.9 % (35.4-49); HEMOGLOBIN 7.9 GM/dL (11.7-16.9); LYMPH % 3.6 % (8-40); MCH 31.9 pg (25.7-33.7); MCHC 33.1 g/dl (32.0-35.9); MEAN CELL VOLUME 96.6 fl (80-96); MONO % 7.1 % (3.8-10.2); NEUT % 88.6 % (42.8-82.8); PLATELET COUNT 110 10^3/uL (134-434); RBC 2.47 M/mm3 (4.00-5.60); RDW 17.3 % (11.9-15.9); WHITE BLOOD COUNT 12.4 K/mm3 (4.0-10.0)
[2023-06-01 07:36] LABS: BASO % 0.3 % (0-2.0); EOS % 0.8 % (0-4.5); HEMOGLOBIN 8.2 GM/dL (11.7-16.9); MCH 31.8 pg (25.7-33.7); MEAN CELL VOLUME 96.5 fl (80-96); MONO % 8.1 % (3.8-10.2); NEUT % 86.8 % (42.8-82.8); PLATELET COUNT 121 10^3/uL (134-434); RBC 2.59 M/mm3 (4.00-5.60); RDW 17.7 % (11.9-15.9); WHITE BLOOD COUNT 13.3 K/mm3 (4.0-10.0)
[2023-06-01 07:51] LABS: POTASSIUM 3.5 mmol/L (3.5-5.1)
[2023-06-01 07:53] LABS: ALBUMIN 1.8 g/dl (3.4-5.0); BLOOD UREA NITROGEN 64.1 mg/dL (7-18); CALCIUM 8.4 mg/dL (8.5-10.1); MAGNESIUM 1.7 mg/dL (1.8-2.4)
[2023-06-01 07:56] LABS: CREATININE 2.5 mg/dL (0.55-1.3); PHOSPHOROUS 4.4 mg/dL (2.5-4.9)
[2023-06-01 07:58] LABS: BILIRUBIN,TOTAL 0.7 mg/dL (0.2-1)
[2023-06-01] MEDS: MAGNESIUM 2GM/50ML STERILE WATER IVPB IVPB ONE (09:45)
[2023-06-01] MEDS ORDERED: SODIUM CHLORIDE 250 ML IV PRN (10:23)
[2023-06-01] MEDS ORDERED: PHENYLEPHRINE HCL 10 MG/1 ML SINGLE DOSE VIAL ONE ×2 (17:37→17:38)
[2023-06-01] MEDS: EPOETIN ALFA-EPBX 10,000 UNIT/ML VIAL SQ ONE (17:54)
[2023-06-02 07:57] LABS: BASO % 0.6 % (0-2.0); EOS % 0.2 % (0-4.5); HEMATOCRIT 25.9 % (35.4-49); HEMOGLOBIN 8.5 GM/dL (11.7-16.9); LYMPH % 4.1 % (8-40); MCH 31.9 pg (25.7-33.7); MCHC 32.8 g/dl (32.0-35.9); MEAN CELL VOLUME 97.2 fl (80-96); MEAN PLT VOLUME 9.9 fl (7.5-11.1); MONO % 8.3 % (3.8-10.2); NEUT % 86.8 % (42.8-82.8); PLATELET COUNT 138 10^3/uL (134-434); RBC 2.66 M/mm3 (4.00-5.60); RDW 18.7 % (11.9-15.9); WHITE BLOOD COUNT 13.5 K/mm3 (4.0-10.0)
[2023-06-02 08:12] LABS: POTASSIUM 3.3 mmol/L (3.5-5.1)
[2023-06-02 08:16] LABS: CALCIUM 9.2 mg/dL (8.5-10.1)
[2023-06-02 08:17] LABS: BLOOD UREA NITROGEN 41.4 mg/dL (7-18); MAGNESIUM 1.9 mg/dL (1.8-2.4)
[2023-06-02 08:20] LABS: CREATININE 1.9 mg/dL (0.55-1.3); PHOSPHOROUS 3.6 mg/dL (2.5-4.9)
[2023-06-02 08:22] LABS: BILIRUBIN,TOTAL 0.9 mg/dL (0.2-1); TOT PROT 5.4 g/dl (6.4-8.2)
[2023-06-02] MEDS: KCL 20 MEQ PREMIX BAG 20 MEQ/100 ML INFUS.BAG IVPB SCH (11:31)
[2023-06-03 08:38] LABS: POTASSIUM 4.4 mmol/L (3.5-5.1)
[2023-06-03 08:45] LABS: CALCIUM 9.6 mg/dL (8.5-10.1)
[2023-06-03 08:46] LABS: ALBUMIN 1.9 g/dl (3.4-5.0); BLOOD UREA NITROGEN 47.6 mg/dL (7-18)
[2023-06-03 08:49] LABS: CREATININE 2.4 mg/dL (0.55-1.3); PHOSPHOROUS 4.5 mg/dL (2.5-4.9)
[2023-06-03 08:50] LABS: BILIRUBIN,TOTAL 0.9 mg/dL (0.2-1); TOT PROT 5.6 g/dl (6.4-8.2)
[2023-06-03 11:10] LABS: BASO % 0.8 % (0-2.0); EOS % 0.4 % (0-4.5); HEMATOCRIT 24.9 % (35.4-49); HEMOGLOBIN 8.2 GM/dL (11.7-16.9); LYMPH % 4.7 % (8-40); MCH 32.5 pg (25.7-33.7); MCHC 33.1 g/dl (32.0-35.9); MEAN CELL VOLUME 98.3 fl (80-96); MEAN PLT VOLUME 9.5 fl (7.5-11.1); MONO % 10.4 % (3.8-10.2); NEUT % 83.7 % (42.8-82.8); PLATELET COUNT 144 10^3/uL (134-434); RBC 2.53 M/mm3 (4.00-5.60); RDW 18.2 % (11.9-15.9); WHITE BLOOD COUNT 8.9 K/mm3 (4.0-10.0)
[2023-06-04 08:23] LABS: BASO % 0.7 % (0-2.0); EOS % 1.4 % (0-4.5); HEMATOCRIT 23.8 % (35.4-49); HEMOGLOBIN 7.8 GM/dL (11.7-16.9); LYMPH % 5.4 % (8-40); MCH 32.2 pg (25.7-33.7); MCHC 32.7 g/dl (32.0-35.9); MEAN CELL VOLUME 98.4 fl (80-96); MEAN PLT VOLUME 9.7 fl (7.5-11.1); MONO % 7.7 % (3.8-10.2); NEUT % 84.8 % (42.8-82.8); PLATELET COUNT 137 10^3/uL (134-434); RBC 2.42 M/mm3 (4.00-5.60); RDW 17.3 % (11.9-15.9)
[2023-06-04 08:35] LABS: POTASSIUM 4.1 mmol/L (3.5-5.1)
[2023-06-04 08:37] LABS: ALBUMIN 1.7 g/dl (3.4-5.0); BLOOD UREA NITROGEN 53.8 mg/dL (7-18); CALCIUM 9.1 mg/dL (8.5-10.1); MAGNESIUM 1.9 mg/dL (1.8-2.4)
[2023-06-04 08:42] LABS: BILIRUBIN,TOTAL 0.8 mg/dL (0.2-1)
[2023-06-04 08:43] LABS: CREATININE 2.9 mg/dL (0.55-1.3)
[2023-06-04 08:45] LABS: TOT PROT 5.1 g/dl (6.4-8.2)
[2023-06-04] MEDS ORDERED: SODIUM CHLORIDE 250 ML IV PRN (13:00)
[2023-06-04] MEDS: ALBUMIN HUMAN 25% 12.5 GM/50 ML VIAL IV SCH (13:29)
[2023-06-04] MEDS: EPOETIN ALFA-EPBX 10,000 UNIT/ML VIAL IVPUSH ONE (13:30)
[2023-06-04 13:37] LABS: HEMATOCRIT 22.9 % (35.4-49); HEMOGLOBIN 7.6 GM/dL (11.7-16.9); MCH 32.2 pg (25.7-33.7); MCHC 33.2 g/dl (32.0-35.9); MEAN CELL VOLUME 97.1 fl (80-96); MEAN PLT VOLUME 9.2 fl (7.5-11.1); PLATELET COUNT 134 10^3/uL (134-434); RBC 2.36 M/mm3 (4.00-5.60); RDW 17.6 % (11.9-15.9); WHITE BLOOD COUNT 7.4 K/mm3 (4.0-10.0)
[2023-06-04] MEDS: ALBUTEROL SO4 0.083% IH SOL 2.5 MG/3 ML VIAL.NEB. NEB SCH (20:53)
[2023-06-04] MEDS ORDERED: ACETYLCYSTEINE 20% 200MG/ML 30 ML VIAL *FOR ORAL / INH USE ONLY NEB SCH (22:00)
[2023-06-05 07:31] LABS: EOS % 1.2 % (0-4.5); HEMATOCRIT 23.4 % (35.4-49); HEMOGLOBIN 7.6 GM/dL (11.7-16.9); LYMPH % 10.3 % (8-40); MCH 31.7 pg (25.7-33.7); MCHC 32.4 g/dl (32.0-35.9); MEAN CELL VOLUME 97.8 fl (80-96); MEAN PLT VOLUME 9.7 fl (7.5-11.1); MONO % 7.4 % (3.8-10.2); NEUT % 80.1 % (42.8-82.8); PLATELET COUNT 124 10^3/uL (134-434); WHITE BLOOD COUNT 6.9 K/mm3 (4.0-10.0)
[2023-06-05 08:12] LABS: POTASSIUM 3.6 mmol/L (3.5-5.1)
[2023-06-05] MEDS: ACETYLCYSTEINE 20% 200MG/ML 4 ML VIAL *FOR ORAL / INH USE ONLY NEB SCH (08:15)
[2023-06-05 08:16] LABS: BLOOD UREA NITROGEN 30.7 mg/dL (7-18); CALCIUM 8.9 mg/dL (8.5-10.1)
[2023-06-05 08:19] LABS: CREATININE 2.3 mg/dL (0.55-1.3)
[2023-06-05 08:25] LABS: MAGNESIUM 1.7 mg/dL (1.8-2.4)
[2023-06-05] MEDS: ALBUTEROL SO4 0.083% IH SOL 2.5 MG/3 ML VIAL.NEB. NEB SCH (11:50)
[2023-06-05] MEDS ORDERED: DEXTROSE 50%-WATER 25 GM/50 ML DISP.SYRIN ONE (18:04)
[2023-06-05] MEDS: DEXTROSE 50%-WATER 25 GM/50 ML DISP.SYRIN IVPUSH ONE (18:42)
[2023-06-05] MEDS ORDERED: ALBUMIN HUMAN 5% 250 ML IV SOLUTION IV ONE (23:30)
[2023-06-05] MEDS ORDERED: ACETAMINOPHEN 650 MG/20.3 ML ORAL SOLUTION (CUPS) NGT PRN (23:30)
[2023-06-06] MEDS: PIPERACILLIN/TAZOB 2.25 GM 2.25 GM in DEXTROSE 5%-WATER - 50 ML IVPB SCH (03:14)
[2023-06-06] MEDS: INSULIN ASPART SLIDING SCALE (NOVOLOG) 1 VIAL SQ SCH (06:16)
[2023-06-06] MEDS: ACETYLCYSTEINE 20% 200MG/ML 30 ML VIAL *FOR ORAL / INH USE ONLY NEB SCH (07:17)
[2023-06-06] MEDS: ACETYLCYSTEINE 20% 200MG/ML 4 ML VIAL *FOR ORAL / INH USE ONLY NEB SCH (07:53)
[2023-06-06] MEDS: AMINO ACIDS/PROTEIN HYDROLYS 30 ML LIQUID.PKT PO SCH (08:00)
[2023-06-06] MEDS ORDERED: SODIUM CHLORIDE 250 ML IV PRN (08:01)
[2023-06-06 09:51] LABS: BASO % 0.4 % (0-2.0); EOS % 0.6 % (0-4.5); HEMATOCRIT 23.6 % (35.4-49); HEMOGLOBIN 7.8 GM/dL (11.7-16.9); LYMPH % 5.7 % (8-40); MCH 32.5 pg (25.7-33.7); MCHC 33.2 g/dl (32.0-35.9); MEAN CELL VOLUME 97.8 fl (80-96); MEAN PLT VOLUME 9.7 fl (7.5-11.1); MONO % 5.4 % (3.8-10.2); NEUT % 87.9 % (42.8-82.8); PLATELET COUNT 130 10^3/uL (134-434); RBC 2.41 M/mm3 (4.00-5.60); WHITE BLOOD COUNT 10.4 K/mm3 (4.0-10.0)
[2023-06-06] MEDS: ARTIFICIAL TEARS OPHTHALMIC DROPS OU SCH (10:00)
[2023-06-06 10:48] LABS: POTASSIUM 3.6 mmol/L (3.5-5.1)
[2023-06-06 10:59] LABS: ALBUMIN 1.8 g/dl (3.4-5.0); BLOOD UREA NITROGEN 37.3 mg/dL (7-18); MAGNESIUM 1.7 mg/dL (1.8-2.4)
[2023-06-06 11:00] LABS: TOT PROT 4.9 g/dl (6.4-8.2)
[2023-06-06 11:02] LABS: CALCIUM 8.8 mg/dL (8.5-10.1)
[2023-06-06] MEDS: EPOETIN ALFA-EPBX 10,000 UNIT/ML VIAL IVPUSH ONE (11:32)
[2023-06-06] MEDS: levETIRAcetam 500 MG/5 ML INJECTION VIAL IVPB SCH ×2 (13:50→23:34)
[2023-06-06] MEDS: METOPROLOL TARTRATE 25 MG TABLET (FP) NGT SCH (14:03)
[2023-06-06] MEDS: PANTOPRAZOLE SODIUM 40 MG VIAL IVPUSH SCH (14:05)
[2023-06-06] MEDS: VITAMIN B COMP W-C 1 EA TABLET (NEPHRO-VITE) PO SCH (14:05)
[2023-06-06] MEDS: APIXABAN 2.5 MG TABLET NGT SCH (14:07)
[2023-06-06] MEDS: ATORVASTATIN CA 20 MG TABLET (FP) NGT SCH (23:21)
[2023-06-06] MEDS: levETIRAcetam 500 MG/5 ML ORAL SOLUTION (UNIT-DOSE CUPS) GT SCH (23:34)
[2023-06-07] MEDS ORDERED: DEXTROSE 50%-WATER 25 GM/50 ML DISP.SYRIN IVPUSH PRN ×2 (09:47→23:28)
[2023-06-07] MEDS ORDERED: FAMOTIDINE 20 MG/2.5 ML ORAL LIQUID GT SCH (10:00)
[2023-06-07] MEDS: DEXTROSE 5%-NORMAL SALINE 1,000 ML IV SCH (10:21)
[2023-06-07 18:45] LABS: BASO % 0.3 % (0-2.0); EOS % 0.2 % (0-4.5); HEMATOCRIT 26.7 % (35.4-49); HEMOGLOBIN 8.3 GM/dL (11.7-16.9); MCH 31.8 pg (25.7-33.7); MCHC 31.2 g/dl (32.0-35.9); MEAN CELL VOLUME 101.9 fl (80-96); MEAN PLT VOLUME 9.4 fl (7.5-11.1); MONO % 7.4 % (3.8-10.2); NEUT % 79.1 % (42.8-82.8); PLATELET COUNT 136 10^3/uL (134-434); RBC 2.62 M/mm3 (4.00-5.60); RDW 18.2 % (11.9-15.9); WHITE BLOOD COUNT 10.2 K/mm3 (4.0-10.0)
[2023-06-07 18:53] LABS: INR 1.8 (0.83-1.09); PROTHROMBIN TIME (PATIENT) 20.8 SEC (9.7-13.0)
[2023-06-07 18:56] LABS: ACTIVATED PTT 54.1 SECONDS (25.2-36.5)
[2023-06-07 19:10] LABS: POTASSIUM 3.9 mmol/L (3.5-5.1)
[2023-06-07 19:11] LABS: CALCIUM 8.7 mg/dL (8.5-10.1)
[2023-06-07 19:12] LABS: ALBUMIN 1.7 g/dl (3.4-5.0); BLOOD UREA NITROGEN 24.4 mg/dL (7-18); MAGNESIUM 2.1 mg/dL (1.8-2.4)
[2023-06-07 19:15] LABS: CREATININE 2.8 mg/dL (0.55-1.3); PHOSPHOROUS 5.8 mg/dL (2.5-4.9)
[2023-06-07 19:16] LABS: TOT PROT 4.9 g/dl (6.4-8.2)
[2023-06-07 19:34] LABS: ANISOCYTOSIS 2+; MACROCYTOSIS 1+; OVALOCYTE 1+; TARGET CELLS 1+
[2023-06-07 20:07] LABS: ARTERIAL BLD GAS O2 SATURATION 86.2 % (95-98); ARTERIAL BLOOD GAS BASE EXCESS -1.9 mmol/L (-2-2); ARTERIAL BLOOD GAS PO2 49.2 mmHg (80-100); ARTERIAL BLOOD GAS pH 7.427 (7.350-7.450)
[2023-06-07 20:08] LABS: ALLENS TEST POSITIVE; VENT MODE A/C; VENT RATE 15
[2023-06-07] MEDS: NOREPINEPHRINE 0.9 % NACL 8 MG/250 ML BAG IVPB SCH (21:00)
[2023-06-07] MEDS ORDERED: EPINEPHrine 1:10,000 (P-F SYR) 1 MG/10 ML DISP.SYRIN ONE (21:35)
[2023-06-07] MEDS ORDERED: PANTOPRAZOLE SODIUM 40 MG VIAL IVPUSH SCH (22:00)
[2023-06-07] MEDS ORDERED: FENTANYL NS IVPB 500 MCG/100 ML BAG IVPB ONE (22:28)
[2023-06-07] MEDS: SODIUM CHLORIDE 500 ML IV STA (22:52)
[2023-06-07] MEDS: MAGNESIUM SULF 50% (8.12 MEQ/2 ML-1 GM VIAL) IVPB ONE (22:52)
[2023-06-07] MEDS: PHENYLEPHRINE NS PREMIX 50,000 MCG/500 ML BAG CVP SCH (22:52)
[2023-06-07] MEDS: ALBUMIN HUMAN 5% 500 ML IV SOLUTION IV ONE (22:53)
[2023-06-07] MEDS: CHLORHEXIDINE GLUCONATE 4% CLEANSER FOR DECOLONIZATION TP SCH (22:54)
[2023-06-07] MEDS: MUPIROCIN 2% TOPICAL OINTMENT FOR DECOLONIZATION NS SCH (22:54)
[2023-06-08 00:46] LABS: HEMATOCRIT 24.2 % (35.4-49); HEMOGLOBIN 7.7 GM/dL (11.7-16.9); MCH 31.4 pg (25.7-33.7); MEAN PLT VOLUME 8.6 fl (7.5-11.1); PLATELET COUNT 122 10^3/uL (134-434); RBC 2.47 M/mm3 (4.00-5.60); RDW 17.8 % (11.9-15.9); WHITE BLOOD COUNT 14.5 K/mm3 (4.0-10.0)
[2023-06-08 01:03] LABS: POTASSIUM 3.5 mmol/L (3.5-5.1)
[2023-06-08 01:05] LABS: CALCIUM 8.5 mg/dL (8.5-10.1)
[2023-06-08 01:06] LABS: BLOOD UREA NITROGEN 26.5 mg/dL (7-18); MAGNESIUM 1.6 mg/dL (1.8-2.4)
[2023-06-08 01:09] LABS: CREATININE 2.5 mg/dL (0.55-1.3)
[2023-06-08 01:10] LABS: TOT PROT 5.2 g/dl (6.4-8.2)
[2023-06-08 01:11] LABS: BILIRUBIN,TOTAL 1.3 mg/dL (0.2-1)
[2023-06-08 01:14] LABS: LACTIC ACID 2.3 mmol/L (0.4-2.0)
[2023-06-08 01:15] LABS: ALBUMIN 2.2 g/dl (3.4-5.0)
[2023-06-08] MEDS ORDERED: ESMOLOL 2500 MG/250 ML 2,500,000 MCG/250 ML INFUS.BAG IVPB ONE (01:30)
[2023-06-08] MEDS: PANTOPRAZOLE SODIUM 40 MG VIAL IVPUSH SCH (01:31)
[2023-06-08] MEDS: HYDROCORTISONE SOD SUCCINATE 100 MG/2 ML VIAL IVPUSH SCH (01:31)
[2023-06-08] MEDS ORDERED: FENTANYL NS IVPB 500 MCG/100 ML BAG IVPB ONE (02:35)
[2023-06-08] MEDS: DEXTROSE 5%-NORMAL SALINE 1,000 ML IV SCH (02:40)
[2023-06-08] MEDS: VASopressin 40 UNITS/100 ML BAG IV SCH (02:42)
[2023-06-08] MEDS: PIPERACILLIN/TAZOB 2.25 GM 2.25 GM in DEXTROSE 5%-WATER - 50 ML IVPB SCH (03:07)
[2023-06-08] MEDS: MAGNESIUM 1GM/D5W - 1 GM/100 ML IVPB IVPB ONE (04:59)
[2023-06-08 05:06] LABS: ANISOCYTOSIS 3+; MACROCYTOSIS 0; TARGET CELLS 1+
[2023-06-08] MEDS: FENTANYL NS IVPB 500 MCG/100 ML BAG IVPB SCH (07:04)
[2023-06-08 07:54] LABS: HEMATOCRIT 24.1 % (35.4-49); HEMOGLOBIN 7.7 GM/dL (11.7-16.9); MCH 31.3 pg (25.7-33.7); MCHC 31.8 g/dl (32.0-35.9); MEAN CELL VOLUME 98.7 fl (80-96); MEAN PLT VOLUME 9.2 fl (7.5-11.1); PLATELET COUNT 109 10^3/uL (134-434); RBC 2.45 M/mm3 (4.00-5.60); RDW 17.3 % (11.9-15.9); WHITE BLOOD COUNT 16.3 K/mm3 (4.0-10.0)
[2023-06-08 08:04] LABS: POTASSIUM 3.3 mmol/L (3.5-5.1)
[2023-06-08 08:10] LABS: BLOOD UREA NITROGEN 28.4 mg/dL (7-18)
[2023-06-08 08:11] LABS: ALBUMIN 2.1 g/dl (3.4-5.0); MAGNESIUM 1.9 mg/dL (1.8-2.4)
[2023-06-08 08:13] LABS: CREATININE 2.5 mg/dL (0.55-1.3); PHOSPHOROUS 4.3 mg/dL (2.5-4.9)
[2023-06-08 08:14] LABS: TOT PROT 5.1 g/dl (6.4-8.2)
[2023-06-08 08:15] LABS: BILIRUBIN,TOTAL 1.4 mg/dL (0.2-1)
[2023-06-08] MEDS: ACETYLCYSTEINE 20% 200MG/ML 4 ML VIAL *FOR ORAL / INH USE ONLY NEB SCH (08:30)
[2023-06-08] MEDS: ALBUTEROL SO4 0.083% IH SOL 2.5 MG/3 ML VIAL.NEB. NEB SCH (08:30)
[2023-06-08 08:49] LABS: ANISOCYTOSIS 0; MACROCYTOSIS 0
[2023-06-08] MEDS: levETIRAcetam 500 MG/5 ML INJECTION VIAL IVPB SCH (09:12)
[2023-06-08] MEDS: ARTIFICIAL TEARS OPHTHALMIC DROPS OU SCH (09:16)
[2023-06-08] MEDS: APIXABAN 5 MG TABLET PO SCH (09:16)
[2023-06-08] MEDS: VITAMIN B COMP W-C 1 EA TABLET (NEPHRO-VITE) PO SCH (09:16)
[2023-06-08] MEDS: AMINO ACIDS/PROTEIN HYDROLYS 30 ML LIQUID.PKT PO SCH (09:17)
[2023-06-08] MEDS: METOPROLOL TARTRATE 25 MG TABLET (FP) NGT SCH (09:17)
[2023-06-08] MEDS: INSULIN ASPART SLIDING SCALE (NOVOLOG) 1 VIAL SQ SCH (10:21)
[2023-06-08] MEDS: AMPICILLIN NA/SULBACTAM NA 1.5 GM in SODIUM CHLORIDE 100 ML IVPB SCH (11:49)
[2023-06-08] MEDS ORDERED: SODIUM CHLORIDE 250 ML IV PRN (12:00)
[2023-06-08] MEDS: NOREPINEPHRINE BITARTRATE 16,000 MCG in SODIUM CHLORIDE 484 ML IV SCH (12:29)
[2023-06-08] MEDS: PATIENT'S OWN MEDICATION (NON-FORMULARY) (Olopatadine Hcl [Pataday] 1 DROP) OU SCH (12:29)
[2023-06-08] MEDS: EPOETIN ALFA-EPBX 10,000 UNIT/ML VIAL IVPUSH ONE (15:41)
[2023-06-08] MEDS ORDERED: PATIENT'S OWN MEDICATION (NON-FORMULARY) (Olopatadine Hcl [Pataday] 1 DROP) OU SCH (22:00)
[2023-06-09 06:49] LABS: BASO % 0.3 % (0-2.0); EOS % 0.1 % (0-4.5); HEMATOCRIT 23.3 % (35.4-49); HEMOGLOBIN 7.5 GM/dL (11.7-16.9); LYMPH % 5.4 % (8-40); MCH 31.6 pg (25.7-33.7); MCHC 32.1 g/dl (32.0-35.9); MEAN CELL VOLUME 98.4 fl (80-96); MEAN PLT VOLUME 9.4 fl (7.5-11.1); MONO % 4.7 % (3.8-10.2); NEUT % 89.5 % (42.8-82.8); PLATELET COUNT 103 10^3/uL (134-434); RBC 2.36 M/mm3 (4.00-5.60); RDW 17.3 % (11.9-15.9); WHITE BLOOD COUNT 14.6 K/mm3 (4.0-10.0)
[2023-06-09 06:58] LABS: POTASSIUM 3.2 mmol/L (3.5-5.1)
[2023-06-09 07:02] LABS: CALCIUM 8.8 mg/dL (8.5-10.1); MAGNESIUM 2.1 mg/dL (1.8-2.4)
[2023-06-09 07:03] LABS: BLOOD UREA NITROGEN 33.6 mg/dL (7-18)
[2023-06-09 07:05] LABS: CREATININE 2.9 mg/dL (0.55-1.3)
[2023-06-09 07:06] LABS: PHOSPHOROUS 5.5 mg/dL (2.5-4.9)
[2023-06-09 07:07] LABS: BILIRUBIN,TOTAL 0.8 mg/dL (0.2-1)
[2023-06-09] MEDS: POTASSIUM CHLORIDE ORAL LIQUID 20 MEQ/15 ML PO ONE (11:56)
[2023-06-09] MEDS: PIPERACILLIN/TAZOB 2.25 GM 2.25 GM in DEXTROSE 5%-WATER - 50 ML IVPB SCH ×2 (14:46→18:11)
[2023-06-10 06:38] LABS: HEMATOCRIT 22.1 % (35.4-49); HEMOGLOBIN 7.1 GM/dL (11.7-16.9); MCH 31.4 pg (25.7-33.7); MEAN CELL VOLUME 98.1 fl (80-96); MEAN PLT VOLUME 9.6 fl (7.5-11.1); PLATELET COUNT 92 10^3/uL (134-434); RBC 2.26 M/mm3 (4.00-5.60); RDW 17.1 % (11.9-15.9); WHITE BLOOD COUNT 11.1 K/mm3 (4.0-10.0)
[2023-06-10 06:48] LABS: POTASSIUM 3.6 mmol/L (3.5-5.1)
[2023-06-10 06:51] LABS: BLOOD UREA NITROGEN 22.3 mg/dL (7-18); CALCIUM 8.4 mg/dL (8.5-10.1); MAGNESIUM 1.6 mg/dL (1.8-2.4)
[2023-06-10 06:54] LABS: CREATININE 1.9 mg/dL (0.55-1.3); PHOSPHOROUS 3.3 mg/dL (2.5-4.9)
[2023-06-10] MEDS: MAGNESIUM 1GM/D5W - 1 GM/100 ML IVPB IVPB ONE (11:11)
[2023-06-10] MEDS: ACETAMINOPHEN 650 MG/20.3 ML ORAL SOLUTION (CUPS) NGT PRN (11:11)
[2023-06-11 05:45] LABS: ARTERIAL BLD GAS O2 SATURATION 95.7 % (95-98); ARTERIAL BLOOD GAS BASE EXCESS 2.3 mmol/L (-2-2); ARTERIAL BLOOD GAS pH 7.426 (7.350-7.450)
[2023-06-11 05:47] LABS: ALLENS TEST POSITIVE; PT'S TEMP 98.6; VENT MODE PSV
[2023-06-11 06:38] LABS: BASO % 0.2 % (0-2.0); EOS % 1.3 % (0-4.5); HEMATOCRIT 22.2 % (35.4-49); HEMOGLOBIN 7.2 GM/dL (11.7-16.9); LYMPH % 5.6 % (8-40); MCH 31.9 pg (25.7-33.7); MCHC 32.5 g/dl (32.0-35.9); MEAN CELL VOLUME 98.3 fl (80-96); MEAN PLT VOLUME 9.1 fl (7.5-11.1); MONO % 6.3 % (3.8-10.2); NEUT % 86.6 % (42.8-82.8); PLATELET COUNT 81 10^3/uL (134-434); RBC 2.26 M/mm3 (4.00-5.60); RDW 16.9 % (11.9-15.9); WHITE BLOOD COUNT 11.6 K/mm3 (4.0-10.0)
[2023-06-11 07:02] LABS: POTASSIUM 3.9 mmol/L (3.5-5.1)
[2023-06-11 07:09] LABS: ALBUMIN 1.6 g/dl (3.4-5.0); BLOOD UREA NITROGEN 34.2 mg/dL (7-18); CALCIUM 7.9 mg/dL (8.5-10.1)
[2023-06-11 07:11] LABS: PHOSPHOROUS 3.8 mg/dL (2.5-4.9)
[2023-06-11 07:12] LABS: CREATININE 2.4 mg/dL (0.55-1.3); TOT PROT 4.8 g/dl (6.4-8.2)
[2023-06-11] MEDS: APIXABAN 2.5 MG TABLET PO SCH (09:41)
[2023-06-11] MEDS: SCOPOLAMINE HYDROBROMIDE 1 PATCH PATCH.TD72 TD SCH (13:42)
[2023-06-11] MEDS ORDERED: INSULIN (NOVOLOG) ASPART 100 UNITS/ML 10ML VIAL ONE (13:52)
[2023-06-12 07:02] LABS: HEMATOCRIT 28.5 % (35.4-49); HEMOGLOBIN 9.5 GM/dL (11.7-16.9); MCH 30.8 pg (25.7-33.7); MCHC 33.1 g/dl (32.0-35.9); MEAN PLT VOLUME 10.1 fl (7.5-11.1); PLATELET COUNT 81 10^3/uL (134-434); RBC 3.07 M/mm3 (4.00-5.60); RDW 19.1 % (11.9-15.9); WHITE BLOOD COUNT 14.7 K/mm3 (4.0-10.0)
[2023-06-12 07:13] LABS: POTASSIUM 3.6 mmol/L (3.5-5.1)
[2023-06-12 07:15] LABS: ALBUMIN 1.6 g/dl (3.4-5.0); CALCIUM 7.8 mg/dL (8.5-10.1)
[2023-06-12 07:16] LABS: BLOOD UREA NITROGEN 46.2 mg/dL (7-18); MAGNESIUM 2.2 mg/dL (1.8-2.4)
[2023-06-12 07:18] LABS: PHOSPHOROUS 3.7 mg/dL (2.5-4.9)
[2023-06-12 07:19] LABS: CREATININE 2.7 mg/dL (0.55-1.3)
[2023-06-12 07:20] LABS: BILIRUBIN,TOTAL 1.1 mg/dL (0.2-1)
[2023-06-12 07:26] LABS: MEAN CELL VOLUME 92.9 fl (80-96)
[2023-06-12] MEDS ORDERED: SODIUM CHLORIDE 250 ML IV PRN (09:22)
[2023-06-12] MEDS ORDERED: VASopressin 20 UNITS/ML VIAL IV ONE (10:21)
[2023-06-12] MEDS: VASopressin 40 UNITS/100 ML BAG IV SCH (10:30)
[2023-06-12] MEDS: METOPROLOL TARTRATE 5 MG/5 ML VIAL IVPUSH PRN (10:41)
[2023-06-12] MEDS: EPOETIN ALFA-EPBX 4,000 UNIT/ML VIAL SQ ONE (11:45)
[2023-06-13 06:51] LABS: HEMATOCRIT 28.7 % (35.4-49); HEMOGLOBIN 9.5 GM/dL (11.7-16.9); MCH 30.6 pg (25.7-33.7); MCHC 33.1 g/dl (32.0-35.9); MEAN CELL VOLUME 92.7 fl (80-96); MEAN PLT VOLUME 10.3 fl (7.5-11.1); PLATELET COUNT 106 10^3/uL (134-434); RBC 3.09 M/mm3 (4.00-5.60); RDW 19.6 % (11.9-15.9)
[2023-06-13 07:30] LABS: POTASSIUM 3.3 mmol/L (3.5-5.1)
[2023-06-13 07:32] LABS: ALBUMIN 1.7 g/dl (3.4-5.0); CALCIUM 8.8 mg/dL (8.5-10.1); MAGNESIUM 1.7 mg/dL (1.8-2.4)
[2023-06-13 07:33] LABS: BLOOD UREA NITROGEN 33.8 mg/dL (7-18)
[2023-06-13 07:35] LABS: CREATININE 2.1 mg/dL (0.55-1.3); PHOSPHOROUS 2.4 mg/dL (2.5-4.9)
[2023-06-13 07:37] LABS: BILIRUBIN,TOTAL 0.8 mg/dL (0.2-1); TOT PROT 5.4 g/dl (6.4-8.2)
[2023-06-13] MEDS: KCL 10 MEQ IVPB 10 MEQ/100 ML INFUS.BAG IVPB SCH (08:29)
[2023-06-13] MEDS: MAGNESIUM SULF 50% (8.12 MEQ/2 ML-1 GM VIAL) IVPB ONE (09:52)
[2023-06-14 07:29] LABS: POTASSIUM 3.5 mmol/L (3.5-5.1)
[2023-06-14 07:39] LABS: ALBUMIN 1.5 g/dl (3.4-5.0); CALCIUM 8.2 mg/dL (8.5-10.1); MAGNESIUM 2.4 mg/dL (1.8-2.4)
[2023-06-14 07:41] LABS: CREATININE 2.4 mg/dL (0.55-1.3); PHOSPHOROUS 2.6 mg/dL (2.5-4.9)
[2023-06-14 07:43] LABS: BILIRUBIN,TOTAL 0.7 mg/dL (0.2-1); TOT PROT 5.1 g/dl (6.4-8.2)
[2023-06-14 07:48] LABS: HEMATOCRIT 28.3 % (35.4-49); HEMOGLOBIN 9.2 GM/dL (11.7-16.9); MCH 30.2 pg (25.7-33.7); MCHC 32.4 g/dl (32.0-35.9); MEAN CELL VOLUME 93.2 fl (80-96); MEAN PLT VOLUME 10.8 fl (7.5-11.1); PLATELET COUNT 123 10^3/uL (134-434); RBC 3.04 M/mm3 (4.00-5.60); RDW 19.2 % (11.9-15.9); WHITE BLOOD COUNT 13.6 K/mm3 (4.0-10.0)
[2023-06-14] MEDS ORDERED: SODIUM CHLORIDE 250 ML IV PRN (09:00)
[2023-06-14 09:39] LABS: ANISOCYTOSIS 1+; MACROCYTOSIS 1+; TARGET CELLS 1+
[2023-06-14] MEDS: EPOETIN ALFA-EPBX 10,000 UNIT/ML VIAL SQ ONE (10:24)
[2023-06-15 06:50] LABS: HEMATOCRIT 28.3 % (35.4-49); HEMOGLOBIN 9.1 GM/dL (11.7-16.9); MCH 30.1 pg (25.7-33.7); MEAN PLT VOLUME 10.3 fl (7.5-11.1); PLATELET COUNT 148 10^3/uL (134-434); RBC 3.01 M/mm3 (4.00-5.60); RDW 18.5 % (11.9-15.9); WHITE BLOOD COUNT 15.2 K/mm3 (4.0-10.0)
[2023-06-15 07:05] LABS: POTASSIUM 3.6 mmol/L (3.5-5.1)
[2023-06-15 07:07] LABS: ALBUMIN 1.5 g/dl (3.4-5.0); BLOOD UREA NITROGEN 35.2 mg/dL (7-18); CALCIUM 8.5 mg/dL (8.5-10.1); MAGNESIUM 2.2 mg/dL (1.8-2.4)
[2023-06-15 07:10] LABS: CREATININE 1.9 mg/dL (0.55-1.3); PHOSPHOROUS 2.1 mg/dL (2.5-4.9)
[2023-06-15 07:12] LABS: BILIRUBIN,TOTAL 0.8 mg/dL (0.2-1); TOT PROT 5.2 g/dl (6.4-8.2)
[2023-06-15 09:50] LABS: ANISOCYTOSIS 0; MACROCYTOSIS 0; TARGET CELLS 1+
[2023-06-15] MEDS: NOREPINEPHRINE BITARTRATE/D5W 8 MG/250 ML BAG IVPB SCH (21:00)
[2023-06-16] MEDS: ALBUMIN HUMAN 5% 250 ML IV SOLUTION IV ONE (01:42)
[2023-06-16] MEDS ORDERED: SODIUM CHLORIDE 250 ML IV PRN (07:19)
[2023-06-16] MEDS: EPOETIN ALFA-EPBX 10,000 UNIT/ML VIAL SQ ONE (08:42)
[2023-06-16 08:56] LABS: HEMATOCRIT 25.7 % (35.4-49); HEMOGLOBIN 8.4 GM/dL (11.7-16.9); MCH 30.6 pg (25.7-33.7); MCHC 32.5 g/dl (32.0-35.9); MEAN CELL VOLUME 94.2 fl (80-96); MEAN PLT VOLUME 10.2 fl (7.5-11.1); PLATELET COUNT 156 10^3/uL (134-434); RBC 2.73 M/mm3 (4.00-5.60); RDW 18.5 % (11.9-15.9); WHITE BLOOD COUNT 14.3 K/mm3 (4.0-10.0)
[2023-06-16] MEDS: ALBUMIN HUMAN 25% 12.5 GM/50 ML VIAL IV SCH (09:00)
[2023-06-16 09:11] LABS: POTASSIUM 3.3 mmol/L (3.5-5.1)
[2023-06-16 09:13] LABS: ALBUMIN 1.8 g/dl (3.4-5.0); BLOOD UREA NITROGEN 34.2 mg/dL (7-18)
[2023-06-16 09:15] LABS: MAGNESIUM 2.1 mg/dL (1.8-2.4)
[2023-06-16 09:17] LABS: CREATININE 1.9 mg/dL (0.55-1.3)
[2023-06-16 09:19] LABS: BILIRUBIN,TOTAL 0.6 mg/dL (0.2-1); TOT PROT 5.2 g/dl (6.4-8.2)
[2023-06-16 10:41] LABS: ANISOCYTOSIS 0; MACROCYTOSIS 0
[2023-06-16] MEDS: POTASSIUM CHLORIDE ORAL LIQUID 20 MEQ/15 ML NGT ONE (12:55)
[2023-06-16] MEDS ORDERED: INSULIN (NOVOLOG) ASPART 100 UNITS/ML 10ML VIAL ONE (17:14)
[2023-06-17 07:45] LABS: HEMATOCRIT 27.1 % (35.4-49); HEMOGLOBIN 8.8 GM/dL (11.7-16.9); MCH 30.8 pg (25.7-33.7); MCHC 32.3 g/dl (32.0-35.9); MEAN CELL VOLUME 95.1 fl (80-96); MEAN PLT VOLUME 9.9 fl (7.5-11.1); PLATELET COUNT 187 10^3/uL (134-434); RBC 2.85 M/mm3 (4.00-5.60); RDW 18.2 % (11.9-15.9); WHITE BLOOD COUNT 15.1 K/mm3 (4.0-10.0)
[2023-06-17 08:02] LABS: POTASSIUM 3.5 mmol/L (3.5-5.1)
[2023-06-17 08:06] LABS: BLOOD UREA NITROGEN 33.1 mg/dL (7-18)
[2023-06-17 08:08] LABS: MAGNESIUM 1.7 mg/dL (1.8-2.4)
[2023-06-17 08:10] LABS: CREATININE 1.6 mg/dL (0.55-1.3)
[2023-06-17 08:12] LABS: PHOSPHOROUS 2.3 mg/dL (2.5-4.9)
[2023-06-17 08:13] LABS: CALCIUM 8.4 mg/dL (8.5-10.1)
[2023-06-17] MEDS: POTASSIUM CHLORIDE ORAL LIQUID 20 MEQ/15 ML NGT ONE (08:37)
[2023-06-17] MEDS: MAGNESIUM 2GM/50ML STERILE WATER IVPB IVPB ONE (08:37)
[2023-06-17 09:51] LABS: ANISOCYTOSIS 0; MACROCYTOSIS 0
[2023-06-18 07:25] LABS: HEMATOCRIT 26.4 % (35.4-49); HEMOGLOBIN 8.7 GM/dL (11.7-16.9); MCH 31.2 pg (25.7-33.7); MCHC 33.1 g/dl (32.0-35.9); MEAN CELL VOLUME 94.2 fl (80-96); MEAN PLT VOLUME 9.5 fl (7.5-11.1); PLATELET COUNT 206 10^3/uL (134-434); RDW 18.7 % (11.9-15.9); WHITE BLOOD COUNT 11.5 K/mm3 (4.0-10.0)
[2023-06-18 07:41] LABS: POTASSIUM 3.8 mmol/L (3.5-5.1)
[2023-06-18 07:45] LABS: ALBUMIN 1.6 g/dl (3.4-5.0); BLOOD UREA NITROGEN 44.2 mg/dL (7-18); CALCIUM 8.8 mg/dL (8.5-10.1)
[2023-06-18 07:47] LABS: MAGNESIUM 2.3 mg/dL (1.8-2.4)
[2023-06-18 07:49] LABS: CREATININE 2.1 mg/dL (0.55-1.3); PHOSPHOROUS 2.9 mg/dL (2.5-4.9)
[2023-06-18 07:50] LABS: BILIRUBIN,TOTAL 0.7 mg/dL (0.2-1); TOT PROT 5.1 g/dl (6.4-8.2)
[2023-06-18 08:40] LABS: ANISOCYTOSIS 1+; MACROCYTOSIS 0; TARGET CELLS 1+
[2023-06-18] MEDS ORDERED: INSULIN REGULAR HUMAN 100 UNITS/ML *VIAL ONE (09:40)
[2023-06-18] MEDS ORDERED: INSULIN (NOVOLOG) ASPART 100 UNITS/ML 10ML VIAL ONE (17:15)
[2023-06-19 07:18] LABS: BASO % 0.9 % (0-2.0); HEMATOCRIT 28.7 % (35.4-49); HEMOGLOBIN 9.6 GM/dL (11.7-16.9); LYMPH % 4.7 % (8-40); MCH 31.3 pg (25.7-33.7); MCHC 33.3 g/dl (32.0-35.9); NEUT % 87.4 % (42.8-82.8); PLATELET COUNT 231 10^3/uL (134-434); RBC 3.05 M/mm3 (4.00-5.60); RDW 18.4 % (11.9-15.9); WHITE BLOOD COUNT 11.6 K/mm3 (4.0-10.0)
[2023-06-19 07:29] LABS: POTASSIUM 3.9 mmol/L (3.5-5.1)
[2023-06-19 07:34] LABS: CALCIUM 8.9 mg/dL (8.5-10.1)
[2023-06-19 07:35] LABS: ALBUMIN 1.6 g/dl (3.4-5.0); BLOOD UREA NITROGEN 52.7 mg/dL (7-18); MAGNESIUM 2.3 mg/dL (1.8-2.4)
[2023-06-19] MEDS ORDERED: SODIUM CHLORIDE 250 ML IV PRN (07:35)
[2023-06-19 07:38] LABS: CREATININE 2.5 mg/dL (0.55-1.3); PHOSPHOROUS 3.3 mg/dL (2.5-4.9)
[2023-06-19 07:39] LABS: BILIRUBIN,TOTAL 0.6 mg/dL (0.2-1); TOT PROT 5.2 g/dl (6.4-8.2)
[2023-06-19] MEDS: PROPOFOL 1,000,000 MCG/100 ML VIAL IVPB SCH (09:46)
[2023-06-19] MEDS ORDERED: levETIRAcetam 500 MG/5 ML INJECTION VIAL IVPB SCH ×2 (10:09→22:00)
[2023-06-19] MEDS ORDERED: levETIRAcetam 500 MG/5 ML INJECTION VIAL IVPB ONE (10:45)
[2023-06-19] MEDS: levETIRAcetam 500 MG/5 ML INJECTION VIAL IVPB ONE (10:56)
[2023-06-19] MEDS: EPOETIN ALFA-EPBX 10,000 UNIT/ML VIAL SQ ONE (14:41)
[2023-06-19] MEDS: levETIRAcetam 500 MG/5 ML INJECTION VIAL IVPB SCH (21:24)
[2023-06-20 07:16] LABS: BASO % 0.2 % (0-2.0); HEMATOCRIT 28.2 % (35.4-49); HEMOGLOBIN 9.2 GM/dL (11.7-16.9); LYMPH % 6.3 % (8-40); MCH 30.9 pg (25.7-33.7); MCHC 32.6 g/dl (32.0-35.9); MEAN CELL VOLUME 94.9 fl (80-96); MEAN PLT VOLUME 9.5 fl (7.5-11.1); MONO % 6.6 % (3.8-10.2); NEUT % 85.9 % (42.8-82.8); PLATELET COUNT 234 10^3/uL (134-434); RBC 2.97 M/mm3 (4.00-5.60); RDW 18.3 % (11.9-15.9); WHITE BLOOD COUNT 13.2 K/mm3 (4.0-10.0)
[2023-06-20 07:45] LABS: POTASSIUM 3.6 mmol/L (3.5-5.1)
[2023-06-20 08:09] LABS: ALBUMIN 1.5 g/dl (3.4-5.0)
[2023-06-20 08:10] LABS: BILIRUBIN,TOTAL 0.4 mg/dL (0.2-1); CALCIUM 8.9 mg/dL (8.5-10.1)
[2023-06-20 08:11] LABS: BLOOD UREA NITROGEN 39.6 mg/dL (7-18); MAGNESIUM 1.9 mg/dL (1.8-2.4)
[2023-06-20 08:12] LABS: PHOSPHOROUS 2.7 mg/dL (2.5-4.9)
[2023-06-20] MEDS: MIDODRINE HCL 5 MG TABLET PO SCH (14:38)
[2023-06-21 07:34] LABS: POTASSIUM 3.7 mmol/L (3.5-5.1)
[2023-06-21 07:52] LABS: ALBUMIN 1.6 g/dl (3.4-5.0); CALCIUM 8.7 mg/dL (8.5-10.1); PHOSPHOROUS 3.4 mg/dL (2.5-4.9)
[2023-06-21 07:53] LABS: BLOOD UREA NITROGEN 45.8 mg/dL (7-18); CREATININE 2.4 mg/dL (0.55-1.3)
[2023-06-21 07:54] LABS: BILIRUBIN,TOTAL 0.6 mg/dL (0.2-1); TOT PROT 5.5 g/dl (6.4-8.2)
[2023-06-21] MEDS ORDERED: SODIUM CHLORIDE 250 ML IV PRN (08:21)
[2023-06-21 08:31] LABS: HEMATOCRIT 30.3 % (35.4-49); HEMOGLOBIN 9.9 GM/dL (11.7-16.9); MCH 30.8 pg (25.7-33.7); MCHC 32.7 g/dl (32.0-35.9); MEAN CELL VOLUME 94.4 fl (80-96); MEAN PLT VOLUME 9.4 fl (7.5-11.1); PLATELET COUNT 259 10^3/uL (134-434); RBC 3.21 M/mm3 (4.00-5.60); RDW 18.3 % (11.9-15.9)
[2023-06-21] MEDS: ALBUMIN HUMAN 25% 12.5 GM/50 ML VIAL IV SCH (09:16)
[2023-06-21] MEDS: EPOETIN ALFA-EPBX 10,000 UNIT/ML VIAL SQ ONE (09:16)
[2023-06-21 10:38] LABS: ANISOCYTOSIS 1+; MACROCYTOSIS 0
[2023-06-21] MEDS: DEXTROSE 10%-WATER - 1,000 ML IV SCH (21:21)
[2023-06-22] MEDS ORDERED: RAPID SEQUENCE INTUBATION KIT NR ONE (01:31)
[2023-06-22 03:55] LABS: ARTERIAL BLD GAS O2 SATURATION 99.4 % (95-98); ARTERIAL BLOOD GAS PO2 201.3 mmHg (80-100); ARTERIAL BLOOD GAS pH 7.474 (7.350-7.450)
[2023-06-22 07:32] LABS: BASO % 0.6 % (0-2.0); EOS % 0.3 % (0-4.5); HEMATOCRIT 29.3 % (35.4-49); HEMOGLOBIN 9.5 GM/dL (11.7-16.9); LYMPH % 4.9 % (8-40); MCH 31.1 pg (25.7-33.7); MCHC 32.5 g/dl (32.0-35.9); MEAN CELL VOLUME 95.6 fl (80-96); MEAN PLT VOLUME 9.4 fl (7.5-11.1); MONO % 5.2 % (3.8-10.2); PLATELET COUNT 254 10^3/uL (134-434); RBC 3.07 M/mm3 (4.00-5.60); RDW 18.2 % (11.9-15.9); WHITE BLOOD COUNT 15.7 K/mm3 (4.0-10.0)
[2023-06-22 08:01] LABS: POTASSIUM 3.7 mmol/L (3.5-5.1)
[2023-06-22 08:13] LABS: CREATININE 1.9 mg/dL (0.55-1.3)
[2023-06-22 08:18] LABS: BLOOD UREA NITROGEN 29.8 mg/dL (7-18); CALCIUM 9.2 mg/dL (8.5-10.1)
[2023-06-22 08:19] LABS: MAGNESIUM 1.8 mg/dL (1.8-2.4)
[2023-06-22 08:22] LABS: PHOSPHOROUS 3.1 mg/dL (2.5-4.9)
[2023-06-22 08:23] LABS: TOT PROT 5.8 g/dl (6.4-8.2)
[2023-06-22 08:26] LABS: ALBUMIN 2.1 g/dl (3.4-5.0)
[2023-06-22] MEDS ORDERED: ALBUTEROL SO4 HFA INHALER IH PRN (08:34)
[2023-06-22] MEDS: ALBUTEROL SO4 0.083% IH SOL 2.5 MG/3 ML VIAL.NEB. NEB PRN (09:13)
[2023-06-22] MEDS: ACETYLCYSTEINE 20% 200MG/ML 4 ML VIAL *FOR ORAL / INH USE ONLY NEB ONE (09:13)
[2023-06-22] MEDS: SODIUM CHLORIDE 0.9% 500 ML INFUS.BAG IV ONE (12:56)
[2023-06-22] MEDS: FENTANYL NS IVPB 500 MCG/100 ML BAG IVPB SCH (17:35)
[2023-06-22 21:33] LABS: BASO % 0.8 % (0-2.0); EOS % 0.6 % (0-4.5); HEMATOCRIT 26.1 % (35.4-49); HEMOGLOBIN 8.4 GM/dL (11.7-16.9); LYMPH % 5.7 % (8-40); MCH 30.3 pg (25.7-33.7); MCHC 32.2 g/dl (32.0-35.9); MEAN PLT VOLUME 8.7 fl (7.5-11.1); MONO % 7.8 % (3.8-10.2); NEUT % 85.1 % (42.8-82.8); PLATELET COUNT 262 10^3/uL (134-434); RBC 2.78 M/mm3 (4.00-5.60); RDW 18.3 % (11.9-15.9); WHITE BLOOD COUNT 11.3 K/mm3 (4.0-10.0)
[2023-06-22 22:26] LABS: PLATELET ESTIMATE NORMAL
[2023-06-23 07:03] LABS: BASO % 0.5 % (0-2.0); EOS % 0.4 % (0-4.5); HEMATOCRIT 24.9 % (35.4-49); HEMOGLOBIN 8.3 GM/dL (11.7-16.9); LYMPH % 6.1 % (8-40); MCH 31.3 pg (25.7-33.7); MCHC 33.2 g/dl (32.0-35.9); MEAN CELL VOLUME 94.4 fl (80-96); MEAN PLT VOLUME 9.1 fl (7.5-11.1); MONO % 7.9 % (3.8-10.2); NEUT % 85.1 % (42.8-82.8); PLATELET COUNT 226 10^3/uL (134-434); RBC 2.64 M/mm3 (4.00-5.60); RDW 18.3 % (11.9-15.9); WHITE BLOOD COUNT 10.9 K/mm3 (4.0-10.0)
[2023-06-23 07:21] LABS: POTASSIUM 3.6 mmol/L (3.5-5.1)
[2023-06-23 07:22] LABS: CALCIUM 9.1 mg/dL (8.5-10.1)
[2023-06-23 07:28] LABS: MAGNESIUM 1.8 mg/dL (1.8-2.4)
[2023-06-23 07:29] LABS: ALBUMIN 1.8 g/dl (3.4-5.0); BLOOD UREA NITROGEN 38.1 mg/dL (7-18)
[2023-06-23 07:31] LABS: CREATININE 2.1 mg/dL (0.55-1.3); PHOSPHOROUS 3.3 mg/dL (2.5-4.9)
[2023-06-23 07:33] LABS: BILIRUBIN,TOTAL 0.9 mg/dL (0.2-1)
[2023-06-23] MEDS ORDERED: SODIUM CHLORIDE 250 ML IV PRN (10:00)
[2023-06-23] MEDS: EPOETIN ALFA-EPBX 10,000 UNIT/ML VIAL IVPUSH ONE (10:10)
[2023-06-24 08:11] LABS: POTASSIUM 3.2 mmol/L (3.5-5.1)
[2023-06-24 08:17] LABS: CALCIUM 9.4 mg/dL (8.5-10.1)
[2023-06-24 08:18] LABS: ALBUMIN 2.1 g/dl (3.4-5.0); BLOOD UREA NITROGEN 26.9 mg/dL (7-18); MAGNESIUM 1.9 mg/dL (1.8-2.4)
[2023-06-24 08:21] LABS: CREATININE 1.6 mg/dL (0.55-1.3); PHOSPHOROUS 2.3 mg/dL (2.5-4.9)
[2023-06-24 08:22] LABS: BILIRUBIN,TOTAL 1.2 mg/dL (0.2-1); TOT PROT 5.1 g/dl (6.4-8.2)
[2023-06-24 08:28] LABS: BASO % 0.7 % (0-2.0); EOS % 0.5 % (0-4.5); HEMATOCRIT 23.9 % (35.4-49); HEMOGLOBIN 7.9 GM/dL (11.7-16.9); LYMPH % 9.9 % (8-40); MCHC 32.9 g/dl (32.0-35.9); MEAN CELL VOLUME 94.3 fl (80-96); MEAN PLT VOLUME 9.1 fl (7.5-11.1); MONO % 9.9 % (3.8-10.2); PLATELET COUNT 240 10^3/uL (134-434); RBC 2.54 M/mm3 (4.00-5.60); RDW 18.7 % (11.9-15.9); WHITE BLOOD COUNT 10.4 K/mm3 (4.0-10.0)
[2023-06-25 07:43] LABS: BASO % 0.4 % (0-2.0); EOS % 0.4 % (0-4.5); HEMATOCRIT 24.4 % (35.4-49); HEMOGLOBIN 7.8 GM/dL (11.7-16.9); LYMPH % 4.7 % (8-40); MCH 30.3 pg (25.7-33.7); MCHC 32.1 g/dl (32.0-35.9); MEAN CELL VOLUME 94.3 fl (80-96); MEAN PLT VOLUME 8.8 fl (7.5-11.1); MONO % 8.8 % (3.8-10.2); NEUT % 85.7 % (42.8-82.8); PLATELET COUNT 243 10^3/uL (134-434); RBC 2.59 M/mm3 (4.00-5.60); RDW 18.4 % (11.9-15.9)
[2023-06-25 07:56] LABS: POTASSIUM 3.1 mmol/L (3.5-5.1)
[2023-06-25 07:59] LABS: ALBUMIN 1.9 g/dl (3.4-5.0); CALCIUM 9.1 mg/dL (8.5-10.1)
[2023-06-25 08:00] LABS: MAGNESIUM 1.8 mg/dL (1.8-2.4)
[2023-06-25 08:02] LABS: PHOSPHOROUS 3.1 mg/dL (2.5-4.9)
[2023-06-25 08:03] LABS: CREATININE 2.1 mg/dL (0.55-1.3)
[2023-06-25 08:04] LABS: TOT PROT 5.2 g/dl (6.4-8.2)
[2023-06-25] MEDS: KCL 20 MEQ PREMIX BAG 20 MEQ/100 ML INFUS.BAG IVPB SCH (09:19)
[2023-06-25 18:27] LABS: POTASSIUM 3.9 mmol/L (3.5-5.1)
[2023-06-25 18:28] LABS: CALCIUM 8.6 mg/dL (8.5-10.1)
[2023-06-25 18:29] LABS: BLOOD UREA NITROGEN 41.9 mg/dL (7-18)
[2023-06-25 18:32] LABS: CREATININE 2.3 mg/dL (0.55-1.3)
[2023-06-25 23:00] LABS: ARTERIAL BLD GAS O2 SATURATION 97.5 % (95-98); ARTERIAL BLOOD GAS BASE EXCESS 2.2 mmol/L (-2-2); ARTERIAL BLOOD GAS PO2 88.7 mmHg (80-100); ARTERIAL BLOOD GAS pH 7.499 (7.350-7.450)
[2023-06-26 07:23] LABS: HEMATOCRIT 24.8 % (35.4-49); MCH 30.7 pg (25.7-33.7); MCHC 32.3 g/dl (32.0-35.9); MEAN CELL VOLUME 94.8 fl (80-96); MEAN PLT VOLUME 8.8 fl (7.5-11.1); PLATELET COUNT 227 10^3/uL (134-434); RBC 2.61 M/mm3 (4.00-5.60); RDW 18.7 % (11.9-15.9); WHITE BLOOD COUNT 17.2 K/mm3 (4.0-10.0)
[2023-06-26 07:43] LABS: POTASSIUM 3.8 mmol/L (3.5-5.1)
[2023-06-26 07:50] LABS: CALCIUM 8.8 mg/dL (8.5-10.1)
[2023-06-26 07:51] LABS: ALBUMIN 1.8 g/dl (3.4-5.0); BLOOD UREA NITROGEN 49.6 mg/dL (7-18)
[2023-06-26 07:54] LABS: CREATININE 2.5 mg/dL (0.55-1.3); PHOSPHOROUS 3.2 mg/dL (2.5-4.9)
[2023-06-26 07:55] LABS: BILIRUBIN,TOTAL 0.8 mg/dL (0.2-1); TOT PROT 5.2 g/dl (6.4-8.2)
[2023-06-26] MEDS: EPOETIN ALFA-EPBX 10,000 UNIT/ML VIAL IVPUSH ONE (09:38)
[2023-06-26] MEDS ORDERED: SODIUM CHLORIDE 250 ML IV PRN (10:35)
[2023-06-26] MEDS: ALBUMIN HUMAN 25% 12.5 GM/50 ML VIAL IV SCH (10:45)
[2023-06-27] MEDS ORDERED: SODIUM CHLORIDE 250 ML IV PRN (18:24)
[2023-06-28 06:39] LABS: HEMATOCRIT 24.2 % (35.4-49); MCH 31.4 pg (25.7-33.7); MCHC 33.1 g/dl (32.0-35.9); MEAN CELL VOLUME 94.9 fl (80-96); MEAN PLT VOLUME 8.9 fl (7.5-11.1); PLATELET COUNT 189 10^3/uL (134-434); RBC 2.55 M/mm3 (4.00-5.60); RDW 18.6 % (11.9-15.9); WHITE BLOOD COUNT 16.3 K/mm3 (4.0-10.0)
[2023-06-28 06:43] LABS: ARTERIAL BLD GAS O2 SATURATION 94.7 % (95-98); ARTERIAL BLOOD GAS BASE EXCESS 4.3 mmol/L (-2-2); ARTERIAL BLOOD GAS PO2 66.9 mmHg (80-100); ARTERIAL BLOOD GAS pH 7.487 (7.350-7.450)
[2023-06-28 06:48] LABS: VENT MODE A/C; VENT RATE 12
[2023-06-28 07:00] LABS: POTASSIUM 3.6 mmol/L (3.5-5.1)
[2023-06-28 07:03] LABS: ALBUMIN 1.9 g/dl (3.4-5.0); CALCIUM 8.7 mg/dL (8.5-10.1)
[2023-06-28 07:04] LABS: BLOOD UREA NITROGEN 47.5 mg/dL (7-18); MAGNESIUM 1.7 mg/dL (1.8-2.4)
[2023-06-28 07:06] LABS: PHOSPHOROUS 2.2 mg/dL (2.5-4.9)
[2023-06-28 07:07] LABS: CREATININE 2.3 mg/dL (0.55-1.3)
[2023-06-28 07:08] LABS: BILIRUBIN,TOTAL 0.7 mg/dL (0.2-1); TOT PROT 5.1 g/dl (6.4-8.2)
[2023-06-28] MEDS: MAGNESIUM 2GM/50ML STERILE WATER IVPB IVPB ONE (08:39)
[2023-06-28] MEDS: NAPH,MB-DB/K PH,MBDB POWDER PACKET PO ONE (09:37)
[2023-06-28 09:52] LABS: INR 1.38 (0.83-1.09)
[2023-06-28] MEDS ORDERED: ALBUMIN HUMAN 25% 12.5 GM/50 ML VIAL IV SCH (12:15)
[2023-06-28] MEDS: MIDAZOLAM HCL 5 MG/1 ML Single Dose Vial IVPUSH ONE (16:16)
[2023-06-28] MEDS: ROCURONIUM BROMIDE 50 MG/5 ML VIAL IVPUSH ONE (16:17)
[2023-06-28] MEDS: VANCOMYCIN ORAL SOLUTION 125 MG/2.5 ML NGT SCH (22:05)
[2023-06-28] MEDS: EPOETIN ALFA-EPBX 10,000 UNIT/ML VIAL IVPUSH ONE (22:06)
[2023-06-29 06:43] LABS: ARTERIAL BLD GAS O2 SATURATION 85.6 % (95-98); ARTERIAL BLOOD GAS BASE EXCESS 1.3 mmol/L (-2-2); ARTERIAL BLOOD GAS PO2 48.6 mmHg (80-100); ARTERIAL BLOOD GAS pH 7.432 (7.350-7.450)
[2023-06-29 06:55] LABS: VENT MODE A/C; VENT RATE 12
[2023-06-29 07:05] LABS: HEMATOCRIT 24.3 % (35.4-49); HEMOGLOBIN 7.8 GM/dL (11.7-16.9); MCH 30.6 pg (25.7-33.7); MCHC 32.3 g/dl (32.0-35.9); MEAN CELL VOLUME 94.7 fl (80-96); PLATELET COUNT 190 10^3/uL (134-434); RBC 2.56 M/mm3 (4.00-5.60); RDW 18.3 % (11.9-15.9); WHITE BLOOD COUNT 15.8 K/mm3 (4.0-10.0)
[2023-06-29 07:31] LABS: POTASSIUM 3.8 mmol/L (3.5-5.1)
[2023-06-29 07:33] LABS: CALCIUM 8.7 mg/dL (8.5-10.1)
[2023-06-29 07:34] LABS: BLOOD UREA NITROGEN 60.9 mg/dL (7-18)
[2023-06-29 07:37] LABS: CREATININE 2.5 mg/dL (0.55-1.3)
[2023-06-29] MEDS: ALBUMIN HUMAN 25% 12.5 GM/50 ML VIAL IV SCH (10:42)
[2023-06-29] MEDS: EPOETIN ALFA-EPBX 10,000 UNIT/ML VIAL IVPUSH ONE (10:45)
[2023-06-29] MEDS ORDERED: ACETAMINOPHEN 1000 MG/100 ML BAG IVPB PRN (10:53)
[2023-06-29] MEDS: ACETYLCYSTEINE 20% 200MG/ML 4 ML VIAL *FOR ORAL / INH USE ONLY NEB SCH (13:49)
[2023-06-29] MEDS: ALBUTEROL SO4 0.083% IH SOL 2.5 MG/3 ML VIAL.NEB. NEB SCH (13:49)
[2023-06-29 13:54] LABS: ARTERIAL BLD GAS O2 SATURATION 94.7 % (95-98); ARTERIAL BLOOD GAS BASE EXCESS 5.4 mmol/L (-2-2); ARTERIAL BLOOD GAS PO2 69.8 mmHg (80-100); ARTERIAL BLOOD GAS pH 7.455 (7.350-7.450)
[2023-06-29 13:56] LABS: VENT MODE AC; VENT RATE 12
[2023-06-29] MEDS ORDERED: ACETYLCYSTEINE 20% 200MG/ML 30 ML VIAL *FOR ORAL / INH USE ONLY NEB SCH (14:00)
[2023-06-29] MEDS: ACETAMINOPHEN 1000 MG/100 ML BAG IVPB SCH (14:28)
[2023-06-29] MEDS ORDERED: SODIUM CHLORIDE 250 ML IV PRN (16:16)
[2023-06-29] MEDS: ALBUMIN HUMAN 25% 12.5 GM/50 ML VIAL IV ONE (16:44)
[2023-06-29] MEDS ORDERED: INSULIN (NOVOLOG) ASPART 100 UNITS/ML 10ML VIAL ONE (23:16)
[2023-06-30] MEDS ORDERED: DEXMEDETOMIDINE PREMIX 400 MCG/100 ML BAG IVPB SCH (03:30)
[2023-06-30 07:20] LABS: HEMATOCRIT 25.3 % (35.4-49); HEMOGLOBIN 7.9 GM/dL (11.7-16.9); MCH 29.7 pg (25.7-33.7); MCHC 31.3 g/dl (32.0-35.9); MEAN CELL VOLUME 94.8 fl (80-96); PLATELET COUNT 190 10^3/uL (134-434); RBC 2.67 M/mm3 (4.00-5.60); RDW 18.6 % (11.9-15.9); WHITE BLOOD COUNT 18.6 K/mm3 (4.0-10.0)
[2023-06-30] MEDS ORDERED: INSULIN (NOVOLOG) ASPART 100 UNITS/ML 10ML VIAL ONE (07:28)
[2023-06-30 07:39] LABS: POTASSIUM 3.6 mmol/L (3.5-5.1)
[2023-06-30 07:42] LABS: CALCIUM 8.6 mg/dL (8.5-10.1)
[2023-06-30 07:43] LABS: MAGNESIUM 2.1 mg/dL (1.8-2.4)
[2023-06-30 07:46] LABS: PHOSPHOROUS 3.1 mg/dL (2.5-4.9)
[2023-06-30 07:47] LABS: BILIRUBIN,TOTAL 0.7 mg/dL (0.2-1); TOT PROT 5.3 g/dl (6.4-8.2)
[2023-06-30 07:59] LABS: BLOOD UREA NITROGEN 41.9 mg/dL (7-18); CREATININE 1.9 mg/dL (0.55-1.3)
[2023-07-01 06:54] LABS: ARTERIAL BLD GAS O2 SATURATION 99.7 % (95-98); ARTERIAL BLOOD GAS PO2 268.4 mmHg (80-100); ARTERIAL BLOOD GAS pH 7.468 (7.350-7.450)
[2023-07-01 07:10] LABS: VENT MODE AC; VENT RATE 24
[2023-07-01] MEDS ORDERED: INSULIN (NOVOLOG) ASPART 100 UNITS/ML 10ML VIAL ONE ×2 (07:17→13:55)
[2023-07-01 08:02] LABS: HEMATOCRIT 24.5 % (35.4-49); HEMOGLOBIN 7.6 GM/dL (11.7-16.9); MCH 29.5 pg (25.7-33.7); MEAN CELL VOLUME 95.1 fl (80-96); MEAN PLT VOLUME 9.4 fl (7.5-11.1); PLATELET COUNT 178 10^3/uL (134-434); RBC 2.58 M/mm3 (4.00-5.60); RDW 18.6 % (11.9-15.9); WHITE BLOOD COUNT 22.8 K/mm3 (4.0-10.0)
[2023-07-01 08:34] LABS: POTASSIUM 3.9 mmol/L (3.5-5.1)
[2023-07-01 08:39] LABS: ACTIVATED PTT 31.1 SECONDS (25.2-36.5); CALCIUM 8.7 mg/dL (8.5-10.1)
[2023-07-01 08:41] LABS: INR 1.44 (0.83-1.09); PROTHROMBIN TIME (PATIENT) 16.7 SEC (9.7-13.0)
[2023-07-01 08:43] LABS: CREATININE 1.7 mg/dL (0.55-1.3); PHOSPHOROUS 2.9 mg/dL (2.5-4.9)
[2023-07-01 10:26] LABS: ANISOCYTOSIS 0; MACROCYTOSIS 0; TARGET CELLS 2+
[2023-07-02 07:36] LABS: HEMATOCRIT 22.5 % (35.4-49); HEMOGLOBIN 7.4 GM/dL (11.7-16.9); MCH 30.5 pg (25.7-33.7); MCHC 32.7 g/dl (32.0-35.9); MEAN CELL VOLUME 93.4 fl (80-96); MEAN PLT VOLUME 9.4 fl (7.5-11.1); PLATELET COUNT 171 10^3/uL (134-434); RBC 2.41 M/mm3 (4.00-5.60); WHITE BLOOD COUNT 22.2 K/mm3 (4.0-10.0)
[2023-07-02 07:39] LABS: INR 1.37 (0.83-1.09); PROTHROMBIN TIME (PATIENT) 15.8 SEC (9.7-13.0)
[2023-07-02 07:42] LABS: ACTIVATED PTT 32.3 SECONDS (25.2-36.5)
[2023-07-02 07:46] LABS: POTASSIUM 4.2 mmol/L (3.5-5.1)
[2023-07-02 07:52] LABS: CALCIUM 9.1 mg/dL (8.5-10.1)
[2023-07-02 07:53] LABS: ALBUMIN 1.8 g/dl (3.4-5.0); BLOOD UREA NITROGEN 54.6 mg/dL (7-18)
[2023-07-02 07:56] LABS: PHOSPHOROUS 3.2 mg/dL (2.5-4.9)
[2023-07-02 07:57] LABS: BILIRUBIN,TOTAL 0.9 mg/dL (0.2-1)
[2023-07-02 07:58] LABS: TOT PROT 5.2 g/dl (6.4-8.2)
[2023-07-02 10:53] LABS: ANISOCYTOSIS 0; MACROCYTOSIS 0; TARGET CELLS 3+
[2023-07-02] MEDS: dilTIAZem HCL 30 MG TABLET NGT SCH (13:17)
[2023-07-02] MEDS ORDERED: GLUCAGON 1 MG KIT ONE (15:20)
[2023-07-02] MEDS: GLUCAGON 1 MG KIT IVPUSH ONE (16:45)
[2023-07-03] MEDS ORDERED: SODIUM CHLORIDE 250 ML IV PRN (07:00)
[2023-07-03 07:28] LABS: HEMATOCRIT 23.4 % (35.4-49); HEMOGLOBIN 7.5 GM/dL (11.7-16.9); MCH 29.9 pg (25.7-33.7); MCHC 31.9 g/dl (32.0-35.9); MEAN CELL VOLUME 93.6 fl (80-96); MEAN PLT VOLUME 9.6 fl (7.5-11.1); PLATELET COUNT 170 10^3/uL (134-434); RDW 18.2 % (11.9-15.9); WHITE BLOOD COUNT 16.8 K/mm3 (4.0-10.0)
[2023-07-03 07:59] LABS: POTASSIUM 4.3 mmol/L (3.5-5.1)
[2023-07-03 08:07] LABS: ALBUMIN 1.8 g/dl (3.4-5.0); BLOOD UREA NITROGEN 67.2 mg/dL (7-18); CALCIUM 9.4 mg/dL (8.5-10.1)
[2023-07-03 08:10] LABS: CREATININE 2.3 mg/dL (0.55-1.3)
[2023-07-03 08:12] LABS: BILIRUBIN,TOTAL 1.1 mg/dL (0.2-1); TOT PROT 5.1 g/dl (6.4-8.2)
[2023-07-03] MEDS: EPOETIN ALFA-EPBX 10,000 UNIT/ML VIAL IVPUSH ONE (09:18)
[2023-07-03] MEDS ORDERED: IOHEXOL (OMNIPAQUE PO) 12 MG/ML - 500 ML BOTTLE PO ONE (09:28)
[2023-07-03] MEDS: ALBUMIN HUMAN 25% 12.5 GM/50 ML VIAL IV PRN (11:26)
[2023-07-04] MEDS ORDERED: INSULIN (LEVEMIR) 100 UNITS/ML UNITS SQ ONE (15:17)
[2023-07-04] MEDS: ALBUMIN HUMAN 25% 12.5 GM/50 ML VIAL IV ONE (21:22)
[2023-07-05] MEDS ORDERED: SODIUM CHLORIDE 250 ML IV PRN (13:24)
[2023-07-05] MEDS: levETIRAcetam 500 MG/5 ML ORAL SOLUTION (UNIT-DOSE CUPS) PO SCH (14:58)
[2023-07-05] MEDS: FAMOTIDINE 10 MG TABLET PO SCH (15:00)
[2023-07-05] MEDS: EPOETIN ALFA-EPBX 10,000 UNIT/ML VIAL IVPUSH ONE (16:27)
[2023-07-06] MEDS: MIDODRINE HCL 2.5 MG TABLET PO SCH (09:31)
[2023-07-06] MEDS ORDERED: SODIUM CHLORIDE 250 ML IV PRN (15:46)
[2023-07-07] MEDS ORDERED: ALBUTEROL SO4 0.083% IH SOL 2.5 MG/3 ML VIAL.NEB. NEB PRN (03:00)
[2023-07-07 03:22] LABS: ARTERIAL BLD GAS O2 SATURATION 99.7 % (95-98); ARTERIAL BLOOD GAS BASE EXCESS 5.4 mmol/L (-2-2); ARTERIAL BLOOD GAS PO2 292.8 mmHg (80-100)
[2023-07-07 03:24] LABS: ALLENS TEST POSITIVE
[2023-07-07 03:25] LABS: VENT MODE A/C; VENT RATE 12
[2023-07-07] MEDS: dilTIAZem HCL 30 MG TABLET NGT SCH (06:25)
[2023-07-07] MEDS: INSULIN ASPART SLIDING SCALE (NOVOLOG) 1 VIAL SQ SCH (06:45)
[2023-07-07] MEDS: ALBUTEROL SO4 0.083% IH SOL 2.5 MG/3 ML VIAL.NEB. NEB SCH (08:14)
[2023-07-07] MEDS: AMINO ACIDS/PROTEIN HYDROLYS 30 ML LIQUID.PKT PO SCH (10:57)
[2023-07-07] MEDS: ARTIFICIAL TEARS OPHTHALMIC DROPS OU SCH (10:58)
[2023-07-07] MEDS: levETIRAcetam 500 MG/5 ML ORAL SOLUTION (UNIT-DOSE CUPS) PO SCH (10:59)
[2023-07-07] MEDS: APIXABAN 2.5 MG TABLET PO SCH (10:59)
[2023-07-07] MEDS ORDERED: EPOETIN ALFA-EPBX 10,000 UNIT/ML VIAL IVPUSH ONE (11:00)
[2023-07-07] MEDS: VITAMIN B COMP W-C 1 EA TABLET (NEPHRO-VITE) PO SCH (11:00)
[2023-07-07] MEDS: FAMOTIDINE 20 MG TABLET PO SCH (11:01)
[2023-07-08] MEDS: SCOPOLAMINE HYDROBROMIDE 1 PATCH PATCH.TD72 TD SCH (09:02)
[2023-07-09] MEDS: ACETAMINOPHEN 650 MG/20.3 ML ORAL SOLUTION (CUPS) NGT PRN (00:37)
[2023-07-09] MEDS: MIDODRINE HCL 5 MG TABLET PO SCH (08:48)
[2023-07-09] MEDS: dilTIAZem HCL 30 MG TABLET NGT SCH (18:23)
[2023-07-09] MEDS: SODIUM CHLORIDE 500 ML IV STA (23:06)
[2023-07-10 02:54] LABS: HEMATOCRIT 21.1 % (35.4-49); MCH 29.2 pg (25.7-33.7); MCHC 31.5 g/dl (32.0-35.9); MEAN CELL VOLUME 92.6 fl (80-96); MEAN PLT VOLUME 10.6 fl (7.5-11.1); PLATELET COUNT 134 10^3/uL (134-434); RBC 2.28 M/mm3 (4.00-5.60); RDW 17.2 % (11.9-15.9); WHITE BLOOD COUNT 19.6 K/mm3 (4.0-10.0)
[2023-07-10 03:06] LABS: HEMOGLOBIN 6.7 GM/dL (11.7-16.9)
[2023-07-10 03:11] LABS: POTASSIUM 3.7 mmol/L (3.5-5.1)
[2023-07-10 03:13] LABS: CALCIUM 9.2 mg/dL (8.5-10.1)
[2023-07-10 03:14] LABS: ALBUMIN 1.6 g/dl (3.4-5.0); BLOOD UREA NITROGEN 78.9 mg/dL (7-18)
[2023-07-10 03:17] LABS: CREATININE 2.1 mg/dL (0.55-1.3)
[2023-07-10 03:18] LABS: BILIRUBIN,TOTAL 0.9 mg/dL (0.2-1); TOT PROT 4.8 g/dl (6.4-8.2)
[2023-07-10 05:08] LABS: ANISOCYTOSIS 1+; MACROCYTOSIS 0; OVALOCYTE 1+; TARGET CELLS 2+
[2023-07-10] MEDS ORDERED: SODIUM CHLORIDE 250 ML IV PRN (07:03)
[2023-07-10] MEDS: EPOETIN ALFA-EPBX 20,000 UNIT/ML VIAL IVPUSH ONE (10:08)
[2023-07-11 07:06] LABS: HEMATOCRIT 23.9 % (35.4-49); HEMOGLOBIN 7.7 GM/dL (11.7-16.9); MCHC 32.2 g/dl (32.0-35.9); MEAN CELL VOLUME 90.1 fl (80-96); MEAN PLT VOLUME 10.5 fl (7.5-11.1); PLATELET COUNT 145 10^3/uL (134-434); RBC 2.66 M/mm3 (4.00-5.60); RDW 18.2 % (11.9-15.9); WHITE BLOOD COUNT 20.7 K/mm3 (4.0-10.0)
[2023-07-11] MEDS ORDERED: SODIUM CHLORIDE 250 ML IV PRN (16:53)
[2023-07-12] MEDS: ALBUMIN HUMAN 25% 12.5 GM/50 ML VIAL IV SCH (08:10)
[2023-07-12] MEDS: EPOETIN ALFA-EPBX 20,000 UNIT/ML VIAL IVPUSH ONE (09:19)
[2023-07-14] MEDS ORDERED: SODIUM CHLORIDE 250 ML IV PRN (07:31)
[2023-07-14] MEDS: ALBUMIN HUMAN 25% 12.5 GM/50 ML VIAL IV SCH (09:24)
[2023-07-14] MEDS: EPOETIN ALFA-EPBX 20,000 UNIT/ML VIAL IVPUSH ONE (09:28)
[2023-07-14 09:44] LABS: HEMATOCRIT 25.2 % (35.4-49); MCH 28.5 pg (25.7-33.7); MCHC 31.8 g/dl (32.0-35.9); MEAN CELL VOLUME 89.5 fl (80-96); MEAN PLT VOLUME 11.1 fl (7.5-11.1); PLATELET COUNT 189 10^3/uL (134-434); RBC 2.82 M/mm3 (4.00-5.60); RDW 17.9 % (11.9-15.9); WHITE BLOOD COUNT 22.5 K/mm3 (4.0-10.0)
[2023-07-14 09:45] LABS: CHLORIDE 100 mmol/L (98-107); POTASSIUM 3.9 mmol/L (3.5-5.1); SODIUM 138 mmol/L (136-145)
[2023-07-14 09:49] LABS: GLUCOSE,RANDOM 279 mg/dL (74-106)
[2023-07-14 09:54] LABS: ALBUMIN 1.7 g/dl (3.4-5.0); ANION GAP 14 mmol/L (4-13); CO2 24 mmol/L (21-32)
[2023-07-14 09:57] LABS: CREATININE 2.2 mg/dL (0.55-1.3); SGOT/AST 22 U/L (15-37); SGPT/ALT 19 U/L (13-61)
[2023-07-14 09:58] LABS: BILIRUBIN,TOTAL 1.1 mg/dL (0.2-1)
[2023-07-14 10:09] LABS: TOT PROT 5.1 g/dl (6.4-8.2)
[2023-07-14 10:44] LABS: ALK PHOS 170 U/L (45-117); BLOOD UREA NITROGEN 119.1 mg/dL (7-18); CALCIUM 10.9 mg/dL (8.5-10.1)
[2023-07-14] MEDS: MIDODRINE HCL 2.5 MG TABLET PO SCH (14:35)
[2023-07-15] MEDS: MIDODRINE HCL 5 MG TABLET PO SCH (13:17)
[2023-07-15] MEDS ORDERED: SODIUM CHLORIDE 250 ML IV PRN (15:30)
[2023-07-16 09:52] LABS: HEMATOCRIT 22.5 % (35.4-49); HEMOGLOBIN 7.2 GM/dL (11.7-16.9); MCH 28.6 pg (25.7-33.7); MEAN CELL VOLUME 89.2 fl (80-96); MEAN PLT VOLUME 11.3 fl (7.5-11.1); PLATELET COUNT 199 10^3/uL (134-434); RBC 2.52 M/mm3 (4.00-5.60); RDW 17.6 % (11.9-15.9); WHITE BLOOD COUNT 19.3 K/mm3 (4.0-10.0)
[2023-07-16 10:51] LABS: ANISOCYTOSIS 0; MACROCYTOSIS 0; TARGET CELLS 1+
[2023-07-16] MEDS: SODIUM CHLORIDE 250 ML IV STA (22:44)
[2023-07-17] MEDS: SODIUM CHLORIDE 250 ML IV STA (03:05)
[2023-07-17 18:35] VITALS: BP 90/53; TEMP 98
[2023-07-17 20:48] VITALS: PULSE 104; RESP 24
[2023-07-17] MEDS ORDERED: SODIUM CHLORIDE 250 ML IV PRN (21:06)
[2023-07-18] MEDS ORDERED: EPOETIN ALFA-EPBX 20,000 UNIT/ML VIAL IVPUSH ONE (00:01)
== END 2023-07-17 23:00 | DRG 4 ==
LOC: JER 10:31 → JERBED 12:49 → JICU 16:19 → J6S 06-05 21:05 → JICU 06-07 18:34 → J5S 07-07 02:47
PROVIDERS: ADMIT Internal Medicine Pulmonary Disease; ATTEND Family Medicine
PROC: 5A1955Z Respiratory Ventilation, Greater than 96 Consecutive Hours (ICD-10-PCS; 2023-05-19)
PROC: 0BH17EZ Insertion of Endotracheal Airway into Trachea, Via Natural or Artificial Opening (ICD-10-PCS; 2023-05-19)
PROC: 06HN33Z Insertion of Infusion Device into Left Femoral Vein, Percutaneous Approach (ICD-10-PCS; 2023-05-19)
PROC: 5A1D70Z Performance of Urinary Filtration, Intermittent, Less than 6 Hours Per Day (ICD-10-PCS; 2023-05-20)
PROC: 02HV33Z Insertion of Infusion Device into Superior Vena Cava, Percutaneous Approach (ICD-10-PCS; 2023-05-22)
PROC: B548ZZA Ultrasonography of Superior Vena Cava, Guidance (ICD-10-PCS; 2023-05-22)
PROC: 03HY32Z Insertion of Monitoring Device into Upper Artery, Percutaneous Approach (ICD-10-PCS; 2023-05-23)
PROC: 4A133B1 Monitoring of Arterial Pressure, Peripheral, Percutaneous Approach (ICD-10-PCS; 2023-05-23)
PROC: 4A133J1 Monitoring of Arterial Pulse, Peripheral, Percutaneous Approach (ICD-10-PCS; 2023-05-23)
PROC: 05H933Z Insertion of Infusion Device into Right Brachial Vein, Percutaneous Approach (ICD-10-PCS; 2023-05-29)
PROC: B54MZZA Ultrasonography of Right Upper Extremity Veins, Guidance (ICD-10-PCS; 2023-05-29)
PROC: 05H933Z Insertion of Infusion Device into Right Brachial Vein, Percutaneous Approach (ICD-10-PCS; 2023-05-31)
PROC: B54MZZA Ultrasonography of Right Upper Extremity Veins, Guidance (ICD-10-PCS; 2023-05-31)
PROC: 05HD33Z Insertion of Infusion Device into Right Cephalic Vein, Percutaneous Approach (ICD-10-PCS; 2023-06-04)
PROC: B54MZZA Ultrasonography of Right Upper Extremity Veins, Guidance (ICD-10-PCS; 2023-06-04)
PROC: 5A1955Z Respiratory Ventilation, Greater than 96 Consecutive Hours (ICD-10-PCS; 2023-06-07)
PROC: 0BH17EZ Insertion of Endotracheal Airway into Trachea, Via Natural or Artificial Opening (ICD-10-PCS; 2023-06-07)
PROC: 05HN33Z Insertion of Infusion Device into Left Internal Jugular Vein, Percutaneous Approach (ICD-10-PCS; 2023-06-07)
PROC: B544ZZA Ultrasonography of Left Jugular Veins, Guidance (ICD-10-PCS; 2023-06-07)
PROC: 04HY32Z Insertion of Monitoring Device into Lower Artery, Percutaneous Approach (ICD-10-PCS; 2023-06-07)
PROC: 4A133B1 Monitoring of Arterial Pressure, Peripheral, Percutaneous Approach (ICD-10-PCS; 2023-06-07)
PROC: 4A133J1 Monitoring of Arterial Pulse, Peripheral, Percutaneous Approach (ICD-10-PCS; 2023-06-07)
PROC: 02HV33Z Insertion of Infusion Device into Superior Vena Cava, Percutaneous Approach (ICD-10-PCS; 2023-06-22)
PROC: B548ZZA Ultrasonography of Superior Vena Cava, Guidance (ICD-10-PCS; 2023-06-22)
PROC: 5A1955Z Respiratory Ventilation, Greater than 96 Consecutive Hours (ICD-10-PCS; 2023-06-22)
PROC: 0BH17EZ Insertion of Endotracheal Airway into Trachea, Via Natural or Artificial Opening (ICD-10-PCS; 2023-06-22)
PROC: 03HY32Z Insertion of Monitoring Device into Upper Artery, Percutaneous Approach (ICD-10-PCS; 2023-06-25)
PROC: 4A133B1 Monitoring of Arterial Pressure, Peripheral, Percutaneous Approach (ICD-10-PCS; 2023-06-25)
PROC: 4A133J1 Monitoring of Arterial Pulse, Peripheral, Percutaneous Approach (ICD-10-PCS; 2023-06-25)
PROC: 0B113F4 Bypass Trachea to Cutaneous with Tracheostomy Device, Percutaneous Approach (ICD-10-PCS; principal; 2023-06-28)
PROC: 0BJ08ZZ Inspection of Tracheobronchial Tree, Via Natural or Artificial Opening Endoscopic (ICD-10-PCS; 2023-06-28)
PROC: 0DH63UZ Insertion of Feeding Device into Stomach, Percutaneous Approach (ICD-10-PCS; 2023-07-02)
PROC: 3E0G76Z Introduction of Nutritional Substance into Upper GI, Via Natural or Artificial Opening (ICD-10-PCS; 2023-07-02)
DX: A41.89 Other specified sepsis (principal); G93.41 Metabolic encephalopathy; J96.01 Acute respiratory failure with hypoxia; N18.6 End stage renal disease; R65.21 Severe sepsis with septic shock; R53.2 Functional quadriplegia; J18.9 Pneumonia, unspecified organism; E43 Unspecified severe protein-calorie malnutrition; I46.9 Cardiac arrest, cause unspecified; I69.354 Hemiplegia and hemiparesis following cerebral infarction affecting left non-dominant side; I12.0 Hypertensive chronic kidney disease with stage 5 chronic kidney disease or end stage renal disease; E87.20 Acidosis, unspecified; J98.11 Atelectasis; G93.1 Anoxic brain damage, not elsewhere classified; Z79.01 Long term (current) use of anticoagulants; F01.50 Vascular dementia, unspecified severity, without behavioral disturbance, psychotic disturbance, mood disturbance, and anxiety; E11.22 Type 2 diabetes mellitus with diabetic chronic kidney disease; Z99.2 Dependence on renal dialysis; E78.5 Hyperlipidemia, unspecified; K21.9 Gastro-esophageal reflux disease without esophagitis; N40.0 Benign prostatic hyperplasia without lower urinary tract symptoms; D69.6 Thrombocytopenia, unspecified; B97.4 Respiratory syncytial virus as the cause of diseases classified elsewhere; G40.909 Epilepsy, unspecified, not intractable, without status epilepticus; E83.42 Hypomagnesemia; I48.0 Paroxysmal atrial fibrillation; R13.10 Dysphagia, unspecified; L89.322 Pressure ulcer of left buttock, stage 2; L89.152 Pressure ulcer of sacral region, stage 2; D64.9 Anemia, unspecified; Z68.21 Body mass index [BMI] 21.0-21.9, adult
CPT/HCPCS: 0241U-QW; 31500; 36415; 36430; 36600; 49440; 70450-TC; 71045-TC-FY; 74018-TC-FY; 80048; 80053; 80061; 82803; 82962; 83036; 83605; 83735; 83880; 84100; 84439; 84443; 84484; 85025; 85027; 85384; 85610; 85730; 86704; 86705; 86803; 86850; 86900; 86901; 86922; 87040; 87070; 87077; 87186; 87205; 87324; 87340; 87449; 87493; 87517; 87522; 87635; 93005; 93010; 93306-TC; 94002; 94640; 94660; 99291; G0480; J0131; J0637; J3490; P9047; P9058; Q5106

== ENCOUNTER 2023-07-19 10:55 | Inpatient (IN) | payer OTHER ==
[2023-07-19] MEDS ORDERED: PIPERACILLIN/TAZOB 4.5 GM 4.5 GM/100 ML BAG IVPB ONE (11:59)
[2023-07-19 12:02] LABS: VENOUS BASE EXCESS -7.2 mmol/L (-2-2); VENOUS PCO2 34.6 mmHg (38-52); VENOUS PH 7.333 (7.310-7.410)
[2023-07-19 12:03] LABS: MCHC 30.5 g/dl (32.0-35.9); MEAN CELL VOLUME 91.8 fl (80-96); MEAN PLT VOLUME 11.1 fl (7.5-11.1); PLATELET COUNT 188 10^3/uL (134-434); RBC 2.51 M/mm3 (4.00-5.60); RDW 18.7 % (11.9-15.9); WHITE BLOOD COUNT 19.9 K/mm3 (4.0-10.0)
[2023-07-19] MEDS: PIPERACILLIN/TAZOB 4.5 GM 4.5 GM in DEXTROSE 5%-WATER 100 ML IVPB ONE (12:08)
[2023-07-19 12:12] LABS: INR 2.44 (0.83-1.09)
[2023-07-19 12:31] LABS: CHLORIDE 97 mmol/L (98-107); SODIUM 135 mmol/L (136-145)
[2023-07-19 12:32] LABS: CALCIUM 11.7 mg/dL (8.5-10.1)
[2023-07-19 12:33] LABS: ALBUMIN 1.5 g/dl (3.4-5.0); ANION GAP 16 mmol/L (4-13); CO2 22 mmol/L (21-32); GLUCOSE,RANDOM 334 mg/dL (74-106)
[2023-07-19 12:36] LABS: CREATININE 2.6 mg/dL (0.55-1.3); SGOT/AST 25 U/L (15-37); SGPT/ALT 22 U/L (13-61)
[2023-07-19 12:38] LABS: BILIRUBIN,TOTAL 1.1 mg/dL (0.2-1)
[2023-07-19 12:39] LABS: ALK PHOS 183 U/L (45-117)
[2023-07-19 12:51] LABS: BLOOD UREA NITROGEN 145.3 mg/dL (7-18); LACTIC ACID 7.8 mmol/L (0.4-2.0)
[2023-07-19] MEDS: NOREPINEPHRINE BITARTRATE 4,000 MCG in DEXTROSE 5%-WATER - 496 ML IV SCH (13:06)
[2023-07-19 14:31] LABS: ANISOCYTOSIS 0; MACROCYTOSIS 0
[2023-07-19 15:49] LABS: LACTIC ACID 7.9 mmol/L (0.4-2.0)
[2023-07-19 16:49] VITALS: BMI 21.6
[2023-07-19] MEDS: AMIODARONE IN DEXTROSE,ISO-OSM 150 MG/100 ML BAG IVPB ONE (17:25)
[2023-07-19] MEDS: PIPERACILLIN/TAZOB 2.25 GM 2.25 GM in DEXTROSE 5%-WATER - 50 ML IVPB SCH (17:26)
[2023-07-19] MEDS: SODIUM CHLORIDE 1,000 ML IV STA (17:26)
[2023-07-19] MEDS: SODIUM CHLORIDE 0.9% 500 ML INFUS.BAG IV ONE (17:44)
[2023-07-19] MEDS ORDERED: SODIUM CHLORIDE 250 ML IV PRN (17:49)
[2023-07-19] MEDS: ACETAMINOPHEN 1000 MG/100 ML BAG IVPB ONE (18:28)
[2023-07-19] MEDS: AMIODARONE IN DEXTROSE,ISO-OSM 360 MG/200 ML BAG IV SCH (18:47)
[2023-07-19] MEDS: SODIUM CHLORIDE 1,000 ML IV SCH (18:48)
[2023-07-19] MEDS: VANCOMYCIN 1,000 MG in DEXTROSE 5%-WATER - 250 ML IVPB ONE (18:48)
[2023-07-19] MEDS: NOREPINEPHRINE 0.9 % NACL 8 MG/250 ML BAG IVPB SCH (18:50)
[2023-07-19] MEDS: VANCOMYCIN/WATER FOR INJ (PEG) 1,000 MG/200 ML BAG IVPB ONE (18:54)
[2023-07-19] MEDS: ALBUMIN HUMAN 25% 12.5 GM/50 ML VIAL IV SCH (19:15)
[2023-07-19] MEDS: levETIRAcetam 500 MG/5 ML ORAL SOLUTION (UNIT-DOSE CUPS) GT SCH (21:36)
[2023-07-19] MEDS: CHLORHEXIDINE GLUCONATE 4% CLEANSER FOR DECOLONIZATION TP SCH (21:36)
[2023-07-19] MEDS: MIRTAZAPINE 15 MG TABLET (FP) PO SCH (21:36)
[2023-07-19] MEDS: MUPIROCIN 2% TOPICAL OINTMENT FOR DECOLONIZATION NS SCH (21:36)
[2023-07-20] MEDS: AMIODARONE IN DEXTROSE,ISO-OSM 360 MG/200 ML BAG IV SCH (00:09)
[2023-07-20] MEDS: APIXABAN 2.5 MG TABLET NGT SCH (06:17)
[2023-07-20 06:45] LABS: HEMATOCRIT 20.3 % (35.4-49); MCH 28.4 pg (25.7-33.7); MCHC 31.4 g/dl (32.0-35.9); MEAN CELL VOLUME 90.5 fl (80-96); MEAN PLT VOLUME 10.9 fl (7.5-11.1); PLATELET COUNT 146 10^3/uL (134-434); RBC 2.24 M/mm3 (4.00-5.60); RDW 18.4 % (11.9-15.9); WHITE BLOOD COUNT 26.1 K/mm3 (4.0-10.0)
[2023-07-20 06:58] LABS: CHLORIDE 100 mmol/L (98-107); POTASSIUM 3.4 mmol/L (3.5-5.1); SODIUM 139 mmol/L (136-145)
[2023-07-20 07:04] LABS: ALBUMIN 1.7 g/dl (3.4-5.0); ANION GAP 17 mmol/L (4-13); CALCIUM 10.8 mg/dL (8.5-10.1); CO2 21 mmol/L (21-32)
[2023-07-20 07:05] LABS: GLUCOSE,RANDOM 295 mg/dL (74-106); MAGNESIUM 1.9 mg/dL (1.8-2.4)
[2023-07-20 07:06] LABS: PHOSPHOROUS 2.8 mg/dL (2.5-4.9); SGPT/ALT 21 U/L (13-61)
[2023-07-20 07:08] LABS: SGOT/AST 22 U/L (15-37); TOT PROT 4.8 g/dl (6.4-8.2)
[2023-07-20 07:09] LABS: ALK PHOS 190 U/L (45-117); BILIRUBIN,TOTAL 1.2 mg/dL (0.2-1); BLOOD UREA NITROGEN 106.7 mg/dL (7-18)
[2023-07-20 07:27] LABS: HEMOGLOBIN 6.4 GM/dL (11.7-16.9)
[2023-07-20] MEDS ORDERED: SODIUM CHLORIDE 250 ML IV PRN (09:00)
[2023-07-20 09:17] LABS: ANISOCYTOSIS 0; MACROCYTOSIS 0
[2023-07-20 09:34] LABS: LACTIC ACID 5.8 mmol/L (0.4-2.0)
[2023-07-20] MEDS: MEROPENEM 1 GM in DEXTROSE 5%-WATER 100 ML IVPB SCH (11:24)
[2023-07-20] MEDS: VANCOMYCIN/WATER FOR INJ (PEG) 1,000 MG/200 ML BAG IVPB ONE (11:24)
[2023-07-20] MEDS: MORPHINE SULFATE/0.9% NACL/PF 100 MG/100 ML BAG IVPB SCH ×2 (11:30→17:51)
[2023-07-20] MEDS: EPOETIN ALFA-EPBX 20,000 UNIT/ML VIAL IVPUSH ONE (13:36)
[2023-07-20] MEDS: INSULIN (NOVOLOG) ASPART 100 UNITS/ML 10ML VIAL SQ ONE (13:36)
[2023-07-20] MEDS ORDERED: INSULIN ASPART SLIDING SCALE (NOVOLOG) 1 VIAL SQ SCH (16:30)
[2023-07-21 04:09] VITALS: BP 56/36; PULSE 57; RESP 19; TEMP 96.8
== END 2023-07-21 10:05 | disposition expired | DRG 871 ==
LOC: JER 10:55 → JERBED 13:56 → JICU 16:28
PROVIDERS: ADMIT Family Medicine; ATTEND Family Medicine
PROC: 5A1945Z Respiratory Ventilation, 24-96 Consecutive Hours (ICD-10-PCS; principal; 2023-07-19)
PROC: 06HY33Z Insertion of Infusion Device into Lower Vein, Percutaneous Approach (ICD-10-PCS; 2023-07-19)
DX: A41.50 Gram-negative sepsis, unspecified (principal); J18.9 Pneumonia, unspecified organism; N18.6 End stage renal disease; R53.2 Functional quadriplegia; R65.21 Severe sepsis with septic shock; I69.354 Hemiplegia and hemiparesis following cerebral infarction affecting left non-dominant side; I12.0 Hypertensive chronic kidney disease with stage 5 chronic kidney disease or end stage renal disease; E87.20 Acidosis, unspecified; J96.11 Chronic respiratory failure with hypoxia; J90 Pleural effusion, not elsewhere classified; J98.11 Atelectasis; R64 Cachexia; D64.9 Anemia, unspecified; Z68.22 Body mass index [BMI] 22.0-22.9, adult; E11.9 Type 2 diabetes mellitus without complications; F03.90 Unspecified dementia, unspecified severity, without behavioral disturbance, psychotic disturbance, mood disturbance, and anxiety; Z99.2 Dependence on renal dialysis; I46.9 Cardiac arrest, cause unspecified
CPT/HCPCS: 0241U-QW; 36415; 70450-TC; 71045-TC-FY; 71250-TC; 74176-TC; 80053; 82010; 82550; 82803; 82962; 83605; 83735; 84100; 84484; 85025; 85610; 85730; 86850; 86900; 86901; 87040; 87186; 93005; 93010; 94002; 99291; G0480; J0282; P9047